=== PATIENT | male | born 1935 | race Caucasian/White ===

== ENCOUNTER → 2016-03-10 | Outpatient (CLI) | payer MEDICARE, OTHER ==
[2016-03-10 07:37] LABS: CH 30.3; CHCM 32.9; HCT 45.4 % (39.0-53.0); HDW 2.42; HGB 14.7 gm/dL (13.0-17.5); MCHC 32.4 g/dL (31.0-37.0); MCV 92.5 fL (80.0-100.0); Mean Platelet Volume 7.6; RBC 4.91 m/uL (4.30-5.90); RDW 13.4 % (11.5-15.5); WBC 7.2 k/uL (3.8-10.6)
[2016-03-10 07:51] LABS: Calcium 9.3 mg/dL (8.4-10.2); Potassium 4.4 mmol/L (3.5-5.1); Total Bilirubin 1.3 mg/dL (0.2-1.3); Total Protein 6.9 g/dL (6.3-8.2)
== END | disposition home or self-care (01) ==
LOC: LABWHC1 07:18
PROVIDERS: ATTEND Internal Medicine
DX: E87.8 Other disorders of electrolyte and fluid balance, not elsewhere classified (principal); R53.83 Other fatigue; E78.9 Disorder of lipoprotein metabolism, unspecified
CPT/HCPCS: 36415; 80053; 80061; 85027

== ENCOUNTER 2016-08-19 18:34 | Emergency (ER) | payer MEDICARE, OTHER ==
[2016-08-19 18:38] VITALS: PULSE 74; RESP 20; TEMP 98.1
[2016-08-19] MEDS ORDERED: diphenhydrAMINE 25 MG CAP PO STA (18:45)
[2016-08-19] MEDS ORDERED: predniSONE 50 MG TAB PO STA (18:45)
--- NOTE | 2016-08-19 18:58 | ED ---
Skin/Abscess/FB HPI - General Chief complaint: Skin/Abscess/Foreign Body Stated complaint: bug bite Time Seen by Provider: 08/19/16 18:40 Source: patient, RN notes reviewed, old records reviewed Mode of arrival: ambulatory Limitations: no limitations - History of Present Illness Initial comments: 81-year-old male presents emergency Department chief complaint of left elbow irritation. Patient reports that he was cutting his grass and thinks that he either got stung by a bee or is having a reaction to another type of insect. Patient reports there is been swelling and pain over them medial aspect of the left elbow and the redness is starting to spread. Patient reports that these have symptoms all 30 this afternoon. Patient reports he is currently on Coumadin for multiple cardiac medications. Patient states that he has been taking any Benadryl or applying anything over the area. Patient denies any fever or chills. Denies any numbness tingling on the hand. Patient reports that he has normal range of motion of the elbow. Denies any falls. Patient reports that he is relatively activ, denies falling on the hand or elbow. - Related Data Home Medications Medication Instructions Recorded Confirmed Atenolol [Tenormin] 25 mg PO BID 09/08/14 05/30/15 Enalapril [Vasotec] 20 mg PO DAILY 09/08/14 05/30/15 Hydrochlorothiazide [Hydrodiuril] 25 mg PO DAILY 09/08/14 05/30/15 Isosorbide Mononitrate ER [Imdur] 30 mg PO DAILY 09/08/14 05/30/15 Potassium Chloride [K-Tab ER] 10 meq PO DAILY 09/08/14 05/30/15 Simvastatin [Zocor] 20 mg PO HS 09/08/14 05/30/15 Cyclobenzaprine [Flexeril] 5 mg PO TID PRN 05/30/15 05/30/15 Enalapril [Vasotec] 10 mg PO HS 05/30/15 05/30/15 Multivitamin [Men's Multi-Vitamin] 1 each PO DAILY 05/30/15 05/30/15 Omeprazole 40 mg PO AC-BRKFST 05/30/15 05/30/15 Warfarin Sodium [Warfarin Sodium] 2.5 mg PO SUMOWETHFRSA 05/30/15 05/30/15 Warfarin Sodium [Warfarin Sodium] 5 mg PO TU 05/30/15 05/30/15 predniSONE See Taper PO DAILY 05/30/15 05/30/15 traMADol HCl [Ultram] 50 - 100 mg PO Q6H PRN 05/30/15 05/30/15 Previous Rx's Medication Instructions Recorded Cephalexin [Keflex] 500 mg PO Q8HR #21 cap 08/19/16 Hydrocortisone Cream 1 applic TOPICAL QID #1 tube 08/19/16 [Hydrocortisone 1% Cream] methylPREDNISolone Dose Pack 4 mg PO DIRECTED #21 package 08/19/16 [Medrol Dose Pack] Allergies Allergy/AdvReac Type Severity Reaction Status Date / Time codeine Allergy Unknown Verified 08/19/16 18:39 morphine Allergy Unknown Verified 08/19/16 18:39 Penicillins Allergy Unknown Verified 08/19/16 18:39 Sulfa (Sulfonamide Allergy Unknown Verified 08/19/16 18:39 Antibiotics) Review of Systems ROS Statement: Those systems with pertinent positive or pertinent negative responses have been documented in the HPI. ROS Other: All systems not noted in ROS Statement are negative. Past Medical History Past Medical History: Atrial Fibrillation, Coronary Artery Disease (CAD), Cancer , Hypertension, Myocardial Infarction ([place]) Additional Past Medical History / Comment(s): Bladder Cancer History of Any Multi-Drug Resistant Organisms: None Reported Past Surgical History: AICD, Bladder Surgery, Coronary Bypass/CABG, Joint Replacement, Pacemaker Past Psychological History: No Psychological Hx Reported Smoking Status: Former smoker Past Alcohol Use History: None Reported Past Drug Use History: None Reported General Exam - General Exam Comments Initial Comments: Pleasant 81-year-old male. No acute distress. Limitations: no limitations General appearance: alert, in no apparent distress Head exam: Present: atraumatic, normocephalic, normal inspection Eye exam: Present: normal appearance, PERRL, EOMI. Absent: scleral icterus, conjunctival injection, periorbital swelling ENT exam: Present: normal exam, mucous membranes moist Neck exam: Present: normal inspection. Absent: tenderness, meningismus, lymphadenopathy Respiratory exam: Present: normal lung sounds bilaterally. Absent: respiratory distress, wheezes, rales, rhonchi, stridor Cardiovascular Exam: Present: regular rate, normal rhythm, normal heart sounds. Absent: systolic murmur, diastolic murmur, rubs, gallop, clicks GI/Abdominal exam: Present: soft, normal bowel sounds. Absent: distended, tenderness, guarding, rebound, rigid Extremities exam: Present: normal inspection, full ROM, normal capillary refill , other (Patient has some swelling and erythema and warmth over the medial aspect of the elbow. The area was drawn with a skin marker. ). Absent: tenderness, pedal edema, joint swelling, calf tenderness Back exam: Present: normal inspection Neurological exam: Present: alert, oriented X3, CN II-XII intact Psychiatric exam: Present: normal affect, normal mood Skin exam: Present: warm, dry, intact, normal color. Absent: rash Course Vital Signs 08/19/16 18:37 Temperature 98.1 F Pulse Rate 74 Respiratory 20 Rate Blood Pressure 198/84 O2 Sat by Pulse 99 Oximetry Medical Decision Making - Medical Decision Making 81-year-old male presents emergency Department chief complaint of left elbow irritation. Patient reports that he was cutting his grass and thinks that he either got stung by a bee or is having a reaction to another type of insect. Patient reports there is been swelling and pain over them medial aspect of the left elbow and the redness is starting to spread. Patient reports that these have symptoms all 30 this afternoon. Patient reports he is currently on Coumadin for multiple cardiac medications. Patient states that he has been taking any Benadryl or applying anything over the area. Patient will be started on steroid pack, Benadryl, hydrocortisone cream as well as Keflex. Discussed that he needs to monitor his Coumadin levels and go to see his primary next week. A line was was drawn around the area of erythema. Patient agrees to treatment plan will comply. Return parameters were discussed. Disposition Clinical Impression: Local reaction to insect sting Disposition: HOME SELF-CARE Condition: Good Instructions: Abscess Incision and Drainage (ED) Additional Instructions: Patient advised to take Benadryl every 4-6 hours. Apply cold compresses over the area. Take antibiotics and prescriptions as directed. Return to the emergency department if any alarming signs or symptoms occur. Patient is to follow-up with primary care provider regards to the Coumadin levels. Prescriptions: Cephalexin [Keflex] 500 mg PO Q8HR #21 cap Hydrocortisone Cream [Hydrocortisone 1% Cream] 1 applic TOPICAL QID #1 tube methylPREDNISolone Dose Pack [Medrol Dose Pack] 4 mg PO DIRECTED #21 package Referrals: Warren Bah MD [Primary Care Provider] - 1-2 days Time of Disposition: 18:56
[2016-08-19 19:31] VITALS: BP 163/99
== END 2016-08-19 19:20 | disposition home or self-care (01) ==
LOC: EC 18:34
DX: T63.481A Toxic effect of venom of other arthropod, accidental (unintentional), initial encounter (principal); W57.XXXA Bitten or stung by nonvenomous insect and other nonvenomous arthropods, initial encounter; M79.89 Other specified soft tissue disorders; Y92.096 Garden or yard of other non-institutional residence as the place of occurrence of the external cause; I48.91 Unspecified atrial fibrillation; I25.10 Atherosclerotic heart disease of native coronary artery without angina pectoris; I25.2 Old myocardial infarction; I10 Essential (primary) hypertension; Z95.1 Presence of aortocoronary bypass graft; Z95.810 Presence of automatic (implantable) cardiac defibrillator; Z85.51 Personal history of malignant neoplasm of bladder; Z79.01 Long term (current) use of anticoagulants; Z79.899 Other long term (current) drug therapy; Z87.891 Personal history of nicotine dependence
CPT/HCPCS: 99282; J7512

== ENCOUNTER → 2016-10-21 | Outpatient (CLI) | payer MEDICARE, OTHER ==
[2016-10-21 10:39] LABS: CH 30.3; CHCM 32.8; HCT 44.7 % (39.0-53.0); MCH 31.2 pg (25.0-35.0); MCHC 33.6 g/dL (31.0-37.0); MCV 92.7 fL (80.0-100.0); Mean Platelet Volume 7.4; RBC 4.83 m/uL (4.30-5.90); WBC 8.8 k/uL (3.8-10.6)
[2016-10-21 11:56] LABS: Potassium 4.4 mmol/L (3.5-5.1); Total Bilirubin 1.6 mg/dL (0.2-1.3); Total Protein 6.2 g/dL (6.3-8.2)
== END | disposition home or self-care (01) ==
LOC: LABWHC1 09:41
PROVIDERS: ATTEND Internal Medicine Cardiovascular Disease
DX: E78.4 Other hyperlipidemia (principal); E87.0 Hyperosmolality and hypernatremia; R53.83 Other fatigue; M12.9 Arthropathy, unspecified
CPT/HCPCS: 36415; 80053; 80061; 82550; 85027; 86140

== ENCOUNTER → 2017-03-02 | Outpatient (CLI) | payer MEDICARE, OTHER ==
[2017-03-02 10:10] LABS: HGB 14.5 gm/dL (13.0-17.5); MCH 29.4 pg (25.0-35.0); MCHC 31.5 g/dL (31.0-37.0); MCV 93.3 fL (80.0-100.0); Mean Platelet Volume 7.8; Platelet Count 184 k/uL (150-450); RBC 4.94 m/uL (4.30-5.90)
[2017-03-02 10:24] LABS: Albumin 3.7 g/dL (3.5-5.0); Calcium 9.4 mg/dL (8.4-10.2); Potassium 4.3 mmol/L (3.5-5.1); Total Bilirubin 0.7 mg/dL (0.2-1.3); Total Protein 6.4 g/dL (6.3-8.2)
== END | disposition home or self-care (01) ==
LOC: LABWHC1 09:28
PROVIDERS: ATTEND Internal Medicine
DX: E78.4 Other hyperlipidemia (principal); E87.8 Other disorders of electrolyte and fluid balance, not elsewhere classified; R53.83 Other fatigue
CPT/HCPCS: 36415; 80053; 80061; 85027

== ENCOUNTER → 2017-06-01 | Outpatient (CLI) | payer MEDICARE, OTHER ==
[2017-06-01 08:03] LABS: Albumin 3.6 g/dL (3.5-5.0); Calcium 9.2 mg/dL (8.4-10.2); Potassium 4.3 mmol/L (3.5-5.1); Total Bilirubin 0.9 mg/dL (0.2-1.3); Total Protein 6.5 g/dL (6.3-8.2)
== END | disposition home or self-care (01) ==
LOC: LABWHC1 07:07
PROVIDERS: ATTEND Internal Medicine Cardiovascular Disease
DX: I25.10 Atherosclerotic heart disease of native coronary artery without angina pectoris (principal); E78.5 Hyperlipidemia, unspecified
CPT/HCPCS: 36415; 80053; 80061

== ENCOUNTER 2017-12-25 14:54 | Observation (INO) | payer MEDICARE ==
--- NOTE | 2017-12-25 15:45 | ED ---
General Adult HPI - General Source: patient, RN notes reviewed Mode of arrival: ambulatory Limitations: no limitations <Samuel Valverde - Last Filed: 12/25/17 18:15> <Maicol Easton - Last Filed: 12/25/17 19:27> - General Chief complaint: Shortness of Breath Stated complaint: Cough Time Seen by Provider: 12/25/17 15:04 - History of Present Illness Initial comments: Patient's an 82-year-old male presented to the emergency room today with chief complaint of cough congestion over the past week. It isn't dyspneic production as been yellow at times. Patient states that he has had tightness that is felt chest. Does not that he feels congested. Patient states his symptoms started 2 weeks ago with nausea vomiting diarrhea symptoms that have improved and left with cough congestion at this time. Patient denies any recent fever, chills, shortness of breath, back pain, abdominal pain, nausea or vomiting, numbness or tingling, headaches or visual changes, or any other complaints. (Samuel Valverde) - Related Data Home Medications Medication Instructions Recorded Confirmed Atenolol [Tenormin] 75 mg PO DAILY 09/08/14 12/25/17 Enalapril [Vasotec] 20 mg PO DAILY 09/08/14 12/25/17 Isosorbide Mononitrate ER [Imdur] 30 mg PO DAILY 09/08/14 12/25/17 Potassium Chloride [K-Tab ER] 10 meq PO DAILY 09/08/14 12/25/17 Simvastatin [Zocor] 20 mg PO HS 09/08/14 12/25/17 Multivitamin [Men's Multi-Vitamin] 1 tab PO DAILY 05/30/15 12/25/17 Atenolol [Tenormin] 50 mg PO HS 12/25/17 12/25/17 Lansoprazole [Prevacid] 15 mg PO DAILY 12/25/17 12/25/17 Tamsulosin [Flomax] 0.4 mg PO DAILY 12/25/17 12/25/17 Warfarin [Coumadin] 2 mg PO HS 12/25/17 12/25/17 Allergies Allergy/AdvReac Type Severity Reaction Status Date / Time codeine Allergy Unknown Verified 12/25/17 18:00 morphine Allergy Unknown Verified 12/25/17 18:00 Penicillins Allergy Unknown Verified 12/25/17 18:00 Sulfa (Sulfonamide Allergy Unknown Verified 12/25/17 18:00 Antibiotics) Review of Systems ROS Other: All systems not noted in ROS Statement are negative. <Samuel Valverde - Last Filed: 12/25/17 18:15> ROS Other: All systems not noted in ROS Statement are negative. <Maicol Easton - Last Filed: 12/25/17 19:27> ROS Statement: Those systems with pertinent positive or pertinent negative responses have been documented in the HPI. Past Medical History Past Medical History: Atrial Fibrillation, Coronary Artery Disease (CAD), Cancer , Hypertension, Myocardial Infarction ([place]) Additional Past Medical History / Comment(s): Bladder Cancer History of Any Multi-Drug Resistant Organisms: None Reported Past Surgical History: AICD, Bladder Surgery, Coronary Bypass/CABG, Joint Replacement, Pacemaker Past Psychological History: No Psychological Hx Reported Smoking Status: Former smoker Past Alcohol Use History: None Reported Past Drug Use History: None Reported <Samuel Valverde - Last Filed: 12/25/17 18:15> General Exam Limitations: no limitations <Samuel Valverde - Last Filed: 12/25/17 18:15> <Maicol Easton Leonardo - Last Filed: 12/25/17 19:27> - General Exam Comments Initial Comments: General: The patient is awake and alert, in no distress, and does not appear acutely ill. Eye: Pupils are equal, round and reactive to light. Extra-ocular movements are intact. No nystagmus. There is normal conjunctiva bilaterally. No signs of icterus. Ears, nose, mouth and throat: There are moist mucous membranes and no oral lesions. Neck: The neck is supple, there is no tenderness or JVD. Cardiovascular: There is a regular rate and rhythm. No murmur, rub or gallop is appreciated. Respiratory: Lungs are clear to auscultation, respirations are non-labored, breath sounds are equal. No wheezes, stridor, rales, or rhonchi. Musculoskeletal: Normal ROM, no tenderness. Sensation intact. Strength 5/5. Pulses equal bilaterally 2+. Neurological: A&O x 3. CN II-XII intact, There are no obvious motor or sensory deficits. Coordination appears grossly intact. Speech is normal. Skin: Skin is warm and dry and no rashes or lesions are noted. Psychiatric: Cooperative, appropriate mood & affect, normal judgment. (Samuel Valverde) Vital Signs 12/25/17 12/25/17 12/25/17 15:00 15:30 15:40 Temperature 98.1 F Pulse Rate 61 64 Respiratory 22 18 20 Rate Blood Pressure 133/57 123/70 O2 Sat by Pulse 94 L 95 Oximetry 12/25/17 12/25/17 12/25/17 16:00 16:10 16:20 Temperature Pulse Rate 64 60 59 L Respiratory 18 18 20 Rate Blood Pressure 126/70 O2 Sat by Pulse 96 96 96 Oximetry 12/25/17 12/25/17 12/25/17 16:30 16:40 16:50 Temperature Pulse Rate 59 L 60 59 L Respiratory 19 16 12 Rate Blood Pressure O2 Sat by Pulse 95 95 95 Oximetry 12/25/17 12/25/17 12/25/17 16:59 17:00 17:05 Temperature Pulse Rate 61 60 67 Respiratory 19 Rate Blood Pressure O2 Sat by Pulse 98 Oximetry 12/25/17 12/25/17 12/25/17 17:10 17:20 17:30 Temperature Pulse Rate 60 59 L 60 Respiratory 19 20 16 Rate Blood Pressure 128/78 127/76 O2 Sat by Pulse 94 L 96 95 Oximetry 12/25/17 12/25/17 12/25/17 17:40 17:50 18:00 Temperature 98.1 F Pulse Rate 63 62 61 Respiratory 18 16 19 Rate Blood Pressure 126/86 130/86 O2 Sat by Pulse 96 96 96 Oximetry 12/25/17 12/25/17 12/25/17 18:10 18:20 18:30 Temperature Pulse Rate 59 L 61 60 Respiratory 16 17 18 Rate Blood Pressure O2 Sat by Pulse 962 H 95 97 Oximetry 12/25/17 12/25/17 12/25/17 18:40 18:50 19:00 Temperature 98.2 F Pulse Rate 60 67 70 Respiratory 14 38 H 17 Rate Blood Pressure 127/84 O2 Sat by Pulse 96 98 Oximetry 12/25/17 12/25/17 12/25/17 19:09 19:10 19:22 Temperature Pulse Rate 59 L 64 Respiratory Rate Blood Pressure O2 Sat by Pulse 99 Oximetry Medical Decision Making - Lab Data Result diagrams: 12/25/17 15:55 12/25/17 15:55 <Samuel Valverde - Last Filed: 12/25/17 18:15> - Lab Data Result diagrams: 12/25/17 15:55 12/25/17 15:55 <Maicol Easton - Last Filed: 12/25/17 19:27> - Medical Decision Making Patient's x-ray reviewed shows no evidence of pneumonia. Patient labs been reviewed. EKG shows ventricular paced rhythm. Patient's lung sounds improved after breathing treatment. Does admit to feeling cough congestion over the last week with sputum production. Patient will be admitted to the hospital continued on breathing treatments, steroids started on antibiotics. (Samuel Valverde) 82-year-old male with 1 week of cough and congestion. Patient has diffuse wheezing, rhonchi, poor air entry. After steroids, and albuterol he is reevaluated, persistent wheezing and mild dyspnea. Patient does not have a diagnosis COPD but he does have remote history of tobacco use. This is likely reactive airway disease with concern for developing pneumonia. He is given albuterol, steroids, and started on antibiotics. (Maicol Easton) - Lab Data Lab Results 12/25/17 12/25/17 12/25/17 Range/Units 15:55 15:55 15:55 WBC 8.3 (3.8-10.6) k/uL RBC 4.77 (4.30-5.90) m/uL Hgb 14.5 (13.0-17.5) gm/dL Hct 43.0 (39.0-53.0) % MCV 90.2 (80.0-100.0) fL MCH 30.5 (25.0-35.0) pg MCHC 33.8 (31.0-37.0) g/dL RDW 13.1 (11.5-15.5) % Plt Count 164 (150-450) k/uL Neutrophils % 74 % Lymphocytes % 12 % Monocytes % 9 % Eosinophils % 3 % Basophils % 0 % Neutrophils # 6.1 (1.3-7.7) k/uL Lymphocytes # 1.0 (1.0-4.8) k/uL Monocytes # 0.7 (0-1.0) k/uL Eosinophils # 0.3 (0-0.7) k/uL Basophils # 0.0 (0-0.2) k/uL PT (9.0-12.0) sec INR (<1.2) APTT (22.0-30.0) sec Sodium 139 (137-145) mmol/L Potassium 4.1 (3.5-5.1) mmol/L Chloride 105 (98-107) mmol/L Carbon Dioxide 26 (22-30) mmol/L Anion Gap 8 mmol/L BUN 23 H (9-20) mg/dL Creatinine 1.52 H (0.66-1.25) mg/dL Est GFR (CKD-EPI)AfAm 50 (>60 ml/min/1.73 sqM) Est GFR (CKD-EPI)NonAf 43 (>60 ml/min/1.73 sqM) Glucose 121 H (74-99) mg/dL Calcium 9.1 (8.4-10.2) mg/dL Total Bilirubin 1.2 (0.2-1.3) mg/dL AST 33 (17-59) U/L ALT 23 (21-72) U/L Alkaline Phosphatase 70 (38-126) U/L Total Creatine Kinase 167 (55-170) U/L CK-MB (CK-2) 0.5 (0.0-2.4) ng/mL CK-MB (CK-2) Rel Index 0.3 Troponin I 0.015 (0.000-0.034) ng/mL Total Protein 6.4 (6.3-8.2) g/dL Albumin 3.4 L (3.5-5.0) g/dL 12/25/17 Range/Units 15:55 WBC (3.8-10.6) k/uL RBC (4.30-5.90) m/uL Hgb (13.0-17.5) gm/dL Hct (39.0-53.0) % MCV (80.0-100.0) fL MCH (25.0-35.0) pg MCHC (31.0-37.0) g/dL RDW (11.5-15.5) % Plt Count (150-450) k/uL Neutrophils % % Lymphocytes % % Monocytes % % Eosinophils % % Basophils % % Neutrophils # (1.3-7.7) k/uL Lymphocytes # (1.0-4.8) k/uL Monocytes # (0-1.0) k/uL Eosinophils # (0-0.7) k/uL Basophils # (0-0.2) k/uL PT 22.7 H (9.0-12.0) sec INR 2.5 H (<1.2) APTT 31.2 H (22.0-30.0) sec Sodium (137-145) mmol/L Potassium (3.5-5.1) mmol/L Chloride (98-107) mmol/L Carbon Dioxide (22-30) mmol/L Anion Gap mmol/L BUN (9-20) mg/dL Creatinine (0.66-1.25) mg/dL Est GFR (CKD-EPI)AfAm (>60 ml/min/1.73 sqM) Est GFR (CKD-EPI)NonAf (>60 ml/min/1.73 sqM) Glucose (74-99) mg/dL Calcium (8.4-10.2) mg/dL Total Bilirubin (0.2-1.3) mg/dL AST (17-59) U/L ALT (21-72) U/L Alkaline Phosphatase (38-126) U/L Total Creatine Kinase (55-170) U/L CK-MB (CK-2) (0.0-2.4) ng/mL CK-MB (CK-2) Rel Index Troponin I (0.000-0.034) ng/mL Total Protein (6.3-8.2) g/dL Albumin (3.5-5.0) g/dL Disposition Is patient prescribed a controlled substance at d/c from ED?: No Time of Disposition: 18:02 <Samuel Valverde - Last Filed: 12/25/17 18:15> <Maicol Easton - Last Filed: 12/25/17 19:27> Clinical Impression: Reactive airway disease Disposition: ADMITTED IP TO THIS HOSP Condition: Stable Addendum entered and electronically signed by Samuel Valverde PA-C 12/25/17 18: 25: EKG performed at 1522: Shows no electronically paced rhythm at 60 bpm. QRS 178. QT/QTc 498/498.
--- NOTE | 2017-12-25 16:15 | XR ---
EXAMINATION TYPE: XR chest 2V DATE OF EXAM: 12/25/2017 COMPARISON: NONE HISTORY: 82-year-old male with chest pain TECHNIQUE: Frontal and lateral views of the chest are obtained. FINDINGS: There is no focal air space opacity, pleural effusion, or pneumothorax seen. The cardiac silhouette size is within normal limits. Dual-lead AICD is present. The osseous structures are intac t. IMPRESSION: No acute cardiopulmonary process.
[2017-12-25 16:18] LABS: Basophils % (A) 0 %; Eosinophils # (A) 0.3 k/uL (0-0.7); Eosinophils % (A) 3 %; HGB 14.5 gm/dL (13.0-17.5); Lymphocytes % (A) 12 %; MCH 30.5 pg (25.0-35.0); MCHC 33.8 g/dL (31.0-37.0); MCV 90.2 fL (80.0-100.0); Mean Platelet Volume 7.3; Monocytes # (A) 0.7 k/uL (0-1.0); Monocytes % (A) 9 %; Neutrophils # (A) 6.1 k/uL (1.3-7.7); Neutrophils % (A) 74 %; Platelet Count 164 k/uL (150-450); RBC 4.77 m/uL (4.30-5.90); RDW 13.1 % (11.5-15.5); WBC 8.3 k/uL (3.8-10.6)
[2017-12-25 16:20] LABS: INR 2.5 (<1.2); Partial Thromboplastin Time 31.2 sec (22.0-30.0); Prothrombin Time 22.7 sec (9.0-12.0)
[2017-12-25 16:26] LABS: Albumin 3.4 g/dL (3.5-5.0); Calcium 9.1 mg/dL (8.4-10.2); Potassium 4.1 mmol/L (3.5-5.1); Total Bilirubin 1.2 mg/dL (0.2-1.3); Total Protein 6.4 g/dL (6.3-8.2)
[2017-12-25 16:41] LABS: Creatine Kinase MB 0.5 ng/mL (0.0-2.4); Troponin I 0.015 ng/mL (0.000-0.034)
[2017-12-25] MEDS ORDERED: IPRATROPIUM-ALBUTEROL 3 ML NEB INHALATION STA ×2 (16:44→17:40)
[2017-12-25] MEDS ORDERED: methylPREDNISolone SOD SUCCI 125 MG/2 ML VIAL IV STA (17:40)
[2017-12-25] MEDS ORDERED: AZITHROMYCIN 500 MG in SODIUM CHLORIDE 0.9% 250 ML IVPB STA (17:41)
[2017-12-25] MEDS ORDERED: ACETAMINOPHEN TAB 500 MG TAB PO STA (17:44)
[2017-12-25] MEDS ORDERED: SODIUM CHLORIDE 0.9% 1,000 ML IV ONE (18:18)
[2017-12-25] MEDS ORDERED: NALOXONE 0.4 MG/ML 1 ML VIAL IV PRN (18:18)
[2017-12-25] MEDS ORDERED: ACETAMINOPHEN TAB 325 MG TAB PO PRN (18:18)
[2017-12-25] MEDS ORDERED: ONDANSETRON 4 MG/2 ML VIAL IVP PRN (18:18)
[2017-12-25] MEDS: IPRATROPIUM-ALBUTEROL 3 ML NEB INHALATION SCH ×2 (19:49→23:37)
[2017-12-25] MEDS: ATORVASTATIN 10 MG TAB PO SCH (21:15)
[2017-12-25] MEDS: WARFARIN 2 MG TAB PO SCH (21:15)
[2017-12-25] MEDS: ATENOLOL 50 MG TAB PO SCH (21:15)
[2017-12-26] MEDS: methylPREDNISolone SOD SUCCI 125 MG/2 ML VIAL IV SCH ×2 (00:01→04:51)
[2017-12-26] MEDS: IPRATROPIUM-ALBUTEROL 3 ML NEB INHALATION SCH ×6 (03:09→23:41)
[2017-12-26 07:29] LABS: Basophils % (A) 0 %; Eosinophils % (A) 0 %; HCT 44.6 % (39.0-53.0); HGB 14.6 gm/dL (13.0-17.5); Lymphocytes # (A) 0.4 k/uL (1.0-4.8); Lymphocytes % (A) 8 %; MCHC 32.8 g/dL (31.0-37.0); MCV 91.5 fL (80.0-100.0); Mean Platelet Volume 7.1; Monocytes # (A) 0.1 k/uL (0-1.0); Monocytes % (A) 2 %; Neutrophils % (A) 90 %; Platelet Count 163 k/uL (150-450); RBC 4.88 m/uL (4.30-5.90); WBC 4.4 k/uL (3.8-10.6)
[2017-12-26 07:31] LABS: INR 2.3 (<1.2); Prothrombin Time 21.2 sec (9.0-12.0)
[2017-12-26 07:55] LABS: Calcium 9.2 mg/dL (8.4-10.2); Potassium 4.1 mmol/L (3.5-5.1)
[2017-12-26] MEDS: LISINOPRIL 20 MG TAB PO SCH (08:57)
[2017-12-26] MEDS: ISOSORBIDE MONONITRATE ER 30 MG TAB.ER.24H PO SCH (08:57)
[2017-12-26] MEDS: POTASSIUM CHLORIDE ER 10 MEQ TAB.ER.PRT PO SCH (08:57)
[2017-12-26] MEDS: ATENOLOL 25 MG TAB PO SCH (08:57)
[2017-12-26] MEDS: PANTOPRAZOLE 40 MG TABLET PO SCH (08:57)
[2017-12-26] MEDS: TAMSULOSIN 0.4 MG CAP.ER.24H PO SCH (08:57)
--- NOTE | 2017-12-26 10:02 | HP ---
HISTORY AND PHYSICAL ATTENDING PHYSICIAN: Dr. Bah. ADMITTING PHYSICIAN: Dr. Mac Greenberg. CHIEF COMPLAINT: Shortness of breath. HISTORY OF PRESENT ILLNESS: This is an 82-year-old gentleman who presents to the emergency room because of cough, congestion, and shortness of breath. The patient says he started having some symptoms about 5 days ago. He initially had flu-like symptoms associated some diarrhea. No blood in the stools. The diarrhea lasted about a day. Next day started having some chest congestion. Denies any sore throat. Denies any fever. Had some chills. The patient presents to the hospital today because of some increasing cough, congestion, and shortness of breath. The patient has a temperature in the ER was 98.1, respirations 22. Pulse ox of 94% on room air. I was informed by the ER physician that the patient's chest sounded very congested and he was quite sick and short of breath. The patient is admitted to the hospital in view of this. At the time of my evaluation a few over hours later, the patient is alert, wearing oxygen with pulse ox 96 percent and feeling better since he has received some respiratory treatments. The patient has no other symptoms of chest pain. His white count was normal. PAST MEDICAL HISTORY: Significant for coronary artery disease with previous CABG, history of hypertension. No history of any diabetes mellitus, lung disease, liver disease, kidney disease, however, patient's creatinine is 1.52 with a GFR of 43. The patient does have a history of carcinoma of the bladder for which he has been treated for the past 5 years with no suggestion of recurrence. He has an evaluation scheduled again next month for a followup. He has abdominal aortic aneurysm at 4.8 cm. The patient has no history of any ulcers, TB, hepatitis, rheumatic fever, myocardial infarction or CVA. PAST SURGICAL HISTORY: Significant for CABG x3 back in 2002. He has also has had a pacemaker and AICD. Suspect he has probably got cardiomyopathy. Patient's past surgical history significant for CABG, left hip arthroplasty, and cataract surgery. He has had a bladder cystoscopies. PERSONAL HISTORY: Ex-smoker, quit smoking more than 30 years ago. Smoked for about 15 years, pack per day. Alcohol none. ALLERGIES: PENICILLIN AND SULFA, which both cause a rash. MORPHINE AND CODEINE SENSITIVE. MEDICATIONS: Include: Atenolol 75 mg in the morning, 50 mg at bedtime, Vasotec 20 mg daily, Imdur 30 mg daily. Prevacid 15 mg daily, multivitamin daily, potassium chloride 10 mEq daily, simvastatin 20 mg daily, Flomax 0.4 mg daily. Coumadin 2 mg daily. SOCIAL HISTORY: Patient is , lives alone. FAMILY MEDICAL HISTORY: Father at the age of 74, chronic kidney disease. Mother age of 84 with history of diabetes with complications. Patient had brother who at 50 years of age of a malignancy, type unknown. A brother at the age of 84 of ruptured abdominal aortic aneurysm. The brother 90 years of age with coronary artery disease and blindness. The patient has 2 sisters, one 78 and one 82 and both in relative good health. REVIEW OF SYSTEMS: NEURO: Denies any headaches, dizziness. No double vision or blurred vision. PSYCH: No anxiety or depression. CARDIAC: No chest pain, angina, palpitations. RESPIRATORY: Present complaint of shortness of breath, cough, congestion. GI: No nausea, vomiting, abdominal pain, diarrhea, constipation, hematochezia, melena. : No symptoms of dysuria, hematuria, urgency, frequency. EXTREMITIES: Denies pain, edema. CONSTITUTIONAL: No fever or chills. HEMATOLOGICAL: No anemia or bleeding disorder. ENDOCRINE: No history of diabetes mellitus. PHYSICAL EXAMINATION: Pleasant gentleman at present in no distress. Vital signs reveals temperature 98.1, pulse 67, respirations 20, blood pressure 144/61, pulse ox 92% on 2 L. HEENT: Normocephalic. Neck supple. No JVD. Pharynx is clear. Dentition upper dentures, lower only partial dentition intact. Neck reveals no JVD. No carotid bruits or thyromegaly. Chest examination is clear to percussion. The patient does have some scattered rhonchi which do clear with cough. The patient's cardiac examination reveals normal S1, S2 with no gallops. Systolic murmur 2/6 at apex. Abdomen is soft. Bowel sounds are normal. No organomegaly. No abdominal bruits. Extremities reveal no edema. Left foot adequate pulse. Right foot decreased pulses. Neurologically awake, alert, oriented x3 with well-coordinated movements. LABORATORY ASSESSMENT: Chest x-ray which shows no acute pulmonary changes. EKG is pacemaker rhythm with 100% capture. CBC was normal. Electrolytes normal. BUN and creatinine elevated 23, 1.52. Glucose 121 random. Troponin is negative. Albumin 3.4. Normal hepatic function. ASSESSMENT: 1. Tracheobronchitis. 2. History of coronary artery disease. 3. Chronic kidney disease stage III. 4. History of abdominal aortic aneurysm. PLAN: The patient at present is stable, continue present medical regimen. Patient's condition discussed with the patient. Prognosis is guarded. The patient will be given some antibiotic with Zithromax and Rocephin, a steroid probably for 24 hours IV and subsequently oral. The patient's condition is stable at present. Condition discussed with the patient's family. MMODL / IJN: [id number] /
[2017-12-26] MEDS ORDERED: BENZONATATE 100 MG CAP PO PRN ×2 (10:10→11:03)
[2017-12-26] MEDS ORDERED: BENZONATATE 100 MG CAP PO SCH (10:15)
[2017-12-26] MEDS: MULTIVITAMINS, THERA 1 EACH TAB PO SCH (11:03)
--- NOTE | 2017-12-26 12:13 | P.PN ---
Subjective Progress Note Date: 12/26/17 This 82-year-old gentleman was admitted to the hospital for shortness of breath cough congestion. Patient has a history of atherosclerotic heart disease. Denies any other associated symptoms of angina palpitations. He has some shortness of breath. He feels better today. His been getting and IV steroids. The patient feels jittery with the steroids and is flushed face. We will discontinue steroids as there is no wheezing he does have a cough with mild congestion. REVIEW OF SYSTEMS: Neuro: Denies any headaches dizziness. Psych: Denies anxiety depression feels oriented. Cardiac: Denies chest pain and angina palpitations. Respiratory: Denies shortness of breath with oxygen on. Does have cough with no sputum production. GI: Denies nausea vomiting or abdominal pain. No diarrhea or constipation, no bowel movement yet. : Denies dysuria hematuria. Extremities: Denies pain. No edema. Skin: Intact. Constitutional: No fever, chills. Objective - Vital Signs Vital signs: Vital Signs Temp 98.0 F 12/26/17 06:05 Pulse 72 12/26/17 10:48 Resp 20 12/26/17 06:05 BP 152/79 12/26/17 06:05 Pulse Ox 92 L 12/26/17 06:05 Intake & Output 12/25/17 12/26/17 12/26/17 18:59 06:59 18:59 Weight 83.915 kg 83.915 kg Other: # Voids 2 PHYSICAL EXAMINATION: Cooperative, at present in no acute distress. HEENT: Neck supple. No JVD. Chest: Occasional scattered rhonchi no wheezing Cardiac: Normal S1-S2 with occasional extrasystole no gallops systolic murmur 2/ 6 apex. Abdomen: Soft bowel sounds present. Extremities: No edema no tenderness Neurologically: Awake, alert, oriented with well-coordinated movements. - Labs CBC & Chem 7: 12/26/17 07:01 12/26/17 07:01 Labs: Abnormal Lab Results - Last 24 Hours (Table) 12/25/17 12/25/17 12/26/17 Range/Units 15:55 15:55 07:01 Lymphocytes # 0.4 L (1.0-4.8) k/uL PT 22.7 H (9.0-12.0) sec INR 2.5 H (<1.2) APTT 31.2 H (22.0-30.0) sec BUN 23 H (9-20) mg/dL Creatinine 1.52 H (0.66-1.25) mg/dL Glucose 121 H (74-99) mg/dL Albumin 3.4 L (3.5-5.0) g/dL 12/26/17 12/26/17 Range/Units 07:01 07:01 Lymphocytes # (1.0-4.8) k/uL PT 21.2 H (9.0-12.0) sec INR 2.3 H (<1.2) APTT (22.0-30.0) sec BUN 26 H (9-20) mg/dL Creatinine 1.42 H (0.66-1.25) mg/dL Glucose 182 H (74-99) mg/dL Albumin (3.5-5.0) g/dL Assessment and Plan Assessment: ASSESSMENT: 1. Tracheobronchitis. 2. ASHD. 3. Pacemaker status. 4. Chronic kidney disease stage III. PLAN: Plan continue present medical regimen. Discontinue steroids. Start patient on Tessalon for cough. Anticipate discharge within next 2448 hrs. Patient's prognosis remains guarded condition discussed with patient. Patient wants no CPR.
[2017-12-26] MEDS: WARFARIN 2 MG TAB PO SCH (17:06)
[2017-12-26] MEDS ORDERED: AZITHROMYCIN 500 MG in SODIUM CHLORIDE 0.9% 250 ML IVPB SCH (18:00)
[2017-12-26] MEDS: ATORVASTATIN 10 MG TAB PO SCH (21:57)
[2017-12-26] MEDS: ATENOLOL 50 MG TAB PO SCH (21:57)
[2017-12-27] MEDS: LORazepam 1 MG TAB PO PRN ×2 (00:11→21:32)
[2017-12-27] MEDS: IPRATROPIUM-ALBUTEROL 3 ML NEB INHALATION SCH ×6 (03:45→23:03)
[2017-12-27] MEDS ORDERED: BISACODYL 5 MG TABLET.DR PO PRN (08:07)
--- NOTE | 2017-12-27 08:14 | P.PN ---
Progress Note - Text The patient is a 82-year-old gentleman who was admitted by Dr. Dionicio pappas for me. Patient was admitted with exacerbation of underlying COPD and tracheobronchitis. He has been coughing and short of breath. He does have underlying history of hypertension, has chronic heart disease with previous pacemaker placement and chronic kidney disease. Generally he states he has been feeling better but with minimal exertion he does drop his O2 saturation down into the 80s. No complaints of chest pain. No nausea or vomiting. He has had some constipation. Vital signs this morning reveal temperature of 98.5 with a pulse of 69 and respirations 16. Blood pressure 119/62 and he is 96% saturated on 2 L. At rest. Lungs do reveal some harsh expiratory rhonchi bilaterally. Heart tones reveal a soft systolic murmur. Abdomen nontender. No unusual edema. He is alert and oriented without focal neurological deficits. Labs No new labs this morning. Lasix BUN and creatinine was 26 and 1.42 given him a GFR of 47. Random blood sugar was 182. Impressions and plans COPD with tracheobronchitis. With exacerbation. Acute on chronic respiratory failure with hypoxia with minimal exertion. The patient was on IV corticosteroids. We will resume lower dose of oral corticosteroids along with his antibiotics. Discussed with nursing staff. We'll continue treatment over the next 24 hours. Possible discharge if clinically improves. We'll also need to consider possibility of home O2 if he does not improve his oxygenation with exertion.
[2017-12-27 09:39] LABS: INR 2.8 (<1.2); Prothrombin Time 24.9 sec (9.0-12.0)
[2017-12-27] MEDS: POTASSIUM CHLORIDE ER 10 MEQ TAB.ER.PRT PO SCH (09:50)
[2017-12-27] MEDS: TAMSULOSIN 0.4 MG CAP.ER.24H PO SCH (09:51)
[2017-12-27] MEDS: PANTOPRAZOLE 40 MG TABLET PO SCH (09:51)
[2017-12-27] MEDS: predniSONE 10 MG TAB PO SCH (09:51)
[2017-12-27] MEDS: ATENOLOL 25 MG TAB PO SCH (09:51)
[2017-12-27] MEDS: ISOSORBIDE MONONITRATE ER 30 MG TAB.ER.24H PO SCH (09:51)
[2017-12-27] MEDS: LISINOPRIL 20 MG TAB PO SCH (09:51)
[2017-12-27] MEDS: MULTIVITAMINS, THERA 1 EACH TAB PO SCH (09:51)
[2017-12-27] MEDS: WARFARIN 2 MG TAB PO SCH (17:07)
[2017-12-27] MEDS ORDERED: AZITHROMYCIN 500 MG TAB PO SCH (18:00)
[2017-12-27] MEDS: ATORVASTATIN 10 MG TAB PO SCH (21:32)
[2017-12-27] MEDS: ATENOLOL 50 MG TAB PO SCH (21:32)
[2017-12-27 23:19] VITALS: RESP 16
[2017-12-28] MEDS: IPRATROPIUM-ALBUTEROL 3 ML NEB INHALATION SCH ×2 (03:12→07:45)
[2017-12-28 06:20] VITALS: BP 134/79; TEMP 97
[2017-12-28] MEDS: ATENOLOL 25 MG TAB PO SCH (07:49)
[2017-12-28] MEDS: TAMSULOSIN 0.4 MG CAP.ER.24H PO SCH (07:49)
[2017-12-28] MEDS: ISOSORBIDE MONONITRATE ER 30 MG TAB.ER.24H PO SCH (07:50)
[2017-12-28] MEDS: LISINOPRIL 20 MG TAB PO SCH (07:50)
[2017-12-28] MEDS: PANTOPRAZOLE 40 MG TABLET PO SCH (07:50)
[2017-12-28] MEDS: predniSONE 10 MG TAB PO SCH (07:50)
[2017-12-28] MEDS: POTASSIUM CHLORIDE ER 10 MEQ TAB.ER.PRT PO SCH (07:50)
[2017-12-28 07:57] VITALS: PULSE 88
--- NOTE | 2017-12-28 08:04 | P.DS ---
Providers Date of admission: 12/25/17 18:33 Mr. Waslh is a 82-year-old gentleman who has underlying COPD and presented with increasing cough congestion and shortness of breath. The patient was admitted by Dr. Greenberg to my service in my absence. Comorbidities include history of coronary artery disease with previous bypass. Hypertension. Chronic kidney disease. Previous history of bladder carcinoma treated 5 years ago with no recurrence. History of aortic aneurysm at 4.8 cm. History of placed maker placement and AICD placement Initial workup in the emergency room did not show any acute changes on his chest x-ray and EKG showed pacemaker rhythm with normal capturing. CBC was unremarkable along with normal electrolytes. BUN was 23 with a creatinine of 1.52 given him a GFR of 43. Random blood sugar was 121. Troponins remain negative. Normal liver function and albumin was 3.4. The patient was admitted and treated with IV antibiotics along with respiratory treatments and corticosteroids were added. Initially had some increase tremors with the IV prednisone and this was stopped and later changed to oral as he did have some persistent wheeze. Overall though clinically he improved. Less shortness of breath. The need for possible home O2 will be clinically followed up in the office as he recovers from this bronchitis. This morning his temperature is 90.7 with a pulse of 85 and respirations 16. Blood pressure is 134/79 and he is 96% saturated. Lungs do reveal some scattered expiratory wheeze but much improved from yesterday. Heart tones were regular. Abdomen nontender. No edema. Tremor of the right upper extremity. No focal neurological weakness or cranial nerve deficits. He is alert and oriented. Home medications Levaquin 500 mg daily for 7 more days. Prednisone 20 mg daily for 7 more days. Patient is instructed to decrease his Coumadin down to 1 mg a day while he is on antibiotics. He will resume his home medications with his tamsulosin 0.4 mg daily Simvastatin 20 mg at at bedtime for cholesterol Potassium chloride 10 mEq daily Multiple vitamin 1 daily For facet 15 mg daily Isorbid mononitrate 30 mg daily Enalapril 20 mg daily Metformin 50 mg at at bedtime and 75 mg daily. Diet and activities as tolerated. No marked exertional activities until follow- up in the office. Recommended follow-up in the office in 3-5 days. Call if any concerns or problems. Discharge diagnoses Exacerbation of COPD with tracheobronchitis and acute on chronic respiratory failure with pO2 Strop at into the 80s with exertion. Underlying history of moderate COPD. Acute on chronic renal failure stage III with a GFR 43. History of coronary artery disease with previous bypass surgery. Previous history of pacemaker placement and AICD placement. Followed by cardiology. History of aortic aneurysm last measured at 4.8 cm History of bladder CA treated 5 years ago without recurrence. Hypertension and hypertensive heart disease. Essential tremor right arm. Hypercholesterolemia Attending physician: Warren Bah Primary care physician: Warren Bah Patient Condition at Discharge: Stable Plan - Discharge Summary New Discharge Prescriptions: No Action Isosorbide Mononitrate ER [Imdur] 30 mg PO DAILY Enalapril [Vasotec] 20 mg PO DAILY Atenolol [Tenormin] 75 mg PO DAILY Simvastatin [Zocor] 20 mg PO HS Potassium Chloride [K-Tab ER] 10 meq PO DAILY Multivitamin [Men's Multi-Vitamin] 1 tab PO DAILY Atenolol [Tenormin] 50 mg PO HS Lansoprazole [Prevacid] 15 mg PO DAILY Tamsulosin [Flomax] 0.4 mg PO DAILY Warfarin [Coumadin] 2 mg PO HS Discharge Medication List Atenolol [Tenormin] 75 mg PO DAILY 09/08/14 [History] Enalapril [Vasotec] 20 mg PO DAILY 09/08/14 [History] Isosorbide Mononitrate ER [Imdur] 30 mg PO DAILY 09/08/14 [History] Potassium Chloride [K-Tab ER] 10 meq PO DAILY 09/08/14 [History] Simvastatin [Zocor] 20 mg PO HS 09/08/14 [History] Multivitamin [Men's Multi-Vitamin] 1 tab PO DAILY 05/30/15 [History] Atenolol [Tenormin] 50 mg PO HS 12/25/17 [History] Lansoprazole [Prevacid] 15 mg PO DAILY 12/25/17 [History] Tamsulosin [Flomax] 0.4 mg PO DAILY 12/25/17 [History] Warfarin [Coumadin] 2 mg PO HS 12/25/17 [History] Follow up Appointment(s)/Referral(s): Warren Bah MD [Primary Care Provider] - 1-2 days
[2017-12-28 09:12] LABS: INR 3.1 (<1.2); Prothrombin Time 27.7 sec (9.0-12.0)
== END 2017-12-28 09:22 | disposition home or self-care (01) ==
LOC: EC 14:54 → 4MS4W 18:33
PROVIDERS: ADMIT Internal Medicine; ATTEND Internal Medicine
DX: J44.1 Chronic obstructive pulmonary disease with (acute) exacerbation (principal); J45.909 Unspecified asthma, uncomplicated; E78.00 Pure hypercholesterolemia, unspecified; G25.0 Essential tremor; I13.10 Hypertensive heart and chronic kidney disease without heart failure, with stage 1 through stage 4 chronic kidney disease, or unspecified chronic kidney disease; I25.10 Atherosclerotic heart disease of native coronary artery without angina pectoris; I48.91 Unspecified atrial fibrillation; J96.20 Acute and chronic respiratory failure, unspecified whether with hypoxia or hypercapnia; N17.9 Acute kidney failure, unspecified; N18.3 Chronic kidney disease, stage 3 (moderate); Z79.01 Long term (current) use of anticoagulants; I25.2 Old myocardial infarction; Z85.51 Personal history of malignant neoplasm of bladder; Z86.79 Personal history of other diseases of the circulatory system; Z87.891 Personal history of nicotine dependence; Z95.810 Presence of automatic (implantable) cardiac defibrillator; Z95.1 Presence of aortocoronary bypass graft; Z96.642 Presence of left artificial hip joint; Z98.49 Cataract extraction status, unspecified eye; Z82.49 Family history of ischemic heart disease and other diseases of the circulatory system; Z82.1 Family history of blindness and visual loss; Z83.3 Family history of diabetes mellitus
CPT/HCPCS: 96376; 96361 ×2; 96366 ×3; 96367; 96365; 96375; 99285; 36415; 94640 ×7; 94760; 93005; 80053; 80048; 82550; 82553; 84484; 85025 ×2; 85610 ×4; 85730; 71046; G0378 ×4; J2930 ×2; J0456 ×2; J0696 ×3; J7512 ×2

== ENCOUNTER → 2018-01-21 | Outpatient (CLI) | payer MEDICARE ==
--- NOTE | 2018-01-21 16:32 | CT ---
EXAMINATION TYPE: CT abdomen pelvis wo con DATE OF EXAM: 01/21/2018 COMPARISON: 05/30/2015 INDICATION: hematuria for 1 week DLP: 792.5 mGycm, Automated exposure control for dose reduction was used. CONTRAST: 0 mL of Isovue 300. Study performed with Oral Contrast TECHNIQUE: Axial images were obtained from above the diaphragm to the pubic rami in the axial plane a t 5 mm thick sections. Reconstructed images are reviewed on the computer in the coronal plane. FINDINGS: Limited CT sections are obtained the lung bases. There is a 0.3 cm calcification within the left niyah g base. Some tenting of the pleural margin is evident. Findings are stable from comparison compatible with scarring.. CT ABDOMEN: Vascular calcification is within the descending thoracic aorta. Liver: Normal Spleen: Normal Pancreas: Normal Adrenal glands: The adrenal glands are normal. Gallbladder: Surgically absent Kidneys: No masses are evident. No hydronephrosis is present. There is a 7.6 cm hypodensity measuri ng 10 Hounsfield units extending from the posterior mid left kidney likely is a cyst. A peripelvic cy st may be present. Prominence of the renal pelvis is also present on the left. No obstructing etiolog y is evident. There is a 5.3 cm cyst extending from the inferior pole right kidney measuring 9 Hounsf ield units. Additional right renal cysts are present. There is a 2.2 cm hypodensity measuring 17 Houn sfield units extending from the posterior lateral left kidney. Complex cyst may be present. This was present previously but likely slightly larger. Additional evaluation with ultrasound is recommended. Right renal cyst appears similar to comparison. Delayed images were obtained through the kidneys, whi ch remain unremarkable. Aorta: Vascular calcification is within the aorta. There is a 4.4 cm mid abdominal aorta aneurysm in frarenal region which terminates above the bifurcation. Inferior vena cava: Normal. CT PELVIS: Lower pelvis is limited due to beam hardening artifact from left hip prosthesis. Loops of bowel within the abdomen and pelvis are normal. There are loops of bowel which are incom pletely distended or lack oral contrast limiting their evaluation. Multiple diverticuli without acute diverticulitis within the sigmoid colon. Appendix: Not well visualized. No suspicious inflammatory changes evident. Urinary bladder: Some subtle thickening measuring 1.0 cm along the anterior right margin of the urina ry bladder may be present. Additional workup of this area is recommended. Series 6 image 71. Genitourinary structures: Prostate is prominent. Osseous structures: No suspicious lytic or sclerotic lesions. Left hip prosthesis is present. IMPRESSIONS: 1. Increasing size of abdominal aortic aneurysm with AP dimension measuring 4.4 cm currently. This p reviously measured 3.8 cm. 2. Some subtle thickening may be along the anterior urinary bladder wall. Underlying neoplasm is not excluded. Follow-up is recommended. 3. Multiple bilateral renal cysts. There may be a somewhat intermediate in signal hypodensity on the left kidney and ultrasound evaluation is recommended the left kidney.
== END | disposition home or self-care (01) ==
LOC: RADCTMAIN 12:41
PROVIDERS: ATTEND Urology
DX: N28.1 Cyst of kidney, acquired (principal); Z88.0 Allergy status to penicillin; Z88.2 Allergy status to sulfonamides; Z88.5 Allergy status to narcotic agent
CPT/HCPCS: 74176

== ENCOUNTER → 2018-03-07 | Outpatient (CLI) | payer MEDICARE ==
[2018-03-07 07:41] LABS: HCT 46.4 % (39.0-53.0); HGB 14.9 gm/dL (13.0-17.5); MCHC 32.2 g/dL (31.0-37.0); MCV 93.2 fL (80.0-100.0); Mean Platelet Volume 6.5; Platelet Count 205 k/uL (150-450); RBC 4.98 m/uL (4.30-5.90); RDW 14.1 % (11.5-15.5); WBC 7.8 k/uL (3.8-10.6)
[2018-03-07 12:00] LABS: Albumin 4.2 g/dL (3.80-4.90); Albumin/Globulin Ratio 2.1 (1.20-2.10); Anion Gap 7.1 mmol/L (4.00-12.00); Calcium 9.1 mg/dL (8.7-10.3); Carbon Dioxide 29.9 mmol/L (21.6-31.8); LDL Cholesterol,Calculated 70.2 mg/dL (0.0-131.0); Potassium 4.4 mmol/L (3.5-5.5); Total Bilirubin 1.2 mg/dL (0.3-1.2); Total Protein 6.2 g/dL (6.2-8.2); VLDL Calculation 23.8 mg/dL (5.00-40.00)
== END | disposition home or self-care (01) ==
LOC: LABWHC1 07:13
PROVIDERS: ATTEND Internal Medicine
DX: E87.8 Other disorders of electrolyte and fluid balance, not elsewhere classified (principal); E78.41 Elevated Lipoprotein(a); R53.83 Other fatigue
CPT/HCPCS: 36415; 80053; 80061; 85027

== ENCOUNTER → 2018-04-05 | Outpatient (CLI) | payer MEDICARE ==
[2018-04-05 17:51] LABS: HCT 44.4 % (39.0-53.0); MCH 29.9 pg (25.0-35.0); MCHC 31.5 g/dL (31.0-37.0); MCV 95.2 fL (80.0-100.0); Mean Platelet Volume 7.3; Platelet Count 265 k/uL (150-450); RBC 4.66 m/uL (4.30-5.90); RDW 13.5 % (11.5-15.5); WBC 7.9 k/uL (3.8-10.6)
--- NOTE | 2018-04-05 22:22 | XR ---
EXAMINATION: XR chest 2V DATE AND TIME: 04/05/2018 6:16 PM CLINICAL INDICATION: PHH; SOB R06.02 TECHNIQUE: Departmental protocol COMPARISON: 12/25/2017 FINDINGS: Cardiac pacemaker, sternal sutures, mediastinal clips. The lungs are clear. The pleural spaces are negative. The cardiac silhouette is not enlarged. The remainder of the mediastinal silhouette is unremarkable. The skeletal structures and soft tissues are negative for acute findings. IMPRESSION: NO ACUTE PROCESS.
[2018-04-06 02:44] LABS: Albumin 3.7 g/dL (3.80-4.90); Albumin/Globulin Ratio 1.85 (1.60-3.17); Anion Gap 12.9 mmol/L (4.00-12.00); Calcium 9.1 mg/dL (8.7-10.3); Carbon Dioxide 23.1 mmol/L (21.6-31.8); Potassium 4.1 mmol/L (3.5-5.5); Total Bilirubin 0.5 mg/dL (0.2-1.2); Total Protein 5.7 g/dL (6.2-8.2)
== END | disposition home or self-care (01) ==
LOC: LABWHC1 17:10
PROVIDERS: ATTEND Internal Medicine Cardiovascular Disease
DX: R06.02 Shortness of breath (principal)
CPT/HCPCS: 36415; 71046; 80053; 83880; 85027

== ENCOUNTER → 2018-09-08 | Outpatient (CLI) | payer MEDICARE ==
[2018-09-08 08:39] LABS: HCT 41.6 % (39.0-53.0); HGB 13.5 gm/dL (13.0-17.5); MCH 30.3 pg (25.0-35.0); MCHC 32.5 g/dL (31.0-37.0); MCV 93.2 fL (80.0-100.0); Mean Platelet Volume 7.4; Platelet Count 184 k/uL (150-450); RBC 4.46 m/uL (4.30-5.90); RDW 15.5 % (11.5-15.5); WBC 7.6 k/uL (3.8-10.6)
[2018-09-08 16:03] LABS: African American GFR (CKD) 46.1 (60.0-200.0); BUN/Creat Ratio 12.5 Ratio (12.00-20.00); Calcium 9.3 mg/dL (8.7-10.3); LDL Cholesterol,Calculated 55.2 mg/dL (0.0-131.0); Potassium 4.8 mmol/L (3.5-5.5); VLDL Calculation 20.8 mg/dL (5.00-40.00)
== END | disposition home or self-care (01) ==
LOC: LABWHC1 07:17
PROVIDERS: ATTEND Internal Medicine
DX: E87.8 Other disorders of electrolyte and fluid balance, not elsewhere classified (principal); E78.5 Hyperlipidemia, unspecified; D64.9 Anemia, unspecified
CPT/HCPCS: 36415; 80048; 80061; 85027

== ENCOUNTER → 2018-10-05 | Outpatient (CLI) | payer MEDICARE ==
[2018-10-05 09:38] LABS: Basophils % (A) 1 %; Eosinophils # (A) 0.3 k/uL (0-0.7); Eosinophils % (A) 4 %; HCT 44.9 % (39.0-53.0); HGB 14.4 gm/dL (13.0-17.5); Lymphocytes # (A) 1.2 k/uL (1.0-4.8); Lymphocytes % (A) 15 %; MCH 29.1 pg (25.0-35.0); MCV 91.2 fL (80.0-100.0); Monocytes # (A) 0.7 k/uL (0-1.0); Monocytes % (A) 8 %; Neutrophils # (A) 5.5 k/uL (1.3-7.7); Neutrophils % (A) 70 %; Platelet Count 211 k/uL (150-450); RBC 4.93 m/uL (4.30-5.90); RDW 13.9 % (11.5-15.5); WBC 7.9 k/uL (3.8-10.6)
[2018-10-05 11:49] LABS: Erythrocyte Sedimentation Rate 5 mm/hr (0-15)
[2018-10-05 18:56] LABS: Anti-DNA, DS unit <1.0 IU/mL; Anti-Smith Ab Interp NEGATIVE (NEGATIVE); DNA Double-Stranded NEGATIVE (NEGATIVE)
[2018-10-05 18:59] LABS: HIV 1 AB Non-Reactive (Non-Reactive); HIV 2 AB Non-Reactive (Non-Reactive); HIV AB P24 Non-Reactive (Non-Reactive); HIV P24 AG Non-Reactive (Non-Reactive)
[2018-10-07 12:00] LABS: Lyme IgG/IgM 0.06 Index; Lyme IgG/IgM Interp NEGATIVE (NEGATIVE)
[2018-10-11 14:02] LABS: Lysozyme, Serum or Body Fluid 9.3 mcg/mL (5.0-11.0)
== END | disposition home or self-care (01) ==
LOC: LABWHC1 09:07
PROVIDERS: ATTEND Ophthalmology
DX: H20.019 Primary iridocyclitis, unspecified eye (principal)
CPT/HCPCS: 36415; 82164; 83516; 85025; 85549; 85652; 86038; 86140; 86225; 86235; 86480; 86618; 86780; 87390

== ENCOUNTER → 2018-10-26 | Outpatient (CLI) | payer MEDICARE ==
--- NOTE | 2018-10-26 10:16 | CT ---
EXAMINATION TYPE: CT brain wo con DATE OF EXAM: 10/26/2018 COMPARISON: CT brain dated 03/12/2013 HISTORY: Visual changes in right eye, s/p skin graft on right forehead CT DLP: 955.30 mGycm Automated exposure control for dose reduction was used. FINDINGS: Symmetric peripheral sulcal and ventricular system and prominence is most compatible with age-related atrophy. Old lacunar infarcts are seen of the left caudate nucleus head and lentiform nucleus on lizeth ge 22. Prominent sulcus in the right occipital lobe on image 23 is unchanged from 03/12/2013 and does not appear as a prior lacunar infarct on the coronal images demonstrates patient's visual loss. Old l acunar injury is seen of the genu of the anterior capsule on the left on image 20. Left-sided lacunar injuries are unchanged from the prior of 2013. Few additional scattered areas of hypoattenuation are seen within the periventricular and subcortical white matter, most commonly in the basis of chronic microangiopathy. No suspicious extra-axial fluid collection. No acute intracranial hemorrhage, midlin e shift or mass effect. Extensive atherosclerosis of the intracranial vasculature is seen. Subcutaneous tissues are grossly u nremarkable. The orbits are symmetric and lenses appear atrophic but in place within the anterior terrence mbers. Extraocular muscles are also symmetric. No subcutaneous fluid collection in the right frontal region. There is posterior nasal septum leftward deviation with undulation towards the right in its midportio n. A 4 mm leftward nasal septal spur is present. Scant mucosal thickening of the ethmoid sinuses are seen. Remaining paranasal sinuses and mastoid air cells are well aerated. Calvarium appears intact. P ituitary gland appears unremarkable. IMPRESSION: 1. NO ACUTE INTRACRANIAL PROCESS. 2. 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 3. AGE-RELATED CEREBRAL VOLUME LOSS AND MILD BURDEN NONSPECIFIC WHITE MATTER CHANGE.
--- NOTE | 2018-10-26 10:32 | CT ---
EXAMINATION TYPE: CT orbits wo con DATE OF EXAM: 10/26/2018 COMPARISON: None HISTORY: 83-year-old male Visual changes in right eye, s/p skin graft on right forehead TECHNIQUE: Contiguous axial scanning of the orbits without IV contrast. Coronal reconstructions perfo rmed. CT DLP: 281.70 mGycm Automated exposure control for dose reduction was used. FINDINGS: There is no obvious abnormality of the visualized intracranial structures an ingested above the level of the orbits. There is no evidence of fractures. Evidence of bilateral cataract surgery. Globes appear symmetrical. Optic canals appear normal. Optic nerves are symmetrical bilaterally. There is no intraocular abnorm ality identified by noncontrast CT. Extraocular muscles are symmetrical bilaterally. There is no retrobulbar, intraorbital mass. Mild atherosclerotic calcifications in the carotid siphons. The sella and cavernous sinuses show no gross abnormality by noncontrast CT. Rightward nasal septal deviation. Trace mucosal thickening anterior left maxillary sinus and anterior ethmoid air cells on both sides. Remaining visualized portions of the paranasal sinuses are well pne umatized. Visualized mastoid air cells and middle ear cavities are well pneumatized. IMPRESSION: PRIOR BILATERAL CATARACT SURGERY. RIGHTWARD NASAL SEPTAL DEVIATION. SCATTERED TRACE MUCOSAL THICKENIN G IN THE PARANASAL SINUSES. OTHERWISE, NO SPECIFIC ABNORMALITY ON NONCONTRAST CT OF THE ORBITS.
== END | disposition home or self-care (01) ==
LOC: RADCTMAIN 08:13
PROVIDERS: ATTEND Ophthalmology
DX: G31.9 Degenerative disease of nervous system, unspecified (principal); R90.82 White matter disease, unspecified; J34.2 Deviated nasal septum; H47.011 Ischemic optic neuropathy, right eye; Z98.890 Other specified postprocedural states
CPT/HCPCS: 36415; 70450; 70480; 82565; 84520

== ENCOUNTER → 2018-11-29 | Outpatient (CLI) | payer MEDICARE ==
--- NOTE | 2018-11-29 13:14 | FL ---
EXAMINATION TYPE: FL barium swallow w video DATE OF EXAM: 11/29/2018 COMPARISON: NONE HISTORY: Dysphagia, cerebral infarction 41 seconds fluoroscopy time, no intraoperative images.. The patient was evaluated in the lateral projection during real-time fluoroscopy, during ingestion of barium mixed with solids and liquids. No aspiration or laryngeal penetration. See report from [facility].
== END ==
LOC: RADFLMAIN 10:36
PROVIDERS: ATTEND Family Medicine
DX: R13.10 Dysphagia, unspecified (principal); I63.9 Cerebral infarction, unspecified
CPT/HCPCS: 74230

== ENCOUNTER → 2019-04-20 | Outpatient (CLI) | payer MEDICARE ==
[2019-04-20 16:10] LABS: HCT 47.1 % (39.0-53.0); HGB 15.4 gm/dL (13.0-17.5); MCH 30.4 pg (25.0-35.0); MCHC 32.7 g/dL (31.0-37.0); MCV 92.8 fL (80.0-100.0); Mean Platelet Volume 7.8; Platelet Count 190 k/uL (150-450); RBC 5.07 m/uL (4.30-5.90); RDW 12.8 % (11.5-15.5)
== END | disposition home or self-care (01) ==
LOC: LABPAT 15:07
PROVIDERS: ATTEND Internal Medicine Cardiovascular Disease
DX: Z01.812 Encounter for preprocedural laboratory examination (principal); I48.21 Permanent atrial fibrillation
CPT/HCPCS: 36415; 80051; 82565; 84520; 85027

== ENCOUNTER 2019-04-28 | Day surgery (SDC) | payer MEDICARE | END 2019-04-28 12:30 | disposition home or self-care (01) | CPT/HCPCS: 33263; 85610; C1721; J3010; J2001 ==

== ENCOUNTER 2019-04-30 09:51 | Emergency (ER) | payer MEDICARE ==
[2019-04-30 09:57] VITALS: TEMP 97.4
--- NOTE | 2019-04-30 10:31 | ED ---
General Adult HPI - General Chief complaint: Recheck/Abnormal Lab/Rx Stated complaint: swelling/bleeding from surgical site Source: patient, RN notes reviewed Mode of arrival: ambulatory Limitations: no limitations - History of Present Illness Initial comments: 84-year-old male with a past medical history of atrial fibrillation, CAD, hypertension presents to the emergency department for bleeding from surgical site. Patient states that 2 days ago he had his pacemaker and defibrillator replaced. States that this morning he noticed there is some swelling to it in the area started to bleed. Patient bandage this himself. States that he was on heparin prior to surgery and is now back on his Coumadin. This was just started again Wednesday. States that he is currently taking antibiotics to prevent infection. Denies fever or chills. Patient has no other complaints at this time including shortness of breath, chest pain, abdominal pain, nausea or vomiting, headache, or visual changes. - Related Data Home Medications Medication Instructions Recorded Confirmed Atenolol [Tenormin] 75 mg PO DAILY 09/08/14 04/28/19 Enalapril [Vasotec] 20 mg PO BID 09/08/14 04/28/19 Isosorbide Mononitrate ER [Imdur] 30 mg PO DAILY 09/08/14 04/28/19 Potassium Chloride [K-Tab ER] 8 meq PO DAILY 09/08/14 04/28/19 Simvastatin [Zocor] 20 mg PO HS 09/08/14 04/28/19 Multivitamin [Men's Multi-Vitamin] 1 tab PO HS 05/30/15 04/28/19 Atenolol [Tenormin] 50 mg PO HS 12/25/17 04/28/19 Tamsulosin [Flomax] 0.4 mg PO DAILY 12/25/17 04/28/19 Warfarin [Coumadin] 2 mg PO HS 12/25/17 04/26/19 Hydrochlorothiazide [Hydrodiuril] 25 mg PO DAILY 04/26/19 04/28/19 Omeprazole Magnesium [PriLOSEC OTC] 20 mg PO Q48H 04/26/19 04/28/19 Warfarin [Coumadin] 3 mg PO MOWEFR 04/26/19 04/26/19 Previous Rx's Medication Instructions Recorded Clindamycin HCl [Cleocin] 300 mg PO Q8H #10 cap 04/28/19 Allergies Allergy/AdvReac Type Severity Reaction Status Date / Time codeine Allergy Unknown Verified 04/30/19 09:57 morphine Allergy Unknown Verified 04/30/19 09:57 Penicillins Allergy Unknown Verified 04/30/19 09:57 Sulfa (Sulfonamide Allergy Unknown Verified 04/30/19 09:57 Antibiotics) Review of Systems ROS Statement: Those systems with pertinent positive or pertinent negative responses have been documented in the HPI. ROS Other: All systems not noted in ROS Statement are negative. Past Medical History Past Medical History: Atrial Fibrillation, Coronary Artery Disease (CAD), Cancer, Hypertension, Myocardial Infarction (NM) Additional Past Medical History / Comment(s): Bladder Cancer Last Myocardial Infarction Date:: 2000 History of Any Multi-Drug Resistant Organisms: None Reported Past Surgical History: AICD, Bladder Surgery, Coronary Bypass/CABG, Joint Replacement, Pacemaker Type of Cardiac Device: Permanent Pacemaker, AICD Device Placement Date:: 2014 Past Psychological History: No Psychological Hx Reported Smoking Status: Never smoker Past Alcohol Use History: None Reported Past Drug Use History: None Reported General Exam Limitations: no limitations General appearance: alert, in no apparent distress Head exam: Present: atraumatic, normocephalic, normal inspection Eye exam: Present: normal appearance, PERRL, EOMI. Absent: scleral icterus, conjunctival injection, periorbital swelling ENT exam: Present: normal exam, mucous membranes moist Neck exam: Present: normal inspection, full ROM. Absent: tenderness, meningismus, lymphadenopathy Respiratory exam: Present: normal lung sounds bilaterally, other (Bandages were removed. Steri-Strips applied to the surgical incision over the left anterior chest. These were not removed. Hemostasis achieved prior to examination.). Absent: respiratory distress, wheezes, rales, rhonchi, stridor Cardiovascular Exam: Present: regular rate, normal rhythm, normal heart sounds. Absent: systolic murmur, diastolic murmur, rubs, gallop, clicks Course Vital Signs 04/30/19 09:54 Temperature 97.4 F L Pulse Rate 58 L Respiratory 16 Rate Blood Pressure 113/63 O2 Sat by Pulse 96 Oximetry Medical Decision Making - Medical Decision Making There is mild edema over the surgical site however this is likely normal given recent surgery. There is no erythema or increased warmth. No evidence for purulent drainage. Hemostasis is achieved prior to examination. Area was re- bandaged. Patient is seeing cardiology tomorrow and will follow-up. I did discuss signs of infection and to return if these occur. Discussed applying direct pressure if patient has bleeding and to return if he cannot get this to stop.I discussed this case with attending Dr. Hull who agrees with this assessment and treatment plan. Disposition Clinical Impression: Encounter for wound re-check Disposition: HOME SELF-CARE Condition: Good Instructions (If sedation given, give patient instructions): Wound Dehiscence (ED) Additional Instructions: Please monitor the area for any redness, drainage, or signs of infection. Follow-up with your sharepoint net developer tomorrow for a recheck. If you have any additional bleeding from the site apply direct pressure for 20 minutes. If you cannot get bleeding to stop at home return to the emergency department. HAPPY BIRTHDAY! Enjoy your celebration this afternoon! Is patient prescribed a controlled substance at d/c from ED?: No Referrals: Carri Fontenot MD [Primary Care Provider] - 1-2 days Time of Disposition: 10:30
[2019-04-30 10:48] VITALS: BP 110/68; PULSE 60; RESP 18
== END 2019-04-30 10:34 | disposition home or self-care (01) ==
LOC: EC 09:51
DX: Z48.89 Encounter for other specified surgical aftercare (principal); I48.91 Unspecified atrial fibrillation; I25.10 Atherosclerotic heart disease of native coronary artery without angina pectoris; I10 Essential (primary) hypertension; I25.2 Old myocardial infarction; Z88.0 Allergy status to penicillin; Z88.2 Allergy status to sulfonamides; Z88.5 Allergy status to narcotic agent; Z79.01 Long term (current) use of anticoagulants; Z79.899 Other long term (current) drug therapy; Z85.51 Personal history of malignant neoplasm of bladder; Z95.0 Presence of cardiac pacemaker; Z95.1 Presence of aortocoronary bypass graft; Z98.890 Other specified postprocedural states
CPT/HCPCS: 99283

== ENCOUNTER 2019-05-08 14:30 | Day surgery (SDC) | payer MEDICARE ==
[2019-05-08] MEDS ORDERED: SODIUM CHLORIDE 0.9% 500 ML 500 ML IV ONE (14:40)
[2019-05-08] MEDS ORDERED: CLINDAMYCIN 900 MG in DEXTROSE 5% IN WATER 50 ML IVPB STA ×2 (14:42)
[2019-05-08] MEDS ORDERED: CLINDAMYCIN 600 MG in SODIUM CHLORIDE 0.9% IRRIGATIO 250 ML IRRIGATION ONE (14:43)
[2019-05-08] MEDS ORDERED: LIDOCAINE 1% INJ 10MG/ML (20 ML MDV) ONE (15:09)
[2019-05-08] MEDS ORDERED: LIDOCAINE 1% INJ 10MG/ML (20 ML MDV) SQ ONE (15:29)
[2019-05-08] MEDS ORDERED: MIDAZOLAM 2 MG/2 ML VIAL IV ONE (15:29)
--- NOTE | 2019-05-08 16:07 | P.PCN ---
Preoperative Diagnosis: Diagnosis ICD surgical wound dehiscence lateral margin, lateral half Recurrent oozing and bleeding of dark blood Permanent atrial fibrillation on anticoagulation history of CVA Small hematoma, status post ICD generator change Procedure IV antibiotics administered, IV clindamycin In the EP lab wound prepped and draped per protocol The incision palpated and Noted in the lateral half of the incision with wound day since of the lateral edge but no evidence of cell lightest infection Tension relieving sutures used to close the lateral half of the ICD incision Patient underwent EP procedure under conscious sedation/moderate sedation, monitoring of the level of consciousness and physiologic parameters including but not limited to vital signs and oxygenation. Patient tolerated the procedure well without any acute complications. Start time: 1527 Stop time: 1546
[2019-05-08 16:09] VITALS: RESP 16
[2019-05-08 16:30] VITALS: TEMP 98.6
[2019-05-08 16:47] VITALS: BP 136/72; PULSE 60
== END 2019-05-08 17:04 | disposition home or self-care (01) ==
LOC: CATHEP 14:30
PROVIDERS: ATTEND Internal Medicine Clinical Cardiac Electrophysiology
DX: T81.31XA Disruption of external operation (surgical) wound, not elsewhere classified, initial encounter (principal); I48.21 Permanent atrial fibrillation; I25.10 Atherosclerotic heart disease of native coronary artery without angina pectoris; I11.0 Hypertensive heart disease with heart failure; I50.42 Chronic combined systolic (congestive) and diastolic (congestive) heart failure; I49.3 Ventricular premature depolarization; I25.9 Chronic ischemic heart disease, unspecified; I42.8 Other cardiomyopathies; I47.2 Ventricular tachycardia; E78.00 Pure hypercholesterolemia, unspecified; E78.5 Hyperlipidemia, unspecified; F17.210 Nicotine dependence, cigarettes, uncomplicated; Z79.899 Other long term (current) drug therapy; Z79.01 Long term (current) use of anticoagulants; Z88.5 Allergy status to narcotic agent; Z88.0 Allergy status to penicillin; Z88.2 Allergy status to sulfonamides; Z95.1 Presence of aortocoronary bypass graft; Z95.810 Presence of automatic (implantable) cardiac defibrillator
CPT/HCPCS: 12020; J2250; J2001

== ENCOUNTER 2019-09-10 10:50 | Emergency (ER) | payer MEDICARE ==
--- NOTE | 2019-09-10 12:36 | ED ---
ENT HPI - General Chief complaint: ENT Stated complaint: epistaxis Time Seen by Provider: 09/10/19 11:20 Source: patient Mode of arrival: ambulatory Limitations: no limitations - History of Present Illness Initial comments: Patient 84-year-old male past medical history of A. fib on Coumadin who presents to the emergency department with reported epistaxis. He states that approximately one month ago he fell and hit the left side of his face. Ever since then he's had occasional nosebleeds. Patient began having a bloody nose at or around 7 AM this morning. States that the bleeding did stop shortly afterwards however he ended up sneezing hours later it or to bleeding again. Patient takes Coumadin. He has been taking as directed. No new recent medications. INR last checked last week and it was 2.4. Patient denies any additional bleeding. No fevers or chills. No nasal discharge. No other alleviating, precipitating or modifying factors - Related Data Home Medications Medication Instructions Recorded Confirmed Enalapril [Vasotec] 20 mg PO BID 09/08/14 04/28/19 Isosorbide Mononitrate ER [Imdur] 30 mg PO DAILY 09/08/14 04/28/19 Potassium Chloride [K-Tab ER] 8 meq PO DAILY 09/08/14 04/28/19 Simvastatin [Zocor] 20 mg PO HS 09/08/14 04/28/19 atenoloL [Tenormin] 75 mg PO DAILY 09/08/14 04/28/19 Multivitamin [Men's Multi-Vitamin] 1 tab PO HS 05/30/15 04/28/19 Tamsulosin [Flomax] 0.4 mg PO DAILY 12/25/17 04/28/19 Warfarin [Coumadin] 2 mg PO HS 12/25/17 04/26/19 atenoloL [Tenormin] 50 mg PO HS 12/25/17 04/28/19 Omeprazole Magnesium [PriLOSEC OTC] 20 mg PO Q48H 04/26/19 04/28/19 Warfarin [Coumadin] 3 mg PO MOWEFR 04/26/19 04/26/19 hydroCHLOROthiazide [Hydrodiuril] 25 mg PO DAILY 04/26/19 04/28/19 Previous Rx's Medication Instructions Recorded clindamycin HCL [Cleocin] 300 mg PO Q8H #10 cap 04/28/19 Cephalexin [Keflex] 500 mg PO Q6HR 3 Days #12 cap 09/10/19 Allergies Allergy/AdvReac Type Severity Reaction Status Date / Time codeine Allergy Unknown Verified 09/10/19 11:19 morphine Allergy Unknown Verified 09/10/19 11:19 Penicillins Allergy Unknown Verified 09/10/19 11:19 Sulfa (Sulfonamide Allergy Unknown Verified 09/10/19 11:19 Antibiotics) Review of Systems ROS Statement: Those systems with pertinent positive or pertinent negative responses have been documented in the HPI. ROS Other: All systems not noted in ROS Statement are negative. Past Medical History Past Medical History: Atrial Fibrillation, Coronary Artery Disease (CAD), Cancer, Hypertension, Myocardial Infarction ([place]) Additional Past Medical History / Comment(s): Bladder Cancer Last Myocardial Infarction Date:: 2000 History of Any Multi-Drug Resistant Organisms: None Reported Past Surgical History: AICD, Bladder Surgery, Coronary Bypass/CABG, Joint Replacement, Pacemaker Type of Cardiac Device: Permanent Pacemaker, AICD Device Placement Date:: 2014 Past Psychological History: No Psychological Hx Reported Past Alcohol Use History: None Reported Past Drug Use History: None Reported General Exam Limitations: no limitations General appearance: alert, in no apparent distress Eye exam: Present: normal appearance, PERRL, EOMI. Absent: scleral icterus, conjunctival injection, periorbital swelling ENT exam: Present: other (active bleeding left nare with a large visualized clot posteriorly - suspected posterior bleed. No anterior bleeding visulized. No na dilia hematoma. Bright red blood down the patients posterior pharynx. ) Neck exam: Present: normal inspection. Absent: tenderness, meningismus, lymphadenopathy Course Vital Signs 09/10/19 09/10/19 09/10/19 11:17 14:03 15:33 Temperature 97.8 F 98.1 F Pulse Rate 81 62 62 Respiratory 16 18 18 Rate Blood Pressure 114/74 170/87 160/83 O2 Sat by Pulse 97 97 95 Oximetry Medical Decision Making - Medical Decision Making Upon arrival the patient placed into room 24. A thorough history and physical exam was performed. Patient has a nasal clamp in place. This is removed and the nares evaluated. There is a large clot in the posterior nare. No anterior epistaxis appreciated. The patient does have some bloody drainage running down the posterior pharynx. Laboratory studies were obtained. I did use a 10 cm Merocel and packed the patient's left nare. Laboratory studies were reviewed patient has an INR of 3.4. Patient is reevaluated and continues to have some bright, thick bloody drainage. Because of this I did order TXA in the patient was administered 500 mg, saturated in the Merocel. The patient is then observed for an hour and a half is a patient is very apprehensive to go home. The patient's does have some serosanguineous drainage from the saturated blood and TXA however there is no active bleeding. The patient's posterior pharynx is visualized and there is no blood visualized on multiple occasions. The patient is placed in a mustache dressing. She'll be discharged home at this time. He is to hold his Coumadin tonight and tomorrow. He needs to follow-up with his security public safety officer to have his INR redrawn by Wednesday. He is also to call Dr. Tarango's office in the morning to schedule an appointment. His packing must be removed in 48 hours. He'll be placed on Keflex. The patient understood this. If she has any new or worsening symptoms or the nose does start to bleed again he should return to the emergency room. I did initially recommend FFP however the patient reports to an ischemic stroke 3 weeks ago. She agreed to this treatment plan and is discharged home in stable condition - Lab Data Result diagrams: 09/10/19 12:31 09/10/19 12:31 Lab Results 09/10/19 09/10/19 09/10/19 Range/Units 12:25 12:31 12:31 WBC 6.8 (3.8-10.6) k/uL RBC 4.38 (4.30-5.90) m/uL Hgb 13.5 (13.0-17.5) gm/dL Hct 40.3 (39.0-53.0) % MCV 92.0 (80.0-100.0) fL MCH 30.7 (25.0-35.0) pg MCHC 33.4 (31.0-37.0) g/dL RDW 13.1 (11.5-15.5) % Plt Count 156 (150-450) k/uL Neutrophils % 65 % Lymphocytes % 19 % Monocytes % 7 % Eosinophils % 7 % Basophils % 0 % Neutrophils # 4.4 (1.3-7.7) k/uL Lymphocytes # 1.3 (1.0-4.8) k/uL Monocytes # 0.5 (0-1.0) k/uL Eosinophils # 0.4 (0-0.7) k/uL Basophils # 0.0 (0-0.2) k/uL PT 33.6 H (9.0-12.0) sec INR 3.4 H (<1.2) APTT 33.8 H (22.0-30.0) sec Sodium (137-145) mmol/L Potassium (3.5-5.1) mmol/L Chloride (98-107) mmol/L Carbon Dioxide (22-30) mmol/L Anion Gap mmol/L BUN (9-20) mg/dL Creatinine (0.66-1.25) mg/dL Est GFR (CKD-EPI)AfAm (>60 ml/min/1.73 sqM) Est GFR (CKD-EPI)NonAf (>60 ml/min/1.73 sqM) Glucose (74-99) mg/dL Calcium (8.4-10.2) mg/dL Total Bilirubin (0.2-1.3) mg/dL AST (17-59) U/L ALT (4-49) U/L Alkaline Phosphatase (38-126) U/L Total Protein (6.3-8.2) g/dL Albumin (3.5-5.0) g/dL Blood Type A Positive Blood Type Recheck A Pos Bld Type Recheck Status No Antibody Screen NEGATIVE Transfuse Plasma Cancelled Spec Expiration Date 09/13/2019232409/10/19 Range/Units 12:31 WBC (3.8-10.6) k/uL RBC (4.30-5.90) m/uL Hgb (13.0-17.5) gm/dL Hct (39.0-53.0) % MCV (80.0-100.0) fL MCH (25.0-35.0) pg MCHC (31.0-37.0) g/dL RDW (11.5-15.5) % Plt Count (150-450) k/uL Neutrophils % % Lymphocytes % % Monocytes % % Eosinophils % % Basophils % % Neutrophils # (1.3-7.7) k/uL Lymphocytes # (1.0-4.8) k/uL Monocytes # (0-1.0) k/uL Eosinophils # (0-0.7) k/uL Basophils # (0-0.2) k/uL PT (9.0-12.0) sec INR (<1.2) APTT (22.0-30.0) sec Sodium 141 (137-145) mmol/L Potassium 3.9 (3.5-5.1) mmol/L Chloride 105 (98-107) mmol/L Carbon Dioxide 27 (22-30) mmol/L Anion Gap 9 mmol/L BUN 27 H (9-20) mg/dL Creatinine 1.57 H (0.66-1.25) mg/dL Est GFR (CKD-EPI)AfAm 47 (>60 ml/min/1.73 sqM) Est GFR (CKD-EPI)NonAf 41 (>60 ml/min/1.73 sqM) Glucose 94 (74-99) mg/dL Calcium 8.7 (8.4-10.2) mg/dL Total Bilirubin 1.0 (0.2-1.3) mg/dL AST 38 (17-59) U/L ALT 21 (4-49) U/L Alkaline Phosphatase 69 (38-126) U/L Total Protein 6.3 (6.3-8.2) g/dL Albumin 3.6 (3.5-5.0) g/dL Blood Type Blood Type Recheck Bld Type Recheck Status Antibody Screen Transfuse Plasma Spec Expiration Date Disposition Clinical Impression: Posterior epistaxis Disposition: HOME SELF-CARE Condition: Stable Instructions (If sedation given, give patient instructions): Nosebleed (ED) Additional Instructions: Do not take your Coumadin tonight or tomorrow. Call your doctor in the morning for repeat INR check. Also call Dr. Mckeon's office to make an appointment for tomorrow. Return to the emergency room for any new or worsening symptoms Prescriptions: Cephalexin [Keflex] 500 mg PO Q6HR 3 Days #12 cap Is patient prescribed a controlled substance at d/c from ED?: No Referrals: Carri Fontenot MD [Primary Care Provider] - 1-2 days Armani Cuadra MD [STAFF PHYSICIAN] - 1-2 days Time of Disposition: 15:51
[2019-09-10 12:43] LABS: Basophils % (A) 0 %; Eosinophils # (A) 0.4 k/uL (0-0.7); Eosinophils % (A) 7 %; HCT 40.3 % (39.0-53.0); HGB 13.5 gm/dL (13.0-17.5); Lymphocytes # (A) 1.3 k/uL (1.0-4.8); Lymphocytes % (A) 19 %; MCH 30.7 pg (25.0-35.0); MCHC 33.4 g/dL (31.0-37.0); Mean Platelet Volume 7.6; Monocytes # (A) 0.5 k/uL (0-1.0); Monocytes % (A) 7 %; Neutrophils # (A) 4.4 k/uL (1.3-7.7); Neutrophils % (A) 65 %; Platelet Count 156 k/uL (150-450); RBC 4.38 m/uL (4.30-5.90); RDW 13.1 % (11.5-15.5); WBC 6.8 k/uL (3.8-10.6)
[2019-09-10 12:52] LABS: INR 3.4 (<1.2); Partial Thromboplastin Time 33.8 sec (22.0-30.0); Prothrombin Time 33.6 sec (9.0-12.0)
[2019-09-10 13:06] LABS: Albumin 3.6 g/dL (3.5-5.0); Calcium 8.7 mg/dL (8.4-10.2); Potassium 3.9 mmol/L (3.5-5.1); Total Protein 6.3 g/dL (6.3-8.2)
[2019-09-10] MEDS ORDERED: TRANEXAMIC ACID 1,000 MG/10 ML VIAL IRRIGATION ONE (13:41)
[2019-09-10 14:06] VITALS: PULSE 62; RESP 18
[2019-09-10 15:36] VITALS: BP 160/83; TEMP 98.1
== END 2019-09-10 16:12 | disposition home or self-care (01) ==
LOC: EC 10:50
DX: R04.0 Epistaxis (principal); I48.91 Unspecified atrial fibrillation; I25.10 Atherosclerotic heart disease of native coronary artery without angina pectoris; I10 Essential (primary) hypertension; I25.2 Old myocardial infarction; Z79.01 Long term (current) use of anticoagulants; Z95.1 Presence of aortocoronary bypass graft; Z95.810 Presence of automatic (implantable) cardiac defibrillator; Z79.899 Other long term (current) drug therapy; Z85.51 Personal history of malignant neoplasm of bladder; Z88.0 Allergy status to penicillin; Z88.2 Allergy status to sulfonamides; Z88.5 Allergy status to narcotic agent
CPT/HCPCS: 30905; 36415; 80053; 85025; 85610; 85730; 86850; 86900; 86901; 99283

== ENCOUNTER 2019-09-18 11:19 | Day surgery (SDC) | payer MEDICARE ==
[2019-09-15 15:12] VITALS: BMI 43.3
[~2019-09-18 11:19] MED LIST: CLINDAMYCIN 600 MG in SODIUM CHLORIDE 0.9% IRRIGATIO 250 ML IRRIGATION ONE; CLINDAMYCIN 900 MG in DEXTROSE 5% IN WATER 50 ML IVPB ONE; SODIUM CHLORIDE 0.9% 1,000 ML IV SCH; VANCOMYCIN 2,000 MG in SODIUM CHLORIDE 0.9% 500 ML 500 ML IVPB ONE; VANCOMYCIN IV PER PHARMACY 1 EACH MISC MISCELLANE PRN
[2019-09-18 11:58] LABS: Basophils % (A) 0 %; Eosinophils # (A) 0.5 k/uL (0-0.7); Eosinophils % (A) 7 %; HCT 41.6 % (39.0-53.0); HGB 13.4 gm/dL (13.0-17.5); Lymphocytes # (A) 1.3 k/uL (1.0-4.8); Lymphocytes % (A) 18 %; MCH 29.7 pg (25.0-35.0); MCHC 32.3 g/dL (31.0-37.0); Mean Platelet Volume 7.9; Monocytes # (A) 0.5 k/uL (0-1.0); Monocytes % (A) 7 %; Neutrophils # (A) 4.8 k/uL (1.3-7.7); Neutrophils % (A) 66 %; Platelet Count 182 k/uL (150-450); RBC 4.52 m/uL (4.30-5.90); WBC 7.2 k/uL (3.8-10.6)
[2019-09-18 12:11] LABS: Calcium 8.6 mg/dL (8.4-10.2)
[2019-09-18 12:14] LABS: INR 1.5 (<1.2); Prothrombin Time 14.7 sec (9.0-12.0)
[2019-09-18] MEDS ORDERED: fentaNYL (PF) 50 MCG/ML 2 ML AMP ONE (17:14)
[2019-09-18] MEDS ORDERED: PROPOFOL 10 MG/ML 20 ML VIAL IV ONE (17:14)
[2019-09-18] MEDS ORDERED: MIDAZOLAM 2 MG/2 ML VIAL ONE (17:14)
[2019-09-18] MEDS ORDERED: GENTAMICIN 40 MG/ML 2 ML VIAL ONE (17:14)
[2019-09-18] MEDS ORDERED: IV FLUID CONTINUATION 900 ML IV ONE (17:17)
[2019-09-18] MEDS ORDERED: LIDOCAINE 1% INJ 10MG/ML (20 ML MDV) ONE (17:40)
[2019-09-18] MEDS ORDERED: LIDOCAINE 1% INJ 10MG/ML (20 ML MDV) SQ ONE (17:58)
[2019-09-18] MEDS ORDERED: ACETAMINOPHEN TAB 325 MG TAB PO PRN (18:46)
--- NOTE | 2019-09-18 19:10 | P.PCN ---
Preoperative Diagnosis: Diagnosis Opening in the ICD incision/ wound No obvious signs of infection Device can be seen through this opening Patient was brought to the EP lab in a fasting state. I treated him with IV vancomycin 2 g prior to entering the EP lab. Subsequently in the EP lab clindamycin and gentamicin were administered The pectoral area was prepped and draped as a protocol. Lidocaine was used. Anesthesia was in attendance The device was interrogated and turned off. VT and VF therapies were turned off. Rate-responsive this is turned off An incision was made over the previous incision and the edges of the wound was excised The device was delivered out the leads were partially freed from the capsule Near-total capsulectomy was performed A new subfascial pocket was made Flat to the current pocket to accommodate this large device and to prevent it from stretching the incision Hemostasis was assured The pocket was irrigated with antibiotics solution The device was washed and placed in the antibiotic N. This was secured over the device was sutures The device was secured to the underlying muscle to prevent migration The wound was then closed in 3 layers and dressed per protocol A compression bandage was added ALLERGY detailed discussion with his sons Clearly this pocket should be considered infected even though there was no o bvious sign of infection The capsule was dusky in color there was no evidence for any pus The capsule was virtually completely excised and removed He will receive IV gentamicin and IV vancomycin for 24 hours Thereafter he'll be discharged home I will hold Coumadin for one day Patient tolerated the procedure well without any acute complications
[2019-09-18] MEDS ORDERED: PANTOPRAZOLE 40 MG TABLET PO SCH (19:30)
[2019-09-18] MEDS ORDERED: MULTIVITAMINS, THERA 1 EACH TAB PO SCH (21:00)
[2019-09-18] MEDS ORDERED: atenoloL 50 MG TAB PO SCH (21:00)
[2019-09-18] MEDS ORDERED: ATORVASTATIN 10 MG TAB PO SCH (21:00)
[2019-09-18] MEDS: lisinopriL 20 MG TAB PO SCH (21:04)
[2019-09-18] MEDS: GENTAMICIN 140 MG in SODIUM CHLORIDE 0.9% 100 ML IVPB SCH (23:51)
[2019-09-19 03:32] VITALS: RESP 16
[2019-09-19] MEDS ORDERED: PANTOPRAZOLE 40 MG TABLET PO SCH (07:30)
[2019-09-19 08:45] VITALS: BP 142/65; PULSE 58; TEMP 97.8
[2019-09-19] MEDS ORDERED: POTASSIUM CHLORIDE ER 10 MEQ TAB.ER.PRT PO SCH (09:00)
[2019-09-19] MEDS ORDERED: TAMSULOSIN 0.4 MG CAP.ER.24H PO SCH (09:00)
[2019-09-19] MEDS ORDERED: ISOSORBIDE MONONITRATE ER 30 MG TAB.ER.24H PO SCH (09:00)
[2019-09-19] MEDS ORDERED: hydroCHLOROthiazide 25 MG TAB PO SCH (09:00)
[2019-09-19] MEDS ORDERED: atenoloL 25 MG TAB PO SCH (09:00)
[2019-09-19] MEDS: lisinopriL 20 MG TAB PO SCH (09:15)
[2019-09-19] MEDS: GENTAMICIN 140 MG in SODIUM CHLORIDE 0.9% 100 ML IVPB SCH (09:16)
[2019-09-19] MEDS ORDERED: VANCOMYCIN 1,500 MG in SODIUM CHLORIDE 0.9% 250 ML IVPB SCH (11:00)
--- NOTE | 2019-09-19 13:17 | P.DS ---
Providers Attending physician: Bryce Carrizales [facility] Course: Roshan is doing well. Yesterday he underwent wound debridement scar excision, near-total capsulectomy, new subfascial pocket more careful to accommodate this large device and placement of an antibiotic envelope around the ICD His site looks well healed Vitals are stable he has no symptoms Denies any fever chills cough expectoration chest discomfort Site is tender Blood pressure 123/66 pulse rate in the 60s afebrile 97.5F Breath sounds are clear no rhonchi no crackles Heart sounds S1 and S2 are normal irregular Impression Open wound in relation to the ICD pocket ICD could be seen through this wound No obvious signs of infection no pus at all He underwent excision of the scar, near-total capsulectomy placement with ICD generator within an antibiotic envelope He received IV vancomycin and IV gentamicin and Intra-Op clindamycin Plan Watch for infection in the future. This was an open pocket and must be considered potentially infected. This was discussed with the patient's family members, 3 sons There was no evidence for gross or obvious infection within the pocket at all Plan - Discharge Summary Discharge Rx Participant: No New Discharge Prescriptions: Continue Isosorbide Mononitrate ER [Imdur] 30 mg PO DAILY Enalapril [Vasotec] 20 mg PO BID atenoloL [Tenormin] 75 mg PO DAILY Simvastatin [Zocor] 20 mg PO HS Potassium Chloride [K-Tab ER] 8 meq PO DAILY Multivitamin [Men's Multi-Vitamin] 1 tab PO HS atenoloL [Tenormin] 50 mg PO HS Tamsulosin [Flomax] 0.4 mg PO DAILY Warfarin [Coumadin] 2 mg PO SUTUTHSA hydroCHLOROthiazide [Hydrodiuril] 25 mg PO DAILY Omeprazole Magnesium [PriLOSEC OTC] 20 mg PO Q48H Warfarin [Coumadin] 3 mg PO MOWEFR Discharge Medication List Enalapril [Vasotec] 20 mg PO BID 09/08/14 [History] Isosorbide Mononitrate ER [Imdur] 30 mg PO DAILY 09/08/14 [History] Potassium Chloride [K-Tab ER] 8 meq PO DAILY 09/08/14 [History] Simvastatin [Zocor] 20 mg PO HS 09/08/14 [History] atenoloL [Tenormin] 75 mg PO DAILY 09/08/14 [History] Multivitamin [Men's Multi-Vitamin] 1 tab PO HS 05/30/15 [History] Tamsulosin [Flomax] 0.4 mg PO DAILY 12/25/17 [History] Warfarin [Coumadin] 2 mg PO SUTUTHSA 12/25/17 [History] atenoloL [Tenormin] 50 mg PO HS 12/25/17 [History] Omeprazole Magnesium [PriLOSEC OTC] 20 mg PO Q48H 04/26/19 [History] Warfarin [Coumadin] 3 mg PO MOWEFR 04/26/19 [History] hydroCHLOROthiazide [Hydrodiuril] 25 mg PO DAILY 04/26/19 [History] Follow up Appointment(s)/Referral(s): Bryce Carrizales MD [STAFF PHYSICIAN] - 1 Week (for device check, the office will call you with an appointment.) Patient Instructions/Handouts: Pacemaker Generator Change (GEN), Pacemaker (GEN)
== END 2019-09-19 15:45 ==
LOC: CATHEP 11:19 → 3NCARDOBS 18:58 → CATHEP 09-19 15:45
PROVIDERS: ATTEND Internal Medicine Clinical Cardiac Electrophysiology
DX: Z45.010 Encounter for checking and testing of cardiac pacemaker pulse generator [battery] (principal); T81.89XA Other complications of procedures, not elsewhere classified, initial encounter; L90.5 Scar conditions and fibrosis of skin; I49.5 Sick sinus syndrome; I25.10 Atherosclerotic heart disease of native coronary artery without angina pectoris; I25.2 Old myocardial infarction; I11.0 Hypertensive heart disease with heart failure; I50.42 Chronic combined systolic (congestive) and diastolic (congestive) heart failure; I49.3 Ventricular premature depolarization; I25.5 Ischemic cardiomyopathy; I48.21 Permanent atrial fibrillation; E78.5 Hyperlipidemia, unspecified; E78.00 Pure hypercholesterolemia, unspecified; Z79.01 Long term (current) use of anticoagulants; Z79.899 Other long term (current) drug therapy; Z72.0 Tobacco use; Z88.5 Allergy status to narcotic agent; Z88.0 Allergy status to penicillin; Z88.2 Allergy status to sulfonamides; Z95.1 Presence of aortocoronary bypass graft
CPT/HCPCS: 33222; 80048; 85025; 85610; J3370 ×2; J1580 ×2; J2001

== ENCOUNTER 2020-04-17 06:33 | Inpatient (IN) | payer MEDICARE ==
[2020-04-17] MEDS ORDERED: SODIUM CHLORIDE 0.9% 500 ML 500 ML IV STA (06:52)
--- NOTE | 2020-04-17 07:03 | ED ---
General Adult HPI <Maicol Goldman - Last Filed: 04/17/20 08:10> - General Source: patient, family, RN notes reviewed Mode of arrival: ambulatory Limitations: no limitations <LuisdeyviPaco - Last Filed: 04/17/20 08:15> - General Chief complaint: Neuro Symptoms/Deficit Stated complaint: Arm and Leg numbness Time Seen by Provider: 04/17/20 06:42 - History of Present Illness Initial comments: This an 84-year-old male presents emergency Department chief complaint of right arm numbness. Patient states that he woke up this morning he states it felt like it woke him up present sure states that he went to grab his phone in his right arm felt tingly he also does have some symptoms in the left which resolved immediately. Patient states that he went to grab his phone which felt difficult. Patient states that he then called his family member who came over. Patient states his symptoms resolved prior to him arriving. Family states that he had no symptoms including arm, leg weakness no facial asymmetry no difficulty ambulating. Patient does admit that he had a stroke 1 year ago but this was felt to be related to him coming off his Coumadin. Patient states that he had no significant residual symptoms other than slight vision changes in the right eye. Patient does complain of mild diffuse headache states it just feels achy in nature no chest pain or shortness of breath. Patient denies any current weakness of his lower extremities, upper extremities no paresthesias. (Susan Posey) - Related Data Home Medications Medication Instructions Recorded Confirmed Enalapril [Vasotec] 20 mg PO BID 09/08/14 09/18/19 Isosorbide Mononitrate ER [Imdur] 30 mg PO DAILY 09/08/14 09/18/19 Potassium Chloride [K-Tab ER] 8 meq PO DAILY 09/08/14 09/18/19 Simvastatin [Zocor] 20 mg PO HS 09/08/14 09/18/19 atenoloL [Tenormin] 75 mg PO DAILY 09/08/14 09/18/19 Multivitamin [Men's Multi-Vitamin] 1 tab PO HS 05/30/15 09/18/19 Tamsulosin [Flomax] 0.4 mg PO DAILY 12/25/17 09/18/19 Warfarin [Coumadin] 2 mg PO SUTUTHSA 12/25/17 09/18/19 atenoloL [Tenormin] 50 mg PO HS 12/25/17 09/18/19 Omeprazole Magnesium [PriLOSEC OTC] 20 mg PO Q48H 04/26/19 09/18/19 Warfarin [Coumadin] 3 mg PO MOWEFR 04/26/19 09/18/19 hydroCHLOROthiazide [Hydrodiuril] 25 mg PO DAILY 04/26/19 09/18/19 Allergies Allergy/AdvReac Type Severity Reaction Status Date / Time codeine Allergy Unknown Verified 04/17/20 06:39 morphine Allergy Unknown Verified 04/17/20 06:39 Penicillins Allergy Unknown Verified 04/17/20 06:39 Sulfa (Sulfonamide Allergy Unknown Verified 04/17/20 06:39 Antibiotics) Review of Systems ROS Other: All systems not noted in ROS Statement are negative. <Maicol Goldman - Last Filed: 04/17/20 08:10> ROS Other: All systems not noted in ROS Statement are negative. <Paco Posey - Last Filed: 04/17/20 08:15> ROS Statement: Those systems with pertinent positive or pertinent negative responses have been documented in the HPI. Past Medical History Past Medical History: Atrial Fibrillation, Coronary Artery Disease (CAD), Can cer, CVA/TIA, GERD/Reflux, Hyperlipidemia, Hypertension, Myocardial Infarction ([place]) Additional Past Medical History / Comment(s): Bladder Cancer, skin cancer, wound upper left chest. lt leg swelling. see dr astudillo's H&P. stroke behind rt eye, balance issues. hx bleeding ulcer. recent epistaxis Last Myocardial Infarction Date:: 2000 History of Any Multi-Drug Resistant Organisms: None Reported Past Surgical History: AICD, Bladder Surgery, Coronary Bypass/CABG, Heart Catheterization With Stent, Joint Replacement, Pacemaker Additional Past Surgical History / Comment(s): triple bypass. lt total hip replacement. removal skin cancer with skin graft Past Anesthesia/Blood Transfusion Reactions: No Reported Reaction Date of Last Stent Placement:: 2001 Type of Cardiac Device: Permanent Pacemaker, AICD Device Placement Date:: april 2019 Past Psychological History: No Psychological Hx Reported Smoking Status: Former smoker Past Alcohol Use History: None Reported Past Drug Use History: None Reported - Past Family History Mother Family Medical History: No Reported History <Dedoe,Paco M - Last Filed: 04/17/20 08:15> General Exam Limitations: no limitations General appearance: alert, in no apparent distress Head exam: Present: atraumatic, normocephalic, normal inspection Eye exam: Present: normal appearance, PERRL, EOMI. Absent: scleral icterus, conjunctival injection, periorbital swelling ENT exam: Present: normal exam, normal oropharynx, mucous membranes moist Neck exam: Present: normal inspection, full ROM. Absent: tenderness, meningismus, lymphadenopathy Respiratory exam: Present: normal lung sounds bilaterally. Absent: respiratory distress, wheezes, rales, rhonchi, stridor Cardiovascular Exam: Present: regular rate, normal rhythm, normal heart sounds. Absent: systolic murmur, diastolic murmur, rubs, gallop, clicks GI/Abdominal exam: Present: soft, normal bowel sounds. Absent: distended, tenderness, guarding, rebound, rigid Extremities exam: Present: other (Upper extremity strength equal bilaterally, neurovascular intact, lower extremity strength equal patient does have some difficulty in emotional left hip this is chronic from prior hip replacement) Neurological exam: Present: alert, oriented X3, CN II-XII intact, normal gait, reflexes normal. Absent: motor sensory deficit Expanded Patient oriented to: Present: person, place, time Speech: Present: fluid speech Cranial nerves: EOM's Intact: Normal, Tongue Deviation: Normal, Nystagmus: Normal, Facial Sensation: Normal, Facial Palsy with Forehead Movement: Normal, Facial Palsy without Forehead Movement: Normal Cerebellar function: Finger to Nose: Normal Upper motor neuron: Patrick Neglect: Normal, Sensory Extinction: Normal Sensory exam: Upper Extremity Light Touch: Normal, UE 2 Point Discrimination: Normal, Lower Extremity Light Touch: Normal, LE 2 Point Discrimination: Normal Motor strength exam: RUE: 5, LUE: 5, RLE: 5, LLE: 5 Eye Response: (4) open spontaneously Motor Response: (6) obeys commands Verbal Response: (5) oriented [place] Total: 15 Skin exam: Present: warm, dry, intact, normal color. Absent: rash <Paco Posey - Last Filed: 04/17/20 08:15> Course <Maicol Goldman - Last Filed: 04/17/20 08:10> Vital Signs 04/17/20 06:36 Temperature 98.2 F Pulse Rate 72 Respiratory 18 Rate Blood Pressure 131/75 O2 Sat by Pulse 95 Oximetry - Reevaluation(s) Reevaluation #1: 04/17/20 08:10 PA supervision: I did proceed a [id number] evaluation the patient. Does have a history of prior CVA. He currently is on Coumadin. He woke up this point wi th numbness and perhaps tingling to the right upper extremity he was unable to grasp his phone the symptoms lasted perhaps less than a hour. Is brought in by his son who is a activities volunteer. He is told resolve back normal at this time. 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 He does have some chronic right eye diminished vision. (Maicol Goldman) EKG Findings - EKG Comments: EKG Findings:: EKG performed at 17:03 ventricular paced rhythm with a rate of 60 QRS 180 QT /QTC 508/508 - EKG Results: EKG: interpreted by ERMD <Paco Posey - Last Filed: 04/17/20 08:15> Medical Decision Making - Lab Data Result diagrams: 04/17/20 06:55 04/17/20 06:55 <Maicol Goldman - Last Filed: 04/17/20 08:10> - Lab Data Result diagrams: 04/17/20 06:55 04/17/20 06:55 <Paco Posey - Last Filed: 04/17/20 08:15> - Medical Decision Making 84-year-old male presented for right arm numbness tingling, muscle weakness. Symptoms resolved prior arrival. Patient does have a history of CVA last year. Patient is asymptomatic currently though concerning for TIA. Patient is anticoagulated currently. Patient will be admitted for neurology evaluation. Case discussed with Dr. Mercedes (Paco Posey) - Lab Data Lab Results 04/17/20 04/17/20 04/17/20 Range/Units 06:55 06:55 06:55 WBC 7.5 (3.8-10.6) k/uL RBC 4.50 (4.30-5.90) m/uL Hgb 14.0 (13.0-17.5) gm/dL Hct 41.1 (39.0-53.0) % MCV 91.4 (80.0-100.0) fL MCH 31.1 (25.0-35.0) pg MCHC 34.0 (31.0-37.0) g/dL RDW 13.3 (11.5-15.5) % Plt Count 179 (150-450) k/uL MPV 7.4 Neutrophils % 64 % Lymphocytes % 21 % Monocytes % 7 % Eosinophils % 6 % Basophils % 0 % Neutrophils # 4.8 (1.3-7.7) k/uL Lymphocytes # 1.6 (1.0-4.8) k/uL Monocytes # 0.5 (0-1.0) k/uL Eosinophils # 0.4 (0-0.7) k/uL Basophils # 0.0 (0-0.2) k/uL PT 26.9 H (9.0-12.0) sec INR 2.8 H (<1.2) APTT 31.3 H (22.0-30.0) sec Sodium 140 (137-145) mmol/L Potassium 3.8 (3.5-5.1) mmol/L Chloride 103 (98-107) mmol/L Carbon Dioxide 29 (22-30) mmol/L Anion Gap 8 mmol/L BUN 28 H (9-20) mg/dL Creatinine 1.67 H (0.66-1.25) mg/dL Est GFR (CKD-EPI)AfAm 44 (>60 ml/min/1.73 sqM) Est GFR (CKD-EPI)NonAf 38 (>60 ml/min/1.73 sqM) Glucose 102 H (74-99) mg/dL Calcium 8.9 (8.4-10.2) mg/dL Total Bilirubin 0.7 (0.2-1.3) mg/dL AST 37 (17-59) U/L ALT 25 (4-49) U/L Alkaline Phosphatase 73 (38-126) U/L Troponin I (0.000-0.034) ng/mL Total Protein 6.3 (6.3-8.2) g/dL Albumin 3.5 (3.5-5.0) g/dL 04/17/20 Range/Units 06:55 WBC (3.8-10.6) k/uL RBC (4.30-5.90) m/uL Hgb (13.0-17.5) gm/dL Hct (39.0-53.0) % MCV (80.0-100.0) fL MCH (25.0-35.0) pg MCHC (31.0-37.0) g/dL RDW (11.5-15.5) % Plt Count (150-450) k/uL MPV Neutrophils % % Lymphocytes % % Monocytes % % Eosinophils % % Basophils % % Neutrophils # (1.3-7.7) k/uL Lymphocytes # (1.0-4.8) k/uL Monocytes # (0-1.0) k/uL Eosinophils # (0-0.7) k/uL Basophils # (0-0.2) k/uL PT (9.0-12.0) sec INR (<1.2) APTT (22.0-30.0) sec Sodium (137-145) mmol/L Potassium (3.5-5.1) mmol/L Chloride (98-107) mmol/L Carbon Dioxide (22-30) mmol/L Anion Gap mmol/L BUN (9-20) mg/dL Creatinine (0.66-1.25) mg/dL Est GFR (CKD-EPI)AfAm (>60 ml/min/1.73 sqM) Est GFR (CKD-EPI)NonAf (>60 ml/min/1.73 sqM) Glucose (74-99) mg/dL Calcium (8.4-10.2) mg/dL Total Bilirubin (0.2-1.3) mg/dL AST (17-59) U/L ALT (4-49) U/L Alkaline Phosphatase (38-126) U/L Troponin I <0.012 (0.000-0.034) ng/mL Total Protein (6.3-8.2) g/dL Albumin (3.5-5.0) g/dL Disposition <Maicol Goldman - Last Filed: 04/17/20 08:10> <Paco Posey - Last Filed: 04/17/20 08:15> Clinical Impression: TIA (transient ischemic attack) Disposition: ADMITTED IP TO THIS HOSP Condition: Fair Referrals: Carri Fontenot MD [Primary Care Provider] - 1-2 days
[2020-04-17 07:11] LABS: Basophils % (A) 0 %; Eosinophils # (A) 0.4 k/uL (0-0.7); Eosinophils % (A) 6 %; HCT 41.1 % (39.0-53.0); Lymphocytes # (A) 1.6 k/uL (1.0-4.8); Lymphocytes % (A) 21 %; MCH 31.1 pg (25.0-35.0); MCV 91.4 fL (80.0-100.0); Mean Platelet Volume 7.4; Monocytes # (A) 0.5 k/uL (0-1.0); Monocytes % (A) 7 %; Neutrophils # (A) 4.8 k/uL (1.3-7.7); Neutrophils % (A) 64 %; Platelet Count 179 k/uL (150-450); RDW 13.3 % (11.5-15.5); WBC 7.5 k/uL (3.8-10.6)
[2020-04-17 07:19] LABS: INR 2.8 (<1.2); Partial Thromboplastin Time 31.3 sec (22.0-30.0); Prothrombin Time 26.9 sec (9.0-12.0)
[2020-04-17 07:20] LABS: Albumin 3.5 g/dL (3.5-5.0); Calcium 8.9 mg/dL (8.4-10.2); Potassium 3.8 mmol/L (3.5-5.1); Total Bilirubin 0.7 mg/dL (0.2-1.3); Total Protein 6.3 g/dL (6.3-8.2)
--- NOTE | 2020-04-17 07:29 | CT ---
EXAMINATION TYPE: CT brain wo con DATE OF EXAM: 04/17/2020 COMPARISON: 10/26/2018 HISTORY: 84-year-old male Neuro deficit, acute, stroke suspected. TECHNIQUE: Examination was done in axial plane without intravenous contrast. Coronal and sagittal r econstructions performed. CT DLP: 1102.4 mGycm Automated exposure control for dose reduction was used. FINDINGS: There is no evidence of acute intracranial hemorrhage, acute ischemic changes, mass, mass-effect, or extra-axial fluid collection. There is no effacement of cerebral sulci or basal subarachnoid cister ns. There is no hydrocephalus. There is no midline shift. Borges-white matter distinction is preserv ed. Mild to moderate generalized supratentorial volume loss. 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 Mild patchy periventricular white matter hypodensities compatible chronic small vessel ischemic disease. Trace mucosal thickening ethmoid air cells. Rightward nasal septal deviation. Mastoid air cells well pneumatized. IMPRESSION: [id number] generalized atrophy. Mild patchy changes of chronic small vessel ischemic disease. O ld lacunar infarct left caudate head was present back in 2019 as well. No acute intracranial abnormal ity seen.
--- NOTE | 2020-04-17 07:34 | XR ---
EXAMINATION TYPE: XR chest 2V DATE OF EXAM: 04/17/2020 COMPARISON: 04/05/2018 HISTORY: 84-year-old male confusion, altered mental status, left arm tingling and numbness. TECHNIQUE: AP and lateral views FINDINGS: Median sternotomy wires. Postoperative clips in the mediastinum. Left anterior chest wall AICD genera tor with right ventricular lead. Heart borderline in size. There is some patchy left midlung opacity. Right suprahilar opacity is increased but may be projectional. No pleural effusion. IMPRESSION: 1. Patchy left midlung atelectasis or developing pneumonia. Correlate with patient's symptoms. 2. Right suprahilar soft tissue prominence may be projectional. It is increased from prior exam. Foll ow-up after treatment to reassess. If the finding persists, contrast-enhanced CT can further evaluate .
[2020-04-17] MEDS ORDERED: atenoloL 25 MG TAB PO SCH (09:00)
[2020-04-17] MEDS: ISOSORBIDE MONONITRATE ER 30 MG TAB.ER.24H PO SCH (09:31)
[2020-04-17] MEDS: TAMSULOSIN 0.4 MG CAP.ER.24H PO SCH (09:32)
[2020-04-17] MEDS: hydroCHLOROthiazide 25 MG TAB PO SCH (09:32)
[2020-04-17] MEDS: POTASSIUM CHLORIDE ER 10 MEQ TAB.ER.PRT PO SCH (09:32)
[2020-04-17] MEDS: lisinopriL 20 MG TAB PO SCH ×2 (09:32→20:02)
--- NOTE | 2020-04-17 14:06 | P.CNNES ---
History of Present Illness Consult date: 04/17/20 Requesting physician: Paco Posey Reason for Consult: right arm numbness concern for TIA History of Present Illness: This is an 84-year-old the gentleman with medical history of atrial fibrillation on coumadin, coronary artery disease status post CABG and stent and has a pacemaker, hyperlipidemia, hypertension, stroke (1 year ago with right visual disturbance while off coumadin), skin cancer who presented emergency department on 04/17/2020 for right arm numbness and weakness. The patient is accompanied with his son. Per the patient he woke up today around 5:30 -5:45am and noticed that his right arm and hand was numb and weak. He said when he was trying to hold his phone the he felt his hand and arm was weak. He also felt his a right lower extremity was numb. The episode lasted for 50 minutes and resolved. He felt the left arm was numb but he said that was questionable blood pressure was a right arm and hand was numb and weak and the somewhat the right leg. Last normal he said was he slept at 10:30 PM last night he woke up in the middle the night but not sure time and he was feeling fine. He said that he is compliant taking his Coumadin. He denies being on any antiplatelets. he is on simvast atin 20 mg he is on different blood pressure medication. Currently he is back to baseline. Also prior to arriving to the ED he was back to his baseline. He said that about a year ago he was diagnosed with skin cancer over the forehead of scalp and was told the to stop Coumadin which he did said he suffered a right visual disturbance and that his vision was affected and the not back to baseline and that required that glasses as a result. He said during the episode the he also felt that he was having unsteady gait. He said that he follows up with cardiology and he was told that he has carotid stenosis he thinks about 80% on the bilateral carotid and was told that he didn't need any intervention. He said his last ultrasound was more than a year ago given intake. Currently the patient walks with a limp which is old because of left hip the replacement. Workup in the hospital consisted of: CT of the head is reported as mild to moderate generalized atrophy. Mild patchy changes of chronic small vessel ischemic disease. Old lacunar infarct in the left caudate head was present back in 2019 as well. No acute intracranial abnormality seen. Initial vital signs was blood pressure of 131/75, heart rate of 72, respiratory of 18, temperature of 98.2 Fahrenheit oral and pulse ox of 95% room air. EKG is reported as ventricular paced rhythm. Abnormal EKG. BUN is 28 and creatinine is 1.67. The serum glucose is 102. Coagulation study as PT of 26.9, INR 2.8 and the PTT is 31.3. The patient was continued on Coumadin and that started the Lipitor 10 mg daily by the ED team. Review of Systems Review of system: The 12 point system was reviewed and apparent positive and negative per HPI. Past Medical History Past Medical History: Atrial Fibrillation, Coronary Artery Disease (CAD), Cancer, Chest Pain / Angina, Heart Failure, CVA/TIA, GERD/Reflux, GI Bleed, Hearing Disorder / Deafness, Hyperlipidemia, Hypertension, Myocardial Infarction ([place]), Osteoarthritis (OA), Prostate Disorder Additional Past Medical History / Comment(s): AFib, SSS, MIs x3, ischemic cardiomyopathy/vtach/AICD/pacer, CVA about 1 year ago with R eye vision change/[place] R ear and balance issues, bladder cancer with surgery/chemo, skin cancer with removals, epistaxis, bleeding gastric ulcer, lower GI bleed, colon polyps, L lower leg edema, chronic low back pain, bilateral arm/hand tremors with R arm worse Last Myocardial Infarction Date:: 1998 History of Any Multi-Drug Resistant Organisms: None Reported Past Surgical History: AICD, Bladder Surgery, Cholecystectomy, Coronary Bypass/CABG, Heart Catheterization, Heart Catheterization With Stent, Hernia Repair, Joint Replacement, Pacemaker, Prostate Surgery Additional Past Surgical History / Comment(s): PCI with stents, 1999 CABG 3 vessel, AICD/pacer last one placed 04/2019 with wound debridement, total L hip arthroplasty, skin cancer removal with graft, TURBT with fulguration, TURP, colectomy d/t polyps, inguinal hernia-pt cannot recall laterallity. Past Anesthesia/Blood Transfusion Reactions: No Reported Reaction Date of Last Stent Placement:: 1998 Type of Cardiac Device: Permanent Pacemaker, AICD Device Placement Date:: april 2019 Smoking Status: Former smoker - Past Family History Mother Family Medical History: No Reported History Additional Family Medical History / Comment(s): tremors Father Family Medical History: Osteoarthritis (OA) Medications and Allergies Home Medications Medication Instructions Recorded Confirmed Type Enalapril [Vasotec] 20 mg PO BID 09/08/14 04/17/20 History Isosorbide Mononitrate ER [Imdur] 30 mg PO DAILY 09/08/14 04/17/20 History Potassium Chloride [K-Tab ER] 8 meq PO DAILY 09/08/14 04/17/20 History Simvastatin [Zocor] 20 mg PO HS 09/08/14 04/17/20 History atenoloL [Tenormin] 75 mg PO DAILY 09/08/14 04/17/20 History Tamsulosin [Flomax] 0.4 mg PO DAILY 12/25/17 04/17/20 History Warfarin [Coumadin] 2 mg PO MOWEFR 12/25/17 04/17/20 History atenoloL [Tenormin] 50 mg PO 12/25/17 04/17/20 History Omeprazole Magnesium [PriLOSEC OTC] 20 mg PO MOWEFR 04/26/19 04/17/20 History hydroCHLOROthiazide [Hydrodiuril] 25 mg PO DAILY 04/26/19 04/17/20 History Cholecalciferol [Vitamin D3 (25 25 mcg PO DAILY 04/17/20 04/17/20 History Mcg = 1000 Iu)] Metoprolol Succinate (ER) [Toprol 100 mg PO DAILY 04/17/20 04/17/20 History Xl] Multivit-Min/FA/Lycopen/Lutein 1 tab PO HS 04/17/20 04/17/20 History [Centrum Silver Men Tablet] Warfarin [Coumadin] 3 mg PO SUTUTHSA 04/17/20 04/17/20 History allopurinoL [Zyloprim] 100 mg PO DAILY 04/17/20 04/17/20 History Allergies Allergy/AdvReac Type Severity Reaction Status Date / Time codeine Allergy Unknown Verified 04/17/20 08:35 morphine Allergy Unknown Verified 04/17/20 08:35 Penicillins Allergy Unknown Verified 04/17/20 08:35 Sulfa (Sulfonamide Allergy Unknown Verified 04/17/20 08:35 Antibiotics) Physical Examination - Vital Signs Vital Signs: Vital Signs Temp Pulse Resp BP Pulse Ox 04/17/20 06:36 98.2 F 72 18 131/75 95 Intake and Output 04/16/20 04/17/20 04/17/20 22:59 06:59 14:59 Other: Weight 81.647 kg 81.647 kg GENERAL: The patient is lying in bed and is not in acute distress. CHEST: The heart rate is regular rate rhythm. No murmurs to auscultation. No carotid bruit bilaterally. LUNG: Clear to auscultation bilaterally no wheezing noted throughout. Not labored breathing. ABDOMEN/GI: Bowel sounds present in all 4 quadrants. No tenderness to palpation throughout. NEUROLOGICAL: Higher mental function: The patient is awake, alert, oriented to self, place and time. Patient is following commands. No aphasia and no neglect. Cranial nerves: The pupils are round, equal and reactive to light and accommodation. Visual vinson are full to confrontation throughout. Extraocular movement is intact no nystagmus is noted. Facial sensation is normal to touch throughout. The facial strength is normal throughout. Hearing is mildly to moderately decreased to hand rubs. Tongue is midline and moved [id number] without any difficulty. No dysarthria is noted. Shoulder shrug is normal bilaterally. Motor: Gait: walks with limp (old since left hip replacement). The strength is 5 over 5 throughout. Normal tone and bulk. Cerebellum: Normal finger to nose heel to christensen bilaterally. Sensation: Sensation is normal to touch throughout. Reflexes (right/left): 2+ in bilateral upper, 1+ left patellar and ankles while 2+ over right patellar. Plantars are downgoing bilaterally. Results - Laboratory Findings CBC and BMP: 04/17/20 06:55 04/17/20 06:55 Abnormal Lab Findings: Abnormal Labs 04/17/20 04/17/20 06:55 06:55 PT 26.9 H INR 2.8 H APTT 31.3 H BUN 28 H Creatinine 1.67 H Glucose 102 H Assessment and Plan Assessment: This is an 84-year-old the gentleman with multiple medical problem that presented to the emergency department for transient right arm numbness and weakness Patient the episode of transient right upper extremity numbness and weakness predominately (also has numbness of the right leg) is likely due to a transient ischemic attack. History of stroke (old lacunar in left caudate) Acute kidney insufficiency History of carotid stenosis bilaterally (according to patient was told 80% stenosis) History of atrial fibrillation on Coumadin History of coronary artery disease status post stenting as well as CABG as well as the patient has a pacemaker History of hypertension next on history of the hyperlipidemia Plan: CT of the head is reported as mild to moderate generalized atrophy. Mild patchy changes of chronic small vessel ischemic disease. Old lacunar infarct in the left caudate head was present back in 2019 as well. No acute intracranial abnormality seen. I'll get a repeat CT of the head for tomorrow since unable to get MRI of the brain because of the pacemaker. Patient was restarted on Coumadin by the ED team. I'll start the patient on aspirin 81 mg since INR therapeutic and likely had an episode of TIA. Patient is currently on the Lipitor 10 mg and I'll increase it to 80 mg for now for secondary stroke prophyalxis and can help with carotid stenosis. Patient stated that she would like to remain on coumadin and not other anticoagulation. Lipid panel is ordered by the ED team is pending I ordered carotid duplex and 2-D echo as well as TSH level PT OT and P[employer] HATCH[employer] SUPERVISOR are consulted I consulted vascular surgical team for history of carotid stenosis. Please avoid aggressive blood pressure management. Recommend permissive hypertension and treated blood pressure of it's more than 180/100 in the first 24-48 hours. The plan is discussed with patient and his son. We'll defer the rest of the medical management to the primary team. Thank you for the consultation. Joel Davis M.D. Neuro-hospitalist Time with Patient: Greater than 30
[2020-04-17] MEDS: ASPIRIN 81 MG PO SCH (15:16)
--- NOTE | 2020-04-17 16:08 | US ---
EXAMINATION TYPE: US carotid duplex BILAT DATE OF EXAM: 04/17/2020 COMPARISON: NONE CLINICAL HISTORY: 84-year-old male stroke. Right arm weakness. Headache. TECHNIQUE: Carotid duplex ultrasound examination. Indirect Doppler criteria was utilized. FINDINGS: EXAM MEASUREMENTS: RIGHT: Peak Systolic Velocity (PSV) cm/sec ----- Right CCA: 98.1 ----- Right ICA: 130.0 ----- Right ECA: 111.0 ICA/CCA ratio: 1.3 RIGHT: End Diastole cm/sec ----- Right CCA: 12.3 ----- Right ICA: 14.5 ----- Right ECA: 0.0 LEFT: Peak Systolic Velocity (PSV) cm/sec ----- Left CCA: 75.5 ----- Left ICA: 193.0 ----- Left ECA: 113.0 ICA/CCA ratio: 2.6 LEFT: End Diastole cm/sec ----- Left CCA: 11.7 ----- Left ICA: 25.5 ----- Left ECA: 0.0 VERTEBRALS (direction of flow): Right Vertebral: Antegrade Left Vertebral: Antegrade Rhythm: Normal Line Inspector notes: Plaque visualized in bilateral bulbs. Elevated Left ICA and right distal ICA velo cities. Left significant stenosis. Bilateral wall thickening. IMPRESSION: Elevated velocities in the left greater than right ICAs. Possible moderate, 50-69% proximal left ICA stenosis. Velocity elevation on the right may in part be due to turbulent flow. Further evaluation as clinically indicated. Criteria for Assigning % of Stenosis / Diameter reduction (Estimation based on the indirect measurements of the internal carotid artery velocities (ICA PSV). 1. Normal (no stenosis)=ICA PSV < 125 cm/s: ratio < 2.0: ICA EDV<40 cm/s. 2. Less than 50% stenosis=ICA PSV < 125 cm/s: ratio < 2.0: ICA EDV<40 cm/s. 3. 50 to 69% stenosis=ICA PSV of 125 to 230 cm/s: ration 2.0 ? 4.0: ICA EDV 40-100 cm/s. 4. Greater than 70% stenosis to near occlusion= ICA PSV > 230 cm/s: ratio > 4.0: ICA EDV > 100 cm/s. 5. Near occlusion= ICA PSV velocities may be low or undetectable: variable ratio and ICA EDV. 6. Total occlusion=unable to detect flow.
--- NOTE | 2020-04-17 16:30 | P.HPIM ---
<Oli Hudson - Last Filed: 04/17/20 15:48> History of Present Illness H&P Date: 04/17/20 Chief Complaint: right arm numbness and weakness History of presenting illness: Patient is a very pleasant 84-year-old male with a past medical history including coronary artery disease with 3 previous MIs resulting in stent placement followed by cardiac double bypass in 1998, atrial fibrillation on Coumadin, pacemaker/defibrillator placement, hypertension, hyperlipidemia, thrombotic CVA in 2019 with deficits including visual deficits in right eye as well as issues with balance/coordination/and proprioception, CKD stage III, skin cancer with removal, and bladder cancer in which patient is in remission status post treatment with chemotherapy and radiation therapy. Patient presented to the emergency department this morning for reports of right arm numbness and weakness. Patient states that he woke up this morning and noticed that his right arm and hand felt a little tingly and numb and reports this seemed to worsen taking over his entire right arm and when he went to grab his phone to call his son he realized he was not able to move his right arm and also noticed at this time having some weakness and tingling in his right leg as well. Patient states this lasted just under one hour and completely resolved allowing him to call his son and he was then brought to the hospital for further evaluation. Patient was seen and fully evaluated in the emergency department where he underwent a CT scan of his brain showed no acute intercranial process revealing mild to moderate generalized atrophy with mild patchy changes of chronic small vessel ischemic disease accompanied by an old Lacunar infarct to his left caudate head which was reported as a similar presentation when compared to CT from 2019. EKG completed revealing a ventricular paced rhythm at 60 bpm. Chest x-ray revealing patchy left mid lung atelectasis and right suprahilar soft tissue prominence increased from previous exam. Labs were drawn revealing a therapeutic INR at 2.8, and negative troponin, an unremarkable CBC and CMP with the exception of findings consistent with patient's stage III CKD with a BUN of 28, creatinine of 1.67, and GFR of 38 (which is at patient's baseline levels with a creatinine of 1.6). Patient admitted to our services with diagnosis of TIA. Patient was seen and fully evaluated at the bedside. He reports feeling great, stating previous numbness and weakness completely resolved and has not been present since arrival to hospital. He is sitting upright in chair at bedside eating some lunch. He denied having any headache, lightheadedness, dizz iness, new changes in his vision or hearing, tinnitus, difficulties with her changes in his speech, numbness of face, tongue, or dysphasia, chest pain or palpitations, breath, or currently experiencing any numbness/tingling/weakness in extremities. Review of systems: Pertinent positives and negatives as discussed in HPI, a complete review of systems was performed and all other systems are negative. Physical exam: General: non toxic, no distress, appears at stated age Derm: warm, dry Head: atraumatic, normocephalic, symmetric, scar with mild indentation to right frontal/occipital region of head from previous skin cancer removal surgery. Eyes: Pupils equal, round, and reactive 3 mm to 2 mm. EOMI, no lid lag, anicteric sclera Mouth: no lip lesion, mucus membranes moist. Cardiovascular: S1S2 reg, no murmur, positive posterior tibial pulses bilaterally, cap refill less than 2 seconds, no lower extremity edema, pacemaker/defibrillator left anterior chest. Lungs: Respirations even, regular, and unlabored on room air, lungs CTA bilaterally, no rhonchi, rales, wheezes, or accessory muscle use. Abdominal: soft, nontender to palpation, no guarding, no appreciable org anomegaly Ext: no gross muscle atrophy, no edema, no contractures Neuro: GCS 15. Speech clear. CN II-XII grossly intact, no focal neuro deficits noted at this time. Psych: Alert, oriented, appropriate affect Plan of care: TIA with history of thrombotic CVA -CT head negative for acute process. -Neurology consulted, appreciate recommendations. -Carotid Dopplers -Echocardiogram -Daily aspirin and atorvastatin. -Lipid profile, hemoglobin A1c, B12, folate, and TSH with a.m. labs. -Continue anticoagulation with Coumadin, pharmacy to dose. INR therapeutic at 2.8. -Consult occupational and physical therapy. -Neuro checks every 4 hours. -Repeat CT head tomorrow a.m. Coronary artery disease status post stenting and double bypass -Troponin negative. -EKG revealing ventricular paced rhythm. -Echocardiogram and carotid Dopplers to be obtained. -Telemetry monitoring. -Continue daily medication management with aspirin, atorvastatin, hydrochlorothiazide, Imdur, metoprolol succinate, and Coumadin. Atrial fibrillation on anticoagulation with warfarin -INR therapeutic 2.8. -Continue anticoagulation with Coumadin, pharmacy to dose. Hypertension -Called [facility] pharmacy to confirm appropriate medications, pt is not taking atenolol and is taking metoprolol. -Monitor vital signs and Continue daily medication management including hydrochlorothiazide, Imdur, and metoprolol succinate. Hyperlipidemia -Continue daily medication management with atorvastatin. -Heart healthy diet. -Lipid profile with a.m. labs. CTD stage III, stable with baseline creatinine 1.6 -BMP revealed findings consistent with patient's stage III CKD with a BUN of 28, creatinine of 1.67, and GFR of 38. BPH -Continue Flomax. The patient is admitted with an anticipated less than 2 night stay to observation unit for TIA CODE STATUS: Full code DVT prophylaxis: Coumadin Discussed with: Patient and his son Anticipated discharge date: 1-[address]: Home A total of 55 minutes was spent on the care of this complex patient more than 50% of the time was spent in counseling and care coordination. Past Medical History Past Medical History: Atrial Fibrillation, Coronary Artery Disease (CAD), Cancer, Chest Pain / Angina, Heart Failure, CVA/TIA, GERD/Reflux, GI Bleed, Hearing Disorder / Deafness, Hyperlipidemia, Hypertension, Myocardial Infarction (OR), Osteoarthritis (OA), Prostate Disorder Additional Past Medical History / Comment(s): AFib, SSS, MIs x3, ischemic cardiomyopathy/vtach/AICD/pacer, CVA about 1 year ago with R eye vision change/[employer] [employer] [employer] [place] R ear and balance issues, bladder cancer with surgery/chemo, skin cancer with removals, epistaxis, bleeding gastric ulcer, lower GI bleed, colon polyps, L lower leg edema, chronic low back pain, bilateral arm/hand tremors with R arm worse Last Myocardial Infarction Date:: 1998 History of Any Multi-Drug Resistant Organisms: None Reported Past Surgical History: AICD, Bladder Surgery, Cholecystectomy, Coronary Bypass/CABG, Heart Catheterization, Heart Catheterization With Stent, Hernia Repair, Joint Replacement, Pacemaker, Prostate Surgery Additional Past Surgical History / Comment(s): PCI with stents, 1999 CABG 3 vessel, AICD/pacer last one placed 04/2019 with wound debridement, total L hip arthroplasty, skin cancer removal with graft, TURBT with fulguration, TURP, colectomy d/t polyps, inguinal hernia-pt cannot recall laterallity. Past Anesthesia/Blood Transfusion Reactions: No Reported Reaction Date of Last Stent Placement:: 1998 Type of Cardiac Device: Permanent Pacemaker, AICD Device Placement Date:: april 2019 Smoking Status: Former smoker - Past Family History Mother Family Medical History: No Reported History Additional Family Medical History / Comment(s): tremors Father Family Medical History: Osteoarthritis (OA) Medications and Allergies Home Medications Medication Instructions Recorded Confirmed Type Enalapril [Vasotec] 20 mg PO BID 09/08/14 04/17/20 History Isosorbide Mononitrate ER [Imdur] 30 mg PO DAILY 09/08/14 04/17/20 History Potassium Chloride [K-Tab ER] 8 meq PO DAILY 09/08/14 04/17/20 History Simvastatin [Zocor] 20 mg PO HS 09/08/14 04/17/20 History atenoloL [Tenormin] 75 mg PO DAILY 09/08/14 04/17/20 History Tamsulosin [Flomax] 0.4 mg PO DAILY 12/25/17 04/17/20 History Warfarin [Coumadin] 2 mg PO MOWEFR 12/25/17 04/17/20 History atenoloL [Tenormin] 50 mg PO HS 12/25/17 04/17/20 History Omeprazole Magnesium [PriLOSEC OTC] 20 mg PO MOWEFR 04/26/19 04/17/20 History hydroCHLOROthiazide [Hydrodiuril] 25 mg PO DAILY 04/26/19 04/17/20 History Cholecalciferol [Vitamin D3 (25 25 mcg PO DAILY 04/17/20 04/17/20 History Mcg = 1000 Iu)] Metoprolol Succinate (ER) [Toprol 100 mg PO DAILY 04/17/20 04/17/20 History Xl] Multivit-Min/FA/Lycopen/Lutein 1 tab PO HS 04/17/20 04/17/20 History [Centrum Silver Men Tablet] Warfarin [Coumadin] 3 mg PO SUTUTHSA 04/17/20 04/17/20 History allopurinoL [Zyloprim] 100 mg PO DAILY 04/17/20 04/17/20 History Allergies Allergy/AdvReac Type Severity Reaction Status Date / Time codeine Allergy Unknown Verified 04/17/20 08:35 morphine Allergy Unknown Verified 04/17/20 08:35 Penicillins Allergy Unknown Verified 04/17/20 08:35 Sulfa (Sulfonamide Allergy Unknown Verified 04/17/20 08:35 Antibiotics) Physical Exam Vitals: Vital Signs Temp Pulse Resp BP Pulse Ox 04/17/20 06:36 98.2 F 72 18 131/75 95 Intake and Output 04/16/20 04/17/20 04/17/20 22:59 06:59 14:59 Other: Weight 81.647 kg 81.647 kg Results CBC & Chem 7: 04/17/20 06:55 04/17/20 06:55 Labs: Abnormal Lab Results - Last 24 Hours (Table) 04/17/20 04/17/20 Range/Units 06:55 06:55 PT 26.9 H (9.0-12.0) sec INR 2.8 H (<1.2) APTT 31.3 H (22.0-30.0) sec BUN 28 H (9-20) mg/dL Creatinine 1.67 H (0.66-1.25) mg/dL Glucose 102 H (74-99) mg/dL Thrombosis Risk Factor Assmnt - Choose All That Apply Any of the Below Risk Factors Present?: Yes Each Factor Represents 1 point: Obesity (BMI >25) Other Risk Factors: Yes Each Risk Factor Represents 2 Points: Malignancy Each Risk Factor Represents 3 Points: Age 75 years or older Other congenital or acquired thrombophilia - If yes, enter type in comment: No Thrombosis Risk Factor Assessment Total Risk Factor Score: 6 Thrombosis Risk Factor Assessment Level: High Risk <Inocencia Hernandez - Last Filed: 04/18/20 06:24> Physical Exam Osteopathic Statement: *. No significant issues noted on an osteopathic structural exam other than those noted in the History and Physical/Consult. Vitals: Vital Signs Temp Pulse Pulse Resp BP BP Pulse Ox 04/18/20 04:00 66 16 128/58 95 04/18/20 00:00 64 18 127/60 96 04/17/20 20:00 97.8 F 62 16 121/60 95 04/17/20 16:00 97.9 F 64 18 127/62 98 04/17/20 15:21 86 16 136/86 99 04/17/20 06:36 98.2 F 72 18 131/75 95 Intake and Output 04/17/20 04/17/20 04/18/20 14:59 22:59 06:59 Intake Total 240 310 Balance 240 310 Intake: Oral 240 310 Other: Weight 81.647 kg 84.8 kg Results CBC & Chem 7: 04/17/20 06:55 04/17/20 06:55 Labs: Abnormal Lab Results - Last 24 Hours (Table) 04/17/20 04/17/20 Range/Units 06:55 06:55 PT 26.9 H (9.0-12.0) sec INR 2.8 H (<1.2) APTT 31.3 H (22.0-30.0) sec BUN 28 H (9-20) mg/dL Creatinine 1.67 H (0.66-1.25) mg/dL Glucose 102 H (74-99) mg/dL Assessment and Plan Assessment: Patient seen and examined independently. Patient was also seen by Oli Hudson NP and case was discussed. I am in agreement with subjective, physical exam, assessment and plan as written above and amended below. Patient seen and examined in the emergency department on 04/17. He reports that he has a known history of carotid stenosis. He last had a carotid Doppler done at cardiology [facility]. He states they have been following his carotid stenosis for quite some time, he has never been referred to Dr. Reveles or vascular surgery. He reports that his symptoms are completely resolved. General: non toxic, no distress, appears at stated age Derm: warm, dry Head: atraumatic, normocephalic, symmetric Eyes: EOMI, no lid lag, anicteric sclera Mouth: no lip lesion, mucus membranes moist Cardiovascular: S1S2 reg, no murmur, positive posterior tibial pulse bilateral, Lungs: CTA bilateral, no rhonchi, no rales , no accessory muscle use Abdominal: soft, nontender to palpation, no guarding, no appreciable organomega ly Ext: no gross muscle atrophy, no edema, no contractures Neuro: CN II-XI grossly intact, muscle strength testing 5 out of 5 in bilateral upper extremities, light touch intact in bilateral upper extremities. Psych: Alert, oriented, appropriate affect TIA -[facility] -Check echo -Recheck carotid Dopplers -Patient unable to obtain an MRI. With resolution of symptoms would defer to neurology if re-imaging is warranted.
[2020-04-17] MEDS ORDERED: WARFARIN 3 MG TAB PO SCH (18:00)
[2020-04-17] MEDS ORDERED: ATORVASTATIN 80 MG TAB PO SCH (21:00)
[2020-04-17] MEDS ORDERED: ATORVASTATIN 10 MG TAB PO SCH (21:00)
[2020-04-17] MEDS ORDERED: atenoloL 50 MG TAB PO SCH (21:00)
[2020-04-18 04:29] VITALS: RESP 16
[2020-04-18] MEDS ORDERED: PANTOPRAZOLE 40 MG TABLET PO SCH (07:30)
[2020-04-18] MEDS ORDERED: METOPROLOL SUCCINATE (ER) 100 MG TAB.ER.24H PO SCH (09:00)
[2020-04-18 09:21] LABS: HCT 41.3 % (39.0-53.0); HGB 13.5 gm/dL (13.0-17.5); MCH 30.7 pg (25.0-35.0); MCHC 32.7 g/dL (31.0-37.0); MCV 93.8 fL (80.0-100.0); Mean Platelet Volume 7.6; Platelet Count 182 k/uL (150-450); RDW 13.7 % (11.5-15.5); WBC 7.6 k/uL (3.8-10.6)
[2020-04-18 09:27] LABS: INR 2.6 (<1.2); Prothrombin Time 25.2 sec (9.0-12.0)
[2020-04-18 09:28] LABS: Potassium 4.2 mmol/L (3.5-5.1)
[2020-04-18] MEDS: ASPIRIN 81 MG PO SCH (09:35)
[2020-04-18] MEDS: lisinopriL 20 MG TAB PO SCH (09:35)
[2020-04-18] MEDS: hydroCHLOROthiazide 25 MG TAB PO SCH (09:36)
[2020-04-18] MEDS: ISOSORBIDE MONONITRATE ER 30 MG TAB.ER.24H PO SCH (09:36)
[2020-04-18] MEDS: POTASSIUM CHLORIDE ER 10 MEQ TAB.ER.PRT PO SCH (09:36)
[2020-04-18] MEDS: TAMSULOSIN 0.4 MG CAP.ER.24H PO SCH (09:36)
--- NOTE | 2020-04-18 09:55 | CT ---
EXAMINATION TYPE: CT brain wo con DATE OF EXAM: 04/18/2020 COMPARISON: 04/17/2020 HISTORY: 84-year-old male Stroke, episode right hand weakness/numbness TECHNIQUE: Examination was done in axial plane without intravenous contrast. Coronal and sagittal r econstructions performed. CT DLP: 1084.4 mGycm Automated exposure control for dose reduction was used. FINDINGS: There is no evidence of acute intracranial hemorrhage, acute ischemic changes, mass, mass-effect, or extra-axial fluid collection. There is no effacement of cerebral sulci or basal subarachnoid cister ns. There is no hydrocephalus. There is no midline shift. Borges-white matter distinction is preserv ed. Mild to moderate generalized supratentorial volume loss redemonstrated. Old lacunar infarct left basa l ganglia and left caudate head. Patchy periventricular white matter hypodensities especially on the left. Findings remain unchanged. Rightward nasal septal deviation. Paranasal sinuses and mastoid air cells well pneumatized. Orbits an d globes are intact. IMPRESSION: Similar mild to moderate atrophy, old left basal ganglionic lacunar infarcts, and mild patchy burden of chronic small vessel ischemic disease. No acute intracranial abnormality seen.
[2020-04-18 10:39] VITALS: BP 135/80; TEMP 97.5
--- NOTE | 2020-04-18 11:00 | ECHOF ---
Referral Reason:stroke MEASUREMENTS -------- HEIGHT: 172.7 cm WEIGHT: 84.4 kg BP: 128/58 IVSd: 1.4 cm (0.6 - 1.1) LVIDd: 4.1 cm (3.9 - 5.3) LVPWd: 1.8 cm (0.6 - 1.1) IVSs: 1.6 cm LVIDs: 2.9 cm LVPWs: 1.5 cm LA Diam: 4.9 cm (2.7 - 3.8) LAESV Index (A-L): 45.03 ml/m Ao Diam: 3.0 cm (2.0 - 3.7) AV Cusp: 1.2 cm (1.5 - 2.6) LA Diam: 5.2 cm (2.7 - 3.8) MV EXCURSION: 22.213 mm (> 18.000) MV EF SLOPE: 67 mm/s (70 - 150) EPSS: 0.3 cm MV E Sarkis: 1.08 m/s MV DecT: 198 ms MV A Sarkis: 0.32 m/s MV E/A Ratio: 3.36 AV maxP.13 mmHg AV meanP.08 mmHg RAP: 10.00 mmHg RVSP: 52.27 mmHg FINDINGS -------- Pacerwire seen in RV and RA. This was a technically good study. The left ventricular size is normal. There is mild concentric left ventricular hypertrophy. Overa ll left ventricular systolic function is mildly impaired with, an EF between 45 - 50 %. Inferior Hy pokinesis The right ventricle is normal in size. LA is severely dilated >40 ml/m2 The right atrial size is normal. There is mild aortic stenosis present. Peak/mean gradient across the Aortic Valve is 18.13mmHg / 10 .08mmHg. Mild mitral regurgitation is present. Mild tricuspid regurgitation present. There is moderate pulmonary hypertension. The right ventric ular systolic pressure, as measured by Doppler, is 52.27mmHg. Trace/mild (physiologic) pulmonic regurgitation. The aortic root size is normal. There is no pericardial effusion. CONCLUSIONS -------- 1. The left ventricular size is normal. 2. There is mild concentric left ventricular hypertrophy. 3. Overall left ventricular systolic function is mildly impaired with, an EF between 45 - 50 %. 4. Inferior Hypokinesis 5. The right ventricle is normal in size. 6. LA is severely dilated >40 ml/m2 7. The right atrial size is normal. 8. There is mild aortic stenosis present. 9. Peak/mean gradient across the Aortic Valve is 18.13mmHg / 10.08mmHg. 10. Mild mitral regurgitation is present. 11. Mild tricuspid regurgitation present. 12. There is moderate pulmonary hypertension. 13. The right ventricular systolic pressure, as measured by Doppler, is 52.27mmHg. 14. Trace/mild (physiologic) pulmonic regurgitation. 15. The aortic root size is normal. 16. There is no pericardial effusion. RESEARCH DIETITIAN: Zulma Acevedo RDCS
[2020-04-18 12:30] VITALS: PULSE 76
--- NOTE | 2020-04-18 13:05 | P.DS ---
<Oli Hudson - Last Filed: 04/18/20 12:43> Providers Expected date of discharge: 04/18/20 Hospital Course: Discharge Diagnosis: TIA with history of thrombotic CVA Carotid atherosclerosis Coronary artery disease status post stenting and double bypass Atrial fibrillation on anticoagulation with warfarin with therapeutic INR Hypertension Hyperlipidemia CTD stage III, stable with baseline creatinine 1.6 BPH Hospital Course: Patient is a very pleasant 84-year-old male with a past medical history including coronary artery disease with 3 previous MIs resulting in stent placement followed by cardiac double bypass in 1998, atrial fibrillation on Coumadin, pacemaker/defibrillator placement, hypertension, hyperlipidemia, thrombotic CVA in 2019 with deficits including visual deficits in right eye as well as issues with balance/coordination/and proprioception, CKD stage III, skin cancer with removal, and bladder cancer in which patient is in remission status post treatment with chemotherapy and radiation therapy. Patient presented to the emergency department for reports of right arm numbness and weakness lasting approximately 50-60 minutes and spontaneously resolving on its own. Patient underwent a CT scan of his brain showing no acute intercranial process revealing mild to moderate generalized atrophy with mild patchy changes of chronic small vessel ischemic disease accompanied by an old Lacunar infarct to his left caudate head which was reported as a similar presentation when compared to CT from 2019. EKG completed revealing a ventricular paced rhythm at 60 bpm. Chest x-ray revealing patchy left mid lung atelectasis and right suprahilar soft tissue prominence increased from previous exam. Labs were drawn revealing a therapeutic INR at 2.8, and negative troponin, an unremarkable CBC and CMP with the exception of findings consistent with patient's stage III CKD with a BUN of 28, creatinine of 1.67, and GFR of 38 (which is at patient's baseline levels with a creatinine of 1.6). Patient was admitted to our services with diagnosis of TIA along with consultation to neurology . He was closely monitored and evaluated overnight. His neuro examinations remained unremarkable with no deficits noted throughout hospitalization. He underwent bilateral carotid Dopplers revealing significant stenosis of left internal carotid artery at 50- 69%. Echocardiogram revealed a preserved ejection fraction of 45-50% with inferior hypokinesis, mild LDH, severely dilated left atrium, mild aortic stenosis, and moderate pulmonary hypertension. He underwent a repeat CT of his brain which was unchanged from initial CT obtained on arrival. Lipid profile did reveal a slightly elevated triglyceride level of 159 and low HDL of 36 otherwise normal findings. Patient cleared by neurology and is stable for discharge home at this time. His Simvastatin is being increased to 40 mg nig htly and patient was educated on a heart healthy diet. INR remained therapeutic and was 2.6 upon discharge. Physical exam: Patient was seen and fully evaluated at the bedside. He reports feeling great, stating previous numbness and weakness completely resolved yesterday and has not been present since arrival to hospital. He was sitting at the edge of the bed just finished breakfast. Patient reports he feels great and is ready to go home. He denied having any headache, lightheadedness, dizziness, new changes in his vision or hearing, tinnitus, difficulties in or changes in his speech, numbness of face, tongue, or dysphasia, chest pain or palpitations, shortness of breath, or experiencing any numbness/tingling/weakness in extremities. Patient is ambulatory with a steady gait unassisted and room without any noted difficulties. General: non toxic, no distress, appears at stated age Derm: warm, dry Head: atraumatic, normocephalic, symmetric, scar with mild indentation to right frontal/occipital region of head from previous skin cancer removal surgery. Eyes: Pupils equal, round, and reactive 3 mm to 2 mm. EOMI, no lid lag, anicteric sclera Mouth: no lip lesion, mucus membranes moist. Cardiovascular: S1S2 reg, no murmur, positive posterior tibial pulses bilaterally, cap refill less than 2 seconds, no lower extremity edema, pacemaker/defibrillator left anterior chest. Lungs: Respirations even, regular, and unlabored on room air, lungs CTA bilaterally, no rhonchi, rales, wheezes, or accessory muscle use. Abdominal: soft, nontender to palpation, no guarding, no appreciable organomegaly Ext: no gross muscle atrophy, no edema, no contractures, upper and lower extremity strength strong and equal. Neuro: GCS 15. Speech clear. CN II-XII grossly intact, no focal neuro deficits noted at this time. Psych: Alert, oriented, appropriate affect A total of 45 minutes of time were spent preparing this complex discharge summary. Patient Condition at Discharge: Fair Plan - Discharge Summary Discharge Rx Participant: No New Discharge Prescriptions: New Aspirin 81 mg PO DAILY chew Simvastatin [Zocor] 40 mg PO HS 30 Days #30 tab Continue Isosorbide Mononitrate ER [Imdur] 30 mg PO DAILY Enalapril [Vasotec] 20 mg PO BID Potassium Chloride [K-Tab ER] 8 meq PO DAILY Tamsulosin [Flomax] 0.4 mg PO DAILY Warfarin [Coumadin] 2 mg PO MOWE hydroCHLOROthiazide [Hydrodiuril] 25 mg PO DAILY Omeprazole Magnesium [PriLOSEC OTC] 20 mg PO MOWE allopurinoL [Zyloprim] 100 mg PO DAILY Warfarin [Coumadin] 3 mg PO SUTUTH Metoprolol Succinate (ER) [Toprol XL] 100 mg PO DAILY Cholecalciferol [Vitamin D3 (25 Mcg = 1000 Iu)] 25 mcg PO DAILY Multivit-Min/FA/Lycopen/Lutein [Centrum Silver Men Tablet] 1 tab PO HS Discontinued atenoloL [Tenormin] 75 mg PO DAILY Simvastatin [Zocor] 20 mg PO HS atenoloL [Tenormin] 50 mg PO HS Discharge Medication List Enalapril [Vasotec] 20 mg PO BID 09/08/14 [History] Isosorbide Mononitrate ER [Imdur] 30 mg PO DAILY 09/08/14 [History] Potassium Chloride [K-Tab ER] 8 meq PO DAILY 09/08/14 [History] Tamsulosin [Flomax] 0.4 mg PO DAILY 12/25/17 [History] Warfarin [Coumadin] 2 mg PO MOWEFR 12/25/17 [History] Omeprazole Magnesium [PriLOSEC OTC] 20 mg PO MOWEFR 04/26/19 [History] hydroCHLOROthiazide [Hydrodiuril] 25 mg PO DAILY 04/26/19 [History] Cholecalciferol [Vitamin D3 (25 Mcg = 1000 Iu)] 25 mcg PO DAILY 04/17/20 [History] Metoprolol Succinate (ER) [Toprol XL] 100 mg PO DAILY 04/17/20 [History] Multivit-Min/FA/Lycopen/Lutein [Centrum Silver Men Tablet] 1 tab PO HS 04/17/20 [History] Warfarin [Coumadin] 3 mg PO SUTUTHSA 04/17/20 [History] allopurinoL [Zyloprim] 100 mg PO DAILY 04/17/20 [History] Aspirin 81 mg PO DAILY chew 04/18/20 [Rx] Simvastatin [Zocor] 40 mg PO HS 30 Days #30 tab 04/18/20 [Rx] Follow up Appointment(s)/Referral(s): Ronaldo Parikh DO [Doctor of Osteopathic Medicine] - 05/23/20 1:00 pm Clau Yin MD [REFERRING] - 1 Week (The office will call with appointment date and time.) Carri Fontenot MD [Primary Care Provider] - 04/25/20 1:20 pm Patient Instructions/Handouts: Transient Ischemic Attack (DC) Activity/Diet/Wound Care/Special Instructions: Activity: As tolerated Diet: Heart healthy diet Special Instructions: As we discussed, if you are going to continue to live on your own, it is important for you to get a Life Alert so you have a way to get assistance in the case of an emergency. [facility] - [phone] Ext [phone] code [id number] It was truly a pleasure having the opportunity to be a part of your care team!! Discharge Disposition: HOME SELF-CARE <Inocencia Hernandez - Last Filed: 04/18/20 17:41> Providers Date of admission: 04/17/20 08:10 Attending physician: Inocencia Hernandez DO Consults: 04/17/20 08:15 Consult Physician Urgent Consulting Provider: Joel Davis Consult Reason/Comments: TIA Do you want consulting provider notified?: Yes 04/17/20 13:54 Consult Physician Routine Consulting Provider: Adolph Enciso Consult Reason/Comments: history of carotid stenosis with presentation of TIA Do you want consulting provider notified?: Yes Primary care physician: Carri Fontenot Hospital Course: Patient seen and examined independently. Patient was also seen by Oli Hudson NP and case was discussed. I am in agreement with discharge diagnosis, hospital course, and physical exam as written above and amended below. Patient seen and examined at bedside. He is feeling back to baseline. He is aware of follow-up required and that his neurologic workup for stroke was negative but that we do recommend increasing his statin secondary to suboptimal lipid profile. General: non toxic, no distress, appears at stated age Derm: warm, dry Head: atraumatic, normocephalic, symmetric Eyes: EOMI, no lid lag, anicteric sclera Mouth: no lip lesion, mucus membranes moist Cardiovascular: S1S2 reg, no murmur, positive posterior tibial pulse bilateral, Lungs: CTA bilateral, no rhonchi, no rales , no accessory muscle use Abdominal: soft, nontender to palpation, no guarding, no appreciable organomegaly Ext: no gross muscle atrophy, no edema, no contractures Neuro: CN II-XI grossly intact, no focal neuro deficits Psych: Alert, oriented, appropriate affect Diagnosis correction: CKD stage III
--- NOTE | 2020-04-18 13:29 | P.PN ---
Subjective Progress Note Date: 04/18/20 The patient was seen at bedside and he stated that he has not had any further episodes of weakness or numbness over the right side that. He feels back to baseline. Denies of any further neurological deficits. CT of the head repeat today was done to make sure there is a no changes radiographically compared to yesterday or there is no any evolution of new strokes. It is reported as similar mild to moderate atrophy, old left basal ganglia lacunar infarct and mild patchy burden of chronic small vessel ischemic disease. No acute intracranial abnormality seen. 2-D echo was reported as mild concentric left ventricle hypertrophy. Overall left ventricle systolic function is mildly impaired with ejection fraction of 45-50%. Inferior hypokinesis. Left atrium is severely dilated. Objective - Vital Signs Vital signs: Vital Signs Temp 97.5 F L 04/18/20 08:00 Pulse 76 04/18/20 12:00 Resp 16 04/18/20 04:00 BP 135/80 04/18/20 08:00 Pulse Ox 97 04/18/20 08:00 Intake & Output 04/17/20 04/18/20 04/18/20 18:59 06:59 18:59 Intake Total 240 310 576 Balance 240 310 576 Weight 81.647 kg 84.8 kg Intake: Oral 240 310 576 - Exam GENERAL: The patient is lying in bed and is not in acute distress. NEUROLOGICAL: Higher mental function: The patient is awake, alert, oriented to self, place and time. Patient is following commands. No aphasia and no neglect. Cranial nerves: The pupils are round, equal and reactive to light and accommodation. Visual vinson are full to confrontation throughout. Extraocular movement is intact no nystagmus is noted. Facial sensation is normal to touch throughout. The facial strength is normal throughout. Hearing is mildly to moderately decreased to hand rubs. Tongue is midline and moved [id number] without any difficulty. No dysarthria is noted. Shoulder shrug is normal bilaterally. Motor: Gait: is deferred. The strength is 5 over 5 throughout. Normal tone and bulk. Cerebellum: Normal finger to nose heel to christensen bilaterally. Sensation: Sensation is normal to touch throughout. Reflexes (right/left): 2+ in bilateral upper, 1+ left patellar and ankles while 2+ over right patellar. Plantars are downgoing bilaterally. - Labs CBC & Chem 7: 04/18/20 07:13 04/18/20 07:13 Labs: Abnormal Lab Results - Last 24 Hours (Table) 04/17/20 04/18/20 04/18/20 Range/Units 06:55 07:13 07:13 PT 25.2 H (9.0-12.0) sec INR 2.6 H (<1.2) BUN 28 H (9-20) mg/dL Creatinine 1.67 H (0.66-1.25) mg/dL Triglycerides 159 H (<150) mg/dL HDL Cholesterol 36 L (40-60) mg/dL RBC Folate 867 H (280 - 791) ng/mL Assessment and Plan Assessment: This is an 84-year-old the gentleman with multiple medical problem that presente d to the emergency department for transient right arm numbness and weakness Patient the episode of transient right upper extremity numbness and weakness predominately (also has numbness of the right leg) is likely due to a transient ischemic attack. Possibly due to small vessel disease (multiple risk factors) vs emboli from left carotid stenosis History of stroke (old lacunar in left caudate) Acute kidney insufficiency Moderate left internal carotid stenosis (50-69% per carotid duplex) History of atrial fibrillation on Coumadin History of coronary artery disease status post stenting as well as CABG as well as the patient has a pacemaker History of hypertension next on history of the hyperlipidemia Plan: CT of the head is reported as mild to moderate generalized atrophy. Mild patchy changes of chronic small vessel ischemic disease. Old lacunar infarct in the left caudate head was present back in 2019 as well. No acute intracranial abnormality seen. MRI Brain cannot be obtained because of pacemaker. CT of the head repeat today wIt is reported as similar mild to moderate atrophy, old left basal ganglia lacunar infarct and mild patchy burden of chronic small vessel ischemic disease. No acute intracranial abnormality seen. 2-D echo was reported as mild concentric left ventricle hypertrophy. Overall left ventricle systolic function is mildly impaired with ejection fraction of 45-50%. Inferior hypokinesis. Left atrium is severely dilated. Carotid duplex is reported as elevated velocities in the left greater than the right internal carotid arteries. Possible moderate, 50-69% proximal left internal carotid artery stenosis. Velocity elevation of the right may be in part due to turbulent flow. Further interventions correctly indicated. Continue Coumadin and ASA 81mg daily for stroke prophylaxis. Currently the patient is on Lipitor 80 mg daily which can be decreased to 40 mg daily at bedtime. Regarding the carotid stenosis the patient doesn't want any intervention on the carotids at this time. Vascular team is consulted. Lipid panel: Triglyceride 159, cholesterol 128, LDL 60 and HDL is 36. PT OT and DIRECTOR OF HEALTH CARE MARKETING are consulted Patient vitamin B12 is 497 which is normal and the red blood cell folate is 867 and is normal From a neurology perspective the patient needs to follow-up with a neurologist within 1-2 weeks as an outpatient. I also recommend the patient to follow-up with a vascular surgical team as an outpatient upon discharge. There is no further neurological workup needed at this time. He is clear from a neurological stand point. The plan is discussed with patient. Joel Davis M.D. Neuro-hospitalist Time with Patient: Less than 30
--- NOTE | 2020-04-18 15:40 | P.GSCN ---
History of Present Illness Consult date: 04/18/20 Reason for Consult: TIA, carotid stenosis History of present illness: This is an 84-year-old the gentleman with medical history of atrial fibrillation on coumadin, coronary artery disease status post CABG and stent and has a pacemaker, hyperlipidemia, hypertension, stroke (1 year ago with right visual disturbance while off coumadin), skin cancer who presented emergency department on 04/17/2020 for right arm numbness and weakness. Per the patient he woke up today around 5:30 -5:45am and noticed that his right arm and hand was numb and weak. That he was in his lift chair and woke up feeling somewhat disoriented, states he was trying to reach for his phone but was unable to use his right upper extremity. Also states his right lower extremity felt "prickly". He said when he was trying to hold his phone the he felt his hand and arm was weak. The episode lasted for be up to an hour and resolved by the time he was in the emergency department. On arriving to the ED he was back to his baseline. He said that about a year ago he was diagnosed with skin cancer over the forehead of scalp and was told the to stop Coumadin which he did said he suffered a right visual disturbance and that his vision was affected and the not back to baseline and that required that glasses as a result. He said during the episode the he also felt that he was having unsteady gait. He said that he follows up with cardiology and he was told that he has carotid stenosis he thinks about 80% on the bilateral carotid and was told that he didn't need any intervention. He said his last ultrasound was more than a year ago. He currently denies any upper or lower extremity weakness, any visual disturbances, any speech difficulty, and is alert and oriented 3. CT of the head is reported as mild to moderate generalized atrophy. Mild patchy changes of chronic small vessel ischemic disease. Old lacunar infarct in the left caudate head was present back in 2019 as well. No acute intracranial abnormality seen. Carotid ultrasound right ICA 1:30, ICA/CCA ratio 1.3. Left ICA 193, ICA/CCA ratio 2.6. Impression states elevated velocities in the left greater than right ICAs. Possible moderate, 50-69% proximal left ICA stenosis. Velocity elevation on the right may in part be due to turbulent flow. CT of the head on 04/18/2020 shows similar mild to moderate atrophy, old left basal ganglionic lacunar infarcts, and mild patchy burden of chronic small vessel ischemic disease. No acute intracranial abnormality seen. Review of Systems A 14 point review of systems was completed all pertinent positives and negatives as stated in the HPI Past Medical History Past Medical History: Atrial Fibrillation, Coronary Artery Disease (CAD), Cancer, Chest Pain / Angina, Heart Failure, CVA/TIA, GERD/Reflux, GI Bleed, Hearing Disorder / Deafness, Hyperlipidemia, Hypertension, Myocardial Infarction (AR), Osteoarthritis (OA), Prostate Disorder Additional Past Medical History / Comment(s): AFib, SSS, MIs x3, ischemic cardiomyopathy/vtach/AICD/pacer, CVA about 1 year ago with R eye vision change/[place] R ear and balance issues, bladder cancer with surgery/chemo, skin cancer with removals, epistaxis, bleeding gastric ulcer, lower GI bleed, colon polyps, L lower leg edema, chronic low back pain, bilateral arm/hand tremors with R arm worse Last Myocardial Infarction Date:: 1998 History of Any Multi-Drug Resistant Organisms: None Reported Past Surgical History: AICD, Bladder Surgery, Cholecystectomy, Coronary Bypass/CABG, Heart Catheterization, Heart Catheterization With Stent, Hernia Repair, Joint Replacement, Pacemaker, Prostate Surgery Additional Past Surgical History / Comment(s): PCI with stents, 1999 CABG 3 vessel, AICD/pacer last one placed 04/2019 with wound debridement, total L hip arthroplasty, skin cancer removal with graft, TURBT with fulguration, TURP, colectomy d/t polyps, inguinal hernia-pt cannot recall laterallity. Past Anesthesia/Blood Transfusion Reactions: No Reported Reaction Date of Last Stent Placement:: 1998 Type of Cardiac Device: Permanent Pacemaker, AICD Device Placement Date:: april 2019 Smoking Status: Former smoker - Past Family History Mother Family Medical History: No Reported History Additional Family Medical History / Comment(s): tremors Father Family Medical History: Osteoarthritis (OA) Medications and Allergies Home Medications Medication Instructions Recorded Confirmed Type Enalapril [Vasotec] 20 mg PO BID 09/08/14 04/17/20 History Isosorbide Mononitrate ER [Imdur] 30 mg PO DAILY 09/08/14 04/17/20 History Potassium Chloride [K-Tab ER] 8 meq PO DAILY 09/08/14 04/17/20 History Tamsulosin [Flomax] 0.4 mg PO DAILY 12/25/17 04/17/20 History Warfarin [Coumadin] 2 mg PO MOWEFR 12/25/17 04/17/20 History Omeprazole Magnesium [PriLOSEC OTC] 20 mg PO MOWEFR 04/26/19 04/17/20 History hydroCHLOROthiazide [Hydrodiuril] 25 mg PO DAILY 04/26/19 04/17/20 History Cholecalciferol [Vitamin D3 (25 25 mcg PO DAILY 04/17/20 04/17/20 History Mcg = 1000 Iu)] Metoprolol Succinate (ER) [Toprol 100 mg PO DAILY 04/17/20 04/17/20 History XL] Multivit-Min/FA/Lycopen/Lutein 1 tab PO HS 04/17/20 04/17/20 History [Centrum Silver Men Tablet] Warfarin [Coumadin] 3 mg PO SUTUTHSA 04/17/20 04/17/20 History allopurinoL [Zyloprim] 100 mg PO DAILY 04/17/20 04/17/20 History Aspirin 81 mg PO DAILY chew 04/18/20 Rx Simvastatin [Zocor] 40 mg PO HS 30 Days #30 tab 04/18/20 Rx Allergies Allergy/AdvReac Type Severity Reaction Status Date / Time codeine Allergy Unknown Verified 04/17/20 08:35 morphine Allergy Unknown Verified 04/17/20 08:35 Penicillins Allergy Unknown Verified 04/17/20 08:35 Sulfa (Sulfonamide Allergy Unknown Verified 04/17/20 08:35 Antibiotics) Surgical - Exam Vital Signs Temp Pulse Resp BP Pulse Ox 98.2 F 72 18 131/75 95 04/17/20 06:36 04/17/20 06:36 04/17/20 06:36 04/17/20 06:36 04/17/20 06:36 General appearance: The patient is alert, oriented, in no acute distress. HET: Head is normocephalic and atraumatic. Pupils are equal and reactive. Facial symmetry. Neck: Supple without lymphadenopathy. Trachea midline. Heart: S1 S2. Regular rate and rhythm. Lungs: Clear to auscultation Abdomen: Soft, nontender, nondistended. Extremities: Normal skin color and turgor. No cyanosis, rash, ulceration, clubbing, or edema. Radial and pedal pulses are 2/4 bilaterally. Neurological: No focal deficits. Strength and sensation are grossly intact. Results - Labs 04/18/20 07:13 04/18/20 07:13 Abnormal Lab Results - Last 24 Hours (Table) 04/18/20 04/18/20 Range/Units 07:13 07:13 PT 25.2 H (9.0-12.0) sec INR 2.6 H (<1.2) BUN 28 H (9-20) mg/dL Creatinine 1.67 H (0.66-1.25) mg/dL Triglycerides 159 H (<150) mg/dL HDL Cholesterol 36 L (40-60) mg/dL Diabetes panel 04/18/20 Range/Units 07:13 Sodium 138 (137-145) mmol/L Potassium 4.2 (3.5-5.1) mmol/L Chloride 101 (98-107) mmol/L Carbon Dioxide 30 (22-30) mmol/L BUN 28 H (9-20) mg/dL Creatinine 1.67 H (0.66-1.25) mg/dL Glucose 90 (74-99) mg/dL Calcium 9.0 (8.4-10.2) mg/dL Triglycerides 159 H (<150) mg/dL HDL Cholesterol 36 L (40-60) mg/dL Calcium panel 04/18/20 Range/Units 07:13 Calcium 9.0 (8.4-10.2) mg/dL Pituitary panel 04/18/20 Range/Units 07:13 Sodium 138 (137-145) mmol/L Potassium 4.2 (3.5-5.1) mmol/L Chloride 101 (98-107) mmol/L Carbon Dioxide 30 (22-30) mmol/L BUN 28 H (9-20) mg/dL Creatinine 1.67 H (0.66-1.25) mg/dL Glucose 90 (74-99) mg/dL Calcium 9.0 (8.4-10.2) mg/dL Adrenal panel 04/18/20 Range/Units 07:13 Sodium 138 (137-145) mmol/L Potassium 4.2 (3.5-5.1) mmol/L Chloride 101 (98-107) mmol/L Carbon Dioxide 30 (22-30) mmol/L BUN 28 H (9-20) mg/dL Creatinine 1.67 H (0.66-1.25) mg/dL Glucose 90 (74-99) mg/dL Calcium 9.0 (8.4-10.2) mg/dL - Imaging Comments: CT of the head is reported as mild to moderate generalized atrophy. Mild patchy changes of chronic small vessel ischemic disease. Old lacunar infarct in the left caudate head was present back in 2019 as well. No acute intracranial abnormality seen. Carotid ultrasound right ICA 1:30, ICA/CCA ratio 1.3. Left ICA 193, ICA/CCA ratio 2.6. Impression states elevated velocities in the left greater than right ICAs. Possible moderate, 50-69% proximal left ICA stenosis. Velocity elevation on the right may in part be due to turbulent flow. CT of the head on 04/18/2020 shows similar mild to moderate atrophy, old left basal ganglionic lacunar infarcts, and mild patchy burden of chronic small vessel ischemic disease. No acute intracranial abnormality seen. Assessment and Plan Assessment: 1. Carotid stenosis, left ICA stenosis 50-69% per carotid Doppler 2. Right upper and lower extremity weakness 3. History of CVA 4. History of atrial fibrillation on Coumadin, has pacemaker 5. History of coronary artery disease status post stenting and CABG Plan: 1. Supportive care 2. Continue Coumadin per cardiology 3. Continue statin 4. Appreciate recommendations per neurology 5. There is no acute indication for any vascular surgical intervention, discussed with patient importance for outpatient follow-up and repeat carotid imaging Thank you for this consultation, patient may be discharged home from a vascular surgical standpoint with outpatient follow-up. The impression and plan of care has been dictated as directed. Dr. Angeles I performed a history and examination of this patient, discussed the same with the dictator. I agree with the dictator's note ,documented as a scribe. Any additional findings or plans will be noted.
[2020-04-18] MEDS ORDERED: WARFARIN 2 MG TAB PO SCH (18:00)
== END 2020-04-18 13:23 | disposition home or self-care (01) | DRG 69 ==
LOC: EC 06:33 → 3SCARD 08:10
PROVIDERS: ADMIT Internal Medicine; ATTEND Internal Medicine
DX: G45.9 Transient cerebral ischemic attack, unspecified (principal); I25.10 Atherosclerotic heart disease of native coronary artery without angina pectoris; I12.9 Hypertensive chronic kidney disease with stage 1 through stage 4 chronic kidney disease, or unspecified chronic kidney disease; N18.30 Chronic kidney disease, stage 3 unspecified; Z95.5 Presence of coronary angioplasty implant and graft; Z95.1 Presence of aortocoronary bypass graft; I25.2 Old myocardial infarction; I48.91 Unspecified atrial fibrillation; Z79.01 Long term (current) use of anticoagulants; Z95.0 Presence of cardiac pacemaker; E78.5 Hyperlipidemia, unspecified; I69.312 Visuospatial deficit and spatial neglect following cerebral infarction; Z85.828 Personal history of other malignant neoplasm of skin; Z85.51 Personal history of malignant neoplasm of bladder; N40.0 Benign prostatic hyperplasia without lower urinary tract symptoms; N28.9 Disorder of kidney and ureter, unspecified; R79.1 Abnormal coagulation profile; R26.9 Unspecified abnormalities of gait and mobility; I65.23 Occlusion and stenosis of bilateral carotid arteries
CPT/HCPCS: 36415; 70450; 71046; 80048; 80053; 80061; 82607; 82747; 83036; 84443; 84484; 85025; 85027; 85610; 85730; 87635; 93005; 93306; 93880

== ENCOUNTER 2020-05-02 16:00 | Emergency (ER) | payer MEDICARE ==
[2020-05-02 16:39] VITALS: BP 141/70; PULSE 66; RESP 18; TEMP 97.8
[2020-05-02 19:07] LABS: INR 2.1 (<1.2); Partial Thromboplastin Time 29.1 sec (22.0-30.0); Prothrombin Time 20.8 sec (9.0-12.0)
--- NOTE | 2020-05-02 21:04 | US ---
EXAMINATION TYPE: US venous doppler duplex LE RT DATE OF EXAM: 05/02/2020 8:43 PM COMPARISON: [facility] CLINICAL HISTORY: right leg pain. Right leg pain x 3 days. Patient on coumadin. SIDE PERFORMED: Right TECHNIQUE: The lower extremity deep venous system is examined utilizing real time linear array sonog elidia with graded compression, doppler sonography and color-flow sonography. VESSELS IMAGED: Common Femoral Vein Deep Femoral Vein Greater Saphenous Vein * Femoral Vein Popliteal Vein Small Saphenous Vein * Proximal Calf Veins (* superficial vessels) Right Leg: No evidence of DVT in veins imaged at this time from prox calf veins to CFV/GSV. Heterog eneous, hypoechoic area seen anterior to the popliteal vessels within popliteal fossa measurin.5 x 2.2 x 1.9 cm. *At the patient's area of concern/pain right lateral lower leg, there appears to be a hypoechoic, sup erficial area that does not compress measurin.9 x 0.9 x 0.4 cm. IMPRESSION: No evidence of deep vein thrombosis. There is hypoechoic mass in the popliteal fossa olive t could be an enlarged lymph node. There is a elongated hypoechoic area in the perfusion calf that could be intramuscular hematoma.
--- NOTE | 2020-05-02 21:09 | ED ---
Lower Extremity Injury HPI - General Chief Complaint: Extremity Injury, Lower Stated Complaint: Poss blood clot in leg, sent by PCP Time Seen by Provider: 05/02/20 17:46 Source: patient Mode of arrival: wheelchair Limitations: no limitations - History of Present Illness Initial Comments: Very pleasant 85yo male presenting today for chief complaint of right calf pain. Patient states he bumped his lateral calf a few days ago, had a small bruise but states it hurt. Patient is on Coumadin he states his level was 3.1 at last INR testing. Patient denies any chest pain shortness of breath he denies any expanding swelling or bruising. Patient states he feels a hard bump in the lateral aspect of the right calf patient was told by his primary care to come to the ER for evaluation of possible blood clot. She has no additional complaints he denies history of deep venous ecchymosis or pulmonary embolism he appears well nontoxic in no acute distress - Related Data Home Medications Medication Instructions Recorded Confirmed Enalapril [Vasotec] 20 mg PO BID 09/08/14 05/02/20 Isosorbide Mononitrate ER [Imdur] 30 mg PO DAILY 09/08/14 05/02/20 Potassium Chloride [K-Tab ER] 8 meq PO DAILY 09/08/14 05/02/20 Tamsulosin [Flomax] 0.4 mg PO DAILY 12/25/17 05/02/20 Warfarin [Coumadin] 2 mg PO MOWEFR 12/25/17 05/02/20 Omeprazole Magnesium [PriLOSEC OTC] 20 mg PO MOWEFR 04/26/19 05/02/20 hydroCHLOROthiazide [Hydrodiuril] 25 mg PO DAILY 04/26/19 05/02/20 Cholecalciferol [Vitamin D3 (25 25 mcg PO DAILY 04/17/20 05/02/20 Mcg = 1000 Iu)] Metoprolol Succinate (ER) [Toprol 100 mg PO DAILY 04/17/20 05/02/20 XL] Multivit-Min/FA/Lycopen/Lutein 1 tab PO HS 04/17/20 05/02/20 [Centrum Silver Men Tablet] Warfarin [Coumadin] 3 mg PO SUTUTHSA 04/17/20 05/02/20 allopurinoL [Zyloprim] 100 mg PO DAILY 04/17/20 05/02/20 Previous Rx's Medication Instructions Recorded Aspirin 81 mg PO DAILY chew 04/18/20 Simvastatin [Zocor] 40 mg PO HS 30 Days #30 tab 04/18/20 Allergies Allergy/AdvReac Type Severity Reaction Status Date / Time codeine Allergy Unknown Verified 05/02/20 18:08 morphine Allergy Unknown Verified 05/02/20 18:08 Penicillins Allergy Unknown Verified 05/02/20 18:08 Sulfa (Sulfonamide Allergy Unknown Verified 05/02/20 18:08 Antibiotics) Review of Systems ROS Statement: Those systems with pertinent positive or pertinent negative responses have been documented in the HPI. ROS Other: All systems not noted in ROS Statement are negative. 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/[place] R ear and balance issues, bladder cancer with surgery/chemo, skin cancer with removals, epistaxis, bleeding gastric ulcer, lower GI bleed, colon polyps, L lower leg edema, chronic low back pain, bilateral arm/hand tremors with R arm worse Last Myocardial Infarction Date:: 1998 History of Any Multi-Drug Resistant Organisms: None Reported Past Surgical History: AICD, Bladder Surgery, Cholecystectomy, Coronary Bypass/CABG, Heart Catheterization, Heart Catheterization With Stent, Hernia Repair, Joint Replacement, Pacemaker, Prostate Surgery Additional Past Surgical History / Comment(s): PCI with stents, 1999 CABG 3 vessel, AICD/pacer last one placed 04/2019 with wound debridement, total L hip arthroplasty, skin cancer removal with graft, TURBT with fulguration, TURP, colectomy d/t polyps, inguinal hernia-pt cannot recall laterallity. Past Anesthesia/Blood Transfusion Reactions: No Reported Reaction Date of Last Stent Placement:: 1998 Type of Cardiac Device: Permanent Pacemaker, AICD Device Placement Date:: april 2019 Past Psychological History: No Psychological Hx Reported Smoking Status: Former smoker Past Alcohol Use History: None Reported Past Drug Use History: None Reported - Past Family History Mother Family Medical History: No Reported History Additional Family Medical History / Comment(s): tremors Father Family Medical History: Osteoarthritis ([place]) General Exam - General Exam Comments Initial Comments: General: The patient is awake and alert, in no distress Eye: +3 mm pupils are equal, round and reactive to light, extra-ocular movements are intact. No nystagmus. There is normal conjunctiva bilaterally. No signs of icterus. Cardiovascular: There is a regular rate and rhythm. No murmur, rub or gallop is appreciated. Respiratory: Lungs are clear to auscultation, respirations are non-labored, breath sounds are equal. No wheezes, stridor, rales, or rhonchi. Musculoskeletal: Small area of ecchymosis lateral mid right calf, no large hematoma palpable, compartments compressible. small knot like lesion palpable, pea size. Normal ROM, no tenderness. Strength 5/5. Sensation intact. Radial and DP pulses equal bilaterally 2+. Neurological: A&O x 3. CN II-XII intact grossly, There are no obvious motor or sensory deficits. Coordination appears grossly intact. Speech is normal. Skin: Skin is warm and dry and no rashes or lesions are noted. Psychiatric: Cooperative, appropriate mood & affect, normal judgment. Limitations: no limitations Course Vital Signs 05/02/20 16:36 Temperature 97.8 F Pulse Rate 66 Respiratory 18 Rate Blood Pressure 141/70 O2 Sat by Pulse 96 Oximetry Medical Decision Making - Medical Decision Making US no DVT. Hematoma noted. Does not appear to have clinical findings suggestive of expanding hematoma. recommend compression/warm compresses and pcp f/u. pt agreeable discharged appearing well after discussed the case with attending provider Dr. Aguilar who did evaluate patient's leg - Lab Data Lab Results 05/02/20 Range/Units 18:44 PT 20.8 H (9.0-12.0) sec INR 2.1 H (<1.2) APTT 29.1 (22.0-30.0) sec Disposition Clinical Impression: Hematoma Disposition: HOME SELF-CARE Condition: Good Instructions (If sedation given, give patient instructions): Hematoma (ED) Additional Instructions: Please use medication as discussed. Please follow-up with family doctor in the next 2 days. IF expanding rapidly, skin is very tight and pain severe return to ER. Apply warm compresses as discussed. Please return to emergency room if the symptoms increase or worsen or for any other concerns. Is patient prescribed a controlled substance at d/c from ED?: No Referrals: Carri Fontenot MD [Primary Care Provider] - 1-2 days Time of Disposition: 21:09
== END 2020-05-02 21:21 | disposition home or self-care (01) ==
LOC: EC 16:00
DX: S80.11XA Contusion of right lower leg, initial encounter (principal); I25.10 Atherosclerotic heart disease of native coronary artery without angina pectoris; I48.91 Unspecified atrial fibrillation; I11.0 Hypertensive heart disease with heart failure; I50.9 Heart failure, unspecified; K21.9 Gastro-esophageal reflux disease without esophagitis; E78.5 Hyperlipidemia, unspecified; I25.2 Old myocardial infarction; M19.90 Unspecified osteoarthritis, unspecified site; Z86.73 Personal history of transient ischemic attack (TIA), and cerebral infarction without residual deficits; Z95.1 Presence of aortocoronary bypass graft; Z95.5 Presence of coronary angioplasty implant and graft; Z87.891 Personal history of nicotine dependence; W51.XXXA Accidental striking against or bumped into by another person, initial encounter
CPT/HCPCS: 36415; 85610; 85730; 99284

== ENCOUNTER → 2020-05-29 | Outpatient (CLI) | payer MEDICARE ==
--- NOTE | 2020-05-29 14:30 | US ---
EXAMINATION TYPE: US extremity nonvasc mass RT DATE OF EXAM: 05/29/2020 COMPARISON: NONE CLINICAL HISTORY: R22.41 LUMP IN RT LEG. lump behind right knee and lump right lower leg near ankle Heterogeneous hypoechoic area right popliteal fossa = 3.6 x 2.0 x 2.0cm anterior to vessels. Within p atient's area of concern, right lower leg, superficial hypoechoic area = 1.0 x 0.3 x 1.0cm IMPRESSION: 1. [place] cyst. 2. Nonspecific hypoechoic subcutaneous collection within the area of the lump in the right lower extr emity.
== END | disposition home or self-care (01) ==
LOC: RADUSWWP 07:05
PROVIDERS: ATTEND Family Medicine
DX: R22.41 Localized swelling, mass and lump, right lower limb (principal); M71.21 Synovial cyst of popliteal space [Baker], right knee

== ENCOUNTER 2020-05-30 10:45 | Inpatient (IN) | payer MEDICARE ==
[2020-05-30] MEDS ORDERED: PANTOPRAZOLE 40 MG/10 ML VIAL IVP STA (11:11)
[2020-05-30] MEDS ORDERED: SODIUM CHLORIDE 0.9% 1,000 ML IV STA (11:11)
--- NOTE | 2020-05-30 11:14 | ED ---
General Adult HPI - General Chief complaint: GI Bleed Stated complaint: Rectal Bleeding Time Seen by Provider: 05/30/20 11:03 Source: patient, family, RN notes reviewed Mode of arrival: ambulatory Limitations: no limitations - History of Present Illness Initial comments: Patient is a pleasant 85-year-old male presenting to the emergency Department with complaints of rectal bleeding. Onset of symptoms was just an hour ago. Patient was in the shower. Patient states blood was just coming out. Patient does have a history of similar symptoms years ago associated with polyps. Patient is on Coumadin with history of heart problems. INR was 2.7 just 1 week ago. Patient does feel a little bit fatigued. No dyspnea. No other areas of bleeding or concern. - Related Data Home Medications Medication Instructions Recorded Confirmed Enalapril [Vasotec] 20 mg PO BID 09/08/14 05/30/20 Isosorbide Mononitrate ER [Imdur] 30 mg PO DAILY 09/08/14 05/30/20 Potassium Chloride [K-Tab ER] 8 meq PO DAILY 09/08/14 05/30/20 Tamsulosin [Flomax] 0.4 mg PO DAILY 12/25/17 05/30/20 Warfarin [Coumadin] 2 mg PO MOWEFR@1800 12/25/17 05/30/20 hydroCHLOROthiazide [Hydrodiuril] 25 mg PO DAILY 04/26/19 05/30/20 Cholecalciferol [Vitamin D3 (25 25 mcg PO DAILY 04/17/20 05/30/20 Mcg = 1000 Iu)] Metoprolol Succinate (ER) [Toprol 100 mg PO DAILY 04/17/20 05/30/20 XL] Multivit-Min/FA/Lycopen/Lutein 1 tab PO HS 04/17/20 05/30/20 [Centrum Silver Men Tablet] Warfarin [Coumadin] 3 mg PO SUTUTHSA@1800 04/17/20 05/30/20 allopurinoL [Zyloprim] 100 mg PO DAILY 04/17/20 05/30/20 Omeprazole 20 mg PO MOWEFR 05/30/20 05/30/20 Previous Rx's Medication Instructions Recorded Aspirin 81 mg PO DAILY chew 04/18/20 Simvastatin [Zocor] 40 mg PO HS 30 Days #30 tab 04/18/20 Allergies Allergy/AdvReac Type Severity Reaction Status Date / Time codeine Allergy Unknown Verified 05/30/20 12:14 morphine Allergy Unknown Verified 05/30/20 12:14 Penicillins Allergy Unknown Verified 05/30/20 12:14 Sulfa (Sulfonamide Allergy Unknown Verified 05/30/20 12:14 Antibiotics) Review of Systems ROS Statement: Those systems with pertinent positive or pertinent negative responses have been documented in the HPI. ROS Other: All systems not noted in ROS Statement are negative. Constitutional: Denies: fever Eyes: Denies: eye pain ENT: Denies: ear pain Respiratory: Denies: cough Cardiovascular: Denies: chest pain Endocrine: Reports: fatigue Gastrointestinal: Reports: hematochezia. 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/[place] R ear and balance issues, bladder cancer with surgery/chemo, skin cancer with removals, epistaxis, bleeding gastric ulcer, lower GI bleed, colon polyps, L lower leg edema, chronic low back pain, bilateral arm/hand tremors with R arm worse Last Myocardial Infarction Date:: 1998 History of Any Multi-Drug Resistant Organisms: None Reported Past Surgical History: AICD, Bladder Surgery, Cholecystectomy, Coronary Bypass/CABG, Heart Catheterization, Heart Catheterization With Stent, Hernia Repair, Joint Replacement, Pacemaker, Prostate Surgery Additional Past Surgical History / Comment(s): PCI with stents, 1999 CABG 3 vessel, AICD/pacer last one placed 04/2019 with wound debridement, total L hip arthroplasty, skin cancer removal with graft, TURBT with fulguration, TURP, colectomy d/t polyps, inguinal hernia-pt cannot recall laterallity. Past Anesthesia/Blood Transfusion Reactions: No Reported Reaction Date of Last Stent Placement:: 1998 Type of Cardiac Device: Permanent Pacemaker, AICD Device Placement Date:: april 2019 Past Psychological History: No Psychological Hx Reported Smoking Status: Former smoker Past Alcohol Use History: None Reported Past Drug Use History: None Reported - Past Family History Mother Family Medical History: No Reported History Additional Family Medical History / Comment(s): tremors Father Family Medical History: Osteoarthritis (OA) General Exam Limitations: no limitations General appearance: alert, in no apparent distress Head exam: Present: normocephalic Eye exam: Present: normal appearance Neck exam: Present: normal inspection Respiratory exam: Present: normal lung sounds bilaterally Cardiovascular Exam: Present: regular rate, normal rhythm, systolic murmur GI/Abdominal exam: Present: soft. Absent: distended, tenderness Rectal exam: Present: normal inspection. Absent: bloody stool Extremities exam: Present: normal inspection Neurological exam: Present: alert Psychiatric exam: Present: normal affect, normal mood Skin exam: Present: normal color Course Vital Signs 05/30/20 05/30/20 10:58 12:41 Temperature 97.5 F L Pulse Rate 71 62 Respiratory 18 18 Rate Blood Pressure 136/77 152/73 O2 Sat by Pulse 95 96 Oximetry EKG Findings - EKG Comments: EKG Findings:: Paced rhythm with a rate of 1:15. QRS 94. QT 224. QTC 309. Right axis. Wide-complex QRS. Nonspecific ST-T. Medical Decision Making - Medical Decision Making Patient reevaluated and updated. Family is present. Case was discussed with Dr. Javier, who will admit covered for Dr. Lopez. - Lab Data Result diagrams: 05/30/20 11:15 05/30/20 11:15 Lab Results 05/30/20 05/30/20 05/30/20 Range/Units 11:09 11:15 11:15 WBC 8.0 (3.8-10.6) k/uL RBC 4.32 (4.30-5.90) m/uL Hgb 13.6 (13.0-17.5) gm/dL Hct 39.2 (39.0-53.0) % MCV 90.8 (80.0-100.0) fL MCH 31.5 (25.0-35.0) pg MCHC 34.7 (31.0-37.0) g/dL RDW 13.1 (11.5-15.5) % Plt Count 178 (150-450) k/uL MPV 7.5 Neutrophils % 70 % Lymphocytes % 17 % Monocytes % 7 % Eosinophils % 5 % Basophils % 0 % Neutrophils # 5.6 (1.3-7.7) k/uL Lymphocytes # 1.3 (1.0-4.8) k/uL Monocytes # 0.5 (0-1.0) k/uL Eosinophils # 0.4 (0-0.7) k/uL Basophils # 0.0 (0-0.2) k/uL PT 30.7 H (9.0-12.0) sec INR 3.2 H (<1.2) APTT 32.9 H (22.0-30.0) sec Sodium (137-145) mmol/L Potassium (3.5-5.1) mmol/L Chloride (98-107) mmol/L Carbon Dioxide (22-30) mmol/L Anion Gap mmol/L BUN (9-20) mg/dL Creatinine (0.66-1.25) mg/dL Est GFR (CKD-EPI)AfAm (>60 ml/min/1.73 sqM) Est GFR (CKD-EPI)NonAf (>60 ml/min/1.73 sqM) Glucose (74-99) mg/dL Calcium (8.4-10.2) mg/dL Total Bilirubin (0.2-1.3) mg/dL AST (17-59) U/L ALT (4-49) U/L Alkaline Phosphatase (38-126) U/L Total Protein (6.3-8.2) g/dL Albumin (3.5-5.0) g/dL Stool Occult Blood Negative (Negative) 05/30/20 Range/Units 11:15 WBC (3.8-10.6) k/uL RBC (4.30-5.90) m/uL Hgb (13.0-17.5) gm/dL Hct (39.0-53.0) % MCV (80.0-100.0) fL MCH (25.0-35.0) pg MCHC (31.0-37.0) g/dL RDW (11.5-15.5) % Plt Count (150-450) k/uL MPV Neutrophils % % Lymphocytes % % Monocytes % % Eosinophils % % Basophils % % Neutrophils # (1.3-7.7) k/uL Lymphocytes # (1.0-4.8) k/uL Monocytes # (0-1.0) k/uL Eosinophils # (0-0.7) k/uL Basophils # (0-0.2) k/uL PT (9.0-12.0) sec INR (<1.2) APTT (22.0-30.0) sec Sodium 141 (137-145) mmol/L Potassium 4.0 (3.5-5.1) mmol/L Chloride 107 (98-107) mmol/L Carbon Dioxide 27 (22-30) mmol/L Anion Gap 7 mmol/L BUN 34 H (9-20) mg/dL Creatinine 1.74 H (0.66-1.25) mg/dL Est GFR (CKD-EPI)AfAm 41 (>60 ml/min/1.73 sqM) Est GFR (CKD-EPI)NonAf 36 (>60 ml/min/1.73 sqM) Glucose 91 (74-99) mg/dL Calcium 9.1 (8.4-10.2) mg/dL Total Bilirubin 0.6 (0.2-1.3) mg/dL AST 38 (17-59) U/L ALT 19 (4-49) U/L Alkaline Phosphatase 75 (38-126) U/L Total Protein 6.3 (6.3-8.2) g/dL Albumin 3.5 (3.5-5.0) g/dL Stool Occult Blood (Negative) - Radiology Data Radiology results: image reviewed (Abdominal x-ray reveals no acute process) Disposition Clinical Impression: Rectal bleeding Disposition: ADMITTED IP TO THIS [facility] Condition: Stable Instructions (If sedation given, give patient instructions): Gastrointestinal Bleeding (ED) Is patient prescribed a controlled substance at d/c from ED?: No Referrals: Carri Fontenot MD [Primary Care Provider] - 1-2 days Decision Time: 13:18
[2020-05-30 12:00] LABS: Basophils % (A) 0 %; Eosinophils # (A) 0.4 k/uL (0-0.7); Eosinophils % (A) 5 %; HCT 39.2 % (39.0-53.0); HGB 13.6 gm/dL (13.0-17.5); INR 3.2 (<1.2); Lymphocytes # (A) 1.3 k/uL (1.0-4.8); Lymphocytes % (A) 17 %; MCH 31.5 pg (25.0-35.0); MCHC 34.7 g/dL (31.0-37.0); MCV 90.8 fL (80.0-100.0); Mean Platelet Volume 7.5; Monocytes # (A) 0.5 k/uL (0-1.0); Monocytes % (A) 7 %; Neutrophils # (A) 5.6 k/uL (1.3-7.7); Neutrophils % (A) 70 %; Partial Thromboplastin Time 32.9 sec (22.0-30.0); Platelet Count 178 k/uL (150-450); Prothrombin Time 30.7 sec (9.0-12.0); RBC 4.32 m/uL (4.30-5.90); RDW 13.1 % (11.5-15.5)
[2020-05-30 12:02] LABS: Albumin 3.5 g/dL (3.5-5.0); Calcium 9.1 mg/dL (8.4-10.2); Total Bilirubin 0.6 mg/dL (0.2-1.3); Total Protein 6.3 g/dL (6.3-8.2)
--- NOTE | 2020-05-30 12:21 | XR ---
Abdomen HISTORY: Gastrointestinal bleed Frontal KUB submitted on 2 images Correlated to prior exam 05/30/2015 Surgical clips are present right upper quadrant, patient is post left hip arthroplasty. There are pro bable vascular calcifications within the pelvis. Heterotopic new bone present about the left hip pros thesis. Intracardiac defibrillator lead is present, patient is post median sternotomy. There is no pn eumoperitoneum or bowel obstruction evident. No other pathologic calcification is seen. IMPRESSION: Nonobstructive bowel gas pattern. Postop changes.
[2020-05-30] MEDS ORDERED: NALOXONE 0.4 MG/ML 1 ML VIAL IV PRN ×2 (13:09→13:19)
[2020-05-30] MEDS: SODIUM CHLORIDE 0.9% 1,000 ML IV SCH (14:17)
--- NOTE | 2020-05-30 14:40 | P.HPIM ---
History of Present Illness H&P Date: 05/30/20 Chief Complaint: Rectal bleeding History of presenting illness: Patient is an 85-year-old male with past medical history of CAD with previous TN and CABG, pacemaker/defibrillator, chronic systolic heart failure with an EF 45- 50%, atrial fibrillation on Coumadin, hypertension, hyperlipidemia, CVA with equilibrium deficits, CKD stage III, and BPH. He presented to the emergency department with a chief complaint of rectal bleeding. Pt states that he was getting out of the shower drying himself off with a towel and suddenly had a large amount of bright red blood was just flowing out. Pt reports history of previous lower GI bleeds secondary to polyps and diverticulosis, but states never had this significant amount of blood flow out and has never had gushing blood without even knowing it was coming out until he visually saw the blood while drying himself off. Laboratory findings indicate a supratherapeutic INR of 3.2, hemoglobin 13.6, and creatinine 1.74. Abdominal x-ray negative for acute process showing nonobstructive bowel gas pattern. EKG completed revealing a ventricular paced rhythm. Pt given a one time dose of protonix and admitted under our services for further evaluation. Upon bedside evaluation, patient a ppeared to be resting comfortably. His vital signs are stable. He denied having any headache, lightheadedness, dizziness, chest pain or palpitations, shortness of breath, dyspnea with exertion, abdominal pain, nausea, vomiting, or experiencing any numbness/tingling/weakness in his extremities. Review of systems: Pertinent positives and negatives as discussed in HPI, a complete review of systems was performed and all other systems are negative. Physical exam: General: non toxic, no distress, appears at stated age Derm: warm, dry Head: atraumatic, normocephalic, symmetric Eyes: EOMI, no lid lag, anicteric sclera Mouth: no lip lesion, mucus membranes moist Cardiovascular: S1S2 reg, no murmur, positive posterior tibial pulses bilaterally. Pacemaker left anterior chest. Lungs: CTA bilateral, no rhonchi, no rales , no accessory muscle use Abdominal: soft, tenderness was reported to palpation of LLQ, no guarding, no appreciable organomegaly Ext: no gross muscle atrophy, 2+ pitting BLE edema, no contractures Neuro: CN II-XI grossly intact, no focal neuro deficits Psych: Alert, oriented, appropriate affect Assessment and Plan of Care: Lower GI bleed -Hemoglobin 13.6, albumin 3.5 -Supratherapeutic INR 3.2, hold Coumadin until cleared by GI. -Creatinine 1.74 (baseline creatinine 1.6 secondary to CPD stage III) -GI consulted, appreciate further recommendations -Computed tomography scan abdomen and pelvis without contrast -Nothing by mouth until cleared by gastroenterology -Serial CBCs with H&H every 6 hours. Transfuse as needed for hemoglobin less than 7 or less than 8 with active bleeding. -Protonix 40 mg twice a day -Gentle IV hydration Atrial fibrillation on anticoagulation with Coumadin -Hold Coumadin until cleared by GI -SCDs for DVT prophylaxis at this time Hypertension -Monitor vital signs and Continue daily medication management with enalapril, metoprolol, hydrochlorothiazide, and Imdur. Hyperlipidemia -Continue daily medication regimen with simvastatin 40 mg nightly. CKD stage III -Patient with a history of CKD III. Currently BUN 34, creatinine 1.74, and GFR 36. -Creatinine slightly increased from baseline levels of 1.6. -We will provide patient with gentle hydration and continue to monitor closely with repeat a.m. labs. CAD with previous CABG and stent placement and Chronic systolic heart failure -Echocardiogram completed 04/18/20: Mildly impaired ejection fraction of 45-50% with inferior hypokinesis, a severely dilated left atrium, mild aortic stenosis, and moderate pulmonary hypertension. BPH -Continue Flomax. Patient being admitted for an anticipated greater than 2 night stay for evaluation of lower GI bleed. CODE STATUS: Full code DVT prophylaxis: SCDs Discussed with: Patient Anticipated discharge date: Clinical course to determine Anticipated discharge place: Home A total of 45 minutes was spent on the care of this complex patient more than 50% of the time was spent in counseling and care coordination. Past Medical History Past Medical History: Atrial Fibrillation, Coronary Artery Disease (CAD), Cancer, Chest Pain / Angina, Heart Failure, CVA/TIA, GERD/Reflux, GI Bleed, Hearing Disorder / Deafness, Hyperlipidemia, Hypertension, Myocardial Infarction (TN), Osteoarthritis (OA), Prostate Disorder Additional Past Medical History / Comment(s): AFib, SSS, MIs x3, ischemic cardiomyopathy/vtach/AICD/pacer, CVA about 1 year ago with R eye vision change/[place] R ear and balance issues, bladder cancer with surgery/chemo, skin cancer with removals, epistaxis, bleeding gastric ulcer, lower GI bleed, colon polyps, L lower leg edema, chronic low back pain, bilateral arm/hand tremors with R arm worse Last Myocardial Infarction Date:: 1998 History of Any Multi-Drug Resistant Organisms: None Reported Past Surgical History: AICD, Bladder Surgery, Cholecystectomy, Coronary Bypass/CABG, Heart Catheterization, Heart Catheterization With Stent, Hernia Repair, Joint Replacement, Pacemaker, Prostate Surgery Additional Past Surgical History / Comment(s): PCI with stents, 1999 CABG 3 vessel, AICD/pacer last one placed 04/2019 with wound debridement, total L hip arthroplasty, skin cancer removal with graft, TURBT with fulguration, TURP, colectomy d/t polyps, inguinal hernia-pt cannot recall laterallity. Past Anesthesia/Blood Transfusion Reactions: No Reported Reaction Date of Last Stent Placement:: 1998 Type of Cardiac Device: Permanent Pacemaker, AICD Device Placement Date:: april 2019 Past Psychological History: No Psychological Hx Reported Smoking Status: Former smoker Past Alcohol Use History: None Reported Past Drug Use History: None Reported - Past Family History Mother Family Medical History: No Reported History Additional Family Medical History / Comment(s): tremors Father Family Medical History: Osteoarthritis (OA) Medications and Allergies Home Medications Medication Instructions Recorded Confirmed Type Enalapril [Vasotec] 20 mg PO BID 09/08/14 05/30/20 History Isosorbide Mononitrate ER [Imdur] 30 mg PO DAILY 09/08/14 05/30/20 History Potassium Chloride [K-Tab ER] 8 meq PO DAILY 09/08/14 05/30/20 History Tamsulosin [Flomax] 0.4 mg PO DAILY 12/25/17 05/30/20 History Warfarin [Coumadin] 2 mg PO MOWEFR@1800 12/25/17 05/30/20 History hydroCHLOROthiazide [Hydrodiuril] 25 mg PO DAILY 04/26/19 05/30/20 History Cholecalciferol [Vitamin D3 (25 25 mcg PO DAILY 04/17/20 05/30/20 History Mcg = 1000 Iu)] Metoprolol Succinate (ER) [Toprol 100 mg PO DAILY 04/17/20 05/30/20 History XL] Multivit-Min/FA/Lycopen/Lutein 1 tab PO HS 04/17/20 05/30/20 History [Centrum Silver Men Tablet] Warfarin [Coumadin] 3 mg PO SUTUTHSA@1800 04/17/20 05/30/20 History allopurinoL [Zyloprim] 100 mg PO DAILY 04/17/20 05/30/20 History Aspirin 81 mg PO DAILY chew 04/18/20 05/30/20 Rx Simvastatin [Zocor] 40 mg PO HS 30 Days #30 tab 04/18/20 05/30/20 Rx Omeprazole 20 mg PO MOWEFR 05/30/20 05/30/20 History Allergies Allergy/AdvReac Type Severity Reaction Status Date / Time codeine Allergy Unknown Verified 05/30/20 12:14 morphine Allergy Unknown Verified 05/30/20 12:14 Penicillins Allergy Unknown Verified 05/30/20 12:14 Sulfa (Sulfonamide Allergy Unknown Verified 05/30/20 12:14 Antibiotics) Physical Exam Vitals: Vital Signs Temp Pulse Resp BP Pulse Ox 05/30/20 12:41 62 18 152/73 96 05/30/20 10:58 97.5 F L 71 18 136/77 95 Intake and Output 05/29/20 05/30/20 05/30/20 22:59 06:59 14:59 Other: Weight 83.915 kg Results CBC & Chem 7: 05/30/20 11:15 05/30/20 11:15 Labs: Abnormal Lab Results - Last 24 Hours (Table) 05/30/20 05/30/20 Range/Units 11:15 11:15 PT 30.7 H (9.0-12.0) sec INR 3.2 H (<1.2) APTT 32.9 H (22.0-30.0) sec BUN 34 H (9-20) mg/dL Creatinine 1.74 H (0.66-1.25) mg/dL
--- NOTE | 2020-05-30 15:38 | CT ---
EXAMINATION TYPE: CT abdomen pelvis wo con DATE OF EXAM: 05/30/2020 HISTORY: Rectal bleeding CT DLP: 730.7 mGycm. Automated Exposure Control for Dose Reduction was Utilized. TECHNIQUE: CT scan of the abdomen and pelvis is performed without oral or IV contrast. COMPARISON: CT abdomen and pelvis January 21, 2018 FINDINGS: Within the limitations of a non-contrast study, the following observations are made. LUNG BASES: Posterior left-sided pleural thickening and calcification redemonstrated. Adjacent mild t o moderate left basilar linear parenchymal scarring. Overlying sternal wires and mediastinal clips along with partial visualization of right ventricular p acemaker lead. LIVER/GB: Cholecystectomy clips. Subcentimeter lesion right hepatic dome axial image 19 too small to characterize presumed benign. PANCREAS: No significant abnormality is seen. SPLEEN: Occasional punctate calcifications throughout the spleen redemonstrated consistent with produ ct of old granulomatous disease. ADRENALS: No significant abnormality is seen. KIDNEYS:. There is 2.3 cm partially exophytic thin-walled cyst posteriorly mid to lower pole level le ft kidney coronal image 76 redemonstrated. Larger thin-walled cysts or cystic lesions in the right ki dney centrally and posteriorly along with lower pole level are all redemonstrated. Cortical thinning bilaterally. No hydronephrosis seen bilaterally. Moderately distended bladder redemonstrated. BOWEL: Stomach poorly distended and thus suboptimally evaluated. No suspicious small or large bowel d ilatation. Scattered colonic diverticula. More prominent diverticula in the distal left colon and sig moid colon. No convincing CT evidence for acute diverticulitis. GENITAL ORGANS: Enlarged prostate consistent with BPH. LYMPH NODES: No greater than 1cm abdominal or pelvic lymph nodes are appreciated. OSSEOUS STRUCTURES: Metallic artifact from left hip arthroplasty causes streak artifact limiting eval uation of pelvic structures. Persistent moderate generalized fat replaced atrophy of left iliopsoas m uscle distally. Spine is straightened with multilevel disc calcification. Bilateral pars defect L5 le jay without spondylolisthesis. OTHER: Moderate to severe calcified change of aorta with areas of ectasia and aneurysm redemonstrated . Aneurysm measures up to 4.6 cm axial image 74 slightly more prominent from 4.4 cm prior study. IMPRESSION: Colonic diverticulosis redemonstrated greatest sigmoid colon. No convincing evidence for acute diverticulitis. No acute findings are evident.
[2020-05-30 21:26] LABS: HCT 34.7 % (39.0-53.0); HGB 12.3 gm/dL (13.0-17.5); MCH 32.3 pg (25.0-35.0); MCHC 35.3 g/dL (31.0-37.0); MCV 91.5 fL (80.0-100.0); Mean Platelet Volume 7.6; Platelet Count 143 k/uL (150-450); WBC 7.6 k/uL (3.8-10.6)
[2020-05-30] MEDS: ATORVASTATIN 20 MG TAB PO SCH (21:34)
[2020-05-30] MEDS: lisinopriL 20 MG TAB PO SCH (21:34)
[2020-05-30] MEDS: PANTOPRAZOLE 40 MG/10 ML VIAL IVP SCH (21:35)
[2020-05-31] MEDS: SODIUM CHLORIDE 0.9% 1,000 ML IV SCH ×2 (02:29→15:03)
[2020-05-31] MEDS ORDERED: hydroCHLOROthiazide 25 MG TAB PO SCH (09:00)
[2020-05-31] MEDS: lisinopriL 20 MG TAB PO SCH ×2 (09:01→19:50)
[2020-05-31] MEDS: METOPROLOL SUCCINATE (ER) 100 MG TAB.ER.24H PO SCH (09:01)
[2020-05-31] MEDS: TAMSULOSIN 0.4 MG CAP.ER.24H PO SCH (09:01)
[2020-05-31] MEDS: ISOSORBIDE MONONITRATE ER 30 MG TAB.ER.24H PO SCH (09:01)
[2020-05-31] MEDS: PANTOPRAZOLE 40 MG/10 ML VIAL IVP SCH ×2 (09:01→19:50)
[2020-05-31 11:20] LABS: Basophils % (A) 0 %; Eosinophils # (A) 0.3 k/uL (0-0.7); Eosinophils % (A) 4 %; HCT 36.8 % (39.0-53.0); HGB 12.7 gm/dL (13.0-17.5); Lymphocytes # (A) 1.1 k/uL (1.0-4.8); Lymphocytes % (A) 15 %; MCH 31.8 pg (25.0-35.0); MCHC 34.4 g/dL (31.0-37.0); MCV 92.4 fL (80.0-100.0); Mean Platelet Volume 7.8; Monocytes # (A) 0.4 k/uL (0-1.0); Monocytes % (A) 6 %; Neutrophils # (A) 5.3 k/uL (1.3-7.7); Neutrophils % (A) 73 %; Platelet Count 130 k/uL (150-450); RBC 3.98 m/uL (4.30-5.90); RDW 13.1 % (11.5-15.5); WBC 7.2 k/uL (3.8-10.6)
[2020-05-31 11:37] LABS: INR 3.1 (<1.2); Prothrombin Time 29.4 sec (9.0-12.0)
[2020-05-31 11:49] LABS: Albumin 2.8 g/dL (3.5-5.0); Calcium 8.2 mg/dL (8.4-10.2); Potassium 3.8 mmol/L (3.5-5.1); Total Bilirubin 1.2 mg/dL (0.2-1.3); Total Protein 5.4 g/dL (6.3-8.2)
[2020-05-31] MEDS: amLODIPine 10 MG TAB PO SCH (12:36)
--- NOTE | 2020-05-31 13:04 | CONS ---
CONSULTATION CHIEF COMPLAINT: Preop cardiac evaluation. HISTORY OF PRESENT ILLNESS: Germán Walsh is an 85-year-old gentleman with history of coronary artery disease status post CABG, ischemic cardiomyopathy, chronic systolic heart failure, permanent atrial fibrillation, CVA, chronic renal insufficiency that presented to hospital complaining of rectal bleeding. The patient was getting out of the shower and then suddenly had bright red blood per rectum. Patient is to undergo a colonoscopy tomorrow and we have been consulted for preop cardiac evaluation. The patient is currently not in overt heart failure and does not have any chest pain. The patient had to stop Coumadin for an outpatient surgery on his skin when he had a TIA. The patient understands that if he goes off Coumadin for the procedure he is at risk for having another stroke, but we really do not have any options at this time. His Coumadin is on hold because of the bleeding. PAST MEDICAL HISTORY: Significant for coronary artery disease status post CABG, status post prior angioplasty, chronic systolic heart failure, defibrillator, chronic renal insufficiency. MEDICATIONS: Medications at home include: HydroDIURIL, Coumadin, Flomax, Zocor, K-Dur, Toprol, Imdur, Vasotec, aspirin and vitamin D. ALLERGIES: TO CODEINE, MORPHINE, PENICILLIN, SULFA. FAMILY HISTORY: Negative for premature coronary artery disease. SOCIAL HISTORY: Negative for current smoking, EtOH abuse, or drug abuse. REVIEW OF SYSTEMS: HEENT is unremarkable. CARDIAC as described above. RESPIRATORY as described above. negative. ALLERGY/IMMUNOLOGY: Negative. SKIN: Negative. MUSCULOSKELETAL: Significant for arthritis. PSYCHOSOCIAL: Negative. DERM negative. CONSTITUTIONAL negative. ONCOLOGICAL negative. 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 GI significant for GI bleed. Rest of the system review is not relevant. EXAM: Comfortable at rest. Heart rate is 64 beats per minute. Blood pressure is 164/74. Respirations 18. CHEST exam reveals good air entry bilaterally. HEART exam reveals first and second heart sounds and a systolic murmur at the left lower sternal border. ABDOMEN: Soft. Exam of EXTREMITIES reveals trace edema. Peripheral pulses are palpable. ASSESSMENT: 1. Preop cardiac evaluation. 2. Rectal bleeding. 3. Cerebrovascular accident. 4. Permanent atrial fibrillation. 5. Coronary artery disease status post coronary artery bypass grafting. PLAN: EKG shows paced rhythm. Labs show a hemoglobin of 12.7. INR is 3.1, creatinine is 1.5. Potassium is 3.8. The patient is an acceptable risk candidate for colonoscopy. He is at increased risk for CVA as he goes off his anticoagulant and he understands the risks and is willing to accept it. The patient had a recent echocardiogram that showed an ejection fraction of 40-45 percent. His blood pressure is elevated. I am going to add amlodipine 10 mg daily for more optimal blood pressure control. MMODL / IJN: [id number] /
--- NOTE | 2020-05-31 13:24 | P.PN ---
Subjective Progress Note Date: 05/31/20 Hospital course: Patient is an 85-year-old male with past medical history of CAD with previous [place] and CABG, pacemaker/defibrillator, chronic systolic heart failure with an EF 45- 50%, atrial fibrillation on Coumadin, hypertension, hyperlipidemia, CVA with equilibrium deficits, CKD stage III, and BPH. He presented to the emergency department with a chief complaint of rectal bleeding. Pt states that he was getting out of the shower drying himself off with a towel and suddenly had a large amount of bright red blood was just flowing out. Pt reports history of p revious lower GI bleeds secondary to polyps and diverticulitis, but states never had this significant amount of blood flow out and has never had gushing blood without even knowing it was coming out until he visually saw the blood while drying himself off. Laboratory findings indicated a supratherapeutic INR of 3.2, hemoglobin 13.6, and creatinine 1.74. Abdominal x-ray negative for acute process showing nonobstructive bowel gas pattern. EKG completed revealing a ventricular paced rhythm. Pt given a one time dose of protonix and admitted under our services for further evaluation. CT abdomen and pelvis without contrast positive for colonic diverticulosis but negative for diverticulitis or other acute intra-abdominal process. GI following. Physical exam: Patient seen and fully evaluated at the bedside this morning. He reports mild abdominal discomfort stating "its uncomfortable but not painful", however he denies having any further episodes of rectal bleeding. Patient denies any episodes of nausea or vomiting, chest pain or palpitation, shortness of breath, or experiencing any lightheadedness or dizziness. His vital signs were reviewed and stable. Labs reveal hemoglobin initial drop from 13.6 down to 12.3 and is now stable at 12.7. INR initially supratherapeutic at 3.2 with repeat of 3.1. Renal function at baseline levels. Albumin did decrease from 3.5-2.8. GI abdomen bedside and state plan for likely colonoscopy tomorrow. General: non toxic, no distress, appears at stated age Derm: warm, dry Head: atraumatic, normocephalic, symmetric Eyes: EOMI, no lid lag, anicteric sclera Mouth: no lip lesion, mucus membranes moist Cardiovascular: S1S2 reg, murmur present, positive posterior tibial pulses bilaterally. Pacemaker left anterior chest. Lungs: CTA bilateral, no rhonchi, no rales , no accessory muscle use Abdominal: soft, tenderness was reported to palpation of LLQ but reported to have improved from yesterday stating "its uncomfortable, but not painful" no guarding, no appreciable organomegaly Ext: no gross muscle atrophy, 2+ pitting BLE edema, no contractures Neuro: CN II-XI grossly intact, no focal neuro deficits Psych: Alert, oriented, appropriate affect Assessment and Plan of Care: Lower GI bleed -Hemoglobin 13.6 decreasing to 12.3, albumin 3.5 decreasing to 2.8 -Supratherapeutic INR 3.2, Coumadin was held with repeat INR of 3.1. -Creatinine 1.56 (baseline creatinine 1.6 secondary to CKD stage III) -GI consulted, recommending likely plan for colonoscopy tomorrow a.m. -Computed tomography scan abdomen and pelvis without contrast revealing colonic diverticulosis but negative for diverticulitis or any other reported acute intra-abdominal process. -Patient to remain clear liquids until further cleared by GI. -Serial CBCs. Transfuse as needed for hemoglobin less than 7 or less than 8 with active bleeding. -Protonix 40 mg twice a day -Continue Gentle IV hydration Atrial fibrillation on anticoagulation with Coumadin -Continue to Hold Coumadin until cleared by GI -SCDs for DVT prophylaxis at this time Hypertension -Monitor vital signs and Continue daily medication management with enalapril, metoprolol, hydrochlorothiazide, and Imdur. Hyperlipidemia -Continue daily medication regimen with simvastatin 40 mg nightly. CKD stage III -Patient with a history of CKD III. Currently BUN 26, creatinine 1.56, and GFR 41. At baseline levels with baseline creatinine of 1.6. CAD with previous CABG and stent placement and Chronic systolic heart failure -Echocardiogram completed 04/18/20: Mildly impaired ejection fraction of 45-50% with inferior hypokinesis, a severely dilated left atrium, mild aortic stenosis, and moderate pulmonary hypertension. -Continue home medication regimen. BPH -Continue Flomax. CODE STATUS: Full code DVT prophylaxis: SCDs Discussed with: Patient and RN Anticipated discharge date: Clinical course to determine Anticipated discharge place: Home A total of 45 minutes was spent on the care of this complex patient more than 50% of the time was spent in counseling and care coordination. Objective - Vital Signs Vital signs: Vital Signs Temp 97.9 F 05/31/20 08:40 Pulse 64 05/31/20 08:40 Resp 16 05/31/20 08:40 BP 166/74 05/31/20 08:40 Pulse Ox 91 L 05/31/20 08:40 Intake & Output 05/30/20 05/31/20 05/31/20 18:59 06:59 18:59 Intake Total 75 1275 Balance 75 1275 Weight 83.915 kg Intake: IV 75 1275 Sodium Chloride 0.9% 1, 75 1275 000 ml @ 75 mls/hr IV . [id number] [facility] Rx#:[id number] - Labs CBC & Chem 7: 05/31/20 10:12 05/31/20 10:12 Labs: Abnormal Lab Results - Last 24 Hours (Table) 05/30/20 05/30/20 05/30/20 Range/Units 11:15 11:15 20:49 RBC 3.80 L (4.30-5.90) m/uL Hgb 12.3 L (13.0-17.5) gm/dL Hct 34.7 L (39.0-53.0) % Plt Count 143 L (150-450) k/uL PT 30.7 H (9.0-12.0) sec INR 3.2 H (<1.2) APTT 32.9 H (22.0-30.0) sec BUN 34 H (9-20) mg/dL Creatinine 1.74 H (0.66-1.25) mg/dL
[2020-05-31] MEDS ORDERED: PHYTONADIONE 10 MG in SODIUM CHLORIDE 0.9% 50 ML IVPB STA (14:32)
[2020-05-31] MEDS ORDERED: PHYTONADIONE 5 MG in SODIUM CHLORIDE 0.9% 50 ML IVPB STA (14:34)
--- NOTE | 2020-05-31 15:44 | CONS ---
CONSULTATION DATE OF DICTATION: 05/31/2020 REASON FOR CONSULTATION: Acute lower GI bleed. HISTORY OF PRESENT ILLNESS: The patient is an 85-year-old pleasant white male admitted to the hospital yesterday when he presented to the emergency room with an episode of rectal bleeding. The patient stated that he took a shower and after that he started having significant amount of bright red blood that was dripping and flowing down his leg. He has history of atrial fibrillation and is currently on Coumadin. The last dose he received was yesterday. He went to the emergency room and subsequently was admitted to the hospital for further evaluation. His initial hemoglobin was 13.6 and INR was 3.2. He never had these symptoms in the past. His last colonoscopy according to his recollection was about 5 to 10 years ago, and he was noted to have diverticulosis and polyps. He denies any abdominal pain, reports no nausea, vomiting. No fever, chills or night sweats. PAST MEDICAL HISTORY: Significant for coronary artery disease, status post SD in the past, history of congestive heart failure, atrial fibrillation, on Coumadin, hypertension, hyperlipidemia, history of CVA in the past, chronic kidney disease, stage 3, and BPH. PAST SURGICAL HISTORY: History of AICD/defibrillator placement many years ago, cholecystectomy, CABG, bladder surgery, cardiac catheterization with stent placement, hernia repair and prostate surgery. MEDICATIONS: Medications at home include Vasotec, Imdur, K-Dur, Flomax, Coumadin, HydroDIURIL, vitamin D3, multivitamin, Zyloprim and omeprazole. ALLERGIES: CODEINE, MORPHINE, PENICILLIN, SULFA. SOCIAL HISTORY: No smoking. No alcohol use. FAMILY HISTORY: Unremarkable. Mother had tremors. Father had degenerative joint disease. REVIEW OF SYSTEMS: CARDIOPULMONARY: No chest pain or shortness of breath. GENITOURINARY: No dysuria or hematuria. MUSCULOSKELETAL: Unremarkable. SKIN: Unremarkable. ENDOCRINE: Unremarkable. PSYCHIATRIC: Unremarkable. NEUROLOGY: Unremarkable. ENT/VISION: Unremarkable. CONSTITUTIONAL: No recent weight loss. No fever, chills, night sweats. PHYSICAL EXAMINATION: He appears comfortable. No apparent distress. Vital signs are stable. Blood pressure 166/82, pulse rate 64, temperature 97.9. HEENT examination unremarkable. Conjunctivae pink. Sclerae anicteric. Oral cavity no lesions. NECK: No JVD or lymph node enlargement. CHEST: Clear to auscultation. HEART: Regular rate and rhythm. ABDOMEN: Soft. Bowel sounds are positive. No organomegaly. EXTREMITIES: No pedal edema. SKIN: No rashes. NEUROLOGIC: Alert and oriented x3. No focal deficits. LABS: WBC 8, hemoglobin 13.6, platelets 178. INR 3.2. Today hemoglobin is 12.7. INR is 3.1. BUN and creatinine are 26 and 1.56, respectively. IMPRESSION: 1. Acute lower gastrointestinal bleed, possibly diverticular in etiology, but cannot rule out other colonic source of bleeding. The patient had one episode of large amount of bright red blood per rectum yesterday while at home, and none since then. He has history of atrial fibrillation, currently on Coumadin. INR is 3.2 and Coumadin is on hold since yesterday. CT of the abdomen and pelvis did show evidence of colonic diverticulosis. 2. Coagulopathy secondary to Coumadin. INR is 3.2. 3. History of atrial fibrillation. 4. History of coronary artery disease, status post coronary artery bypass grafting. 5. History of AICD/pacemaker implantation. RECOMMENDATIONS: I had a lengthy discussion with the patient regarding further workup of acute lower GI bleed. At this time we will continue to hold Coumadin, give him some vitamin K 5 mg today and reverse the coagulopathy. Once the INR is less than 1.5, we will plan on a colonoscopy, possibly on Wednesday. In the meantime, we will monitor CBC on a daily basis and follow with you closely. Thank you for this consultation. MMODL / IJN: [id number] /
[2020-05-31] MEDS: ATORVASTATIN 20 MG TAB PO SCH (19:50)
[2020-06-01] MEDS: ACETAMINOPHEN TAB 325 MG TAB PO PRN ×2 (02:38→10:30)
[2020-06-01] MEDS: SODIUM CHLORIDE 0.9% 1,000 ML IV SCH (05:54)
[2020-06-01] MEDS: amLODIPine 10 MG TAB PO SCH ×2 (08:24→08:25)
[2020-06-01] MEDS: lisinopriL 20 MG TAB PO SCH ×2 (08:24→20:22)
[2020-06-01] MEDS: PANTOPRAZOLE 40 MG/10 ML VIAL IVP SCH (08:24)
[2020-06-01] MEDS: METOPROLOL SUCCINATE (ER) 100 MG TAB.ER.24H PO SCH (08:25)
[2020-06-01] MEDS: TAMSULOSIN 0.4 MG CAP.ER.24H PO SCH (08:25)
[2020-06-01] MEDS: ISOSORBIDE MONONITRATE ER 30 MG TAB.ER.24H PO SCH (08:25)
--- NOTE | 2020-06-01 10:11 | PN ---
PROGRESS NOTE DATE OF SERVICE: 06/01/2020 INTERVAL HISTORY: Patient is an 85-year-old pleasant white male admitted to the hospital with rectal bleeding. He had a large episode of bright red blood per rectum 2 days ago. He is on Coumadin for atrial fibrillation, which is currently on hold and coagulopathy is being reversed with vitamin K. Repeat LFTs are pending at the time of this dictation. He denies any further episodes of bleeding. He reports no abdominal pain. No nausea, no vomiting. PHYSICAL EXAMINATION: GENERAL: He appears comfortable. No apparent distress. VITAL SIGNS: Stable. Blood pressure 133/52, pulse rate 82, temperature 97. HEENT: Examination unremarkable. Conjunctivae are pink. Sclerae anicteric. Oral cavity no lesions. NECK: No JVD or lymph node enlargement. CHEST: Clear to auscultation. HEART: Regular rate and rhythm. ABDOMEN: Soft. Bowel sounds are positive. No organomegaly. EXTREMITIES: No pedal edema. NEURO: Alert and oriented x3. No focal deficits. LABS: WBC 7.2, hemoglobin 12.7, platelets 130. INR from this morning is still pending. IMPRESSION: 1. Acute lower GI bleed/rectal bleeding. Last hemoglobin yesterday was 12.7. Repeat labs from today are pending. 2. History of atrial fibrillation on Coumadin. Currently on hold. 3. History of hypertension and hyperlipidemia. RECOMMENDATIONS: Continue with a clear liquid diet. Await PT/INR from this morning, and if it is less than 1.5, we will proceed with a colonoscopy tomorrow. The plan was discussed with the patient. He is agreeable to it. Thank you for this consultation. MMODL / IJN: [id number] /
[2020-06-01 10:12] LABS: Basophils % (A) 0 %; Eosinophils # (A) 0.3 k/uL (0-0.7); Eosinophils % (A) 3 %; HCT 37.9 % (39.0-53.0); HGB 12.5 gm/dL (13.0-17.5); Lymphocytes # (A) 1.1 k/uL (1.0-4.8); Lymphocytes % (A) 12 %; MCH 30.6 pg (25.0-35.0); MCHC 32.9 g/dL (31.0-37.0); MCV 93.1 fL (80.0-100.0); Mean Platelet Volume 7.8; Monocytes # (A) 0.7 k/uL (0-1.0); Monocytes % (A) 8 %; Neutrophils # (A) 6.5 k/uL (1.3-7.7); Neutrophils % (A) 76 %; Platelet Count 139 k/uL (150-450); RBC 4.07 m/uL (4.30-5.90); RDW 13.6 % (11.5-15.5); WBC 8.6 k/uL (3.8-10.6)
[2020-06-01 10:20] LABS: INR 1.7 (<1.2); Prothrombin Time 17.2 sec (9.0-12.0)
[2020-06-01 10:24] LABS: Calcium 8.5 mg/dL (8.4-10.2); Potassium 3.7 mmol/L (3.5-5.1)
[2020-06-01] MEDS ORDERED: PHYTONADIONE 2 MG in SODIUM CHLORIDE 0.9% 50 ML IVPB STA (11:02)
--- NOTE | 2020-06-01 11:04 | P.PN ---
Subjective Progress Note Date: 06/01/20 Principal diagnosis: rectal bleeding Patient is an 85-year-old male with coronary artery disease, A. fib anticoagulated with Coumadin, chronic systolic congestive heart failure with EF 45-50%, hypertension, dyslipidemia, and multiple other comorbid conditions who presented to the hospital with complaints of rectal bleeding. On arrival to the ER his vital signs were stable, hemoglobin was 13.9, INR 3.2, creatinine 1.74 with a baseline of 1.7. Fecal occult blood was negative. He underwent a CT abdomen and pelvis which showed colonic diverticulosis rate is at the sigmoid colon. Repeat hemoglobin demonstrated a drop to 12.3. Cardiology was consulted for preoperative evaluation and he was consulted that he is at increased risk for cerebrovascular accident off his anticoagulation. He was seen by GI who plans on colonoscopy once his INR is less than 1.5. Patient seen and examined at bedside. He complains that he did no get a full meal yesterday, and he is feeling weak and hungry today. Still with diarrhea but no blood, no nausea, no vomiting, no chest pain. General: non toxic, no distress, appears at stated age Derm: warm, dry Head: atraumatic, normocephalic, symmetric Eyes: EOMI, no lid lag, anicteric sclera Mouth: no lip lesion, mucus membranes moist Cardiovascular: S1S2 irreg with grade 3 systolic ejection murmur, positive posterior tibial pulse bilateral, Lungs: course bs bilateral, no rhonchi, no rales , no accessory muscle use Abdominal: soft, nontender to palpation, no guarding, no appreciable organomegaly Ext: no gross muscle atrophy, no edema, no contractures Neuro: CN II-XI grossly intact, no focal neuro deficits Psych: Alert, oriented, appropriate affect Bright red blood per rectum, acute blood loss anemia -GI recommendations: Plan is for scope once INR less than 1.5 -Follow CBC -No indications for transfusion -Continue with Protonix twice daily Thrombocytopenia - suspect reactive - follow CBC Chronic systolic congestive heart failure with ejection fraction 45-50% -Beta guanako, CLAUDIA inhibitor -Hold hydrochlorothiazide will patient will be nothing by mouth -Strict I's and O's -Daily weights Hypertension -Mildly elevated on admission and added Norvasc -Continue with lisinopril, metoprolol, Imdur -Follow blood pressures Paroxysmal atrial fibrillation anticoagulated completed with Coumadin -Status post vitamin K 5 mg IV 05/31, repeat 2 mg today -Follow INR -Will need to be reinitiated on Coumadin therapy -Continue with metoprolol -Follow heart rate CKD stage III -Creatinine at baseline -Avoid nephrotoxic agents -Follow creatinine Chronic: Coronary artery disease with previous coronary artery bypass grafting GERD History of CVA Dyslipidemia Myocardial infarction BPH Osteoarthritis History of bladder cancer DVT prophylaxis: SCDs Discussed with: Patient, nursing Anticipated discharge: 1-[address]: home A total of 35 minutes was spent on the care of this complex patient more than 50% of the time was spent in counseling and care coordination. Objective - Vital Signs Vital signs: Vital Signs Temp 98.2 F 06/01/20 01:41 Pulse 60 06/01/20 01:41 Resp 18 06/01/20 01:41 BP 125/60 06/01/20 01:41 Pulse Ox 95 06/01/20 01:41 Intake & Output 05/31/20 06/01/20 06/01/20 18:59 06:59 18:59 Intake Total 1140 900 Balance 1140 900 Intake: IV 900 900 Sodium Chloride 0.9% 1, 900 900 000 ml @ 75 mls/hr IV . [id number] [facility] Rx#:[id number] Oral 240 - Labs CBC & Chem 7: 06/01/20 09:54 06/01/20 09:54 Labs: Abnormal Lab Results - Last 24 Hours (Table) 05/31/20 05/31/20 05/31/20 Range/Units 10:12 10:12 10:12 RBC 3.98 L (4.30-5.90) m/uL Hgb 12.7 L (13.0-17.5) gm/dL Hct 36.8 L (39.0-53.0) % Plt Count 130 L (150-450) k/uL PT 29.4 H (9.0-12.0) sec INR 3.1 H (<1.2) BUN 26 H (9-20) mg/dL Creatinine 1.56 H (0.66-1.25) mg/dL Calcium 8.2 L (8.4-10.2) mg/dL Total Protein 5.4 L (6.3-8.2) g/dL Albumin 2.8 L (3.5-5.0) g/dL
[2020-06-01] MEDS ORDERED: PEG 3350-NA SULF,BICARB,CL/KCL 4,000 ML BOTTLE PO ONE (16:00)
[2020-06-01] MEDS: ATORVASTATIN 20 MG TAB PO SCH (20:22)
[2020-06-01] MEDS ORDERED: PANTOPRAZOLE 40 MG/10 ML VIAL IVP ONE (20:25)
[2020-06-02 05:55] VITALS: TEMP 97.6
[2020-06-02] MEDS: TAMSULOSIN 0.4 MG CAP.ER.24H PO SCH (07:29)
[2020-06-02] MEDS: lisinopriL 20 MG TAB PO SCH (07:29)
[2020-06-02] MEDS: ISOSORBIDE MONONITRATE ER 30 MG TAB.ER.24H PO SCH (07:29)
[2020-06-02] MEDS: METOPROLOL SUCCINATE (ER) 100 MG TAB.ER.24H PO SCH (07:29)
[2020-06-02] MEDS: PANTOPRAZOLE 40 MG/10 ML VIAL IVP SCH (07:42)
[2020-06-02] MEDS ORDERED: IV FLUID CONTINUATION 1,000 ML IV ONE (07:53)
[2020-06-02] MEDS ORDERED: PROPOFOL 10 MG/ML 20 ML VIAL IV ONE (07:58)
[2020-06-02] MEDS ORDERED: LIDOCAINE 1% INJ 10MG/ML (20 ML MDV) ONE (07:58)
--- NOTE | 2020-06-02 08:10 | P.PCN ---
Date of Procedure: 06/02/20 Procedure(s) Performed: BRIEF HISTORY: Patient is a 85-year-old pleasant white male admitted hospital with acute lower GI bleed. He had an episode of large amount of brighter blood per rectum. Hemoglobin was 12 g/dL. He was on Coumadin with an INR of 3.1. 5 limited was reversed. He scheduled for colonoscopy to evaluate further PROCEDURE PERFORMED: Colonoscopy with biopsy . PREOPERATIVE DIAGNOSIS: acute lower GI bleed IV sedation per Anesthesia. PROCEDURE: After informed consent was obtained, the patient, was brought into the endoscopy unit. IV sedation was administered by Anesthesia under continuous monitoring. Digital rectal examination was normal. Initially the Olympus CF-160 flexible video colonoscope was then inserted in the rectum, gradually advanced into the cecum without any difficulty. Careful examination was performed as the scope was gradually being withdrawn. Ileocecal valve and the appendiceal orifice were visualized and appeared normal. Prep was excellent. Mucosa of the cecum appeared normal. Ascending colon there was a 3 mm polyp removed by cold biopsy. Rest of the , ascending colon, transverse colon, descending colon, sigmoid colon, and rectum appeared normal. scattered left sided diverticulosis Retroflexion was performed in the rectum an8 to internal hemorrhoidsere seen. The patient tolerated the procedure well. IMPRESSION: 3 mm ascending colon polyp status post removal by cold biopsy Scattered left sided diverticulosis Grade 2 internal hemorrhoids RECOMMENDATIONS: Findings of this examination were discussed with the patient . Recent episode of acute lower GI bleed possibly related to internal hemorrhoids versus diverticulosis. Diet will be advanced as tolerated. Resume Coumadin today. He can be discharged home today.
[2020-06-02] MEDS: ACETAMINOPHEN TAB 325 MG TAB PO PRN (08:57)
[2020-06-02 09:01] VITALS: BP 146/70; PULSE 63; RESP 18
[2020-06-02 09:15] LABS: Basophils % (A) 0 %; Eosinophils # (A) 0.1 k/uL (0-0.7); Eosinophils % (A) 1 %; HCT 36.4 % (39.0-53.0); HGB 12.1 gm/dL (13.0-17.5); Lymphocytes # (A) 0.8 k/uL (1.0-4.8); Lymphocytes % (A) 9 %; MCH 30.6 pg (25.0-35.0); MCHC 33.2 g/dL (31.0-37.0); MCV 92.3 fL (80.0-100.0); Mean Platelet Volume 7.8; Monocytes # (A) 0.7 k/uL (0-1.0); Monocytes % (A) 8 %; Neutrophils # (A) 7.1 k/uL (1.3-7.7); Neutrophils % (A) 81 %; Platelet Count 131 k/uL (150-450); RBC 3.94 m/uL (4.30-5.90); RDW 13.6 % (11.5-15.5); WBC 8.7 k/uL (3.8-10.6)
[2020-06-02 09:29] LABS: Calcium 8.3 mg/dL (8.4-10.2); Potassium 3.4 mmol/L (3.5-5.1)
--- NOTE | 2020-06-02 12:08 | P.DS ---
Providers Date of admission: 05/31/20 13:50 Expected date of discharge: 06/02/20 Attending physician: Annamaria Villagomez Consults: 05/30/20 13:51 Consult Physician Routine Consulting Provider: Margoth Patel Consult Reason/Comments: Lower GI bleeding hx of large polyps & diverticulitis resulting in GI bleed Do you want consulting provider notified?: Yes 05/31/20 10:14 Consult Physician Urgent Consulting Provider: Bryce Carrizales Consult Reason/Comments: CAD, known to him, need cardiac clearance for colooscopy Do you want consulting provider notified?: Yes Primary care physician: Carri Fontenot Hospital Course: Discharge Diagnosis: Lower GI bleed Acute blood loss anemia Colon Polyp Diverticulosis Grade 2 internal hemorrhoids Chronic systolic CHD with EF 45-50% HTN P. A fib anticoagulated with coumadin CKD 3 Coronary artery disease with previous coronary artery bypass grafting GERD History of CVA Dyslipidemia Myocardial infarction BPH Osteoarthritis History of bladder cancer Hospital Course: Patient is an 85-year-old male with coronary artery disease, A. fib anticoagulated with Coumadin, chronic systolic congestive heart failure with EF 45-50%, hypertension, dyslipidemia, and multiple other comorbid conditions who presented to the hospital with complaints of rectal bleeding. On arrival to the ER his vital signs were stable, hemoglobin was 13.9, INR 3.2, creatinine 1.74 with a baseline of 1.7. Fecal occult blood was negative. He underwent a CT abdomen and pelvis which showed colonic diverticulosis rate is at the sigmoid colon. Repeat hemoglobin demonstrated a drop to 12.3. Cardiology was consulted for preoperative evaluation and he was consulted that he is at increased risk for cerebrovascular accident off his anticoagulation. He was seen by GI and after reversal of his coumadin had a colonoscopy on 06/02 which showed diverticulosis, internal hemorrhoids, and a small polyp. He tolerated a diet and was determined stable for discharge home. Follow-up:Coumadin 3 mg today 06/02 and tomorrow 06/03. Recommend coumadin level on 06/04. Then resume normal Coumadin dosing schedule . Dr Fontenot in 3 days, Dr. Patel in 2 weeks. Started on norvasc by cardio for elevated BP. Patient seen and examined at bedside. Tired after colonoscopy, no abdominal pain, no nausea, no chest pain, no shortness of breath. Vital signs reviewed and stable. General: non toxic, no distress, appears at stated age Derm: warm, dry Head: atraumatic, normocephalic, symmetric Eyes: EOMI, no lid lag, anicteric sclera Mouth: no lip lesion, mucus membranes moist Cardiovascular: S1S2 reg, no murmur, positive posterior tibial pulse bilateral, Lungs: CTA bilateral, no rhonchi, no rales , no accessory muscle use Abdominal: soft, nontender to palpation, no guarding, no appreciable organomegaly Ext: no gross muscle atrophy, no edema, no contractures Neuro: CN II-XI grossly intact, no focal neuro deficits Psych: Alert, oriented, appropriate affect A total of 35 minutes of time were spent preparing this complex discharge summary . Patient Condition at Discharge: Stable Plan - Discharge Summary Discharge Rx Participant: No New Discharge Prescriptions: New amLODIPine [Norvasc] 10 mg PO DAILY #30 tab Continue Isosorbide Mononitrate ER [Imdur] 30 mg PO DAILY Enalapril [Vasotec] 20 mg PO BID Potassium Chloride [K-Tab ER] 8 meq PO DAILY Tamsulosin [Flomax] 0.4 mg PO DAILY Warfarin [Coumadin] 2 mg PO MOWEFR@1800 hydroCHLOROthiazide [Hydrodiuril] 25 mg PO DAILY allopurinoL [Zyloprim] 100 mg PO DAILY Warfarin [Coumadin] 3 mg PO SUTUTHSA@1800 Metoprolol Succinate (ER) [Toprol XL] 100 mg PO DAILY Cholecalciferol [Vitamin D3 (25 Mcg = 1000 Iu)] 25 mcg PO DAILY Multivit-Min/FA/Lycopen/Lutein [Centrum Silver Men Tablet] 1 tab PO HS Aspirin 81 mg PO DAILY chew Simvastatin [Zocor] 40 mg PO HS 30 Days #30 tab Omeprazole 20 mg PO MOWEFR Discharge Medication List Enalapril [Vasotec] 20 mg PO BID 09/08/14 [History] Isosorbide Mononitrate ER [Imdur] 30 mg PO DAILY 09/08/14 [History] Potassium Chloride [K-Tab ER] 8 meq PO DAILY 09/08/14 [History] Tamsulosin [Flomax] 0.4 mg PO DAILY 12/25/17 [History] Warfarin [Coumadin] 2 mg PO MOWEFR@1800 12/25/17 [History] hydroCHLOROthiazide [Hydrodiuril] 25 mg PO DAILY 03/11/20 [History] Cholecalciferol [Vitamin D3 (25 Mcg = 1000 Iu)] 25 mcg PO DAILY 04/17/20 [History] Metoprolol Succinate (ER) [Toprol XL] 100 mg PO DAILY 04/17/20 [History] Multivit-Min/FA/Lycopen/Lutein [Centrum Silver Men Tablet] 1 tab PO HS 04/17/20 [History] Warfarin [Coumadin] 3 mg PO SUTUTHSA@1800 04/17/20 [History] allopurinoL [Zyloprim] 100 mg PO DAILY 04/17/20 [History] Aspirin 81 mg PO DAILY chew 04/18/20 [Rx] Simvastatin [Zocor] 40 mg PO HS 30 Days #30 tab 04/18/20 [Rx] Omeprazole 20 mg PO MOWEFR 05/30/20 [History] amLODIPine [Norvasc] 10 mg PO DAILY #30 tab 06/02/20 [Rx] Follow up Appointment(s)/Referral(s): Margoth Patel MD [STAFF PHYSICIAN] - 1 Week Carri Fontenot MD [Primary Care Provider] - 1-2 days (Call for appointment on Wednesday, office is currently closed ) Ambulatory/Diagnostic Orders: Prothrombin Time INR [LAB.AMB] Time Frame: 3 Days, Location: None Selected Patient Instructions/Handouts: Gastrointestinal Bleeding (ED), Colonoscopy (DC) Activity/Diet/Wound Care/Special Instructions: Activity: as tolerated Diet: Heart Healthy Special Instructions: Coumadin 3 mg today 06/02 and tomorrow 06/03. Recommend coumadin level on 06/04. Then resume normal Coumadin dosing schedule Follow up with Dr. Patel Discharge Disposition: HOME SELF-CARE
== END 2020-06-02 13:09 | disposition home or self-care (01) | DRG 378 ==
LOC: EC 10:45 → 1SOBS 13:28 → OBSVTOIN 05-31 13:50
PROVIDERS: ADMIT Internal Medicine; ATTEND Internal Medicine
PROC: 0DBK8ZX Excision of Ascending Colon, Via Natural or Artificial Opening Endoscopic, Diagnostic (ICD-10-PCS; principal; 2020-06-02 08:00)
DX: K57.31 Diverticulosis of large intestine without perforation or abscess with bleeding (principal); D62 Acute posthemorrhagic anemia; I50.22 Chronic systolic (congestive) heart failure; I13.0 Hypertensive heart and chronic kidney disease with heart failure and stage 1 through stage 4 chronic kidney disease, or unspecified chronic kidney disease; I48.21 Permanent atrial fibrillation; I69.398 Other sequelae of cerebral infarction; H53.9 Unspecified visual disturbance; D69.6 Thrombocytopenia, unspecified; E78.5 Hyperlipidemia, unspecified; H91.91 Unspecified hearing loss, right ear; I25.2 Old myocardial infarction; I25.10 Atherosclerotic heart disease of native coronary artery without angina pectoris; I25.5 Ischemic cardiomyopathy; K63.5 Polyp of colon; K64.1 Second degree hemorrhoids; M19.90 Unspecified osteoarthritis, unspecified site; N18.30 Chronic kidney disease, stage 3 unspecified; N40.0 Benign prostatic hyperplasia without lower urinary tract symptoms; R79.1 Abnormal coagulation profile; T45.515A Adverse effect of anticoagulants, initial encounter; K21.9 Gastro-esophageal reflux disease without esophagitis; Z79.01 Long term (current) use of anticoagulants; Z79.82 Long term (current) use of aspirin; Z79.899 Other long term (current) drug therapy; Z85.51 Personal history of malignant neoplasm of bladder; Z85.828 Personal history of other malignant neoplasm of skin; Z86.010 Personal history of colon polyps; Z87.891 Personal history of nicotine dependence; Z95.1 Presence of aortocoronary bypass graft; Z95.5 Presence of coronary angioplasty implant and graft; Z95.810 Presence of automatic (implantable) cardiac defibrillator; Z96.642 Presence of left artificial hip joint; R25.1 Tremor, unspecified; Z98.890 Other specified postprocedural states; Z88.5 Allergy status to narcotic agent; Z88.0 Allergy status to penicillin; Z88.2 Allergy status to sulfonamides; Z90.79 Acquired absence of other genital organ(s)
CPT/HCPCS: 36415; 45380; 74018; 74176; 80048; 80053; 82272; 85025; 85027; 85610; 85730; 88305; 93005; 96374; 99284

== ENCOUNTER → 2020-08-21 | Outpatient (CLI) | payer MEDICARE ==
[2020-08-21 22:09] LABS: African American GFR (CKD) 34.7 (60.0-200.0); Anion Gap 5.6 mmol/L (4.00-12.00); BUN/Creat Ratio 17.5 Ratio (12.00-20.00); Calcium 8.8 mg/dL (8.7-10.3); Carbon Dioxide 27.4 mmol/L (21.6-31.8); Potassium 4.3 mmol/L (3.5-5.5)
== END | disposition home or self-care (01) ==
LOC: LABWHC1 10:49
PROVIDERS: ATTEND Internal Medicine Clinical Cardiac Electrophysiology
DX: I10 Essential (primary) hypertension (principal); I48.19 Other persistent atrial fibrillation
CPT/HCPCS: 36415; 80048; 84443

== ENCOUNTER → 2020-09-20 | Outpatient (CLI) | payer MEDICARE ==
[2020-09-20 19:20] LABS: Albumin 3.9 g/dL (3.80-4.90); Albumin/Globulin Ratio 1.63 (1.60-3.17); Anion Gap 8.2 mmol/L (4.00-12.00); BUN/Creat Ratio 14.21 Ratio (12.00-20.00); Calcium 8.7 mg/dL (8.7-10.3); Carbon Dioxide 26.8 mmol/L (21.6-31.8); Globulin 2.4 g/dL (1.6-3.3); Non-African American GFR(CKD) 31.9 (60.0-200.0); Potassium 4.2 mmol/L (3.5-5.5); Total Bilirubin 0.7 mg/dL (0.2-1.2); Total Protein 6.3 g/dL (6.2-8.2)
== END | disposition home or self-care (01) ==
LOC: LABWHC1 10:13
PROVIDERS: ATTEND Internal Medicine
DX: N18.32 Chronic kidney disease, stage 3b (principal)
CPT/HCPCS: 36415; 80053

== ENCOUNTER → 2020-10-04 | Outpatient (CLI) | payer MEDICARE ==
[2020-10-04 12:22] LABS: Appearance,Urine Clear (Clear); Bilirubin,Urine Negative (Negative); Blood,Urine Negative (Negative); Color,Urine Yellow; Glucose,Urine (UA) Negative (Negative); Ketones,Urine Negative (Negative); Leukocyte Esterase,Urine Negative (Negative); Nitrite,Urine Negative (Negative); PH, Urine 6.5 (5.0-8.0); Protein,Urine Negative (Negative); Urobilinogen,Urine <2.0 mg/dL (<2.0)
[2020-10-04 14:52] LABS: HCT 35.6 % (39.6-50.0); HGB 11.4 g/dL (13.0-17.0); MCH 30.7 pg (27.0-32.0); Mean Platelet Volume 10.3 fL (9.5-12.2); Platelet Count 200 X 10*3/uL (140-440); RBC 3.71 X 10*6/uL (4.40-5.60); RDW 14.4 % (11.5-14.5); WBC 7.05 X 10*3/uL (4.50-10.00)
[2020-10-04 15:53] LABS: % Iron Saturation 43.48 (15.00-50.00); Albumin 3.9 g/dL (3.80-4.90); Albumin/Globulin Ratio 1.63 (1.60-3.17); Anion Gap 6.3 mmol/L (4.00-12.00); BUN/Creat Ratio 13.16 Ratio (12.00-20.00); Calcium 8.8 mg/dL (8.7-10.3); Carbon Dioxide 29.7 mmol/L (21.6-31.8); Globulin 2.4 g/dL (1.6-3.3); Non-African American GFR(CKD) 31.9 (60.0-200.0); Phosphorus 3.4 mg/dL (2.4-5.1); Potassium 4.2 mmol/L (3.5-5.5); Total Protein 6.3 g/dL (6.2-8.2); Uric Acid 6.9 mg/dL (3.7-8.7)
[2020-10-04 16:01] LABS: Ferritin 185.3 ng/mL (22.0-322.0)
== END | disposition home or self-care (01) ==
LOC: LABWHC1 10:22
PROVIDERS: ATTEND Internal Medicine
DX: N18.32 Chronic kidney disease, stage 3b (principal); M10.9 Gout, unspecified; E55.9 Vitamin D deficiency, unspecified; N25.81 Secondary hyperparathyroidism of renal origin; N39.0 Urinary tract infection, site not specified; D64.9 Anemia, unspecified
CPT/HCPCS: 36415; 80053; 81003; 82306; 82728; 83540; 83550; 83735; 83970; 84100; 84550; 85027

== ENCOUNTER → 2020-10-24 | Outpatient (CLI) | payer MEDICARE ==
--- NOTE | 2020-10-24 18:44 | US ---
EXAMINATION TYPE: US kidneys/renal and bladder DATE OF EXAM: 10/24/2020 COMPARISON: Correlation CT 05/30/2020 CLINICAL HISTORY: 85-year-old male N18.32 stage 3 kidney disease. Chronic kidney disease, known cysts , no symptoms TECHNIQUE: Multiple sonographic images of the kidneys and bladder are obtained. FINDINGS: EXAM MEASUREMENTS: Right Kidney: 20.0 x 6.7 x 9.0 cm Left Kidney: 10.9 x 4.1 x 5.6 cm Right Kidney: The kidney enlarged with innumerable cysts measuring up to at least 7.8 cm. No alejandra hy dronephrosis seen. Left Kidney: 2.1 x 2.0 x 1.8cm, lateral cyst seen. No alejandra hydronephrosis. Bladder: wnl Bilateral Jets seen: yes IMPRESSION: 1. Right kidney enlarged secondary to innumerable cysts measuring up to at least 7.8 cm. 2. No alejandra hydronephrosis seen. Both ureteral jets are visualized.
== END | disposition home or self-care (01) ==
LOC: RADUSWWP 12:34
PROVIDERS: ATTEND Internal Medicine
DX: N18.32 Chronic kidney disease, stage 3b (principal); N28.1 Cyst of kidney, acquired
CPT/HCPCS: 76770

== ENCOUNTER → 2020-11-19 | Outpatient (CLI) | payer MEDICARE ==
--- NOTE | 2020-11-19 11:21 | US ---
EXAMINATION TYPE: US renal artery duplex complete DATE OF EXAM: 11/19/2020 COMPARISON: NONE CLINICAL HISTORY: N18.30 CKD. Patient has low blood pressure. TECHNIQUE: Doppler duplex renal artery ultrasound study. MEASUREMENTS: RENAL SIZE: Rt Kidney: difficult to assess size due to cysts measured today at 16.0 x 5.1 x 7.0cm Lt Kidney: 10.6 x 4.3 x 4.3cm RESISTANCE INDEX Right: 1.0 Left: 0.71 RA/AO RATIO (< 3.5 ) Right: 2.1 Left: 0.9 RA VELOCITY ( < 180 cm/s) Right: 141 Left: 60 Patient has an aortic aneurysm measuring 4.3 x 4.6 x 4.1cm Patient has extensive bowel gas, making exam technically difficult. Right kidney has innumerable cysts. Largest 2 believed to be 6.8 x 5.2 x 6.5cm and 4.7 x 4.1 x 4.2cm. There appears to be a possible cystic cluster at the renal pelvis. Very limited visualization of ri ght kidney vessels due to cysts. Unable to visualize mid or distal renal artery, and segmental vessel s. Only able to see mid arcuate vessel. Left kidney shows cortical thinning. Lateral cyst measuring 2.4 x 2.6 x 2.4cm. Unable to visualize pr oximal renal artery. Mid and distal segmental arteries do show a delayed upstroke. Suboptimal study as detailed above due to bowel gas and patient's body habitus. There is multifocal A AA up to 4.6 cm on current study which correlates with CT. Larger simple appearing thin-walled cyst i n the right kidney correlate with CT. Cortical thinning is present bilaterally. Findings are consiste nt with product of chronic medical renal disease. No significant stenosis at origin right renal arter y.Cannot exclude significant stenosis origin of the left renal artery which corresponds to site of mo re calcified plaque and CT comparison. IMPRESSION: Suboptimal study. Evidence of chronic medical renal disease bilaterally. Cannot exclude s ignificant stenosis origin of the left renal artery as detailed above.
== END | disposition home or self-care (01) ==
LOC: RADUSWWP 07:40
PROVIDERS: ATTEND Internal Medicine Clinical Cardiac Electrophysiology
DX: N18.30 Chronic kidney disease, stage 3 unspecified (principal)
CPT/HCPCS: 93975

== ENCOUNTER → 2021-04-28 | Outpatient (CLI) | payer MEDICARE ==
[2021-04-28 14:38] LABS: HCT 41.5 % (39.6-50.0); HGB 13.3 g/dL (13.0-17.0); MCH 29.8 pg (27.0-32.0); MCV 92.8 fL (80.0-97.0); Mean Platelet Volume 10.3 fL (9.5-12.2); NRBC Per 100 WBC 0 /100 WBCS (0.0-0.0); Platelet Count 166 X 10*3/uL (140-440); RBC 4.47 X 10*6/uL (4.40-5.60); RDW 13.9 % (11.5-14.5); WBC 6.68 X 10*3/uL (4.50-10.00)
[2021-04-28 14:44] LABS: African American GFR (CKD) 41.1 (60.0-200.0); Anion Gap 9.9 mmol/L (10.00-18.00); Blood Urea Nitrogen 28.4 mg/dL (9.0-27.0); Carbon Dioxide 26.6 mmol/L (20.0-27.5); Non-African American GFR(CKD) 35.5 (60.0-200.0); Potassium 4.1 mmol/L (3.5-5.5)
[2021-04-29 15:34] LABS: Coronavirus SARS CoV-2 Not Detected (Not Detected)
== END | disposition home or self-care (01) ==
LOC: LABPAT 10:01
PROVIDERS: ATTEND Internal Medicine Clinical Cardiac Electrophysiology
DX: Z01.812 Encounter for preprocedural laboratory examination (principal); I25.5 Ischemic cardiomyopathy
CPT/HCPCS: 80051; 82565; 84520; 85027; U0003; U0005

== ENCOUNTER 2021-05-01 07:55 | Inpatient (IN) | payer MEDICARE ==
[2021-04-29 09:21] VITALS: BMI 27.9
[~2021-05-01 07:55] MED LIST changes: +CLINDAMYCIN 600 MG in SODIUM CHLORIDE 0.9% 250 ML IRRIGATION PRN; -CLINDAMYCIN 600 MG in SODIUM CHLORIDE 0.9% IRRIGATIO 250 ML IRRIGATION ONE; -CLINDAMYCIN 900 MG in DEXTROSE 5% IN WATER 50 ML IVPB ONE; +CLINDAMYCIN 900 MG in DEXTROSE 5% IN WATER 50 ML IVPB PRN; +LIDOCAINE 1% INJ 10MG/ML (20 ML MDV) ONE; -VANCOMYCIN 2,000 MG in SODIUM CHLORIDE 0.9% 500 ML 500 ML IVPB ONE; -VANCOMYCIN IV PER PHARMACY 1 EACH MISC MISCELLANE PRN
[2021-05-01] MEDS ORDERED: SODIUM CHLORIDE 0.9% 500 ML 500 ML IV ONE ×2 (08:12→17:23)
[2021-05-01] MEDS ORDERED: KETAMINE 10 MG/ML 20 ML VIAL ONE (09:44)
[2021-05-01] MEDS ORDERED: MIDAZOLAM 2 MG/2 ML VIAL ONE (09:44)
[2021-05-01] MEDS ORDERED: PROPOFOL 10 MG/ML 20 ML VIAL IV ONE (09:44)
[2021-05-01] MEDS ORDERED: fentaNYL (PF) 50 MCG/ML 2 ML AMP ONE (09:44)
[2021-05-01 10:26] LABS: INR 1.7 (<1.2); Prothrombin Time 17.8 sec (9.0-12.0)
[2021-05-01] MEDS ORDERED: VANCOMYCIN 1,500 MG in SODIUM CHLORIDE 0.9% 250 ML IVPB STA (10:32)
[2021-05-01] MEDS ORDERED: LIDOCAINE 1% INJ 10MG/ML (20 ML MDV) SQ ONE ×2 (10:39→10:55)
[2021-05-01] MEDS ORDERED: IOPAMIDOL-250 50ML BTL IV ONE (11:46)
[2021-05-01] MEDS ORDERED: ACETAMINOPHEN IV (For NPO) 1,000 MG in EMPTY BAG 1 BAG IVPB ONE (13:16)
[2021-05-01] MEDS ORDERED: ACETAMINOPHEN TAB 325 MG TAB PO PRN (13:16)
--- NOTE | 2021-05-01 13:32 | P.EPPROC ---
- EP Procedure Note Electrophysiology Procedure Note: Extended procedure This is a long procedure since the patient had chronic atrial and ICD lead with a record release displaced ICD generator The incision made was in the deltopectoral groove in accordance with the new access for the RV and LV leads Developmental to this incision the old incision was quite caudal and an extensive amount of dissection had to be performed to remove the ICD generator and free of the leads In the process there was a considerable amount of oozing of muscular bleeding I anticipate that he will have a hematoma and therefore I will hold warfarin and aspirin for at least 5 days, maybe 7 days He does have atrial fibrillation and it was a risk for stroke but I anticipate that he will have a hematoma despite the compression dressing This took a long time to free up the leads, removed the chronic generator and perform the capsulectomy A completely new subfascial pocket was made D-Stat was used to control muscular oozing
--- NOTE | 2021-05-01 14:18 | P.EPPROC ---
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% Cardiorenal syndrome Congestive heart failure class 2-3 Persistent atrial fibrillation History of ventricular tachycardia with ischemic adenopathy was the original indication for ICD implantation many years back RV ICD lead shows height thresholds Patient has had multiple generator changes in the past Procedure LV/ biventricular implantation New ICD lead implant New Biventricular ICD generator implant Explantation of old dual-chamber ICD generator Chronic ICD lead cut and And secured to the pectoralis past Pocket revision Extended procedure, see separate dictation Details Patient was brought to the EP lab in a fasting state. Written informed consent was obtained prior to the procedure. Conscious sedation provided by anesthesia team IV antibiotics administered. Local anesthesia administered. A 4 cm incision made in the pectoral area. Subfascial pocket made. Venous access obtained Venous sheaths placed. Leads placed in the right heart Atrial lead the right atrial appendage. This was a chronic lead was connected to the final generator RV lead position in the RV apex. RV septal position, active fix Medtronic 62 lead pacing impedance 400 ohms, pacing threshold 0.5 V at 0.4 ms. High-voltage impedance 74 ohms cm LV lead positioned in the LV vein. Lateral vein subselected selected and sheath within the sheath technique, placed in the lateral vein Screw-in LV lead, Medtronic placed in this vein Excellent thresholds, impedances 780 ohms. No diaphragmatic stimulation Biventricular pacemaker device connected to the leads and placed in the subfascial pocket Oral generator, dual-chamber ICD explanted Leads and generator were adhered to the pocket, fairly caudal he New subfascial pocket was made Hold the leads were the head to the undersurface of the patient's skin and had to be manually dissected without damaging the atrial lead At the end of the procedure the patient did have a hematoma on account of oozing, despite D-Stat Compression bandage applied Coumadin and aspirin will be on hold for at least one week Compression bandage for one to 2 weeks Patient tolerance the procedure well without acute complications
[2021-05-01] MEDS: CLINDAMYCIN 900 MG in DEXTROSE 5% IN WATER 50 ML IVPB SCH ×4 (16:51→23:02)
[2021-05-01] MEDS: HYDROmorphone 0.5 MG/0.5 ML SYRINGE IVP PRN (19:48)
[2021-05-02] MEDS: CLINDAMYCIN 900 MG in DEXTROSE 5% IN WATER 50 ML IVPB SCH ×2 (04:53)
[2021-05-02 06:28] LABS: Basophils % (A) 0 %; Eosinophils # (A) 0.1 k/uL (0-0.7); Eosinophils % (A) 1 %; HCT 36.9 % (39.0-53.0); HGB 11.9 gm/dL (13.0-17.5); Lymphocytes # (A) 1.3 k/uL (1.0-4.8); Lymphocytes % (A) 13 %; MCH 30.7 pg (25.0-35.0); MCHC 32.3 g/dL (31.0-37.0); MCV 95.2 fL (80.0-100.0); Mean Platelet Volume 8.1; Monocytes # (A) 0.7 k/uL (0-1.0); Monocytes % (A) 7 %; Neutrophils % (A) 77 %; Platelet Count 165 k/uL (150-450); RBC 3.87 m/uL (4.30-5.90); RDW 13.4 % (11.5-15.5); WBC 10.3 k/uL (3.8-10.6)
[2021-05-02 06:39] LABS: African American GFR (CKD) 36 (>60 ml/min/1.73 sqM); Anion Gap 5 mmol/L; Blood Urea Nitrogen 32 mg/dL (9-20); Calcium 8.2 mg/dL (8.4-10.2); Carbon Dioxide 29 mmol/L (22-30); Chloride 105 mmol/L (98-107); Glucose 113 mg/dL (74-99); Non-African American GFR(CKD) 31 (>60 ml/min/1.73 sqM); Potassium 3.5 mmol/L (3.5-5.1); Sodium 139 mmol/L (137-145)
--- NOTE | 2021-05-02 06:58 | XR ---
EXAMINATION TYPE: XR chest 1V portable DATE OF EXAM: 05/02/2021 COMPARISON: Chest x-ray April 17, 2020 HISTORY: Lead placement check. TECHNIQUE: Single AP portable frontal upright view of the chest is obtained. FINDINGS: The osseous structures are demineralized. Persistent mild cardiomegaly. There is now multi lead pacemaker/defibrillator with one pacemaker/defibrillator lead projecting over the right ventric le redemonstrated, there is new pacemaker lead projecting over the coronary sinus. There is new pacem lamar/defibrillator lead of indeterminate location projecting superiorly towards the left shoulder. Chronic parenchymal changes bilaterally are identified without pneumothorax. IMPRESSION: As above.
[2021-05-02] MEDS: TAMSULOSIN 0.4 MG CAP.ER.24H PO SCH (09:21)
[2021-05-02] MEDS: FUROSEMIDE 20 MG TAB PO SCH (09:21)
[2021-05-02] MEDS: PANTOPRAZOLE 40 MG TABLET PO SCH (09:21)
[2021-05-02] MEDS: METOPROLOL SUCCINATE (ER) 100 MG TAB.ER.24H PO SCH (09:21)
--- NOTE | 2021-05-02 11:49 | P.PN ---
Subjective Patient is doing a lot better. He does complain of chest discomfort in the site of the biventricular ICD However his hematoma looks a lot better today Hemoglobin 11.9 He is resting comfortably in bed He does not appear short of breath Heart sounds S1 and S2 are soft Lungs are clear Mouth is a bit dry Impression Ischemic adenopathy 100% RV pacing Upgrade to a biventricular ICD implantation of an LV lead as well as a new IV ICD lead The chronic ICD lead had high thresholds. This was cut and He is a chronic atrial lead and in the process of preserving the atrial lead, which was severely adhered to the skin on the underside, with blunt dissection with the finger, the patient had considerable oozing He has a significant hematoma yesterday a successfully compressed His hemoglobin stable I spoke to pharmacy today and we will give another dose of IV antibiotics vancomycin at 9 PM today I will keep him in the hospital over the weekend and if his hematoma is well controlled then I will discharge him on Wednesday He will remain in the hospital as an inpatient until then for observation Objective - Vital Signs Vital signs: Vital Signs Temp 98.3 F 05/02/21 07:00 Pulse 75 05/02/21 07:00 Resp 16 05/02/21 07:00 BP 131/58 05/02/21 07:00 Pulse Ox 92 L 05/02/21 07:00 Intake & Output 05/01/21 05/02/21 05/02/21 18:59 06:59 18:59 Intake Total 606 118 Output Total 800 Balance -194 118 Weight 86 kg Intake: IV 506 Intake, IV Titration 100 Amount ACETAMINOPHEN IV (For NPO 100 ) 1,000 mg In Empty Bag 1 bag @ 400 mls/hr IVPB ONCE ONE Rx#:[id number] Oral 118 Output: Urine 800 Other: Voiding Method Toilet # Voids 2 - Labs CBC & Chem 7: 05/02/21 05:34 05/02/21 05:34 Labs: Abnormal Lab Results - Last 24 Hours (Table) 05/02/21 05/02/21 Range/Units 05:34 05:34 RBC 3.87 L (4.30-5.90) m/uL Hgb 11.9 L (13.0-17.5) gm/dL Hct 36.9 L (39.0-53.0) % Neutrophils # 8.0 H (1.3-7.7) k/uL BUN 32 H (9-20) mg/dL Creatinine 1.92 H (0.66-1.25) mg/dL Glucose 113 H (74-99) mg/dL Calcium 8.2 L (8.4-10.2) mg/dL
--- NOTE | 2021-05-02 12:40 | CDI ---
Documentation Clarification Form Date: 05/02/2021 12:17:03 PM From: Zahida Cano CCS, CCDS Admit Date: 05/02/2021 10:09:00 AM Patient Name: Germán Walsh Visit Number: [id number] Discharge Date: ATTENTION: The Clinical Documentation Specialists (CDI) and [facility] Coding Staff appreciate your assistance in clarifying documentation. Please respond to the clarification below the line at the bottom and electronically sign. The CDI & [facility] Coding staff will review the response and follow-up if needed. Please note: Queries are made part of the Legal Health Record. If you have any questions, please contact the author of this message via ITS. Dr. 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 Additional information regarding the Acuity & Type of CHF is requested. History/Risk Factors per the 04/11 Cardiology Office H/P: CAD, Ischemic cardiomyopathy with EF 45-50%, CHF, CKD & Persistent Atrial Fibrillation on Coumadin, status post Single chamber ICD, pacemaker dependent, CHF class II. Clinical Indicators: Presented on 05/01 for elective Removal of ICD generator & revision with Biventricular ICD. 05/01 VS: T 97.9, P 61, 59; R 16, BP 193/86 (sitting, 146/80 (BP mean); PO 94 RA 05/01 BNP: No BNP this admission. (BNP : 2780) Most recent ECHO (04/18/2020): Mild LVH, Left ventricular systolic function is mildly impaired w/EF 45-50%. Inferior Hypokinesis, Mild aortic stenosis present, Mild MR, Mild TR, Moderate pulmonary hypertension, Trace/mild pulmonic regurgitation. 05/02 CXR: Persistent cardiomegaly. Chronic parenchymal changes bilaterally identified without pneumothorax, Multi lead pacemaker/defibrillator. Treatment: 05/01 Procedure as described. Telemetry, IV Clindamycin, IV Vancomycin 125 mls/hr x1, IV Tylenol 400 mls/hr x1, IV Na Cl 999 mls/hr q31M, IV Dilaudid 0.5 mg q6H, po Lasix 20 mg Daily. Home meds: Vit D2 & D3, Lasix 20 mg Daily, Toprol, Vit K In your professional opinion, can you please clarify the Acuity & Type of CHF if known? [ ] Chronic Systolic Heart Failure [ ] Chronic Diastolic Heart Failure [ ] Chronic Systolic & Diastolic Heart Failure [ ] Other, please specify [ ] Unable to determine (Template Last Revised: March 2020) Chronic systolic heart failure MTDD
[2021-05-02] MEDS: SODIUM CHLORIDE 0.9% 1,000 ML IV SCH (16:44)
[2021-05-02] MEDS ORDERED: VANCOMYCIN 1,500 MG in SODIUM CHLORIDE 0.9% 250 ML IVPB ONE (21:00)
[2021-05-03] MEDS: SODIUM CHLORIDE 0.9% 1,000 ML IV SCH (05:27)
--- NOTE | 2021-05-03 08:45 | P.PN ---
Progress Note - Text Patient is doing well and he does have pain in the left pectoral area which is very tender to touch However hematoma size seems to have decreased with adequate compression There is no soakage over the device dressing He sitting up comfortably in a chair eating breakfast Denies any dizziness upon getting up and walking around in the room Blood pressure is normal Afebrile 97.8F Blood pressure 144/63 mmHg pulse rate in the 60s Breath sounds are equal bilaterally no rhonchi no crackles Heart sounds are soft and distant The area is bandaged No JVD no lower extremity edema Impression Known ischemic cardiac myopathy Past history of ventricular tachycardia which is the original indication for the ICD 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 Device was interrogated yesterday and is functioning normally A new LV lead was placed, a new ICD lead was placed The chronic ICD lead was cut and capped and secured Atrial lead was carefully dissected with blunt finger dissection since it was severely adhered to the undersurface of the skin and subcutaneous tissue This resulted in significant amount of oozing and bleeding despite instilling the hemostatic agent into the pocket Compression applied to the area Warfarin is on hold Aspirin is on hold ALLERGIES to morphine and codeine, currently on Dilaudid IV Plan Hold aspirin and warfarin on Wednesday and Wednesday Watch hemoglobin Pain management, patient has pain and severe tenderness at the site Continue metoprolol succinate 100 mg by mouth daily Continue low-dose Lasix He received 1 dose of IV vancomycin last night CBC, BMP and TSH/free T4 tomorrow Random vancomycin level tomorrow Will follow over the weekend Anticipated discharge on Wednesday
[2021-05-03] MEDS: HYDROmorphone 0.5 MG/0.5 ML SYRINGE IVP PRN ×3 (08:54→20:20)
[2021-05-03] MEDS: TAMSULOSIN 0.4 MG CAP.ER.24H PO SCH (08:55)
[2021-05-03] MEDS: FUROSEMIDE 20 MG TAB PO SCH (08:55)
[2021-05-03] MEDS: METOPROLOL SUCCINATE (ER) 100 MG TAB.ER.24H PO SCH (08:55)
[2021-05-04] MEDS: HYDROmorphone 0.5 MG/0.5 ML SYRINGE IVP PRN (02:08)
[2021-05-04] MEDS ORDERED: ZOLPIDEM 5 MG TAB PO PRN (07:47)
[2021-05-04] MEDS: METOPROLOL SUCCINATE (ER) 100 MG TAB.ER.24H PO SCH (07:51)
[2021-05-04] MEDS: FUROSEMIDE 20 MG TAB PO SCH (07:51)
[2021-05-04] MEDS: TAMSULOSIN 0.4 MG CAP.ER.24H PO SCH (07:51)
[2021-05-04 12:44] LABS: HCT 31.1 % (39.6-50.0); HGB 9.9 g/dL (13.0-17.0); MCH 30.3 pg (27.0-32.0); MCHC 31.8 g/dL (32.0-37.0); MCV 95.1 fL (80.0-97.0); Mean Platelet Volume 10.8 fL (9.5-12.2); NRBC Per 100 WBC 0 /100 WBCS (0.0-0.0); Platelet Count 145 X 10*3/uL (140-440); RBC 3.27 X 10*6/uL (4.40-5.60); RDW 14.2 % (11.5-14.5); WBC 11.49 X 10*3/uL (4.50-10.00)
[2021-05-04 12:57] LABS: African American GFR (CKD) 38.2 (60.0-200.0); Anion Gap 8.8 mmol/L (10.00-18.00); BUN/Creat Ratio 17.28 Ratio (12.00-20.00); Blood Urea Nitrogen 31.8 mg/dL (9.0-27.0); Calcium 8.4 mg/dL (8.7-10.3); Carbon Dioxide 26.4 mmol/L (20.0-27.5); Non-African American GFR(CKD) 32.9 (60.0-200.0)
[2021-05-05 07:43] LABS: INR 1.2 (<1.2); Prothrombin Time 12.4 sec (9.0-12.0)
--- NOTE | 2021-05-05 07:51 | CDI ---
Documentation Clarification Form Date: 05/05/2021 07:44:24 AM From: Zahida Cano CCS, CCDS Admit Date: 05/02/2021 10:09:00 AM Patient Name: Germán Walsh Visit Number: [id number] Discharge Date: ATTENTION: The Clinical Documentation Specialists (CDI) and [facility] Coding Staff appreciate your assistance in clarifying documentation. Please respond to the clarification below the line at the bottom and electronically sign. The CDI & [facility] Coding staff will review the response and follow-up if needed. Please note: Queries are made part of the Legal Health Record. If you have any questions, please contact the author of this message via ITS. Dr. Bryce Carrizales: Unspecified CKD is documented in the 04/11 Cardiology Office H/P without further specificity. Cardiorenal syndrome is documented in the 05/03 Progress Note without further specificity. Additional clarification regarding the stage of CKD is requested. History/Risk Factors per the 04/11 Cardiology Office H/P: CAD, Ischemic cardiomyopathy with EF 45-50%, CHF, CKD & Persistent Atrial Fibrillation on Coumadin, status post Single chamber ICD, pacemaker dependent, CHF class II. Clinical Indicators: Presented on 05/01 for elective Removal of ICD generator & revision with Biventricular ICD. 05/01 VS: T 97.9, P 61, 59; R 16, BP 193/86 (sitting, 146/80 (BP mean); PO 94 RA 05/01 BNP: No BNP this admission. (BNP : 2780) Most recent ECHO (04/18/2020): Mild LVH, Left ventricular systolic function is mildly impaired w/EF 45-50%. Inferior Hypokinesis, Mild aortic stenosis present, Mild MR, Mild TR, Moderate pulmonary hypertension, Trace/mild pulmonic regurgitation. 05/02 CXR: Persistent cardiomegaly. Chronic parenchymal changes bilaterally identified without pneumothorax, Multi lead pacemaker/defibrillator. GFR: 05/02: 31. 05/04: 32.9 Historical GFR: 01/25/2020: 39.6. 06/02/2020: 41. 09/03/2020: 21.8. 10/04/2020: 31.9. 05/02 BUN 32, Creatinine 1.92. 05/04 BUN 31.8. Creatinine 1.8 Treatment: 05/01 Procedure as described. Telemetry, IV Clindamycin, IV Vancomycin 125 mls/hr x1, IV Tylenol 400 mls/hr x1, IV Na Cl 999 mls/hr q31M, IV Dilaudid 0.5 mg q6H, po Lasix 20 mg Daily. Home meds: Vit D2 & D3, Lasix 20 mg Daily, Toprol, Vit K Please clarify the stage of the CKD, if known: [ ] CKD Stage 3 (GFR 30-59) [ ] CKD Stage 3a (GFR 45-59) [ ] CKD Stage 3b (GFR 30-44) [ ] CKD Stage 4 (GFR 15-29) [ ] Other, please specify [ ] Unable to determine (Template Last revised: March 2020) Stage III CKD MTDD
[2021-05-05] MEDS: FUROSEMIDE 20 MG TAB PO SCH (09:07)
[2021-05-05] MEDS: METOPROLOL SUCCINATE (ER) 100 MG TAB.ER.24H PO SCH (09:07)
[2021-05-05] MEDS: TAMSULOSIN 0.4 MG CAP.ER.24H PO SCH (09:07)
[2021-05-05] MEDS: PANTOPRAZOLE 40 MG TABLET PO SCH (09:10)
[2021-05-05] MEDS: CLINDAMYCIN 150 MG CAP PO SCH ×4 (09:40→21:15)
[2021-05-05] MEDS: BACITRACIN ZINC 500 UNIT/GM OINT 28.4 GM TUBE TOPICAL SCH ×2 (09:40→21:15)
[2021-05-05] MEDS: HYDROmorphone 0.5 MG/0.5 ML SYRINGE IVP PRN ×2 (09:41→21:23)
[2021-05-05] MEDS ORDERED: CLINDAMYCIN 300 MG in DEXTROSE 5% IN WATER 50 ML IVPB SCH ×2 (12:00)
[2021-05-06 06:25] LABS: Basophils % (A) 0 %; Eosinophils # (A) 0.6 k/uL (0-0.7); Eosinophils % (A) 8 %; HCT 32.5 % (39.0-53.0); HGB 10.7 gm/dL (13.0-17.5); Lymphocytes # (A) 1.2 k/uL (1.0-4.8); Lymphocytes % (A) 16 %; MCH 31.4 pg (25.0-35.0); MCHC 32.8 g/dL (31.0-37.0); MCV 95.7 fL (80.0-100.0); Mean Platelet Volume 7.7; Monocytes # (A) 0.5 k/uL (0-1.0); Monocytes % (A) 6 %; Neutrophils # (A) 5.1 k/uL (1.3-7.7); Neutrophils % (A) 68 %; Platelet Count 186 k/uL (150-450); RBC 3.39 m/uL (4.30-5.90); RDW 13.6 % (11.5-15.5); WBC 7.6 k/uL (3.8-10.6)
[2021-05-06 06:47] LABS: African American GFR (CKD) 38 (>60 ml/min/1.73 sqM); Anion Gap 4 mmol/L; Blood Urea Nitrogen 34 mg/dL (9-20); Calcium 8.5 mg/dL (8.4-10.2); Carbon Dioxide 30 mmol/L (22-30); Chloride 104 mmol/L (98-107); Glucose 98 mg/dL (74-99); Non-African American GFR(CKD) 33 (>60 ml/min/1.73 sqM); Potassium 3.8 mmol/L (3.5-5.1); Sodium 138 mmol/L (137-145)
[2021-05-06] MEDS: BACITRACIN ZINC 500 UNIT/GM OINT 28.4 GM TUBE TOPICAL SCH (09:00)
[2021-05-06] MEDS: CLINDAMYCIN 150 MG CAP PO SCH ×2 (09:01→13:41)
[2021-05-06] MEDS: METOPROLOL SUCCINATE (ER) 100 MG TAB.ER.24H PO SCH (09:01)
[2021-05-06] MEDS: TAMSULOSIN 0.4 MG CAP.ER.24H PO SCH (09:01)
[2021-05-06] MEDS: FUROSEMIDE 20 MG TAB PO SCH (09:01)
[2021-05-06 15:49] VITALS: BP 104/53; PULSE 66; RESP 16; TEMP 97.6
--- NOTE | 2021-05-06 15:58 | P.PN ---
Subjective Patient is doing well on Wednesday His dressing was removed Hematoma has settled down Vitals are stable Is ambulating around in the room His pain is a lot better On examination ejection systolic THE precordium Clear lungs Hematoma is improved Impression Postoperative hematoma New generator implant New LV lead implant Very old leads in situ with scarring and hair to the tissues Postprocedure bleeding on account of blunt dissection to avoid damage to the atrial lead Patient is improving However continue to hold ELIQUIS All other cardiac medications to continue unchanged Discharge planning for the next 24-48 hours Objective - Vital Signs Vital signs: Vital Signs Temp 97.6 F 05/06/21 15:00 Pulse 66 05/06/21 15:00 Resp 16 05/06/21 15:00 BP 104/53 05/06/21 15:00 Pulse Ox 91 L 05/06/21 15:00 Intake & Output 05/05/21 05/06/21 05/06/21 18:59 06:59 18:59 Intake Total 240 240 Output Total 283 300 Balance -43 -60 Intake: Oral 240 240 Output: Urine 282 300 Stool 1 Other: # Voids 2 - Labs CBC & Chem 7: 05/06/21 05:43 05/06/21 05:43 Labs: Abnormal Lab Results - Last 24 Hours (Table) 05/06/21 05/06/21 Range/Units 05:43 05:43 RBC 3.39 L (4.30-5.90) m/uL Hgb 10.7 L (13.0-17.5) gm/dL Hct 32.5 L (39.0-53.0) % BUN 34 H (9-20) mg/dL Creatinine 1.84 H (0.66-1.25) mg/dL
--- NOTE | 2021-05-06 16:26 | P.DS ---
Providers Date of admission: 05/02/21 10:09 Attending physician: Bryce Astudillo Primary care physician: Misha Sotomayor Assessment: Patient was doing well this morning No new symptoms Chest discomfort is a lot better Tenderness is improved significantly He has hematoma that this is soft There is no bruising On examination his ejection systolic murmur over the precordium Lungs are clear He is quite bruised on account of the hematoma I removed the compression dressing yesterday and kept him without 1 overnight Impression Upgrade to an LV lead As a result of blunt dissection of the chronic leads embedded in scar tissue, was stopped for 2 bleeding with hematoma but no oozing Patient received IV antibiotics including vancomycin Compression bandages applied We have held anticoagulation with warfarin Plan Application of compression dressing again I will start ELIQUIS 2.5 mg twice daily starting on Continue all other cardiac medications Follow-up in the device clinic in a week Plan - Discharge Summary Discharge Rx Participant: No New Discharge Prescriptions: Continue RX: Tamsulosin [Flomax] 0.4 mg PO DAILY RX: Metoprolol Succinate (ER) [Toprol XL] 100 mg PO DAILY RX: Cholecalciferol [Vitamin D3 (25 Mcg = 1000 Iu)] 25 mcg PO DAILY RX: Furosemide [Lasix] 20 mg PO DAILY RX: Multivit-Min/Folic/Vit K/Lycop [Men's Multivitamin Tablet] 1 each PO DAILY RX: Ergocalciferol [Vitamin D2 (1250 Mcg = 65767 Iu)] 50,000 unit PO REILLY RX: Polyethylene Glycol 3350 [Miralax] 1 dose PO DAILY RX: Omeprazole 20 mg PO MOWEFR Discontinued RX: Warfarin [Coumadin] 2.5 mg PO MOWEFRSA RX: Warfarin [Coumadin] 2 mg PO SUTUTH RX: Aspirin 81 mg PO DAILY chew Discharge Medication List RX: Tamsulosin [Flomax] 0.4 mg PO DAILY 12/25/17 [History] RX: Cholecalciferol [Vitamin D3 (25 Mcg = 1000 Iu)] 25 mcg PO DAILY 04/17/20 [History] RX: Metoprolol Succinate (ER) [Toprol XL] 100 mg PO DAILY 04/17/20 [History] RX: Omeprazole 20 mg PO MOWEFR 05/30/20 [History] RX: Ergocalciferol [Vitamin D2 (1250 Mcg = 91553 Iu)] 50,000 unit PO REILLY 03/27/21 [History] RX: Furosemide [Lasix] 20 mg PO DAILY 03/27/21 [History] RX: Multivit-Min/Folic/Vit K/Lycop [Men's Multivitamin Tablet] 1 each PO DAILY 03/27/21 [History] RX: Polyethylene Glycol 3350 [Miralax] 1 dose PO DAILY 03/27/21 [History] Follow up Appointment(s)/Referral(s): Bryce Astudillo MD [STAFF PHYSICIAN] - 05/21/21 3:15 pm (Device clinic follow-up in one week 05/09 @ 3:00pm Follow-up with Dr. astudillo in May) [facility], [NON-STAFF] - ([place] will call to schedule apt. time) Activity/Diet/Wound Care/Special Instructions: PATIENT EDUCATION MATERIAL Instructions following a heart rhythm device implant. 1. Keep dressing DRY for 5 DAYS. You may cover the area with Saran or Cling Wrap, prior to a shower. 2. The dressing will be removed in the Device Clinic at [facility]. Absorbable sutures were used to close the wound. 3. Avoid raising the left arm above the shoulder level. 4 week restriction 4. Avoid arm movements, like backscratching, rubbing the head, or pulling on a cord. 4 weeks restriction 5. Gentle range of motion movements of the shoulder, closest to the incision should be performed to avoid a frozen shoulder. (Pendulum exercises of the shoulder) 6. The opposite arm may be used freely. 7. Avoid driving for 7 days. 8. Avoid activities such as golfing, swimming, weed whacking, lifting more than 10 pounds weight, bowling, gymnastics and weight training/lifting. (6 weeks restriction) 9. Activities such as wood chopping with an axe, pull-ups in the gymnasium, power lifting, arc-welding, being close to home induction cooktops will always be a problem. 10. Arm sling is only a reminder not to raise the arm above the head. You do not need to keep the arm completely immobilized. Your free to move the arm and use it and for normal activities. In case of any problems, please call [facility], Bharat Garcia, @ [phone], Attention: Device Clinic Device clinic follow-up in 5 days Follow-up with primary benefits coordinator in 2-3 months Hold warfarin Hold aspirin for 5-7 days
== END 2021-05-06 17:38 | disposition home health service (06) | DRG 227 ==
LOC: CATHEP 07:55 → 6NMEDSUR 13:10 → CATHEP 05-02 10:09 → 6NMEDSUR 05-03 04:06
PROVIDERS: ADMIT Internal Medicine Clinical Cardiac Electrophysiology; ATTEND Internal Medicine Clinical Cardiac Electrophysiology
PROC: 02HK3KZ Insertion of Defibrillator Lead into Right Ventricle, Percutaneous Approach (ICD-10-PCS; principal; 2021-05-01 09:30)
PROC: 0JH609Z Insertion of Cardiac Resynchronization Defibrillator Pulse Generator into Chest Subcutaneous Tissue and Fascia, Open Approach (ICD-10-PCS; principal; 2021-05-01 09:30)
PROC: 0JPT0PZ Removal of Cardiac Rhythm Related Device from Trunk Subcutaneous Tissue and Fascia, Open Approach (ICD-10-PCS; principal; 2021-05-01 09:30)
DX: T82.897A Other specified complication of cardiac prosthetic devices, implants and grafts, initial encounter (principal); T82.121A Displacement of cardiac pulse generator (battery), initial encounter; I47.2 Ventricular tachycardia; I13.0 Hypertensive heart and chronic kidney disease with heart failure and stage 1 through stage 4 chronic kidney disease, or unspecified chronic kidney disease; I50.22 Chronic systolic (congestive) heart failure; I48.21 Permanent atrial fibrillation; I49.5 Sick sinus syndrome; N18.30 Chronic kidney disease, stage 3 unspecified; M79.81 Nontraumatic hematoma of soft tissue; I25.2 Old myocardial infarction; I25.10 Atherosclerotic heart disease of native coronary artery without angina pectoris; I25.5 Ischemic cardiomyopathy; I08.8 Other rheumatic multiple valve diseases; I67.9 Cerebrovascular disease, unspecified; E78.5 Hyperlipidemia, unspecified; K21.9 Gastro-esophageal reflux disease without esophagitis; Z79.01 Long term (current) use of anticoagulants; Z79.82 Long term (current) use of aspirin; Z79.899 Other long term (current) drug therapy; Z95.1 Presence of aortocoronary bypass graft; Z86.79 Personal history of other diseases of the circulatory system; Z87.891 Personal history of nicotine dependence; Y83.1 Surgical operation with implant of artificial internal device as the cause of abnormal reaction of the patient, or of later complication, without mention of misadventure at the time of the procedure; Y71.2 Prosthetic and other implants, materials and accessory cardiovascular devices associated with adverse incidents; Z88.5 Allergy status to narcotic agent; Z88.0 Allergy status to penicillin; Z88.2 Allergy status to sulfonamides
CPT/HCPCS: 33225; 33249; 71045; 80048; 80202; 84439; 84443; 85025; 85027; 85610

== ENCOUNTER 2022-05-13 11:03 | Inpatient (IN) | payer MEDICARE ==
--- NOTE | 2022-05-13 12:04 | ED ---
General Adult HPI - General Chief complaint: Shortness of Breath Stated complaint: CHRIS, leg swelling Time Seen by Provider: 05/13/22 11:14 Source: patient Mode of arrival: wheelchair Limitations: no limitations - History of Present Illness Initial comments: Dictation was produced using [employer] dictation software. please excuse any grammatical, word or spelling errors. Chief Complaint: 87-year-old male presents to the emergency department for shortness of breath History of Present Illness: Patient is an 87-year-old male presents emergency department for shortness of breath. Patient has been having ongoing symptoms of orthopnea and shortness of breath for the last week. He sleeps in a recliner. States that he is significantly short of breath when lying flat for several periods of time especially in the morning. Went to the regional rehabilitation director office for a saw mid-level provider. He is told to come to the ER. Patient has history of mild heart failure with an ejection fraction of approximately 50%. Patient has been complaining of pitting edema to the bilateral lower extremities. He also reports exertional dyspnea this been getting worse over the last several days. The ROS documented in this emergency department record has been reviewed and confirmed by me. Those systems with pertinent positive or negative responses have been documented in the HPI. All other systems are other negative and/or noncontributory. PHYSICAL EXAM: General Impression: Alert and oriented x3, not in acute distress HEENT: Normocephalic atraumatic, extra-ocular movements intact, pupils equal and reactive to light bilaterally, mucous membranes moist. Cardiovascular: Heart regular rate and rhythm Chest: Able to complete full sentences, no retractions, no tachypnea Abdomen: abdomen soft, non-tender, non-distended, no organomegaly Musculoskeletal: Pulses present and equal in all extremities, 2+ pitting edema to the bilateral lower extremities Motor: no focal deficits noted Neurological: CN II-XII grossly intact, no focal motor or sensory deficits noted Skin: Intact with no visualized rashes Psych: Normal affect and mood ED course: 87-year-old male presents emergency department for symptoms consistent with heart exacerbation. Patient has established history of heart failure however clinically concern that his symptoms may be getting worse. Vital signs upon arrival are within acceptable limits. Patient has an echocardiogram in our system from 04/18/2020. He did have paperwork from today's cardiology visit those reviewed by myself. Nursing notes and chart review was performed My EKG interpretation: Ventricular rate 61, ventricular paced rhythm, QRS 154, QTc 501. No ME prolongation, no QTC prolongation, no ST or T-wave changes noted. Overall, this EKG is unremarkable Was pt. sent in by a medical professional or institution (, SHEREEN, SALES OFFICE ASSISTANT, urgent care, hospital, or custodial...) When possible be specific @ -Sent in from cardiology office Did you speak to anyone other than the patient for history (EMS, parent, family, police, friend...)? What history was obtained from this source @ -No Did you review nursing and triage notes (agree or disagree)? Why? @ -I reviewed and agree with nursing and triage notes Were old charts reviewed (outside hosp., previous admission, EMS record, old EKG, old radiological studies, urgent care reports/EKG's, custodial records)? Report findings @ -Reviewed cardiology office notes from today's visit Differential Diagnosis (chest pain, altered mental status, abdominal pain women, abdominal pain men, vaginal bleeding, musculoskeletal, weakness, fever, dyspnea, syncope, headache, dizziness, GI bleed, back pain, seizure, CVA, palpatations, mental health)? @ -Differential Dyspnea: Coronary syndrome, arrhythmia, tamponade, asthma, COPD, pulmonary embolism, pneumonia, pneumothorax, pulmonary effusion, anaphylaxis, diabetic ketoacidosis, flailed chest, pulmonary contusion, diaphragmatic rupture, anemia, neuromuscular, this is not meant to be an all-inclusive list. EKG interpreted by me (3pts min.). @ -see above X-rays interpreted by me (1pt min.). @ -Nonacute CT interpreted by me (1pt min.). @ -None done U/S interpreted by me (1pt. min.). @ -None done What testing was considered but not performed or refused? (CT, X-rays, U/S, labs)? Why? @ -None What meds were considered but not given or refused? Why? @ -None Did you discuss the management of the patient with other professionals (professionals i.e. SHEREEN Mir, SALES OFFICE ASSISTANT, lab, RT, psych nurse, director of social media marketing, road packer operator, teacher, money position officer, geriatric case manager)? Give summary @ -Discussed with hospitalist, Dr. Ali Was smoking cessation discussed for >3mins.? @ -No Was critical care preformed (if so, how long)? @ -No Were there social determinants of health that impacted care today? How? (Homelessness, low income, unemployed, alcoholism, drug addiction, transpor tation, low edu. Level, literacy, decrease access to med. care, alf, rehab)? @ -No Was there de-escalation of care discussed even if they declined (Discuss DNR or withdrawal of care, Hospice)? DNR status @ -No What co-morbidities impacted this encounter? (DM, HTN, Smoking, COPD, CAD, Cancer, CVA, ARF, Chemo, Hep., AIDS, mental health diagnosis, sleep apnea, morbid obesity)? @ -CVA with hemiparesis Was patient admitted / discharged? Hospital course, mention meds given and route, prescriptions, significant lab abnormalities, going to OR and other pertinent info. @ -87-year-old male presents emergency department for symptoms consistent with heart failure. Seems like his symptoms are mild. He did have mild heart failure based on previous echocardiograms. At rest patient not showing any signs of distress. Patient given IV Lasix will be admitted for gentle diuresis and cardiology consultation. Undiagnosed new problem with uncertain prognosis? @ -No Drug Therapy requiring intensive monitoring for toxicity (Heparin, Nitro, Insulin, Cardizem)? @ -No Were any procedures done? @ -No Diagnosis/symptom? Acute, or Chronic, or Acute on Chronic? Uncomplicated (without systemic symptoms) or Complicated (systemic symptoms)? @ -1. Acute mild heart failure Side effects of treatment? @ -No Exacerbation, Progression, or Severe Exacerbation? @ -Yes, exacerbation Poses a threat to life or bodily function? How? (Chest pain, [place], SD, pneumonia, PE, COPD, DKA, ARF, appy, cholecystitis, CVA, Diverticulitis, Homicidal, Suicidal, threat to staff... and all critical care pts) @ -Yes - Related Data Home Medications Medication Instructions Recorded Confirmed Tamsulosin [Flomax] 0.4 mg PO DAILY 12/25/17 05/13/22 Cholecalciferol [Vitamin D3 (25 25 mcg PO DAILY 04/17/20 05/13/22 Mcg = 1000 Iu)] Metoprolol Succinate (ER) [Toprol 100 mg PO DAILY 04/17/20 05/13/22 XL] Omeprazole 20 mg PO MOWEFR 05/30/20 05/13/22 Multivit-Min/Folic/Vit K/Lycop 1 tab PO DAILY 03/27/21 05/13/22 [Men's Multivitamin Tablet] Aspirin 81 mg PO HS 05/13/22 05/13/22 Atorvastatin [Lipitor] 20 mg PO HS 05/13/22 05/13/22 Furosemide [Lasix] 40 mg PO DAILY 05/13/22 05/13/22 Warfarin [Coumadin] 2 mg PO MOWE@199905/13/22 05/13/22 Warfarin [Coumadin] 3 mg PO SUTUWETHSA@199905/13/22 05/13/22 amLODIPine [Norvasc] 5 mg PO DAILY 05/13/22 05/13/22 calcitrioL [Calcitriol] 0.25 mcg PO REILLY@199905/13/22 05/13/22 Allergies Allergy/AdvReac Type Severity Reaction Status Date / Time morphine Allergy Unknown Verified 05/13/22 12:18 Penicillins Allergy Unknown Verified 05/13/22 12:18 Sulfa (Sulfonamide Allergy Unknown Verified 05/13/22 12:18 Antibiotics) codeine AdvReac Nausea & Verified 05/13/22 12:18 Vomiting Review of Systems ROS Statement: Those systems with pertinent positive or pertinent negative responses have been documented in the HPI. ROS Other: All systems not noted in ROS Statement are negative. Past Medical History Past Medical History: Atrial Fibrillation, Coronary Artery Disease (CAD), Cancer, Chest Pain / Angina, Heart Failure, CVA/TIA, GERD/Reflux, GI Bleed, Hearing Disorder / Deafness, Hyperlipidemia, Hypertension, Myocardial Infarction (SD), Osteoarthritis (OA), Prostate Disorder Additional Past Medical History / Comment(s): AFib, SSS, MIs x3, ischemic cardiomyopathy/vtach/AICD/pacer, CVA with R eye vision change/[place] R ear and balance issues, bladder cancer with surgery/chemo, skin cancer with removals, epistaxis, bleeding gastric ulcer, lower GI bleed, colon polyps, chronic low back pain, bilateral arm/hand tremors ., States difficulty emptying bladder-sees Dr Douglas., See [facility] Last Myocardial Infarction Date:: 1998 History of Any Multi-Drug Resistant Organisms: None Reported Past Surgical History: AICD, Bladder Surgery, Bowel Resection, Cholecystectomy, Coronary Bypass/CABG, Heart Catheterization, Heart Catheterization With Stent, Hernia Repair, Joint Replacement, Pacemaker, Prostate Surgery Additional Past Surgical History / Comment(s): PCI with stents, 1999 CABG 3 vessel, AICD/pacer last one placed 04/2019 with wound debridement, total L hip arthroplasty, skin cancer removal with graft, TURBT with fulguration, TURP, colectomy d/t polyps, inguinal hernia Past Anesthesia/Blood Transfusion Reactions: No Reported Reaction Date of Last Stent Placement:: 1998 Type of Cardiac Device: Permanent Pacemaker, AICD Device Placement Date:: april 2019 Past Psychological History: No Psychological Hx Reported Smoking Status: Former smoker Past Alcohol Use History: None Reported Past Drug Use History: None Reported - Past Family History Mother Family Medical History: No Reported History Additional Family Medical History / Comment(s): Tremors. Father Family Medical History: Osteoarthritis (OA) General Exam Limitations: no limitations Course Vital Signs 05/13/22 11:05 Temperature 97.4 F L Pulse Rate 87 Respiratory 20 Rate Blood Pressure 124/69 O2 Sat by Pulse 97 Oximetry Medical Decision Making - Lab Data Result diagrams: 05/13/22 12:06 05/13/22 12:06 Lab Results 05/13/22 05/13/22 05/13/22 Range/Units 12:06 12:06 12:06 WBC 7.8 (3.8-10.6) k/uL RBC 4.08 L (4.30-5.90) m/uL Hgb 12.6 L (13.0-17.5) gm/dL Hct 37.7 L (39.0-53.0) % MCV 92.4 (80.0-100.0) fL MCH 31.0 (25.0-35.0) pg MCHC 33.5 (31.0-37.0) g/dL RDW 13.2 (11.5-15.5) % Plt Count 156 (150-450) k/uL MPV 8.0 Neutrophils % 71 % Lymphocytes % 14 % Monocytes % 7 % Eosinophils % 6 % Basophils % 0 % Neutrophils # 5.5 (1.3-7.7) k/uL Lymphocytes # 1.1 (1.0-4.8) k/uL Monocytes # 0.6 (0-1.0) k/uL Eosinophils # 0.4 (0-0.7) k/uL Basophils # 0.0 (0-0.2) k/uL PT 20.7 H (9.0-12.0) sec INR 2.1 H (<1.2) APTT 29.6 (22.0-30.0) sec Sodium 140 (137-145) mmol/L Potassium 4.2 (3.5-5.1) mmol/L Chloride 103 (98-107) mmol/L Carbon Dioxide 31 H (22-30) mmol/L Anion Gap 6 mmol/L BUN 22 H (9-20) mg/dL Creatinine 1.65 H (0.66-1.25) mg/dL Est GFR (CKD-EPI)AfAm 43 (>60 ml/min/1.73 sqM) Est GFR (CKD-EPI)NonAf 37 (>60 ml/min/1.73 sqM) Glucose 97 (74-99) mg/dL Calcium 8.8 (8.4-10.2) mg/dL Magnesium 2.2 (1.6-2.3) mg/dL Total Bilirubin 1.1 (0.2-1.3) mg/dL AST 38 (17-59) U/L ALT 24 (4-49) U/L Alkaline Phosphatase 85 (38-126) U/L Troponin I (0.000-0.034) ng/mL NT-Pro-B Natriuret Pep pg/mL Total Protein 6.4 (6.3-8.2) g/dL Albumin 3.7 (3.5-5.0) g/dL 05/13/22 05/13/22 Range/Units 12:06 12:06 WBC (3.8-10.6) k/uL RBC (4.30-5.90) m/uL Hgb (13.0-17.5) gm/dL Hct (39.0-53.0) % MCV (80.0-100.0) fL MCH (25.0-35.0) pg MCHC (31.0-37.0) g/dL RDW (11.5-15.5) % Plt Count (150-450) k/uL MPV Neutrophils % % Lymphocytes % % Monocytes % % Eosinophils % % Basophils % % Neutrophils # (1.3-7.7) k/uL Lymphocytes # (1.0-4.8) k/uL Monocytes # (0-1.0) k/uL Eosinophils # (0-0.7) k/uL Basophils # (0-0.2) k/uL PT (9.0-12.0) sec INR (<1.2) APTT (22.0-30.0) sec Sodium (137-145) mmol/L Potassium (3.5-5.1) mmol/L Chloride (98-107) mmol/L Carbon Dioxide (22-30) mmol/L Anion Gap mmol/L BUN (9-20) mg/dL Creatinine (0.66-1.25) mg/dL Est GFR (CKD-EPI)AfAm (>60 ml/min/1.73 sqM) Est GFR (CKD-EPI)NonAf (>60 ml/min/1.73 sqM) Glucose (74-99) mg/dL Calcium (8.4-10.2) mg/dL Magnesium (1.6-2.3) mg/dL Total Bilirubin (0.2-1.3) mg/dL AST (17-59) U/L ALT (4-49) U/L Alkaline Phosphatase (38-126) U/L Troponin I <0.012 (0.000-0.034) ng/mL NT-Pro-B Natriuret Pep 1190 pg/mL Total Protein (6.3-8.2) g/dL Albumin (3.5-5.0) g/dL Disposition Clinical Impression: Heart failure Disposition: ADMITTED IP TO THIS HOSP Condition: Fair Referrals: Misha Sotomayor MD [Primary Care Provider] - 1-2 days Decision Time: 13:30
[2022-05-13 12:22] LABS: Basophils % (A) 0 %; Eosinophils # (A) 0.4 k/uL (0-0.7); Eosinophils % (A) 6 %; HCT 37.7 % (39.0-53.0); HGB 12.6 gm/dL (13.0-17.5); Lymphocytes # (A) 1.1 k/uL (1.0-4.8); Lymphocytes % (A) 14 %; MCHC 33.5 g/dL (31.0-37.0); MCV 92.4 fL (80.0-100.0); Monocytes # (A) 0.6 k/uL (0-1.0); Monocytes % (A) 7 %; Neutrophils # (A) 5.5 k/uL (1.3-7.7); Neutrophils % (A) 71 %; Platelet Count 156 k/uL (150-450); RBC 4.08 m/uL (4.30-5.90); RDW 13.2 % (11.5-15.5); WBC 7.8 k/uL (3.8-10.6)
[2022-05-13 12:32] LABS: INR 2.1 (<1.2); Partial Thromboplastin Time 29.6 sec (22.0-30.0); Prothrombin Time 20.7 sec (9.0-12.0)
--- NOTE | 2022-05-13 12:35 | XR ---
EXAMINATION TYPE: XR chest 2V DATE OF EXAM: 05/13/2022 COMPARISON: 05/02/2021 INDICATION: Dyspnea orthopnea TECHNIQUE: Frontal and lateral views of the chest are obtained. FINDINGS: The heart size is normal. The pulmonary vasculature is normal. The lungs are clear. These make overlies left chest. Sternotomy wires are in the midline. IMPRESSION: 1. No acute pulmonary process.
[2022-05-13 12:41] LABS: Albumin 3.7 g/dL (3.5-5.0); Calcium 8.8 mg/dL (8.4-10.2); Magnesium 2.2 mg/dL (1.6-2.3); Potassium 4.2 mmol/L (3.5-5.1); Total Bilirubin 1.1 mg/dL (0.2-1.3); Total Protein 6.4 g/dL (6.3-8.2)
[2022-05-13] MEDS ORDERED: FUROSEMIDE 10 MG/ML 4 ML VIAL IV STA (13:41)
--- NOTE | 2022-05-13 14:42 | P.HPIM ---
History of Present Illness H&P Date: 05/13/22 History of present illness; patient is very pleasant 87-year-old male with a past medical history including coronary artery disease with 3 previous MIs resulting in stent placement followed by cardiac double bypass in 1998, atrial fibrillation on Coumadin, pacemaker/defibrillator placement, hypertension, hyperlipidemia, thrombotic CVA in 2019 who presented to the ER because of shortness of breath for the last couple of weeks. Patient states he gets short of breath on minimal exertion, also complaining of orthopnea, sleeping in a recliner and feels short of breath on laying flat. Patient was also complaining of swelling of lower extremities. Denies any chest pain. Denies any palpitations. Because of the shortness of breath, patient went to see his customer support assistant who suggested him to come to the ER. Initial lab work in the ER showed white count of 7.8, hemoglobin 12.6, INR 2.1, sodium 140, potassium 4.2, BUN 22, creatinine 1.65, initial troponin was negative, proBNP was 1190. Chest x-ray showed no acute cardiopulmonary process. Patient was admitted for further evaluation and treatment REVIEW OF SYSTEMS: CONSTITUTIONAL: No fever, no malaise, no fatigue. HEENT: No recent visual problems or hearing problems. Denied any sore throat. CARDIOVASCULAR: As mentioned in HPI PULMONARY: no cough, no hemoptysis. GASTROINTESTINAL: No diarrhea, no nausea, no vomiting, no abdominal pain. NEUROLOGICAL: No headaches, no weakness, no numbness. HEMATOLOGICAL: Denies any bleeding or petechiae. GENITOURINARY: Denies any burning micturition, frequency, or urgency. MUSCULOSKELETAL/RHEUMATOLOGICAL: Denies any joint pain, swelling, or any muscle pain. ENDOCRINE: Denies any polyuria or polydipsia. The rest of the 14-point review of systems is negative. PHYSICAL EXAMINATION: GENERAL: The patient is alert and oriented x3, not in any acute distress. Well developed, well nourished. HEENT: Pupils are round and equally reacting to light. EOMI. No scleral icterus. No conjunctival pallor. Normocephalic, atraumatic. No pharyngeal erythema. No thyromegaly. CARDIOVASCULAR: S1 and S2 present. No murmurs, rubs, or gallops. PULMONARY: Chest is clear to auscultation, no wheezing or crackles. ABDOMEN: Soft, nontender, nondistended, normoactive bowel sounds. No palpable organomegaly. MUSCULOSKELETAL: No joint swelling or deformity. EXTREMITIES: 2+ pitting edema of lower extremities bilaterally NEUROLOGICAL: Gross neurological examination did not reveal any focal deficits. SKIN: No rashes. Assessment and plan Acute CHF ischemic cardiomyopathy AICD placement History of coronary artery disease History of atrial fibrillation Plan; Monitor vital signs Monitor CBC next and monitor CMP Continue telemetry monitoring. Strict I's and O's, daily weights. Continue IV Lasix Resume home meds Consult cardiology Past Medical History Past Medical History: Atrial Fibrillation, Coronary Artery Disease (CAD), Cancer, Chest Pain / Angina, Heart Failure, CVA/TIA, GERD/Reflux, GI Bleed, Hearing Disorder / Deafness, Hyperlipidemia, Hypertension, Myocardial Infarction ([place]), Osteoarthritis (OA), Prostate Disorder Additional Past Medical History / Comment(s): AFib, SSS, MIs x3, ischemic cardiomyopathy/vtach/AICD/pacer, CVA with R eye vision change/[place] R ear and balance issues, bladder cancer with surgery/chemo, skin cancer with removals, epistaxis, bleeding gastric ulcer, lower GI bleed, colon polyps, chronic low back pain, bilateral arm/hand tremors ., States difficulty emptying bladder-sees Dr Douglas., See Cardiology [facility] Last Myocardial Infarction Date:: 1998 History of Any Multi-Drug Resistant Organisms: None Reported Past Surgical History: AICD, Bladder Surgery, Bowel Resection, Cholecystectomy, Coronary Bypass/CABG, Heart Catheterization, Heart Catheterization With Stent, Hernia Repair, Joint Replacement, Pacemaker, Prostate Surgery Additional Past Surgical History / Comment(s): PCI with stents, 1999 CABG 3 vessel, AICD/pacer last one placed 04/2019 with wound debridement, total L hip arthroplasty, skin cancer removal with graft, TURBT with fulguration, TURP, colectomy d/t polyps, inguinal hernia Past Anesthesia/Blood Transfusion Reactions: No Reported Reaction Date of Last Stent Placement:: 1998 Type of Cardiac Device: Permanent Pacemaker, AICD Device Placement Date:: april 2019 Past Psychological History: No Psychological Hx Reported Smoking Status: Former smoker Past Alcohol Use History: None Reported Past Drug Use History: None Reported - Past Family History Mother Family Medical History: No Reported History Additional Family Medical History / Comment(s): Tremors. Father Family Medical History: Osteoarthritis (OA) Medications and Allergies Home Medications Medication Instructions Recorded Confirmed Type Tamsulosin [Flomax] 0.4 mg PO DAILY 12/25/17 05/13/22 History Cholecalciferol [Vitamin D3 (25 25 mcg PO DAILY 04/17/20 05/13/22 History Mcg = 1000 Iu)] Metoprolol Succinate (ER) [Toprol 100 mg PO DAILY 04/17/20 05/13/22 History XL] Omeprazole 20 mg PO MOWEFR 05/30/20 05/13/22 History Multivit-Min/Folic/Vit K/Lycop 1 tab PO DAILY 03/27/21 05/13/22 History [Men's Multivitamin Tablet] Aspirin 81 mg PO HS 05/13/22 05/13/22 History Atorvastatin [Lipitor] 20 mg PO HS 05/13/22 05/13/22 History Furosemide [Lasix] 40 mg PO DAILY 05/13/22 05/13/22 History Warfarin [Coumadin] 2 mg PO MOWE@199905/13/22 05/13/22 History Warfarin [Coumadin] 3 mg PO SUTUWETHSA@199905/13/22 05/13/22 History amLODIPine [Norvasc] 5 mg PO DAILY 05/13/22 05/13/22 History calcitrioL [Calcitriol] 0.25 mcg PO REILLY@199905/13/22 05/13/22 History Allergies Allergy/AdvReac Type Severity Reaction Status Date / Time morphine Allergy Unknown Verified 05/13/22 12:18 Penicillins Allergy Unknown Verified 05/13/22 12:18 Sulfa (Sulfonamide Allergy Unknown Verified 05/13/22 12:18 Antibiotics) codeine AdvReac Nausea & Verified 05/13/22 12:18 Vomiting Physical Exam Vitals: Vital Signs Temp Pulse Resp BP Pulse Ox 05/13/22 11:05 97.4 F L 87 20 124/69 97 Intake and Output 05/12/22 05/13/22 05/13/22 22:59 06:59 14:59 Other: Weight 90.265 kg Results CBC & Chem 7: 05/13/22 12:06 05/13/22 12:06 Labs: Abnormal Lab Results - Last 24 Hours (Table) 05/13/22 05/13/22 05/13/22 Range/Units 12:06 12:06 12:06 RBC 4.08 L (4.30-5.90) m/uL Hgb 12.6 L (13.0-17.5) gm/dL Hct 37.7 L (39.0-53.0) % PT 20.7 H (9.0-12.0) sec INR 2.1 H (<1.2) Carbon Dioxide 31 H (22-30) mmol/L BUN 22 H (9-20) mg/dL Creatinine 1.65 H (0.66-1.25) mg/dL
[2022-05-13] MEDS: ATORVASTATIN 20 MG TAB PO SCH (20:29)
[2022-05-13] MEDS: ASPIRIN 81 MG PO SCH (20:29)
[2022-05-13] MEDS ORDERED: FUROSEMIDE 40 MG TAB PO SCH (21:00)
[2022-05-13] MEDS ORDERED: WARFARIN 3 MG TAB PO SCH (22:30)
[2022-05-13] MEDS ORDERED: WARFARIN 2 MG TAB PO SCH (23:00)
[2022-05-14 07:49] LABS: Prothrombin Time 19.5 sec (9.0-12.0)
--- NOTE | 2022-05-14 09:38 | P.CRDCN ---
History of Present Illness Consult date: 05/13/22 History of present illness: HISTORY OF PRESENT ILLNESS: This is a 87-year-old male with a past medical history significant for coronary artery disease, ischemic cardiomyopathy status post biventricular ICD, congestive heart failure, chronic kidney disease, and persistent atrial fibrillation. Patient follows in the office with Dr. Carrizales. We have been asked to see the patient in consultation for congestive heart failure. Patient examined at the bedside. Patient was sent to the ER from his cardiology office due to SOB and increased lower extremity edema. He was given one dose of IV lasix in the ER. He states his breathing has improved. He continues to have lower extremity edema. He denies any chest pain or pressure. Denies shortness of breath. * EKG reveals ventricular paced rhythm * Chest xray negative for acute process * Laboratory data: WBC 7.8. Hemoglobin 12.6. Platelet count 156. Sodium 140. Potassium 4.2. BUN 22. Creatinine 1.65. Troponin negative 1. ProBNP 1190. INR 2.1. * Current home cardiac medications include Lasix 40 mg daily, aspirin 81 mg at night, Lipitor 20mg at night, amlodipine 5 mg daily, and warfarin 2 mg Wednesday and Wednesday and 3 mg Wednesday * Most recent echocardiogram obtained in March 2022 revealed ejection fraction 40-45%, trace aortic regurgitation, [id number] aortic stenosis, mild mitral regurgitation, moderate tricuspid regurgitation * Patient underwent Lexiscan stress test in September 2020 revealing prior inferior wall myocardial infarction without any acute ischemia * Patient underwent 3 vessel CABG in 1999 with SERRANO to LAD, VGOM1, VGPDA * Cardiac catheterization history: February 2002 revealing 100% mid circumflex, 100% mid RCA, patent SERRANO to LAD, patent VGOM1, patent VGPDA REVIEW OF SYSTEMS: At the time of my exam: CONSTITUTIONAL: Denies fever or chills. HEENT: Denies blurred vision, vision changes, or eye pain. Denies hemoptysis CARDIOVASCULAR: Denies chest pain. Denies orthopnea. Denies PND. Denies palpitations RESPIRATORY: Denies shortness of breath. GASTROINTESTINAL: Denies abdominal pain. Denies nausea or vomiting. HEMATOLOGIC: Denies bleeding disorders. GENITOURINARY: Denies any blood in urine. SKIN: Denies pruitis. Denies rash. PHYSICAL EXAM: VITAL SIGNS: Reviewed. GENERAL: Well-developed in no acute distress. HEENT: Head is normocephalic. Pupils are equal, round. Sclerae anicteric. Mucous membranes of the mouth are moist. Neck supple. No JVD or thyromegaly LUNGS: Respirations even and unlabored. Lungs essentially clear to auscultation bilaterally. HEART: Regular rate and rhythm. S1 and S2 heard. Systolic murmur noted ABDOMEN: Soft. Nondistended. Nontender. EXTREMITIES: Normal range of motion. No clubbing or cyanosis. Peripheral pulses intact. 2+ lower extremity edema NEUROLOGIC: Awake and alert. Oriented x 3. ASSESSMENT: Shortness of breath with lower extremity edema Acute on chronic congestive heart failure with reduced ejection fraction Coronary artery disease with previous CABG Ischemic cardiomyopathy, ejection fraction 40-45% Persistent atrial fibrillation, on warfarin outpatient History of biventricular AICD implantation Chronic kidney disease Hypertension Hyperlipidemia PLAN: No need to repeat echo as this was performed in March 2022 Begin IV lasix 40mg Q 12 hours Accurate I&O, daily weights, and monitoring of kidney function. Discussed patients home dose of Coumadin with him. Patients list includes two different dosages listed for wednesday, and Wednesday is not even on his home medication list. Changed patients Coumadin regimen to 2mg on Wednesday and Wednesday. Patient to take 3mg Wednesday, Wednesday, Wednesday, , and Wednesday. Patient verbalized understanding. Repeat INR in the office in 1 week Anticipate discharge home tomorrow Nurse practitioner note has been reviewed by physician. Signing provider agrees with the documented findings, assessment, and plan of care. Past Medical History Past Medical History: Atrial Fibrillation, Coronary Artery Disease (CAD), Cancer, Chest Pain / Angina, Heart Failure, CVA/TIA, GERD/Reflux, GI Bleed, Hearing Disorder / Deafness, Hyperlipidemia, Hypertension, Myocardial Infarction ([place]), Osteoarthritis (OA), Prostate Disorder Additional Past Medical History / Comment(s): AFib, SSS, MIs x3, ischemic cardiomyopathy/vtach/AICD/pacer, CVA with R eye vision change/[place] R ear and balance issues, bladder cancer with surgery/chemo, skin cancer with removals, epistaxis, bleeding gastric ulcer, lower GI bleed, colon polyps, chronic low ba ck pain, bilateral arm/hand tremors ., States difficulty emptying bladder-sees Dr Douglas., See [facility] Last Myocardial Infarction Date:: 1998 History of Any Multi-Drug Resistant Organisms: None Reported Past Surgical History: AICD, Bladder Surgery, Bowel Resection, Cholecystectomy, Coronary Bypass/CABG, Heart Catheterization, Heart Catheterization With Stent, Hernia Repair, Joint Replacement, Pacemaker, Prostate Surgery Additional Past Surgical History / Comment(s): PCI with stents, 1999 CABG 3 vessel, AICD/pacer last one placed 04/2019 with wound debridement, total L hip arthroplasty, skin cancer removal with graft, TURBT with fulguration, TURP, colectomy d/t polyps, inguinal hernia Past Anesthesia/Blood Transfusion Reactions: No Reported Reaction Date of Last Stent Placement:: 1998 Type of Cardiac Device: Permanent Pacemaker, AICD Device Placement Date:: april 2019 Past Psychological History: No Psychological Hx Reported Smoking Status: Former smoker Past Alcohol Use History: None Reported Past Drug Use History: None Reported - Past Family History Mother Family Medical History: No Reported History Additional Family Medical History / Comment(s): Tremors. Father Family Medical History: Osteoarthritis (OA) Medications and Allergies Home Medications Medication Instructions Recorded Confirmed Type Tamsulosin [Flomax] 0.4 mg PO DAILY 12/25/17 05/13/22 History Cholecalciferol [Vitamin D3 (25 25 mcg PO DAILY 04/17/20 05/13/22 History Mcg = 1000 Iu)] Metoprolol Succinate (ER) [Toprol 100 mg PO DAILY 04/17/20 05/13/22 History XL] Omeprazole 20 mg PO MOWEFR 05/30/20 05/13/22 History Multivit-Min/Folic/Vit K/Lycop 1 tab PO DAILY 03/27/21 05/13/22 History [Men's Multivitamin Tablet] Aspirin 81 mg PO HS 05/13/22 05/13/22 History Atorvastatin [Lipitor] 20 mg PO HS 05/13/22 05/13/22 History Furosemide [Lasix] 40 mg PO DAILY 05/13/22 05/13/22 History amLODIPine [Norvasc] 5 mg PO DAILY 05/13/22 05/13/22 History calcitrioL [Calcitriol] 0.25 mcg PO REILLY@199905/13/22 05/13/22 History Warfarin [Coumadin] 2 mg PO MOFR@1999 tab 05/14/22 Rx Warfarin [Coumadin] 3 mg PO SUTUWETHSA@1999 tab 05/14/22 Rx Allergies Allergy/AdvReac Type Severity Reaction Status Date / Time morphine Allergy Unknown Verified 05/13/22 12:18 Penicillins Allergy Unknown Verified 05/13/22 12:18 Sulfa (Sulfonamide Allergy Unknown Verified 05/13/22 12:18 Antibiotics) codeine AdvReac Nausea & Verified 05/13/22 12:18 Vomiting Physical Exam Vitals: Vital Signs Temp Pulse Resp BP Pulse Ox 05/13/22 11:05 97.4 F L 87 20 124/69 97 Intake and Output 05/12/22 05/13/22 05/13/22 22:59 06:59 14:59 Other: Weight 90.265 kg Results 05/13/22 12:06 05/13/22 12:06 Cardiac Enzymes 05/13/22 05/13/22 Range/Units 12:06 12:06 AST 38 (17-59) U/L Troponin I <0.012 (0.000-0.034) ng/mL Coagulation 05/13/22 Range/Units 12:06 PT 20.7 H (9.0-12.0) sec APTT 29.6 (22.0-30.0) sec CBC 05/13/22 Range/Units 12:06 WBC 7.8 (3.8-10.6) k/uL RBC 4.08 L (4.30-5.90) m/uL Hgb 12.6 L (13.0-17.5) gm/dL Hct 37.7 L (39.0-53.0) % Plt Count 156 (150-450) k/uL Comprehensive Metabolic Panel 05/13/22 Range/Units 12:06 Sodium 140 (137-145) mmol/L Potassium 4.2 (3.5-5.1) mmol/L Chloride 103 (98-107) mmol/L Carbon Dioxide 31 H (22-30) mmol/L BUN 22 H (9-20) mg/dL Creatinine 1.65 H (0.66-1.25) mg/dL Glucose 97 (74-99) mg/dL Calcium 8.8 (8.4-10.2) mg/dL AST 38 (17-59) U/L ALT 24 (4-49) U/L Alkaline Phosphatase 85 (38-126) U/L Total Protein 6.4 (6.3-8.2) g/dL Albumin 3.7 (3.5-5.0) g/dL Current Medications Generic Name Dose Route Start Last Admin Trade Name Freq PRN Reason Stop Dose Admin Furosemide 40 mg 05/13/22 21:00 Furosemide 40 Mg Tab PO Q12HR TEAGAN Intake and Output 05/12/22 05/13/22 05/13/22 22:59 06:59 14:59 Other: Weight 90.265 kg Patient Weight 05/14/22 06:59 Weight 90.265 kg 05/13/22 12:06 05/13/22 12:06
[2022-05-14 09:55] LABS: African American GFR (CKD) 38.9 (60.0-200.0); Anion Gap 9.3 mmol/L (10.00-18.00); BUN/Creat Ratio 11.61 Ratio (12.00-20.00); Blood Urea Nitrogen 20.9 mg/dL (9.0-27.0); Carbon Dioxide 28.7 mmol/L (20.0-27.5); Non-African American GFR(CKD) 33.6 (60.0-200.0); Potassium 3.5 mmol/L (3.5-5.5)
[2022-05-14] MEDS: TAMSULOSIN 0.4 MG CAP.ER.24H PO SCH (09:58)
[2022-05-14] MEDS: METOPROLOL SUCCINATE (ER) 100 MG TAB.ER.24H PO SCH (09:58)
[2022-05-14] MEDS: amLODIPine 5 MG TAB PO SCH (09:58)
[2022-05-14] MEDS: CHOLECALCIFEROL 25 MCG (1000 IU) TABLET PO SCH (09:58)
[2022-05-14] MEDS: FUROSEMIDE 10 MG/ML 4 ML VIAL IV SCH ×2 (10:35→20:51)
--- NOTE | 2022-05-14 11:24 | P.PN ---
Subjective History of present illness; patient is very pleasant 87-year-old male with a past medical history including coronary artery disease with 3 previous MIs resulting in stent placement followed by cardiac double bypass in 1998, atrial fibrillation on Coumadin, pacemaker/defibrillator placement, hypertension, hyperlipidemia, thrombotic CVA in 2019 who presented to the ER because of shortness of breath for the last couple of weeks. Patient states he gets short of breath on minimal exertion, also complaining of orthopnea, sleeping in a recliner and feels short of breath on laying flat. Patient was also complaining of swelling of lower extremities. Denies any chest pain. Denies any palpitations. Because of the shortness of breath, patient went to see his dresser tender who suggested him to come to the ER. Initial lab work in the ER showed white count of 7.8, hemoglobin 12.6, INR 2.1, sodium 140, potassium 4.2, BUN 22, creatinine 1.65, initial troponin was negative, proBNP was 1190. Chest x-ray showed no acute cardiopulmonary process. Patient was admitted for further evaluation and treatment 05/14/2022 Patient fluid overload status with basal crepitation and leg swelling is improving, patient is not tachypneic while at rest. He has systolic murmur but he had a recent echo done, dresser tender on the case. His Lasix dose is currently 40 mg twice daily intravenously, Fluid restriction Continue with coumadine, INR is therapeutic today at 2.0. Patient will need more than 2 nights hospitalization. Possible discharge tomorrow once cleared by dresser tender. Plan of care discussed with the patient in details and he verbalized understanding and acceptance Objective - Vital Signs Vital signs: Vital Signs Temp 98.0 F 05/14/22 06:58 Pulse 94 05/14/22 06:58 Resp 16 05/14/22 06:58 BP 131/73 05/14/22 06:58 Pulse Ox 96 05/14/22 05:08 FiO2 Intake & Output 05/13/22 05/14/22 05/14/22 18:59 06:59 18:59 Output Total 1100 Balance -1100 Weight 90.265 kg 88 kg Output: Urine 1100 Other: # Voids 3 - Exam GENERAL: The patient is alert and oriented x3, not in any acute distress. Well developed, well nourished. HEENT: Pupils are round and equally reacting to light. EOMI. No scleral icterus. No conjunctival pallor. Normocephalic, atraumatic. No pharyngeal erythema. No thyromegaly. CARDIOVASCULAR: S1 and S2 present. No murmurs, rubs, or gallops. -PULMONARY: Chest is clear to auscultation, no wheezing bilateral mild basal crackles. ABDOMEN: Soft, nontender, nondistended, normoactive bowel sounds. No palpable organomegaly. MUSCULOSKELETAL: No joint swelling or deformity. -EXTREMITIES: No cyanosis, clubbing bilateral pitting leg edema NEUROLOGICAL: Gross neurological examination did not reveal any focal deficits. SKIN: No rashes. no petechiae. - Labs CBC & Chem 7: 05/13/22 12:06 05/14/22 07:12 Labs: Abnormal Lab Results - Last 24 Hours (Table) 05/13/22 05/13/22 05/13/22 Range/Units 12:06 12:06 12:06 RBC 4.08 L (4.30-5.90) m/uL Hgb 12.6 L (13.0-17.5) gm/dL Hct 37.7 L (39.0-53.0) % PT 20.7 H (9.0-12.0) sec INR 2.1 H (<1.2) Carbon Dioxide 31 H (22-30) mmol/L Anion Gap (10.00-18.00) mmol/L BUN 22 H (9-20) mg/dL Creatinine 1.65 H (0.66-1.25) mg/dL Est GFR (CKD-EPI)AfAm (60.0-200.0) Est GFR (CKD-EPI)NonAf (60.0-200.0) BUN/Creatinine Ratio (12.00-20.00) Ratio 05/14/22 05/14/22 Range/Units 07:12 07:12 RBC (4.30-5.90) m/uL Hgb (13.0-17.5) gm/dL Hct (39.0-53.0) % PT 19.5 H (9.0-12.0) sec INR 2.0 H (<1.2) Carbon Dioxide 28.7 H (22-30) mmol/L Anion Gap 9.30 L (10.00-18.00) mmol/L BUN (9-20) mg/dL Creatinine 1.8 H (0.66-1.25) mg/dL Est GFR (CKD-EPI)AfAm 38.9 L (60.0-200.0) Est GFR (CKD-EPI)NonAf 33.6 L (60.0-200.0) BUN/Creatinine Ratio 11.61 L (12.00-20.00) Ratio Assessment and Plan Assessment: -Acute on chronic systolic CHF , ejection fraction 40-45% per dresser tender - ischemic cardiomyopathy, status post AICD placement - History of coronary artery disease - History of atrial fibrillation Plan: Continue with IV Lasix Continue with Coumadin and monitor INR Strict I's and O's, daily weights. Continue IV Lasix Resume home meds Consult cardiology Labs and medication were reviewed.. Continue same treatment. Continue with symptomatic treatment. Resume home medication. Monitor labs and vitals. DVT and GI prophylaxis. Further recommendations as per clinical course of the patient DVT prophylaxis: On Coumadin GI Prophylaxis: Ppi Prognosis is guarded
[2022-05-14 12:21] VITALS: BMI 29.5
[2022-05-14] MEDS ORDERED: WARFARIN 3 MG TAB PO SCH ×2 (20:00)
[2022-05-14] MEDS: ATORVASTATIN 20 MG TAB PO SCH (20:50)
[2022-05-14] MEDS: ASPIRIN 81 MG PO SCH (20:50)
[2022-05-14 22:01] VITALS: RESP 16
[2022-05-15 04:06] VITALS: TEMP 98
[2022-05-15 06:48] VITALS: BP 133/73; PULSE 62
[2022-05-15] MEDS ORDERED: PANTOPRAZOLE 40 MG TABLET PO SCH (07:30)
[2022-05-15 08:02] LABS: INR 1.9 (<1.2); Prothrombin Time 18.9 sec (9.0-12.0)
[2022-05-15] MEDS: CHOLECALCIFEROL 25 MCG (1000 IU) TABLET PO SCH (08:54)
[2022-05-15] MEDS: TAMSULOSIN 0.4 MG CAP.ER.24H PO SCH (08:55)
[2022-05-15] MEDS: METOPROLOL SUCCINATE (ER) 100 MG TAB.ER.24H PO SCH (08:56)
[2022-05-15] MEDS: amLODIPine 5 MG TAB PO SCH (08:56)
[2022-05-15] MEDS: FUROSEMIDE 10 MG/ML 4 ML VIAL IV SCH (09:22)
--- NOTE | 2022-05-15 10:16 | P.PN ---
Subjective Progress Note Date: 05/15/22 HISTORY OF PRESENT ILLNESS: This is a 87-year-old male with a past medical history significant for coronary artery disease, ischemic cardiomyopathy status post biventricular ICD, con gestive heart failure, chronic kidney disease, and persistent atrial fibrillation. Patient follows in the office with Dr. Carrizales. We have been asked to see the patient in consultation for congestive heart failure. Patient examined at the bedside. Patient was sent to the ER from his cardiology office due to SOB and increased lower extremity edema. He was given one dose of IV lasix in the ER. He states his breathing has improved. He continues to have lower extremity edema. He denies any chest pain or pressure. Denies shortness of breath. * EKG reveals ventricular paced rhythm * Chest xray negative for acute process * Laboratory data: WBC 7.8. Hemoglobin 12.6. Platelet count 156. Sodium 140. Potassium 4.2. BUN 22. Creatinine 1.65. Troponin negative 1. ProBNP 1190. INR 2.1. * Current home cardiac medications include Lasix 40 mg daily, aspirin 81 mg at night, Lipitor 20mg at night, amlodipine 5 mg daily, and warfarin 2 mg Wednesday and Wednesday and 3 mg Wednesday * Most recent echocardiogram obtained in March 2022 revealed ejection fraction 40-45%, trace aortic regurgitation, [id number] aortic stenosis, mild mitral regurgitation, moderate tricuspid regurgitation * Patient underwent Lexiscan stress test in September 2020 revealing prior inferior wall myocardial infarction without any acute ischemia * Patient underwent 3 vessel CABG in 1999 with SERRANO to LAD, VGOM1, VGPDA * Cardiac catheterization history: February 2002 revealing 100% mid circumflex, 100% mid RCA, patent SERRANO to LAD, patent VGOM1, patent VGPDA 05/15/2022 patient examined this morning to bedside. Patient denies chest pain or pressure. He denies shortness of breath. He remains on IV Lasix. His lower extremity edema has improved. Vital signs are stable. PHYSICAL EXAM: VITAL SIGNS: Reviewed. GENERAL: Well-developed in no acute distress. HEENT: Head is normocephalic. Pupils are equal, round. Sclerae anicteric. Mucous membranes of the mouth are moist. Neck supple. No JVD or thyromegaly LUNGS: Respirations even and unlabored. Lungs essentially clear to auscultation bilaterally. HEART: Regular rate and rhythm. S1 and S2 heard. Systolic murmur noted ABDOMEN: Soft. Nondistended. Nontender. EXTREMITIES: Normal range of motion. No clubbing or cyanosis. Peripheral pulses intact. 1+ lower extremity edema NEUROLOGIC: Awake and alert. Oriented x 3. ASSESSMENT: Shortness of breath with lower extremity edema Acute on chronic congestive heart failure with reduced ejection fraction Coronary artery disease with previous CABG Ischemic cardiomyopathy, ejection fraction 40-45% Persistent atrial fibrillation, on warfarin outpatient History of biventricular AICD implantation Chronic kidney disease Hypertension Hyperlipidemia PLAN: Discontinue IV Lasix. Begin oral Lasix 80 mg daily Continue Coumadin Repeat INR in the office in 1 week patient may be discharged home today from a cardiac standpoint Patient requesting follow up appointment with Dr. Carrizales, rather than his CHAIR AND COUCH MAKER Yumi. Nursing notified to make follow up appointment with Dr. Carrizales Nurse practitioner note has been reviewed by physician. Signing provider agrees with the documented findings, assessment, and plan of care. Objective - Vital Signs Vital signs: Vital Signs Temp 98.0 F 05/15/22 06:46 Pulse 62 05/15/22 06:46 Resp 16 05/15/22 06:46 BP 133/73 05/15/22 06:46 Pulse Ox 94 L 05/15/22 01:16 FiO2 Intake & Output 05/14/22 05/15/22 05/15/22 18:59 06:59 18:59 Intake Total 118 Output Total 650 625 Balance -650 -625 118 Weight 84.5 kg Intake: Oral 118 Output: Urine 650 625 - Labs CBC & Chem 7: 05/13/22 12:06 05/14/22 07:12 Labs: Abnormal Lab Results - Last 24 Hours (Table) 05/15/22 Range/Units 07:24 PT 18.9 H (9.0-12.0) sec INR 1.9 H (<1.2)
[2022-05-15 11:27] LABS: African American GFR (CKD) 30.4 (60.0-200.0); Anion Gap 11.9 mmol/L (10.00-18.00); BUN/Creat Ratio 12.35 Ratio (12.00-20.00); Blood Urea Nitrogen 27.3 mg/dL (9.0-27.0); Non-African American GFR(CKD) 26.2 (60.0-200.0); Potassium 3.6 mmol/L (3.5-5.5)
[2022-05-15] MEDS ORDERED: WARFARIN 2 MG TAB PO SCH (20:00)
[2022-05-15] MEDS ORDERED: WARFARIN 1 MG TAB PO ONE (20:00)
--- NOTE | 2022-05-15 23:34 | P.DS ---
Providers Date of admission: 05/14/22 11:24 Attending physician: Nuno Salas Consults: 05/13/22 13:50 Consult Physician Routine Consulting Provider: Stanley Sherman Consult Reason/Comments: heart failure Do you want consulting provider notified?: Yes Primary care physician: Misha Sotomayor Hospital Course: Diagnoses: - Acute on chronic systolic CHF , ejection fraction 40-45% per filteration operator - Ischemic cardiomyopathy, status post AICD placement - History of coronary artery disease - History of atrial fibrillation Hospital course: History of present illness; patient is very pleasant 87-year-old male with a past medical history including coronary artery disease with 3 previous MIs resulting in stent placement followed by cardiac double bypass in 1998, atrial fibrillation on Coumadin, pacemaker/defibrillator placement, hypertension, hyperlipidemia, thrombotic CVA in 2019 who presented to the ER because of shortness of breath for the last couple of weeks. Patient states he gets short of breath on minimal exertion, also complaining of orthopnea, sleeping in a recliner and feels short of breath on laying flat. Patient found to have acute CHF and he was treated with diuretics with Lasix. Also he has history of A. fib and Coumadin and INR was 2.1-1.9. Patient showed interval improvement and today he states his back to normal self, he wants to be discharged. He denies chest pain. No change in urine or bowel habits. No fever. Prescribing of Lasix and warfarin upon discharge was managed by cardiology team which is deferred to the expertise. Patient was cleared for discharge by cardiology team today Problems and management plan were discussed with the patient and he verbalized understanding and acceptance Patient was found stable and can be discharged home in guarded prognosis however he needs follow-up as an outpatient. Patient was instructed to follow up with PCP Dr. Sotomayor within one week and patient agrees patient was instructed to follow up with his filteration operator Dr. Griffith in 1 week after discharge and he agrees Physical exam Gen: patient is a AAOx3, no distress CVS: S1-S2, RRR, no murmur Lungs: B/L CTA, no wheezing Abdomen: soft, no distention, no tenderness, positive bowel sounds Extremity: no leg edema or induration Time spent more than 35 minutes Patient Condition at Discharge: Fair Plan - Discharge Summary Discharge Rx Participant: No New Discharge Prescriptions: New Warfarin [Coumadin] 3 mg PO SUTUWETHSA@1999 tab Furosemide [Lasix] 80 mg PO DAILY #90 tablet Warfarin [Coumadin] 2 mg PO MOFR@1999 tab Continue Tamsulosin [Flomax] 0.4 mg PO DAILY Metoprolol Succinate (ER) [Toprol XL] 100 mg PO DAILY Cholecalciferol [Vitamin D3 (25 Mcg = 1000 Iu)] 25 mcg PO DAILY Multivit-Min/Folic/Vit K/Lycop [Men's Multivitamin Tablet] 1 tab PO DAILY Aspirin 81 mg PO HS calcitrioL [Calcitriol] 0.25 mcg PO REILLY@1999 amLODIPine [Norvasc] 5 mg PO DAILY Atorvastatin [Lipitor] 20 mg PO HS Omeprazole 20 mg PO MOWEFR Discontinued Furosemide [Lasix] 40 mg PO DAILY Warfarin [Coumadin] 2 mg PO MOWE@1999 Warfarin [Coumadin] 3 mg PO SUTUWETHSA@1999 Discharge Medication List Tamsulosin [Flomax] 0.4 mg PO DAILY 12/25/17 [History] Cholecalciferol [Vitamin D3 (25 Mcg = 1000 Iu)] 25 mcg PO DAILY 04/17/20 [History] Metoprolol Succinate (ER) [Toprol XL] 100 mg PO DAILY 04/17/20 [History] Omeprazole 20 mg PO MOWEFR 05/30/20 [History] Multivit-Min/Folic/Vit K/Lycop [Men's Multivitamin Tablet] 1 tab PO DAILY 03/27/21 [History] Aspirin 81 mg PO HS 05/13/22 [History] Atorvastatin [Lipitor] 20 mg PO HS 05/13/22 [History] amLODIPine [Norvasc] 5 mg PO DAILY 05/13/22 [History] calcitrioL [Calcitriol] 0.25 mcg PO REILLY@199905/13/22 [History] Warfarin [Coumadin] 2 mg PO MOFR@1999 tab 05/14/22 [Rx] Warfarin [Coumadin] 3 mg PO SUTUWETHSA@1999 tab 05/14/22 [Rx] Furosemide [Lasix] 80 mg PO DAILY #90 tablet 05/15/22 [Rx] Follow up Appointment(s)/Referral(s): Bryce Carrizales MD [STAFF PHYSICIAN] - 1 Week (PLease make appointment with Dr. Carrizales. PAtient does not want to see CHASITY Eason) Misha Sotomayor MD [Primary Care Provider] - 1-2 days Patient Instructions/Handouts: Furosemide (By mouth), Heart Failure (DC) Activity/Diet/Wound Care/Special Instructions: Heart healthy diet Activity is restricted till you see your doctor we recommend to check you INR with your doctor in 3-5 days, goal inr is 2.0-3.0 Discharge Disposition: HOME SELF-CARE
[2022-05-16] MEDS ORDERED: FUROSEMIDE 80 MG TAB PO SCH (09:00)
[2022-05-18] MEDS ORDERED: WARFARIN 2 MG TAB PO SCH (20:00)
== END 2022-05-15 13:42 | disposition home or self-care (01) | DRG 291 ==
LOC: EC 11:03 → 6NMEDSUR 13:51 → OBSVTOIN 05-14 11:24
PROVIDERS: ADMIT Hospitalist; ATTEND Hospitalist
DX: I13.0 Hypertensive heart and chronic kidney disease with heart failure and stage 1 through stage 4 chronic kidney disease, or unspecified chronic kidney disease (principal); I50.23 Acute on chronic systolic (congestive) heart failure; K25.4 Chronic or unspecified gastric ulcer with hemorrhage; I48.19 Other persistent atrial fibrillation; I25.5 Ischemic cardiomyopathy; Z95.810 Presence of automatic (implantable) cardiac defibrillator; I25.10 Atherosclerotic heart disease of native coronary artery without angina pectoris; Z95.1 Presence of aortocoronary bypass graft; Z79.01 Long term (current) use of anticoagulants; N18.9 Chronic kidney disease, unspecified; E11.22 Type 2 diabetes mellitus with diabetic chronic kidney disease; E78.5 Hyperlipidemia, unspecified; H91.90 Unspecified hearing loss, unspecified ear; I25.2 Old myocardial infarction; K21.9 Gastro-esophageal reflux disease without esophagitis; I08.3 Combined rheumatic disorders of mitral, aortic and tricuspid valves; M19.90 Unspecified osteoarthritis, unspecified site; I69.398 Other sequelae of cerebral infarction; H53.9 Unspecified visual disturbance; G89.29 Other chronic pain; M54.50 Low back pain, unspecified; N42.9 Disorder of prostate, unspecified; Z88.5 Allergy status to narcotic agent; Z88.0 Allergy status to penicillin; Z88.2 Allergy status to sulfonamides; Z87.19 Personal history of other diseases of the digestive system; Z92.21 Personal history of antineoplastic chemotherapy; Z87.11 Personal history of peptic ulcer disease
CPT/HCPCS: 36415; 71046; 80048; 80053; 83735; 83880; 84484; 85025; 85610; 85730; 93005; 96374; 99285

== ENCOUNTER → 2023-01-25 | Outpatient (CLI) | payer MEDICARE ==
--- NOTE | 2023-01-25 13:16 | CT ---
EXAMINATION TYPE: CT lumbar spine wo con DATE OF EXAM: 01/25/2023 COMPARISON: 04/22/2012, 05/30/2020 HISTORY: left sided back pain CT DLP: 765.4 mGycm CONTRAST: None TECHNIQUE: CT of the lumbar spine is performed on a spiral scan at 3 mm thick sections. Reconstructed images are performed in the coronal and sagittal planes. FINDINGS: Aneurysmal dilatation is evident through the abdominal aorta. This extends out of the field of view a nd maximum AP diameter cannot be assessed. Transverse diameter of 5.0 cm identified. T12-L1: No focal disc herniation or significant disc bulge is evident. No spinal canal stenosis or neural foraminal stenosis is present. L1-L2: No focal disc herniation or significant disc bulge is evident. No spinal canal stenosis or n eural foraminal stenosis is present L2-L3: Mild disc bulge is present with anterior thecal sac flattening. No AP spinal canal stenosis pr esent. Neural foramen are patent. L3-L4: Disc bulging with mild anterior thecal sac contact. Facet hypertrophy is present. Mild canal n arrowing is present to this level. Moderate left and mild right foraminal narrowing is present. L4-L5: Disc space narrowing is present. Residual disc facet hypertrophy and ligamentum flavum laxity are contributing to spinal canal narrowing greater in the lateral dimension. Lateral recess stenosis is present. Severe left and right foraminal stenosis is present. Has mild anterior thecal sac impress ion. L5-S1: Loss of disc height is present to this level. No spinal canal stenosis or neural foraminal tennille nosis present. Facet degenerative changes are present. Vertebral alignment appears normal. IMPRESSION: 1. Partially visualized abdominal aortic aneurysm. AP dimension cannot be estimated although a transv erse dimension of 5.0 cm is noted. This is larger than the aorta of 05/30/2020 CT abdomen and pelvis, additional workup of the abdominal aorta is recommended. 2. Mild spinal canal narrowing L3-4, L4-5. 3. Lateral recess stenosis L4-5 greater on the right. There is severe bilateral foraminal stenosis L4 -5 and more moderate foraminal narrowing L3-4 discussed above. A Yellow level critical message alert has been initiated for Rakesh Rea MD via the [employer] Critical Results System on 01/25/2023 1:13 PM. This message alert has been sent to Rakesh watson MD via the preferences provided by the clinician for the receipt of Radiology Critical Findings . Message ID [id number].
== END | disposition home or self-care (01) ==
LOC: RADCTMAIN 09:38
PROVIDERS: ATTEND Physical Medicine & Rehabilitation
DX: M48.062 Spinal stenosis, lumbar region with neurogenic claudication (principal); M43.16 Spondylolisthesis, lumbar region; M47.817 Spondylosis without myelopathy or radiculopathy, lumbosacral region; M51.37 Other intervertebral disc degeneration, lumbosacral region; M99.73 Connective tissue and disc stenosis of intervertebral foramina of lumbar region; I71.40 Abdominal aortic aneurysm, without rupture, unspecified
CPT/HCPCS: 72131

== ENCOUNTER 2023-03-05 19:34 | Emergency (ER) | payer MEDICARE ==
[2023-03-05 20:40] LABS: Basophils % (A) 0 %; Eosinophils # (A) 0.3 k/uL (0-0.7); Eosinophils % (A) 3 %; HGB 13.2 gm/dL (13.0-17.5); Lymphocytes # (A) 1.8 k/uL (1.0-4.8); Lymphocytes % (A) 20 %; MCH 30.5 pg (25.0-35.0); MCV 92.3 fL (80.0-100.0); Mean Platelet Volume 7.9; Monocytes # (A) 0.6 k/uL (0-1.0); Monocytes % (A) 7 %; Neutrophils % (A) 68 %; Platelet Count 186 k/uL (150-450); RBC 4.33 m/uL (4.30-5.90); RDW 13.6 % (11.5-15.5); WBC 8.9 k/uL (3.8-10.6)
--- NOTE | 2023-03-05 20:47 | XR ---
EXAMINATION TYPE: XR chest 2V DATE OF EXAM: 03/05/2023 COMPARISON: 05/13/2022 HISTORY: Shortness of breath TECHNIQUE: Frontal and lateral views of the chest are obtained. FINDINGS: Scattered senescent parenchymal changes noted. Hyperinflation compatible with COPD. No evidence for infiltrate. No evidence for atelectasis. Heart size is stable. Mediastinal structures are stable and grossly unremarkable. No evidence for hilar prominence. Degenerative changes dorsal spine. IMPRESSION: 1. No evidence for acute pulmonary disease.
--- NOTE | 2023-03-05 20:50 | CT ---
EXAMINATION TYPE: CT brain yane menendez DATE OF EXAM: 03/05/2023 COMPARISON: None HISTORY: Fall, ataxia, right side paresthesia CT DLP: 1321.[address] of the brain was performed. The ventricles, basal cisterns and sulci overlying the cerebral convexities demonstrate mild enlargem ent. There is no evidence for intracranial hemorrhage or sulcal effacement. There is decreased attenuatio n about the periventricular white matter and deep white matter of both cerebral hemispheres, compatib le with chronic small vessel ischemia. No mass effects are seen. If symptoms persist consider MRI. Osseous calvarium is intact. IMPRESSION: 1. Age related atrophic and chronic small vessel ischemic change without acute intracranial process seen at this time. CT Cervical Spine: Unenhanced CT of the cervical spine was performed with bone and soft tissue window settings submitted . Coronal and sagittal reconstruction is obtained. There is normal alignment and prevertebral soft tissues. No evidence for acute cervical fracture . Scattered degenerative disc disease and spondylosis. Biapical scarring. IMPRESSION: 1. No evidence for acute fracture or subluxation of the cervical spine.
[2023-03-05 20:57] LABS: ALT 30 U/L (4-49); AST 36 U/L (17-59); African American GFR (CKD) 44 (>60 ml/min/1.73 sqM); Albumin 3.5 g/dL (3.5-5.0); Alkaline Phosphatase 112 U/L (38-126); Anion Gap 6 mmol/L; Blood Urea Nitrogen 30 mg/dL (9-20); Calcium 8.7 mg/dL (8.4-10.2); Carbon Dioxide 26 mmol/L (22-30); Chloride 107 mmol/L (98-107); Creatine Kinase 61 U/L (55-170); Glucose 115 mg/dL (74-99); Non-African American GFR(CKD) 38 (>60 ml/min/1.73 sqM); Potassium 3.8 mmol/L (3.5-5.1); Sodium 139 mmol/L (137-145); Total Bilirubin 0.7 mg/dL (0.2-1.3); Total Protein 6.4 g/dL (6.3-8.2)
[2023-03-05 21:04] LABS: Partial Thromboplastin Time 28.4 sec (22.0-30.0); Prothrombin Time 19.7 sec (10.0-12.5)
--- NOTE | 2023-03-05 21:06 | CT ---
EXAMINATION TYPE: CT angio head neck DATE OF EXAM: 03/05/2023 COMPARISON: HISTORY: Fall, ataxia, right side paresthesia CT DLP: 1746.2 mGycm CONTRAST: Performed with IV Contrast, patient injected with 65ml mL of Isovue 370. Combination Contrast CTA cervical carotids and [place] CTA cervical carotids with 3-D recons truction Contrast CTA of the cervical carotids was performed 3-D reconstruction imaging obtained at a separate workstation. Right carotid system: Mild plaque is seen of the right common carotid artery. There is moderate calc ified plaque also noted at the carotid bulb and proximal ICA. Estimated diameter reduction of approx imately 70%. ECA is patent. Right vertebral artery appears unremarkable. Left carotid system: Mild plaque is seen of the left common carotid artery. There is moderate soft a nd calcified plaque also noted at the carotid bulb and proximal ICA. Estimated diameter reduction of 60%. ECA is patent. Left vertebral artery appears unremarkable. IMPRESSION: 1. Estimated diameter reduction proximal right ICA 70%. 2. Estimated diameter reduction proximal left ICA of approximately 60%. CTA [place] with 3-D reconstruction Contrast CTA of the [place] was performed 3-D reconstruction imaging obtained at a separate workstation. Vertebrobasilar system as well as intracranial portions of the internal carotid arteries and their ma braulio tributaries are patent. I do not see evidence for sizable aneurysm or vascular malformation. Pl ease note MRI provides greater sensitivity and specificity. Visualized brain appears grossly unremar kable. IMPRESSION: 1. No significant abnormality. NASCET criteria was used in interpretation of this exam?
--- NOTE | 2023-03-05 22:45 | ED ---
Neuro HPI - General Chief Complaint: Neuro Symptoms/Deficit Stated Complaint: Dizzy/Fall Time Seen by Provider: 03/05/23 19:56 Source: patient, family Mode of arrival: wheelchair Limitations: no limitations - History of Present Illness Is the patient presenting with stroke symptoms?: No Initial Comments: 87-year-old male with past medical history of A. fib, sick sinus syndrome, ischemic cardiomyopathy who presents to the emergency department reporting to head injury and dizziness. Patient states that he fell out of his chair on Wednesday and hit the right side of his head. He does take Coumadin. He thinks that he might have lost consciousness which led to his fall however he does remember hitting the ground and denies losing consciousness after his head injury. Over the course of the week the patient has been feeling fuzzy and off. He denies any lateralizing weakness. Does admit to some tenderness over his right sinus. Patient was recently on steroids for a sinus infection however he does not feel as if his course of antibiotics was long enough. Denies any sick contacts. No chest pain or shortness of breath. No recent medication changes. No other alleviating, precipitating or modifying factors - Related Data Home Medications: Home Medications Medication Instructions Recorded Confirmed Tamsulosin [Flomax] 0.4 mg PO DAILY 12/25/17 03/13/23 Cholecalciferol [Vitamin D3 (25 25 mcg PO DAILY 04/17/20 03/13/23 Mcg = 1000 Iu)] Metoprolol Succinate (ER) [Toprol 100 mg PO DAILY 04/17/20 03/13/23 XL] Omeprazole 20 mg PO MOWEFR 05/30/20 03/13/23 Multivit-Min/Folic/Vit K/Lycop 1 tab PO DAILY 03/27/21 03/13/23 [Men's Multivitamin Tablet] Aspirin 81 mg PO DAILY@169905/13/22 03/13/23 Atorvastatin [Lipitor] 20 mg PO DAILY@169905/13/22 03/13/23 calcitrioL 0.25 mcg PO REILLY@199905/13/22 03/13/23 Furosemide [Lasix] 40 mg PO DAILY 03/05/23 03/13/23 Warfarin [Coumadin] 2 mg PO FR@169903/05/23 03/13/23 Metoprolol Succinate (ER) [Toprol 50 mg PO HS@1700 03/13/23 03/13/23 XL] Warfarin [Coumadin] 3 mg PO VENECIA@1700 03/13/23 03/13/23 Previous Rx's Medication Instructions Recorded Doxycycline Hyclate 100 mg PO BID 1 Days #20 tab 03/05/23 Allergies/Adverse Reactions: Allergies Allergy/AdvReac Type Severity Reaction Status Date / Time morphine Allergy Unknown Verified 03/13/23 22:02 Penicillins Allergy Unknown Verified 03/13/23 22:02 Sulfa (Sulfonamide Allergy Unknown Verified 03/13/23 22:02 Antibiotics) codeine AdvReac Nausea & Verified 03/13/23 22:02 Vomiting Review of Systems ROS Statement: Those systems with pertinent positive or pertinent negative responses have been documented in the HPI. ROS Other: All systems not noted in ROS Statement are negative. General Exam Limitations: no limitations General appearance: alert, in no apparent distress Head exam: Present: atraumatic, normocephalic, normal inspection Eye exam: Present: normal appearance, PERRL, EOMI. Absent: scleral icterus, conjunctival injection, periorbital swelling ENT exam: Present: normal exam, mucous membranes moist Neck exam: Present: normal inspection. Absent: tenderness, meningismus, lymphadenopathy Respiratory exam: Present: normal lung sounds bilaterally. Absent: respiratory distress, wheezes, rales, rhonchi, stridor Cardiovascular Exam: Present: regular rate, normal rhythm, normal heart sounds. Absent: systolic murmur, diastolic murmur, rubs, gallop, clicks GI/Abdominal exam: Present: soft, normal bowel sounds. Absent: distended, tenderness, guarding, rebound, rigid Extremities exam: Present: normal inspection, full ROM, normal capillary refill. Absent: tenderness, pedal edema, joint swelling, calf tenderness Back exam: Present: normal inspection Neurological exam: Present: alert, oriented X3, CN II-XII intact Psychiatric exam: Present: normal affect, normal mood Skin exam: Present: warm, dry, intact, normal color. Absent: rash Stroke MDM - Lab Data Result diagrams: 03/05/23 20:17 03/05/23 20:17 Lab Results 03/05/23 03/05/23 03/05/23 Range/Units 20:17 20:17 20:17 WBC 8.9 (3.8-10.6) k/uL RBC 4.33 (4.30-5.90) m/uL Hgb 13.2 (13.0-17.5) gm/dL Hct 40.0 (39.0-53.0) % MCV 92.3 (80.0-100.0) fL MCH 30.5 (25.0-35.0) pg MCHC 33.0 (31.0-37.0) g/dL RDW 13.6 (11.5-15.5) % Plt Count 186 (150-450) k/uL MPV 7.9 Neutrophils % 68 % Lymphocytes % 20 % Monocytes % 7 % Eosinophils % 3 % Basophils % 0 % Neutrophils # 6.0 (1.3-7.7) k/uL Lymphocytes # 1.8 (1.0-4.8) k/uL Monocytes # 0.6 (0-1.0) k/uL Eosinophils # 0.3 (0-0.7) k/uL Basophils # 0.0 (0-0.2) k/uL PT 19.7 H (10.0-12.5) sec INR 2.0 H (<1.2) APTT 28.4 (22.0-30.0) sec Sodium 139 (137-145) mmol/L Potassium 3.8 (3.5-5.1) mmol/L Chloride 107 (98-107) mmol/L Carbon Dioxide 26 (22-30) mmol/L Anion Gap 6 mmol/L BUN 30 H (9-20) mg/dL Creatinine 1.62 H (0.66-1.25) mg/dL Est GFR (CKD-EPI)AfAm 44 (>60 ml/min/1.73 sqM) Est GFR (CKD-EPI)NonAf 38 (>60 ml/min/1.73 sqM) Glucose 115 H (74-99) mg/dL Calcium 8.7 (8.4-10.2) mg/dL Total Bilirubin 0.7 (0.2-1.3) mg/dL AST 36 (17-59) U/L ALT 30 (4-49) U/L Alkaline Phosphatase 112 (38-126) U/L Creatine Kinase 61 (55-170) U/L Troponin I (0.000-0.034) ng/mL Total Protein 6.4 (6.3-8.2) g/dL Albumin 3.5 (3.5-5.0) g/dL 03/05/23 Range/Units 20:17 WBC (3.8-10.6) k/uL RBC (4.30-5.90) m/uL Hgb (13.0-17.5) gm/dL Hct (39.0-53.0) % MCV (80.0-100.0) fL MCH (25.0-35.0) pg MCHC (31.0-37.0) g/dL RDW (11.5-15.5) % Plt Count (150-450) k/uL MPV Neutrophils % % Lymphocytes % % Monocytes % % Eosinophils % % Basophils % % Neutrophils # (1.3-7.7) k/uL Lymphocytes # (1.0-4.8) k/uL Monocytes # (0-1.0) k/uL Eosinophils # (0-0.7) k/uL Basophils # (0-0.2) k/uL PT (10.0-12.5) sec INR (<1.2) APTT (22.0-30.0) sec Sodium (137-145) mmol/L Potassium (3.5-5.1) mmol/L Chloride (98-107) mmol/L Carbon Dioxide (22-30) mmol/L Anion Gap mmol/L BUN (9-20) mg/dL Creatinine (0.66-1.25) mg/dL Est GFR (CKD-EPI)AfAm (>60 ml/min/1.73 sqM) Est GFR (CKD-EPI)NonAf (>60 ml/min/1.73 sqM) Glucose (74-99) mg/dL Calcium (8.4-10.2) mg/dL Total Bilirubin (0.2-1.3) mg/dL AST (17-59) U/L ALT (4-49) U/L Alkaline Phosphatase (38-126) U/L Creatine Kinase (55-170) U/L Troponin I <0.012 (0.000-0.034) ng/mL Total Protein (6.3-8.2) g/dL Albumin (3.5-5.0) g/dL - Medical Decision Making Was pt. sent in by a medical professional or institution (SHEREEN Mir, SQL APPLICATION DEVELOPER, urgent care, hospital, or snf...) When possible be specific @ -No Did you speak to anyone other than the patient for history (EMS, parent, family, police, friend...)? What history was obtained from this source @ -Son Did you review nursing and triage notes (agree or disagree)? Why? @ -I reviewed and agree with nursing and triage notes Were old charts reviewed (outside hosp., previous admission, EMS record, old EKG, old radiological studies, urgent care reports/EKG's, snf records)? Report findings @ -No old charts were reviewed Differential Diagnosis (chest pain, altered mental status, abdominal pain women, abdominal pain men, vaginal bleeding, weakness, fever, dyspnea, syncope, headache, dizziness, GI bleed, back pain, seizure, CVA, palpatations, mental health, musculoskeletal)? @ -Subarachnoid hemorrhage, subdural hemorrhage, skull fracture, CVA, concussion EKG interpreted by me (3pts min.). @ -Yes and demonstrates electronic ventricular pacemaker. Rate of 61. QRS 154. QTC of 486. Pacemaker captures appropriately. No acute ST segment elevation or depression X-rays interpreted by me (1pt min.). @ -Yes and demonstrates no acute process CT interpreted by me (1pt min.). @ -Yes and demonstrates no acute process U/S interpreted by me (1pt. min.). @ -None done What testing was considered but not performed or refused? (CT, X-rays, U/S, l abs)? Why? @ -MRI, neurology evaluationpatient refused What meds were considered but not given or refused? Why? @ -None Did you discuss the management of the patient with other professionals (professionals i.e. SHEREEN Mir, SQL APPLICATION DEVELOPER, lab, RT, psych nurse, 7th grade social studies teacher, fork operator, teacher, seismology technical officer, oil field caser)? Give summary @ -No Was smoking cessation discussed for >3mins.? @ -No Was critical care preformed (if so, how long)? @ -No Were there social determinants of health that impacted care today? How? (Home lessness, low income, unemployed, alcoholism, drug addiction, transportation, low edu. Level, literacy, decrease access to med. care, [facility], rehab)? @ -No Was there de-escalation of care discussed even if they declined (Discuss DNR or withdrawal of care, Hospice)? DNR status @ -No What co-morbidities impacted this encounter? (DM, HTN, Smoking, COPD, CAD, Cancer, CVA, ARF, Chemo, Hep., AIDS, mental health diagnosis, sleep apnea, morbid obesity)? @ -A-fib, heart failure Was patient admitted / discharged? Hospital course, mention meds given and route, prescriptions, significant lab abnormalities, going to OR and other pertinent info. @ -Upon arrival patient was placed into trauma 2. Thorough history and physical exam was performed. No lateralizing deficits are appreciated. IV is established. Laboratory studies were conducted. Patient was sent for a CT of his head. Does demonstrate some carotid disease for which the patient is aware of. Results are discussed with the patient. I did recommend admission patient wants to go home. He will follow up with primary care doctor in 2-4 days. Recommend echo and possible MRI of his brain. Return for any new or worsening symptoms. Patient agreeable plan is discharged in stable condition Undiagnosed new problem with uncertain prognosis? @ -Yes Drug Therapy requiring intensive monitoring for toxicity (Heparin, Nitro, Insulin, Cardizem)? @ -No Were any procedures done? @ -No Diagnosis/symptom? @ -Acute fall, blunt head injury Acute, or Chronic, or Acute on Chronic? @ -Acute Uncomplicated (without systemic symptoms) or Complicated (systemic symptoms)? @ -Complicated Side effects of treatment? @ -No Exacerbation, Progression, or Severe Exacerbation? @ -No Poses a threat to life or bodily function? How? (Chest pain, USA, IA, pneumonia, PE, COPD, DKA, ARF, appy, cholecystitis, CVA, Diverticulitis, Homicidal, Suicidal, threat to staff... 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 Last Myocardial Infarction Date:: 1998 History of Any Multi-Drug Resistant Organisms: None Reported Past Surgical History: AICD, Bladder Surgery, Bowel Resection, Cholecystectomy, Coronary Bypass/CABG, Heart Catheterization, Heart Catheterization With Stent, Hernia Repair, Joint Replacement, Pacemaker, Prostate Surgery Additional Past Surgical History / Comment(s): PCI with stents, 1999 CABG 3 vessel, AICD/pacer last one placed 04/2019 with wound debridement, total L hip arthroplasty, skin cancer removal with graft, TURBT with fulguration, TURP, colectomy d/t polyps, inguinal hernia Past Anesthesia/Blood Transfusion Reactions: No Reported Reaction Date of Last Stent Placement:: 1998 Type of Cardiac Device: Permanent Pacemaker, AICD Device Placement Date:: april 2019 Past Psychological History: No Psychological Hx Reported Smoking Status: Former smoker Past Alcohol Use History: None Reported Past Drug Use History: None Reported - Past Family History Mother Family Medical History: No Reported History Additional Family Medical History / Comment(s): Tremors. Father Family Medical History: Osteoarthritis (OA) Course Vital Signs 03/05/23 03/05/23 03/05/23 19:49 21:46 23:11 Temperature 98 F 97.5 F L Pulse Rate 60 60 63 Respiratory 20 19 17 Rate Blood Pressure 128/70 135/69 O2 Sat by Pulse 93 L 95 97 Oximetry Disposition Clinical Impression: Blunt head trauma, Fall, Abrasion of right elbow, Anticoagulant effect Disposition: HOME SELF-CARE Condition: Stable Instructions (If sedation given, give patient instructions): Dizziness (ED) Additional Instructions: Please take the antibiotic as directed. Follow up with your doctor and return for any new or worsening symptoms Prescriptions: Doxycycline Hyclate 100 mg PO BID 1 Days #20 tab Is patient prescribed a controlled substance at d/c from ED?: No Referrals: Misha Sotomayor MD [Primary Care Provider] - 1-2 days Time of Disposition: 22:45
[2023-03-05 23:13] VITALS: BP 135/69; PULSE 63; RESP 17; TEMP 97.5
== END 2023-03-05 23:12 | disposition home or self-care (01) ==
LOC: EC 19:34
DX: S09.90XA Unspecified injury of head, initial encounter (principal); S50.311A Abrasion of right elbow, initial encounter; T45.515A Adverse effect of anticoagulants, initial encounter; I11.0 Hypertensive heart disease with heart failure; I25.10 Atherosclerotic heart disease of native coronary artery without angina pectoris; I25.2 Old myocardial infarction; I48.91 Unspecified atrial fibrillation; E78.5 Hyperlipidemia, unspecified; I50.9 Heart failure, unspecified; K21.9 Gastro-esophageal reflux disease without esophagitis; M19.90 Unspecified osteoarthritis, unspecified site; Z79.899 Other long term (current) drug therapy; Z79.82 Long term (current) use of aspirin; Z79.01 Long term (current) use of anticoagulants; Z88.0 Allergy status to penicillin; Z88.2 Allergy status to sulfonamides; Z88.5 Allergy status to narcotic agent; Z88.8 Allergy status to other drugs, medicaments and biological substances; Z87.891 Personal history of nicotine dependence; Z90.49 Acquired absence of other specified parts of digestive tract; Z95.1 Presence of aortocoronary bypass graft; Z95.5 Presence of coronary angioplasty implant and graft; W07.XXXA Fall from chair, initial encounter
CPT/HCPCS: 36415; 93005; 80053; 82550; 84484; 85025; 85610; 85730; 71046; 72125; 70496; 70450; 70498; 99284; Q9967

== ENCOUNTER 2023-03-13 19:21 | Observation (INO) | payer MEDICARE ==
--- NOTE | 2023-03-13 19:43 | ED ---
General Adult HPI - General Chief complaint: Arrhythmia/Palpitations Stated complaint: Palpitations Time Seen by Provider: 03/13/23 19:39 Source: patient Mode of arrival: ambulatory Limitations: no limitations - History of Present Illness Initial comments: Patient presents to the ED with his son for evaluation. Patient states that he developed rapid heart palpitations about a couple of hours ago while at rest. Patient states that he also developed chest pressure, which he describes as "gas pressure", at that time. Patient states that his palpitations and chest pressure have currently resolved. Patient has an ICD/pacemaker in place. Patient denies receiving a shock. Patient also states that he has noticed increased lower extremity edema. Patient denies fever or chills, headache, focal neuro deficit, neck/arm/jaw/back pain, pleuritic pain, dyspnea, cough or cold symptoms, dizziness, syncope, abdominal pain, nausea/vomiting/diarrhea, bloody or melanotic stool, dysuria or urinary symptoms, leg or calf pain, or any other symptoms or complaints. - Related Data Home Medications Medication Instructions Recorded Confirmed Tamsulosin [Flomax] 0.4 mg PO DAILY 12/25/17 03/05/23 Cholecalciferol [Vitamin D3 (25 25 mcg PO DAILY 04/17/20 03/05/23 Mcg = 1000 Iu)] Metoprolol Succinate (ER) [Toprol 100 mg PO DAILY 04/17/20 03/05/23 XL] Omeprazole 20 mg PO MOWEFR 05/30/20 03/05/23 Multivit-Min/Folic/Vit K/Lycop 1 tab PO DAILY 03/27/21 03/05/23 [Men's Multivitamin Tablet] Aspirin 81 mg PO DAILY@169905/13/22 03/05/23 Atorvastatin [Lipitor] 20 mg PO DAILY@169905/13/22 03/05/23 amLODIPine [Norvasc] 5 mg PO DAILY 05/13/22 03/05/23 calcitrioL 0.25 mcg PO REILLY@199905/13/22 03/05/23 Furosemide [Lasix] 40 mg PO DAILY 03/05/23 03/05/23 Warfarin [Coumadin] 2 mg PO DIRECTED@169903/05/23 03/05/23 Previous Rx's Medication Instructions Recorded Doxycycline Hyclate 100 mg PO BID 1 Days #20 tab 03/05/23 Allergies Allergy/AdvReac Type Severity Reaction Status Date / Time morphine Allergy Unknown Verified 03/13/23 19:27 Penicillins Allergy Unknown Verified 03/13/23 19:27 Sulfa (Sulfonamide Allergy Unknown Verified 03/13/23 19:27 Antibiotics) codeine AdvReac Nausea & Verified 03/13/23 19:27 Vomiting Review of Systems ROS Statement: Those systems with pertinent positive or pertinent negative responses have been documented in the HPI. ROS Other: All systems not noted in ROS Statement are negative. 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 Last Myocardial Infarction Date:: 1998 History of Any Multi-Drug Resistant Organisms: None Reported Past Surgical History: AICD, Bladder Surgery, Bowel Resection, Cholecystectomy, Coronary Bypass/CABG, Heart Catheterization, Heart Catheterization With Stent, Hernia Repair, Joint Replacement, Pacemaker, Prostate Surgery Additional Past Surgical History / Comment(s): PCI with stents, 1999 CABG 3 vessel, AICD/pacer last one placed 04/2019 with wound debridement, total L hip arthroplasty, skin cancer removal with graft, TURBT with fulguration, TURP, colectomy d/t polyps, inguinal hernia Past Anesthesia/Blood Transfusion Reactions: No Reported Reaction Date of Last Stent Placement:: 1998 Type of Cardiac Device: Permanent Pacemaker, AICD Device Placement Date:: april 2019 Past Psychological History: No Psychological Hx Reported Smoking Status: Former smoker Past Alcohol Use History: None Reported Past Drug Use History: None Reported - Past Family History Mother Family Medical History: No Reported History Additional Family Medical History / Comment(s): Tremors. Father Family Medical History: Osteoarthritis ([place]) General Exam Limitations: no limitations General appearance: alert, in no apparent distress Head exam: Present: normocephalic Eye exam: Present: normal appearance ENT exam: Present: mucous membranes moist Neck exam: Present: other (Trachea is in midline) Respiratory exam: Present: normal lung sounds bilaterally. Absent: respiratory distress, wheezes, rales, rhonchi, stridor, chest wall tenderness Cardiovascular Exam: Present: regular rate, normal rhythm, normal heart sounds, other (Normal radial pulses bilaterally) GI/Abdominal exam: Present: soft. Absent: distended, tenderness, guarding Extremities exam: Present: other (2+ bilateral lower extremity pitting edema; negative Homans' sign bilaterally). Absent: tenderness, calf tenderness Neurological exam: Present: alert, oriented X3 Psychiatric exam: Present: normal affect Skin exam: Present: warm, dry, normal color Course Vital Signs 03/13/23 03/13/23 19:24 21:25 Temperature 98.1 F Pulse Rate 65 65 Respiratory 18 16 Rate Blood Pressure 157/77 154/77 O2 Sat by Pulse 95 95 Oximetry - Reevaluation(s) Reevaluation #1: 03/13/23 20:27 ICD/pacemaker was interrogated in the ED. Interrogation report shows no episodes of ventricular tachyarrhythmias and no shocks delivered. 03/13/23 21:41 Patient continues to deny having any palpitations or chest pain while in the ED. Patient denies development of any new symptoms while in the ED. Patient remains in a ventricular paced rhythm on the fire behavior analyst. Patient remains alert and breathing comfortably. Patient and son are aware the patient's test results, and they both agree with hospital admission at this time. 03/13/23 21:48 Case, H&P, test results and ED management thus far were discussed with Dr. Thompson. He accepts hospital admission. He agrees with cardiology consultation. He has no further recommendations at this time. EKG Findings - EKG Comments: EKG Findings:: ED physician interpretation (interpreted by me): Ventricular paced rhythm, ventricular rate of 63 bpm Medical Decision Making - Medical Decision Making Was pt. sent in by a medical professional or institution (, PA, [employer], urgent ca re, hospital, or [facility]...) When possible be specific @ -No Did you speak to anyone other than the patient for history (EMS, parent, family, police, friend...)? What history was obtained from this source @ -No Did you review nursing and triage notes (agree or disagree)? Why? @ -I reviewed and agree with nursing and triage notes Were old charts reviewed (outside hosp., previous admission, EMS record, old EKG, old radiological studies, urgent care reports/EKG's, [facility] records)? Report findings @ -No old charts were reviewed Differential Diagnosis (chest pain, altered mental status, abdominal pain women, abdominal pain men, vaginal bleeding, weakness, fever, dyspnea, syncope, headache, dizziness, GI bleed, back pain, seizure, CVA, palpatations, mental health, musculoskeletal)? @ -Differential Palpitations Ventricular arrhythmias, atrial arrhythmias, myocardial infarction, chest pain, GERD, angina, ACS, electrolyte imbalance, hypokalemia, anxiety, stress.... This is not meant to be an all-inclusive list. EKG interpreted by me (3pts min.). @ -As above X-rays interpreted by me (1pt min.). @ -Chest x-ray shows no acute cardiopulmonary process. I agree with the ra diologist's interpretation as above. CT interpreted by me (1pt min.). @ -None done U/S interpreted by me (1pt. min.). @ -None done What testing was considered but not performed or refused? (CT, X-rays, U/S, labs)? Why? @ -None What meds were considered but not given or refused? Why? @ -None Did you discuss the management of the patient with other professionals (professionals i.e. , PA, [employer], lab, RT, psych nurse, social contact worker, tetryl dissolver operator, teacher, security public safety officer, adult protective caseworker)? Give summary @ -As above.] Was smoking cessation discussed for >3mins.? @ -No Was critical care preformed (if so, how long)? @ -No Were there social determinants of health that impacted care today? How? (Homelessness, low income, unemployed, alcoholism, drug addiction, transportation, low edu. Level, literacy, decrease access to med. care, penitentiary, rehab)? @ -No Was there de-escalation of care discussed even if they declined (Discuss DNR or withdrawal of care, Hospice)? DNR status @ -No What co-morbidities impacted this encounter? (DM, HTN, Smoking, COPD, CAD, Cancer, CVA, ARF, Chemo, Hep., AIDS, mental health diagnosis, sleep apnea, morbid obesity)? @ -None Was patient admitted / discharged? Hospital course, mention meds given and route, prescriptions, significant lab abnormalities, going to OR and other pertinent info. @ -Patient's ICD/pacemaker was interrogated in the ED and there are no recorded episodes of ventricular tacky arrhythmias or shocks being delivered. Patient's chest x-ray is unremarkable. Patient's EKG shows a ventricular paced rhythm. Patient's initial troponin is negative. Patient has been treated with a dose of aspirin in the ED. Patient has been symptom-free while in the ED. Given the patient's reported chest pressure and palpitations, will admit the patient to [facility] for cardiac monitoring, serial troponins and cardiology consultation. Dr. Thompson has accepted hospital admission. Patient and son agree with this plan. Undiagnosed new problem with uncertain prognosis? @ -No Drug Therapy requiring intensive monitoring for toxicity (Heparin, Nitro, Insul in, Cardizem)? @ -No Were any procedures done? @ -No Diagnosis/symptom? @ -Chest pain and palpitations Acute, or Chronic, or Acute on Chronic? @ -Acute Uncomplicated (without systemic symptoms) or Complicated (systemic symptoms)? @ -Default Side effects of treatment? @ -No Exacerbation, Progression, or Severe Exacerbation? @ -No Poses a threat to life or bodily function? How? (Chest pain, [place], [place], pneumonia, PE, COPD, DKA, ARF, appy, cholecystitis, CVA, Diverticulitis, Homicidal, Suicidal, threat to staff... and all critical care pts) @ -No - Lab Data Result diagrams: 03/13/23 20:09 03/13/23 20:09 Lab Results 03/13/23 03/13/23 03/13/23 Range/Units 20:09 20:09 20:09 WBC 8.0 (3.8-10.6) k/uL RBC 4.09 L (4.30-5.90) m/uL Hgb 12.8 L (13.0-17.5) gm/dL Hct 37.4 L (39.0-53.0) % MCV 91.4 (80.0-100.0) fL MCH 31.3 (25.0-35.0) pg MCHC 34.2 (31.0-37.0) g/dL RDW 13.5 (11.5-15.5) % Plt Count 178 (150-450) k/uL MPV 7.8 Neutrophils % 70 % Lymphocytes % 20 % Monocytes % 7 % Eosinophils % 2 % Basophils % 0 % Neutrophils # 5.5 (1.3-7.7) k/uL Lymphocytes # 1.6 (1.0-4.8) k/uL Monocytes # 0.6 (0-1.0) k/uL Eosinophils # 0.2 (0-0.7) k/uL Basophils # 0.0 (0-0.2) k/uL PT 21.7 H (10.0-12.5) sec INR 2.2 H (<1.2) APTT 30.1 H (22.0-30.0) sec Sodium 137 (137-145) mmol/L Potassium 3.5 (3.5-5.1) mmol/L Chloride 107 (98-107) mmol/L Carbon Dioxide 28 (22-30) mmol/L Anion Gap 2 mmol/L BUN 27 H (9-20) mg/dL Creatinine 1.39 H (0.66-1.25) mg/dL Est GFR (CKD-EPI)AfAm 53 (>60 ml/min/1.73 sqM) Est GFR (CKD-EPI)NonAf 46 (>60 ml/min/1.73 sqM) Glucose 90 (74-99) mg/dL Calcium 8.6 (8.4-10.2) mg/dL Magnesium 1.8 (1.6-2.3) mg/dL Total Bilirubin 0.6 (0.2-1.3) mg/dL AST 35 (17-59) U/L ALT 26 (4-49) U/L Alkaline Phosphatase 98 (38-126) U/L Troponin I (0.000-0.034) ng/mL NT-Pro-B Natriuret Pep 2190 pg/mL Total Protein 5.9 L (6.3-8.2) g/dL Albumin 3.2 L (3.5-5.0) g/dL 03/13/23 Range/Units 20:09 WBC (3.8-10.6) k/uL RBC (4.30-5.90) m/uL Hgb (13.0-17.5) gm/dL Hct (39.0-53.0) % MCV (80.0-100.0) fL MCH (25.0-35.0) pg MCHC (31.0-37.0) g/dL RDW (11.5-15.5) % Plt Count (150-450) k/uL MPV Neutrophils % % Lymphocytes % % Monocytes % % Eosinophils % % Basophils % % Neutrophils # (1.3-7.7) k/uL Lymphocytes # (1.0-4.8) k/uL Monocytes # (0-1.0) k/uL Eosinophils # (0-0.7) k/uL Basophils # (0-0.2) k/uL PT (10.0-12.5) sec INR (<1.2) APTT (22.0-30.0) sec Sodium (137-145) mmol/L Potassium (3.5-5.1) mmol/L Chloride (98-107) mmol/L Carbon Dioxide (22-30) mmol/L Anion Gap mmol/L BUN (9-20) mg/dL Creatinine (0.66-1.25) mg/dL Est GFR (CKD-EPI)AfAm (>60 ml/min/1.73 sqM) Est GFR (CKD-EPI)NonAf (>60 ml/min/1.73 sqM) Glucose (74-99) mg/dL Calcium (8.4-10.2) mg/dL Magnesium (1.6-2.3) mg/dL Total Bilirubin (0.2-1.3) mg/dL AST (17-59) U/L ALT (4-49) U/L Alkaline Phosphatase (38-126) U/L Troponin I <0.012 (0.000-0.034) ng/mL NT-Pro-B Natriuret Pep pg/mL Total Protein (6.3-8.2) g/dL Albumin (3.5-5.0) g/dL - Radiology Data Chest x-ray: No acute pulmonary process. Disposition Clinical Impression: Chest pain, Palpitations Disposition: ADMITTED IP TO THIS HOSP Condition: Stable Is patient prescribed a controlled substance at d/c from ED?: No Referrals: Misha Sotomayor MD [Primary Care Provider] - 1-2 days Time of Disposition: 21:48
--- NOTE | 2023-03-13 20:30 | XR ---
EXAMINATION TYPE: XR chest 1V portable DATE OF EXAM: 03/13/2023 COMPARISON: 03/05/2023 INDICATION: Dysrhythmia TECHNIQUE: Single frontal view of the chest is obtained. FINDINGS: The heart size is upper limits of normal. Pacemaker overlies the left chest. Sternotomy wires are in the midline. The pulmonary vasculature is normal. The lungs are clear. IMPRESSION: 1. No acute pulmonary process.
[2023-03-13 20:36] LABS: Basophils % (A) 0 %; Eosinophils # (A) 0.2 k/uL (0-0.7); Eosinophils % (A) 2 %; HCT 37.4 % (39.0-53.0); HGB 12.8 gm/dL (13.0-17.5); Lymphocytes # (A) 1.6 k/uL (1.0-4.8); Lymphocytes % (A) 20 %; MCH 31.3 pg (25.0-35.0); MCHC 34.2 g/dL (31.0-37.0); MCV 91.4 fL (80.0-100.0); Mean Platelet Volume 7.8; Monocytes # (A) 0.6 k/uL (0-1.0); Monocytes % (A) 7 %; Neutrophils # (A) 5.5 k/uL (1.3-7.7); Neutrophils % (A) 70 %; Platelet Count 178 k/uL (150-450); RBC 4.09 m/uL (4.30-5.90); RDW 13.5 % (11.5-15.5)
[2023-03-13 20:44] LABS: ALT 26 U/L (4-49); AST 35 U/L (17-59); African American GFR (CKD) 53 (>60 ml/min/1.73 sqM); Albumin 3.2 g/dL (3.5-5.0); Alkaline Phosphatase 98 U/L (38-126); Anion Gap 2 mmol/L; Blood Urea Nitrogen 27 mg/dL (9-20); Calcium 8.6 mg/dL (8.4-10.2); Carbon Dioxide 28 mmol/L (22-30); Chloride 107 mmol/L (98-107); Glucose 90 mg/dL (74-99); Magnesium 1.8 mg/dL (1.6-2.3); Non-African American GFR(CKD) 46 (>60 ml/min/1.73 sqM); Potassium 3.5 mmol/L (3.5-5.1); Sodium 137 mmol/L (137-145); Total Bilirubin 0.6 mg/dL (0.2-1.3); Total Protein 5.9 g/dL (6.3-8.2)
[2023-03-13 20:52] LABS: NT-Pro-B-Type Natriuretic Pept 2190 pg/mL
[2023-03-13] MEDS ORDERED: ASPIRIN 325 MG TAB PO STA (21:02)
[2023-03-13 21:11] LABS: INR 2.2 (<1.2); Partial Thromboplastin Time 30.1 sec (22.0-30.0); Prothrombin Time 21.7 sec (10.0-12.5)
[2023-03-13] MEDS ORDERED: NALOXONE 0.4 MG/ML 1 ML VIAL IV PRN (21:49)
[2023-03-14 03:46] LABS: Basophils % (A) 0 %; Eosinophils # (A) 0.2 k/uL (0-0.7); Eosinophils % (A) 2 %; HCT 37.8 % (39.0-53.0); HGB 12.9 gm/dL (13.0-17.5); Lymphocytes # (A) 1.6 k/uL (1.0-4.8); Lymphocytes % (A) 22 %; MCH 31.3 pg (25.0-35.0); MCHC 34.1 g/dL (31.0-37.0); MCV 91.9 fL (80.0-100.0); Mean Platelet Volume 8.1; Monocytes # (A) 0.4 k/uL (0-1.0); Monocytes % (A) 6 %; Neutrophils # (A) 4.7 k/uL (1.3-7.7); Neutrophils % (A) 68 %; Platelet Count 150 k/uL (150-450); RBC 4.12 m/uL (4.30-5.90); RDW 13.6 % (11.5-15.5)
[2023-03-14 04:01] LABS: ALT 26 U/L (4-49); AST 34 U/L (17-59); African American GFR (CKD) 52 (>60 ml/min/1.73 sqM); Alkaline Phosphatase 96 U/L (38-126); Anion Gap 5 mmol/L; Blood Urea Nitrogen 24 mg/dL (9-20); Calcium 8.7 mg/dL (8.4-10.2); Carbon Dioxide 27 mmol/L (22-30); Chloride 107 mmol/L (98-107); Glucose 89 mg/dL (74-99); Non-African American GFR(CKD) 45 (>60 ml/min/1.73 sqM); Potassium 3.5 mmol/L (3.5-5.1); Sodium 139 mmol/L (137-145); Total Protein 5.6 g/dL (6.3-8.2)
[2023-03-14 08:13] VITALS: BP 135/69; PULSE 68; RESP 16; TEMP 97.5
[2023-03-14] MEDS ORDERED: TAMSULOSIN 0.4 MG CAP.ER.24H PO SCH (09:00)
[2023-03-14] MEDS ORDERED: DOXYCYCLINE 100 MG CAP PO SCH (09:00)
[2023-03-14] MEDS ORDERED: FUROSEMIDE 40 MG TAB PO SCH (09:00)
[2023-03-14] MEDS ORDERED: METOPROLOL SUCCINATE (ER) 100 MG TAB.ER.24H PO SCH (09:00)
[2023-03-14] MEDS ORDERED: CHOLECALCIFEROL 25 MCG (1000 IU) TABLET PO SCH (09:00)
[2023-03-14] MEDS ORDERED: amLODIPine 5 MG TAB PO SCH (09:00)
--- NOTE | 2023-03-14 10:54 | P.CRDCN ---
History of Present Illness Consult date: 03/14/23 Consult reason: chest pain (And palpitations) History of present illness: History of present illness: This is an 87-year-old male patient of Dr. Carrizales with past medical history of persistent atrial fibrillation, ischemic cardiomyopathy status post AICD, chronic systolic heart failure, chronic kidney disease. We have been asked to evaluate the patient for chest pain and palpitations. Patient states that yesterday he did not feel well all day as he was urinating and defecating every 1/2 hour. He states he had abdominal pressure and thought he needed to have a bowel movement. He states he did have watery stools yesterday but by the ev ening the symptoms resolved. Patient states he had some flickering sensation in his chest yesterday during this time and wants the frequent urination and defecating ended, also the fluttering in his chest went away. He denies have any symptoms at this time, no chest pain. He denies have any lightheadedness or dizziness. Patient was seen in the office on 03/10/2023 and at that time was taken off amlodipine due to swelling and metoprolol was increased to 100 mg in the morning and 50 mg in the evening. Interrogation of AICD was performed in the emergency center with no ventricular tachycardia. EKG ventricularly paced rhythm Chest x-ray: No acute process WBC 7.0, hemoglobin 12.9, platelet count 150. INR 2.2. Electrolytes normal. BUN 24 creatinine 1.41. Troponin negative x 3. Liver function test are normal. Magnesium 1.8. Home cardiac medications: Amlodipine 5 mg daily, aspirin 81 mg daily, atorvastatin 20 mg daily, Lasix 40 mg daily, Toprol-XL 100 mg in the morning and 50 mg in the afternoon, Coumadin. Most recent echocardiogram obtained in March 2022 revealed ejection fraction 40-45%, trace aortic regurgitation, [id number] aortic stenosis, mild mitral regurgitation, moderate tricuspid regurgitation Patient underwent Lexiscan stress test in 08/25/2022 with EF 53%, abnormal with prior KS and inferior lateral wall KS without ischemia. Patient underwent 3 vessel CABG in 1999 with SERRANO to LAD, VGOM1, VGPDA Cardiac catheterization history: February 2002 revealing 100% mid circumflex, 100% mid RCA, patent SERRANO to LAD, patent VGOM1, patent VGPDA Generator replacement for biventricular ICD 05/01/2021, [employer]. Review Of Systems: At the time of my evaluation: Constitutional: No fever, no chills. No weakness, fatigue or lethargy. EENT: No headache. No dizziness. Lungs: No shortness of breath, cough, no sputum production. No wheezing. Cardiovascular: No chest pain, no lower extremity edema. No palpitations. No paroxysmal nocturnal dyspnea. No orthopnea. No lightheadedness or dizziness. No syncopal episodes. Abdominal: No abdominal pain. No nausea, vomiting. No diarrhea, resolved. Genitourinary: No dysuria. No urinary retention. Urinary frequency has resolved. Musculoskeletal: No myalgias. No muscle weakness, no frequent falls. Integumentary: No wounds. No rash. No unusual bruising. Neurologic: No aphasia. No facial droop. No change in mentation. Physical examination: Gen: This is an 87-year-old male resting in bed and in no acute distress. VS: reviewed HEENT: Head is atraumatic, normocephalic. Pupils equal, round. Sclerae is anicteric. NECK: Supple. No JVD. LUNGS: Clear to auscultation. No wheezes or rhonchi. No intercostal retractions. HEART: Regular rate and rhythm. No murmur. ABDOMEN: Soft No tenderness. EXTREMITIES: Minimal pedal edema. No calf tenderness. NEUROLOGICAL: Patient is awake, alert and oriented x3. Assessment: Palpitations Myocardial infarction ruled out History of persistent atrial fibrillation Ischemic cardiomyopathy status post AICD Chronic systolic heart failure Chronic any disease patient is not on CLAUDIA inhibitor or ARB because of this Plan: Continue patient's home cardiac medications including the changes that were made by Dr. Carrizales on 03/10 which included discontinuing amlodipine and increasing metoprolol to 100 mg in the morning and 50 mg in the evening. Patient is cleared from discharge from cardiology May follow-up with Dr. Carrizales in 2 weeks. Thank you kindly for this consultation. Nurse practitioner note has been reviewed, I agree with documented findings and plan of care. Patient was seen and examined. Past Medical History Past Medical History: Atrial Fibrillation, Coronary Artery Disease (CAD), Cancer, Chest Pain / Angina, Heart Failure, CVA/TIA, GERD/Reflux, GI Bleed, Hearing Disorder / Deafness, Hyperlipidemia, Hypertension, Myocardial Infarction ([place]), Osteoarthritis (OA), Prostate Disorder Additional Past Medical History / Comment(s): AFib, SSS, MIs x3, ischemic cardiomyopathy/vtach/AICD/pacer, CVA with R eye vision change/[place] R ear and balance issues, bladder cancer with surgery/chemo, skin cancer with removals, epistaxis, bleeding gastric ulcer, lower GI bleed, colon polyps, chronic low back pain, bilateral arm/hand tremors ., States difficulty emptying bladder-sees Dr Douglas., See [facility] Last Myocardial Infarction Date:: 1998 History of Any Multi-Drug Resistant Organisms: None Reported Past Surgical History: AICD, Bladder Surgery, Bowel Resection, Cholecystectomy, Coronary Bypass/CABG, Heart Catheterization, Heart Catheterization With Stent, Hernia Repair, Joint Replacement, Pacemaker, Prostate Surgery Additional Past Surgical History / Comment(s): PCI with stents, 1999 CABG 3 vessel, AICD/pacer last one placed 04/2019 with wound debridement, total L hip ar throplasty, skin cancer removal with graft, TURBT with fulguration, TURP, colectomy d/t polyps, inguinal hernia Past Anesthesia/Blood Transfusion Reactions: No Reported Reaction Date of Last Stent Placement:: 1998 Type of Cardiac Device: Permanent Pacemaker, AICD Device Placement Date:: april 2019 Past Psychological History: No Psychological Hx Reported Smoking Status: Former smoker Past Alcohol Use History: None Reported Past Drug Use History: None Reported - Past Family History Mother Family Medical History: No Reported History Additional Family Medical History / Comment(s): Tremors. Father Family Medical History: Osteoarthritis ([place]) Medications and Allergies Home Medications Medication Instructions Recorded Confirmed Type Tamsulosin [Flomax] 0.4 mg PO DAILY 12/25/17 03/13/23 History Cholecalciferol [Vitamin D3 (25 25 mcg PO DAILY 04/17/20 03/13/23 History Mcg = 1000 Iu)] Metoprolol Succinate (ER) [Toprol 100 mg PO DAILY 04/17/20 03/13/23 History XL] Omeprazole 20 mg PO MOWEFR 05/30/20 03/13/23 History Multivit-Min/Folic/Vit K/Lycop 1 tab PO DAILY 03/27/21 03/13/23 History [Men's Multivitamin Tablet] Aspirin 81 mg PO DAILY@1700 05/13/2224 History Atorvastatin [Lipitor] 20 mg PO DAILY@169905/13/22 03/13/23 History amLODIPine [Norvasc] 5 mg PO DAILY 05/13/22 03/13/23 History calcitrioL 0.25 mcg PO REILLY@199905/13/22 03/13/23 History Doxycycline Hyclate 100 mg PO BID 1 Days #20 tab 03/05/23 03/13/23 Rx Furosemide [Lasix] 40 mg PO DAILY 03/05/23 03/13/23 History Warfarin [Coumadin] 2 mg PO FR@169903/05/23 03/13/23 History Metoprolol Succinate (ER) [Toprol 50 mg PO HS@169903/13/23 03/13/23 History Xl] Warfarin [Coumadin] 3 mg PO SUMOTUWETHSA@169903/13/23 03/13/23 History Allergies Allergy/AdvReac Type Severity Reaction Status Date / Time morphine Allergy Unknown Verified 03/13/23 22:02 Penicillins Allergy Unknown Verified 03/13/23 22:02 Sulfa (Sulfonamide Allergy Unknown Verified 03/13/23 22:02 Antibiotics) codeine AdvReac Nausea & Verified 03/13/23 22:02 Vomiting Physical Exam Vitals: Vital Signs Temp Pulse Pulse Resp BP BP Pulse Ox 03/14/23 08:09 97.5 F L 68 16 135/69 92 L 03/14/23 07:00 63 15 157/66 91 L 03/14/23 04:00 62 16 154/76 93 L 03/14/23 00:00 66 16 139/62 95 03/13/23 23:02 60 14 140/68 95 03/13/23 21:25 65 16 154/77 95 03/13/23 19:24 98.1 F 65 18 157/77 95 Intake and Output 03/13/23 03/14/23 03/14/23 22:59 06:59 14:59 Other: Weight 80.286 kg Results 03/14/23 03:16 03/14/23 03:16 Cardiac Enzymes 03/13/23 03/13/23 03/13/23 Range/Units 20:09 20:09 23:54 AST 35 (17-59) U/L Troponin I <0.012 <0.012 (0.000-0.034) ng/mL 03/14/23 03/14/23 Range/Units 03:16 03:16 AST 34 (17-59) U/L Troponin I 0.013 (0.000-0.034) ng/mL Coagulation 03/13/23 Range/Units 20:09 PT 21.7 H (10.0-12.5) sec APTT 30.1 H (22.0-30.0) sec CBC 03/13/23 03/14/23 Range/Units 20:09 03:16 WBC 8.0 7.0 (3.8-10.6) k/uL RBC 4.09 L 4.12 L (4.30-5.90) m/uL Hgb 12.8 L 12.9 L (13.0-17.5) gm/dL Hct 37.4 L 37.8 L (39.0-53.0) % Plt Count 178 150 (150-450) k/uL Comprehensive Metabolic Panel 03/13/23 03/14/23 Range/Units 20:09 03:16 Sodium 137 139 (137-145) mmol/L Potassium 3.5 3.5 (3.5-5.1) mmol/L Chloride 107 107 (98-107) mmol/L Carbon Dioxide 28 27 (22-30) mmol/L BUN 27 H 24 H (9-20) mg/dL Creatinine 1.39 H 1.41 H (0.66-1.25) mg/dL Glucose 90 89 (74-99) mg/dL Calcium 8.6 8.7 (8.4-10.2) mg/dL AST 35 34 (17-59) U/L ALT 26 26 (4-49) U/L Alkaline Phosphatase 98 96 (38-126) U/L Total Protein 5.9 L 5.6 L (6.3-8.2) g/dL Albumin 3.2 L 3.0 L (3.5-5.0) g/dL Current Medications Generic Name Dose Route Start Last Admin Trade Name Freq PRN Reason Stop Dose Admin Amlodipine Besylate 5 mg 03/14/23 09:00 Amlodipine 5 Mg Tab PO DAILY [facility] Aspirin 81 mg 03/14/23 17:00 Aspirin 81 Mg PO DAILY@1700 [facility] Atorvastatin Calcium 20 mg 03/14/23 17:00 Atorvastatin 20 Mg Tab PO DAILY@1700 [facility] Calcitriol 0.25 mcg 03/14/23 20:00 Calcitriol 0.25 Mcg Cap PO REILLY@2000 [facility] Cholecalciferol 25 mcg 03/14/23 09:00 Cholecalciferol 25 Mcg (1000 Iu) Tablet PO DAILY [facility] Doxycycline Monohydrate 100 mg 03/14/23 09:00 Doxycycline 100 Mg Cap PO 03/16/23 23:00 BID [facility] Furosemide 40 mg 03/14/23 09:00 Furosemide 40 Mg Tab PO DAILY [facility] Metoprolol Succinate 50 mg 03/14/23 17:00 Metoprolol Succinate (Er) 50 Mg Tab.Er.24h PO HS@1700 [facility] Metoprolol Succinate 100 mg 03/14/23 09:00 Metoprolol Succinate (Er) 100 Mg Tab.Er.24h PO DAILY [facility] Miscellaneous Information 1 each 03/14/23 07:39 Warfarin Per Pharmacy MISCELLANE DIRECTED PRN Per Protocol Naloxone HCl 0.2 mg 03/13/23 21:49 Naloxone 0.4 Mg/Ml 1 Ml Vial IV Q2M PRN Opioid Reversal Tamsulosin HCl 0.4 mg 03/14/23 09:00 Tamsulosin 0.4 Mg Cap.Er.24h PO DAILY [facility] Warfarin Sodium 2 mg 03/19/23 17:00 Warfarin 2 Mg Tab PO FR@1700 [facility] Protocol Warfarin Sodium 3 mg 03/15/23 17:00 Warfarin 3 Mg Tab PO SUMOTUWETHSA@1700 [facility] Protocol Warfarin Sodium 4 mg 03/14/23 17:00 Warfarin 2 Mg Tab PO 03/14/23 17:01 ONCE@1700 [facility] Intake and Output 03/13/23 03/14/23 03/14/23 22:59 06:59 14:59 Other: Weight 80.286 kg 03/14/23 03:16 03/14/23 03:16
--- NOTE | 2023-03-14 11:09 | P.HPIM ---
History of Present Illness Please consider this note as combined H&P and discharge summary Diagnoses: Chest pain and fluttering of the heart could be musculoskeletal resolved Acute coronary syndrome has been ruled out A. fib with rate controlled on anticoagulation with therapeutic INR Chronic systolic CHF status post AICD Right lower facial nodules suspicious for skin cancer and he will follow-up with yarn worker this week Hospital course: This is a pleasant 87 years old male with past medical history of multiple medical problems including atrial fibrillation and cardiomyopathy status post AICD for his chronic systolic heart failure Presents because of palpitation and fluttering of the heart rate and some chest pressure and he feels much better today back to baseline with no chest pain dyspnea, no palpitation, no other change in urine or bowel habits. No neurological symptoms. No fever. Patient is nonsmoker nonalcoholic Patient already evaluated by events solutions consultant and cleared him for discharge Patient denies any other new symptoms and he wants to go home today. Patient states that he has appointment on Wednesday for nodule on his left lower face about half inch in diameter suspected to be skin cancer to be excised and his been told to hold Coumadin until this Wednesday for the procedure. INR on admission 2.2 which is therapeutic Creatinine 1.4 which is at baseline for patient with chronic kidney disease Hemoglobin 12.9 Troponin 3 is negative, proBNP 210, chest x-ray showing no acute process EKG sinus rhythm at [address] T changes The rest of labs including CBC, BMP and liver enzymes were unremarkable Problems and management plan were discussed with the patient and he verbalized understanding and acceptance Patient was found stable and can be discharged home in guarded prognosis however he needs follow-up Dr. Sotomayor as an outpatient. Patient was instructed to follow up with PCP within one week and patient agrees Patient was instructed to follow up with his events solutions consultant Dr. Griffith in 1-2 weeks and he agrees Patient is going to follow-up with yarn worker Dr. Hightower right lower facial skin cancer Physical exam Gen: patient is a AAOx3, no distress CVS: S1-S2, RRR, no murmur Lungs: B/L CTA, no wheezing Abdomen: soft, no distention, no tenderness, positive bowel sounds Extremity: no leg edema or induration Review of systems CONSTITUTIONAL: No fever, no malaise, no fatigue. HEENT: No recent visual problems or hearing problems. Denied any sore throat. CARDIOVASCULAR: No orthopnea, PND, no palpitations, no syncope. PULMONARY: No shortness of breath, no cough, no hemoptysis. GASTROINTESTINAL: No diarrhea, no nausea, no vomiting, no abdominal pain. Normo active bowel sounds. NEUROLOGICAL: No headaches, no weakness, no numbness. HEMATOLOGICAL: Denies any bleeding or petechiae. GENITOURINARY: Denies any burning micturition, frequency, or urgency. MUSCULOSKELETAL/RHEUMATOLOGICAL: Denies any joint pain, swelling, or any muscle pain. ENDOCRINE: Denies any polyuria or polydipsia. Time spent more than 35 minutes Past Medical History Past Medical History: Atrial Fibrillation, Coronary Artery Disease (CAD), Cancer, Chest Pain / Angina, Heart Failure, CVA/TIA, GERD/Reflux, GI Bleed, Hearing Disorder / Deafness, Hyperlipidemia, Hypertension, Myocardial Infarction ([place]), Osteoarthritis (OA), Prostate Disorder Additional Past Medical History / Comment(s): AFib, SSS, MIs x3, ischemic cardiomyopathy/vtach/AICD/pacer, CVA with R eye vision change/[place] R ear and balance issues, bladder cancer with surgery/chemo, skin cancer with removals, epistaxis, bleeding gastric ulcer, lower GI bleed, colon polyps, chronic low back pain, bilateral arm/hand tremors ., States difficulty emptying bladder-sees Dr Douglas., See Cardiology [facility] Last Myocardial Infarction Date:: 1998 History of Any Multi-Drug Resistant Organisms: None Reported Past Surgical History: AICD, Bladder Surgery, Bowel Resection, Cholecystectomy, Coronary Bypass/CABG, Heart Catheterization, Heart Catheterization With Stent, Hernia Repair, Joint Replacement, Pacemaker, Prostate Surgery Additional Past Surgical History / Comment(s): PCI with stents, 1999 CABG 3 vessel, AICD/pacer last one placed 04/2019 with wound debridement, total L hip arthroplasty, skin cancer removal with graft, TURBT with fulguration, TURP, colectomy d/t polyps, inguinal hernia Past Anesthesia/Blood Transfusion Reactions: No Reported Reaction Date of Last Stent Placement:: 1998 Type of Cardiac Device: Permanent Pacemaker, AICD Device Placement Date:: april 2019 Past Psychological History: No Psychological Hx Reported Smoking Status: Former smoker Past Alcohol Use History: None Reported Past Drug Use History: None Reported - Past Family History Mother Family Medical History: No Reported History Additional Family Medical History / Comment(s): Tremors. Father Family Medical History: Osteoarthritis (OA) Medications and Allergies Home Medications Medication Instructions Recorded Confirmed Type Tamsulosin [Flomax] 0.4 mg PO DAILY 12/25/17 03/13/23 History Cholecalciferol [Vitamin D3 (25 25 mcg PO DAILY 04/17/20 03/13/23 History Mcg = 1000 Iu)] Metoprolol Succinate (ER) [Toprol 100 mg PO DAILY 04/17/20 03/13/23 History XL] Omeprazole 20 mg PO MOWEFR 05/30/20 03/13/23 History Multivit-Min/Folic/Vit K/Lycop 1 tab PO DAILY 03/27/21 03/13/23 History [Men's Multivitamin Tablet] Aspirin 81 mg PO DAILY@169905/13/22 03/13/23 History Atorvastatin [Lipitor] 20 mg PO DAILY@169905/13/22 03/13/23 History calcitrioL 0.25 mcg PO REILLY@199905/13/22 03/13/23 History Doxycycline Hyclate 100 mg PO BID 1 Days #20 tab 03/05/23 03/13/23 Rx Furosemide [Lasix] 40 mg PO DAILY 03/05/23 03/13/23 History Warfarin [Coumadin] 2 mg PO FR@169903/05/23 03/13/23 History Metoprolol Succinate (ER) [Toprol 50 mg PO HS@169903/13/23 03/13/23 History Xl] Warfarin [Coumadin] 3 mg PO SUMOTUWETHSA@169903/13/23 03/13/23 History Allergies Allergy/AdvReac Type Severity Reaction Status Date / Time morphine Allergy Unknown Verified 03/13/23 22:02 Penicillins Allergy Unknown Verified 03/13/23 22:02 Sulfa (Sulfonamide Allergy Unknown Verified 03/13/23 22:02 Antibiotics) codeine AdvReac Nausea & Verified 03/13/23 22:02 Vomiting Physical Exam Vitals: Vital Signs Temp Pulse Pulse Resp BP BP Pulse Ox 03/14/23 08:09 97.5 F L 68 16 135/69 92 L 03/14/23 07:00 63 15 157/66 91 L 03/14/23 04:00 62 16 154/76 93 L 03/14/23 00:00 66 16 139/62 95 03/13/23 23:02 60 14 140/68 95 03/13/23 21:25 65 16 154/77 95 03/13/23 19:24 98.1 F 65 18 157/77 95 Intake and Output 03/13/23 03/14/23 03/14/23 22:59 06:59 14:59 Other: Weight 80.286 kg Results CBC & Chem 7: 03/14/23 03:16 03/14/23 03:16 Labs: Abnormal Lab Results - Last 24 Hours (Table) 03/13/23 03/13/23 03/13/23 Range/Units 20:09 20:09 20:09 RBC 4.09 L (4.30-5.90) m/uL Hgb 12.8 L (13.0-17.5) gm/dL Hct 37.4 L (39.0-53.0) % PT 21.7 H (10.0-12.5) sec INR 2.2 H (<1.2) APTT 30.1 H (22.0-30.0) sec BUN 27 H (9-20) mg/dL Creatinine 1.39 H (0.66-1.25) mg/dL Total Protein 5.9 L (6.3-8.2) g/dL Albumin 3.2 L (3.5-5.0) g/dL 03/14/23 03/14/23 Range/Units 03:16 03:16 RBC 4.12 L (4.30-5.90) m/uL Hgb 12.9 L (13.0-17.5) gm/dL Hct 37.8 L (39.0-53.0) % PT (10.0-12.5) sec INR (<1.2) APTT (22.0-30.0) sec BUN 24 H (9-20) mg/dL Creatinine 1.41 H (0.66-1.25) mg/dL Total Protein 5.6 L (6.3-8.2) g/dL Albumin 3.0 L (3.5-5.0) g/dL
[2023-03-14] MEDS ORDERED: ASPIRIN 81 MG PO SCH (17:00)
[2023-03-14] MEDS ORDERED: ATORVASTATIN 20 MG TAB PO SCH (17:00)
[2023-03-14] MEDS ORDERED: METOPROLOL SUCCINATE (ER) 50 MG TAB.ER.24H PO SCH (17:00)
[2023-03-14] MEDS ORDERED: WARFARIN 2 MG TAB PO ONE (17:00)
[2023-03-15] MEDS ORDERED: WARFARIN 3 MG TAB PO SCH (17:00)
[2023-03-19] MEDS ORDERED: WARFARIN 2 MG TAB PO SCH (17:00)
== END 2023-03-14 12:00 | disposition home or self-care (01) ==
LOC: EC 19:21 → 6NMEDSUR 21:50
PROVIDERS: ADMIT Internal Medicine; ATTEND Internal Medicine
DX: R07.89 Other chest pain (principal); I48.19 Other persistent atrial fibrillation; R22.0 Localized swelling, mass and lump, head; I25.10 Atherosclerotic heart disease of native coronary artery without angina pectoris; I13.0 Hypertensive heart and chronic kidney disease with heart failure and stage 1 through stage 4 chronic kidney disease, or unspecified chronic kidney disease; I50.22 Chronic systolic (congestive) heart failure; N18.9 Chronic kidney disease, unspecified; K21.9 Gastro-esophageal reflux disease without esophagitis; E78.5 Hyperlipidemia, unspecified; I25.5 Ischemic cardiomyopathy; I25.2 Old myocardial infarction; Z85.51 Personal history of malignant neoplasm of bladder; Z85.828 Personal history of other malignant neoplasm of skin; Z86.73 Personal history of transient ischemic attack (TIA), and cerebral infarction without residual deficits; Z87.891 Personal history of nicotine dependence; Z95.5 Presence of coronary angioplasty implant and graft; Z95.810 Presence of automatic (implantable) cardiac defibrillator; Z79.01 Long term (current) use of anticoagulants; Z79.82 Long term (current) use of aspirin; Z79.899 Other long term (current) drug therapy; Z88.0 Allergy status to penicillin; Z88.2 Allergy status to sulfonamides; Z88.5 Allergy status to narcotic agent
CPT/HCPCS: 99285; 36415; 93005; 83880; 80053 ×2; 83735; 84484 ×2; 85025 ×2; 85610; 85730; 71045; G0378 ×2

== ENCOUNTER 2023-09-14 11:07 | Emergency (ER) | payer MEDICARE ==
--- NOTE | 2023-09-14 11:30 | ED ---
ENT HPI - General Chief complaint: ENT Stated complaint: L ear injury Time Seen by Provider: 09/14/23 11:17 Source: patient, RN notes reviewed Mode of arrival: ambulatory Limitations: no limitations - History of Present Illness Initial comments: 88-year-old male presenting to the ER for left ear injury 3 days ago. States he was at home taking a door off of the frame when he was accidentally hit in the ear with a 9 foot panel. Denies losing consciousness. States he has been unable to control the bleeding for the past 3 days. He does take Coumadin, however he saw his PCP Dr. Anderson yesterday who instructed him to discontinue the Coumadin and placed him on Keflex. Patient denies headaches or lightheadedness. Denies hearing loss. - Related Data Home Medications Medication Instructions Recorded Confirmed Tamsulosin [Flomax] 0.4 mg PO DAILY 12/25/17 03/13/23 Cholecalciferol [Vitamin D3 (25 25 mcg PO DAILY 04/17/20 03/13/23 Mcg = 1000 Iu)] Metoprolol Succinate (ER) [Toprol 100 mg PO DAILY 04/17/20 03/13/23 XL] Omeprazole 20 mg PO MOWEFR 05/30/20 03/13/23 Multivit-Min/Folic/Vit K/Lycop 1 tab PO DAILY 03/27/21 03/13/23 [Men's Multivitamin Tablet] Aspirin 81 mg PO DAILY@169905/13/22 03/13/23 Atorvastatin [Lipitor] 20 mg PO DAILY@169905/13/22 03/13/23 calcitrioL 0.25 mcg PO REILLY@199905/13/22 03/13/23 Furosemide [Lasix] 40 mg PO DAILY 03/05/23 03/13/23 Warfarin [Coumadin] 2 mg PO FR@169903/05/23 03/13/23 Metoprolol Succinate (ER) [Toprol 50 mg PO HS@169903/13/23 03/13/23 XL] Warfarin [Coumadin] 3 mg PO SUMOTUWETHSA@169903/13/23 03/13/23 Previous Rx's Medication Instructions Recorded Doxycycline Hyclate 100 mg PO BID 1 Days #20 tab 03/05/23 Allergies Allergy/AdvReac Type Severity Reaction Status Date / Time morphine Allergy Unknown Verified 03/13/23 22:02 Penicillins Allergy Unknown Verified 03/13/23 22:02 Sulfa (Sulfonamide Allergy Unknown Verified 03/13/23 22:02 Antibiotics) codeine AdvReac Nausea & Verified 03/13/23 22:02 Vomiting Review of Systems ROS Statement: Those systems with pertinent positive or pertinent negative responses have been documented in the HPI. ROS Other: All systems not noted in ROS Statement are negative. Past Medical History Past Medical History: Atrial Fibrillation, Coronary Artery Disease (CAD), Cancer, Chest Pain / Angina, Heart Failure, CVA/TIA, GERD/Reflux, GI Bleed, Hearing Disorder / Deafness, Hyperlipidemia, Hypertension, Myocardial Infarction (AL), Osteoarthritis (OA), Prostate Disorder Additional Past Medical History / Comment(s): AFib, SSS, MIs x3, ischemic cardiomyopathy/vtach/AICD/pacer, CVA with R eye vision change/[place] R ear and balance issues, bladder cancer with surgery/chemo, skin cancer with removals, epistaxis, bleeding gastric ulcer, lower GI bleed, colon polyps, chronic low back pain, bilateral arm/hand tremors ., States difficulty emptying bladder-sees Dr Douglas., See [facility] Last Myocardial Infarction Date:: 1998 History of Any Multi-Drug Resistant Organisms: None Reported Past Surgical History: AICD, Bladder Surgery, Bowel Resection, Cholecystectomy, Coronary Bypass/CABG, Heart Catheterization, Heart Catheterization With Stent, Hernia Repair, Joint Replacement, Pacemaker, Prostate Surgery Additional Past Surgical History / Comment(s): PCI with stents, 1999 CABG 3 vessel, AICD/pacer last one placed 04/2019 with wound debridement, total L hip arthroplasty, skin cancer removal with graft, TURBT with fulguration, TURP, colectomy d/t polyps, inguinal hernia Past Anesthesia/Blood Transfusion Reactions: No Reported Reaction Date of Last Stent Placement:: 1998 Type of Cardiac Device: Permanent Pacemaker, AICD Device Placement Date:: april 2019 Past Psychological History: No Psychological Hx Reported Smoking Status: Former smoker Past Alcohol Use History: None Reported Past Drug Use History: None Reported - Past Family History Mother Family Medical History: No Reported History Additional Family Medical History / Comment(s): Tremors. Father Family Medical History: Osteoarthritis (OA) General Exam Limitations: no limitations General appearance: alert, in no apparent distress Eye exam: Present: normal appearance, PERRL, EOMI. Absent: scleral icterus, conjunctival injection, periorbital swelling ENT exam: Present: normal exam, mucous membranes moist, TM's normal bilaterally, other (Left ear diffusely admissions, deep red/purple throughout cartilage and into lobe. There is a large collection of clotted blood at top of cartilage. Contusions diffusely spread into left mastoid and inferior portion of ear.) Extremities exam: Present: normal inspection, full ROM Neurological exam: Present: alert, oriented X3, CN II-XII intact Psychiatric exam: Present: normal affect, normal mood Skin exam: Present: warm, dry, intact, normal color. Absent: rash Course Vital Signs 09/14/23 09/14/23 11:10 13:28 Temperature 98.5 F 97.9 F Pulse Rate 68 62 Respiratory 16 18 Rate Blood Pressure 155/78 154/72 O2 Sat by Pulse 95 96 Oximetry Medical Decision Making - Medical Decision Making Was pt. sent in by a medical professional or institution (, PA, COPY CAMERA OPERATOR, urgent care, hospital, or detention...) When possible be specific @ -No Did you speak to anyone other than the patient for history (EMS, parent, family, police, friend...)? What history was obtained from this source @ -No Did you review nursing and triage notes (agree or disagree)? Why? @ -I reviewed and agree with nursing and triage notes Were old charts reviewed (outside hosp., previous admission, EMS record, old EKG, old radiological studies, urgent care reports/EKG's, detention records)? Report findings @ -No old charts were reviewed Differential Diagnosis (chest pain, altered mental status, abdominal pain women, abdominal pain men, vaginal bleeding, weakness, fever, dyspnea, syncope, headache, dizziness, GI bleed, back pain, seizure, CVA, palpatations, mental health, musculoskeletal)? @ -Differential Musculoskeletal Muscular strain, contusion, ligament sprain, fracture, arthritis, septic arthritis, bursitis, cellulitis, muscle spasm, nerve compression, DVT, arterial occlusion, herpes zoster, electrolyte abnormality, tumor.... This is not meant to be in all inclusive list EKG interpreted by me (3pts min.). @ -None X-rays interpreted by me (1pt min.). @ -None done CT interpreted by me (1pt min.). @ -CT of head and neck revealed no acute intracranial process, no evidence of C- spine fracture or disease thank you, mild multilevel degenerative disc disease and endplate spondylosis. CT mastoid was normal internal auditory canal study U/S interpreted by me (1pt. min.). @ -None done What testing was considered but not performed or refused? (CT, X-rays, U/S, labs)? Why? @ -None What meds were considered but not given or refused? Why? @ -None Did you discuss the management of the patient with other professionals (professionals i.e. , PA, COPY CAMERA OPERATOR, lab, RT, psych nurse, health social work professor, vasc tech, teacher, project officer, case filler)? Give summary @ -No Was smoking cessation discussed for >3mins.? @ -No Was critical care preformed (if so, how long)? @ -No Were there social determinants of health that impacted care today? How? (Homelessness, low income, unemployed, alcoholism, drug addiction, transportation, low edu. Level, literacy, decrease access to med. care, alf, rehab)? @ -No Was there de-escalation of care discussed even if they declined (Discuss DNR or withdrawal of care, Hospice)? DNR status @ -No What co-morbidities impacted this encounter? (DM, HTN, Smoking, COPD, CAD, Cancer, CVA, ARF, Chemo, Hep., AIDS, mental health diagnosis, sleep apnea, morbid obesity)? @ -None Was patient admitted / discharged? Hospital course, mention meds given and route, prescriptions, significant lab abnormalities, going to OR and other pertinent info. @ -Patient was discharged. Patient was seen and evaluated for left ear injury 3 days ago. Patient was instructed to hold Coumadin yesterday by PCP and started on Keflex. Neurological examination is unremarkable. Physical examination reveals diffuse edema and erythema of left ear involving both cartilage and earlobe. No active bleeding due to clotting at puncture site. CT of head and neck as well as CT mastoid revealed no acute intracranial process and normal internal auditory canal study. Wound care discussed with patient. Advised to keep clotting intact to avoid further bleeding. Advised close ENT follow-up for possible drainage. Return parameters discussed and patient shows understanding and agrees with plan. Case was discussed with my ED attending Dr. Tracey. Patient discharged in stable condition. Undiagnosed new problem with uncertain prognosis? @ -No Drug Therapy requiring intensive monitoring for toxicity (Heparin, Nitro, Insulin, Cardizem)? @ -No Were any procedures done? @ -No Diagnosis/symptom? @ -Left ear hematoma Acute, or Chronic, or Acute on Chronic? @ -Acute Uncomplicated (without systemic symptoms) or Complicated (systemic symptoms)? @ -Uncomplicated Side effects of treatment? @ -No Exacerbation, Progression, or Severe Exacerbation? @ -No Poses a threat to life or bodily function? How? (Chest pain, USA, AL, pneumonia, PE, COPD, DKA, ARF, appy, cholecystitis, CVA, Diverticulitis, Homicidal, Suicidal, threat to staff... and all critical care pts) @ -Unlikely at this time Disposition Clinical Impression: Hematoma of left ear Disposition: HOME SELF-CARE Condition: Stable Additional Instructions: Please follow-up with ENT as discussed. Please return to the Emergency Department if symptoms worsen or any other concerns. Is patient prescribed a controlled substance at d/c from ED?: No Referrals: Misha Sotomayor MD [Primary Care Provider] - 1-2 days Andrew Hylton MD [STAFF PHYSICIAN] - 1-2 days Time of Disposition: 13:49
--- NOTE | 2023-09-14 12:45 | CT ---
EXAMINATION TYPE: CT brain cspine wo con CT DLP: 1314 mGycm, Automated exposure control for dose reduction was used. DATE OF EXAM: 09/14/2023 12:25 PM COMPARISON: None. CLINICAL INDICATION:Male, 88 years old with history of pain; Trauma to head/ear from board falling do wn and hitting head. Initial encounter TECHNIQUE: Brain: Multiple axial CT images of the brain were obtained without IV contrast. Cspine: Axial CT images from the skull base to the inferior aspect of T2 we obtained without intraven ous contrast. Coronal and sagittal reformatted images were also reviewed. FINDINGS: Brain: Extra-axial spaces: No abnormal extra-axial fluid collections. Ventricular system: Within normal limits Cerebral parenchyma: No acute intraparenchymal hemorrhage or mass effect. The pena-white junction is well differentiated. Cerebellum: Unremarkable. Mass effect: No evidence of midline shift. Intracranial vasculature: unremarkable Soft tissues: Normal. Calvarium/osseous structures: No depressed skull fracture. Paranasal sinuses and mastoid air cells: Clear. Visualized orbits: Orbital contents are intact. Cervical spine: Fracture: None. Osseous structures: Unremarkable Vertebral alignment: Within normal limits. Spinal canal/Neural Foramina: No evidence of significant spinal canal narrowing. No evidence for sign ificant neural foraminal stenosis. Neck soft tissues: Prevertebral soft tissues are within normal limits. Other: The airway is patent. The lung apices are clear. IMPRESSION: No acute intracranial process. No evidence of cervical spine fracture. Mild multilevel degenerative disc disease and endplate spondylosis.
--- NOTE | 2023-09-14 12:59 | CT ---
EXAMINATION TYPE: CT mastoid wo con CT DLP: 246.8 mGycm, Automated exposure control for dose reduction was used. DATE OF EXAM: 09/14/2023 12:25 PM INDICATION: Patient age:Male; 88 years old; Reason for study: left ear injury; [facility]. COMPARISON: . TECHNIQUE: Multiple thin axial images were obtained through the temporal bones and internal auditory canals. Additional coronal reformatted images were obtained. No IV contrast was utilized. STENVER a nd POSCHL views were created on a separate work station. CT Contrast: Contrast used: mL of , none. FINDINGS: Right Temporal Bone: External Ear: The external auditory canal is unremarkable, The tympanic membrane is present and unrem arkable. Middle Ear: The ossicles demonstrate a normal appearance. Prussak's space is clear and the scutum i s intact. There is no evidence of osseous erosion and the tegmen tympani is intact. Inner Ear: Cochlea, vestibule and semi circular canals are unremarkable. No evidence of carotid anahi l dehiscence. Two and a half turns of the cochlea are identified. The vestibular aqueduct is not enl arged. Mastoid Air Cells: The mastoid air cells are clear. The tegmen mastoideum is intact. The aditus ad an trum is clear. Internal Auditory Canal: The internal auditory canal is unremarkable. Left Temporal Bone: External Ear: The external auditory canal is unremarkable, The tympanic membrane is present and unrem arkable. Middle Ear: The ossicles demonstrate a normal appearance. Prussak's space is clear and the scutum i s intact. There is no evidence of osseous erosion and the tegmen tympani is intact. Inner Ear: Cochlea, vestibule and semi circular canals are unremarkable. No evidence of carotid anahi l dehiscence. Two and a half turns of the cochlea are identified. The vestibular aqueduct is not enl arged. Mastoid Air Cells: The mastoid air cells are clear. The tegmen mastoideum is intact. The aditus ad an trum is clear. Internal Auditory Canal: The internal auditory canal is unremarkable. IMPRESSION: Normal internal auditory canal study.
[2023-09-14 13:29] VITALS: BP 154/72; PULSE 62; RESP 18; TEMP 97.9
== END 2023-09-14 14:08 | disposition home or self-care (01) ==
LOC: EC 11:07
DX: S00.432A Contusion of left ear, initial encounter (principal); Z87.891 Personal history of nicotine dependence; Z88.0 Allergy status to penicillin; Z88.2 Allergy status to sulfonamides; Z88.5 Allergy status to narcotic agent; Z88.1 Allergy status to other antibiotic agents; Z90.49 Acquired absence of other specified parts of digestive tract; Z86.73 Personal history of transient ischemic attack (TIA), and cerebral infarction without residual deficits; Z95.1 Presence of aortocoronary bypass graft; Z95.5 Presence of coronary angioplasty implant and graft; W22.8XXA Striking against or struck by other objects, initial encounter
CPT/HCPCS: 70450; 70486; 72125; 99283

== ENCOUNTER 2024-04-18 12:03 | Emergency (ER) | payer MEDICARE ==
[2024-04-18 12:55] VITALS: RESP 16
--- NOTE | 2024-04-18 13:43 | ED ---
General Adult HPI - General Chief complaint: ENT Stated complaint: bloody nose Time Seen by Provider: 04/18/24 12:56 Source: patient, RN notes reviewed Mode of arrival: ambulatory Limitations: no limitations - History of Present Illness Initial comments: 88-year old male presents to the emergency department for evaluation of nosebleed. Patient states that this started last night. He has gotten this to slow down with tissues. He reports that he is coming out of his left nare. He believes that he scratched his nose after cutting his nails. He is on Coumadin. He denies any weakness, lightheadedness. - Related Data Home Medications Medication Instructions Recorded Confirmed Tamsulosin [Flomax] 0.4 mg PO DAILY 12/25/17 03/13/23 Cholecalciferol [Vitamin D3 (25 25 mcg PO DAILY 04/17/20 03/13/23 Mcg = 1000 Iu)] Metoprolol Succinate (ER) [Toprol 100 mg PO DAILY 04/17/20 03/13/23 XL] Omeprazole 20 mg PO MOWEFR 05/30/20 03/13/23 Multivit-Min/Folic/Vit K/Lycop 1 tab PO DAILY 03/27/21 03/13/23 [Men's Multivitamin Tablet] Aspirin 81 mg PO DAILY@169905/13/22 03/13/23 Atorvastatin [Lipitor] 20 mg PO DAILY@169905/13/22 03/13/23 calcitrioL 0.25 mcg PO REILLY@199905/13/22 03/13/23 Furosemide [Lasix] 40 mg PO DAILY 03/05/23 03/13/23 Warfarin [Coumadin] 2 mg PO FR@169903/05/23 03/13/23 Metoprolol Succinate (ER) [Toprol 50 mg PO HS@169903/13/23 03/13/23 XL] Warfarin [Coumadin] 3 mg PO SUMOTUWETHSA@169903/13/23 03/13/23 Previous Rx's Medication Instructions Recorded Doxycycline Hyclate 100 mg PO BID 1 Days #20 tab 03/05/23 Albuterol Inhaler [Ventolin Hfa 1 - 2 puff INHALATION RT-Q6H PRN 03/23/24 Inhaler] #1 each Azithromycin [Zithromax Z Pack] 1 tab PO DIRECTED #6 tab 03/23/24 methylPREDNISolone Dose Pack 4 mg PO DIRECTED #1 packet 03/23/24 [Medrol Dose Pack] Allergies Allergy/AdvReac Type Severity Reaction Status Date / Time morphine Allergy Unknown Verified 03/23/24 07:13 Penicillins Allergy Unknown Verified 03/23/24 07:13 Sulfa (Sulfonamide Allergy Unknown Verified 03/23/24 07:13 Antibiotics) codeine AdvReac Nausea & Verified 03/23/24 07:13 Vomiting Review of Systems ROS Statement: Those systems with pertinent positive or pertinent negative responses have been documented in the HPI. ROS Other: All systems not noted in ROS Statement are negative. Past Medical History Past Medical History: Atrial Fibrillation, Coronary Artery Disease (CAD), Cancer, Chest Pain / Angina, Heart Failure, CVA/TIA, GERD/Reflux, GI Bleed, Hearing Disorder / Deafness, Hyperlipidemia, Hypertension, Myocardial Infarction (MS), Osteoarthritis (OA), Prostate Disorder Additional Past Medical History / Comment(s): AFib, SSS, MIs x3, ischemic cardiomyopathy/vtach/AICD/pacer, CVA with R eye vision change/[place] R ear and balance issues, bladder cancer with surgery/chemo, skin cancer with removals, epistaxis, bleeding gastric ulcer, lower GI bleed, colon polyps, chronic low back pain, bilateral arm/hand tremors ., States difficulty emptying bladder-sees Dr Douglas., See Cardiology [facility]. Last Myocardial Infarction Date:: 1998 History of Any Multi-Drug Resistant Organisms: None Reported Past Surgical History: AICD, Bladder Surgery, Bowel Resection, Cholecystectomy, Coronary Bypass/CABG, Heart Catheterization, Heart Catheterization With Stent, Hernia Repair, Joint Replacement, Pacemaker, Prostate Surgery Additional Past Surgical History / Comment(s): PCI with stents, 1999 CABG 3 vessel, AICD/pacer last one placed 04/2019 with wound debridement, total L hip arthroplasty, skin cancer removal with graft, TURBT with fulguration, TURP, colectomy d/t polyps, inguinal hernia Past Anesthesia/Blood Transfusion Reactions: No Reported Reaction Date of Last Stent Placement:: 1998 Type of Cardiac Device: Permanent Pacemaker, AICD Device Placement Date:: april 2019 Past Psychological History: No Psychological Hx Reported Smoking Status: Former smoker Past Alcohol Use History: None Reported Past Drug Use History: None Reported - Past Family History Mother Family Medical History: No Reported History Additional Family Medical History / Comment(s): Tremors. Father Family Medical History: Osteoarthritis (OA) General Exam Limitations: no limitations General appearance: alert, in no apparent distress Head exam: Present: atraumatic, normocephalic, normal inspection Eye exam: Present: normal appearance, PERRL, EOMI. Absent: scleral icterus, conjunctival injection, periorbital swelling ENT exam: Present: other (Abrasion in the area of Kiesselbach's plexus) Respiratory exam: Present: normal lung sounds bilaterally. Absent: respiratory distress, wheezes, rales, rhonchi, stridor Cardiovascular Exam: Present: regular rate, normal rhythm, normal heart sounds. Absent: systolic murmur, diastolic murmur, rubs, gallop, clicks Extremities exam: Present: normal inspection, full ROM, normal capillary refill. Absent: tenderness, pedal edema, joint swelling, calf tenderness Neurological exam: Present: alert, oriented X3 Psychiatric exam: Present: normal affect, normal mood Skin exam: Present: warm, dry, intact, normal color. Absent: rash Course Vital Signs 04/18/24 04/18/24 12:53 14:43 Temperature 97.4 F L 97.6 F Pulse Rate 72 66 Respiratory 16 16 Rate Blood Pressure 114/82 120/78 O2 Sat by Pulse 98 100 Oximetry Medical Decision Making - Medical Decision Making Was pt. sent in by a medical professional or institution ([facility], [employer], urgent care, hospital, or custodial...) When possible be specific @ -[No] Did you speak to anyone other than the patient for history (EMS, parent, family, police, friend...)? What history was obtained from this source @ -[No] Did you review nursing and triage notes (agree or disagree)? Why? @ -[I reviewed and agree with nursing and triage notes] Were old charts reviewed (outside hosp., previous admission, EMS record, old EKG, old radiological studies, urgent care reports/EKG's, custodial records)? Report findings @ -[No old charts were reviewed] Differential Diagnosis (chest pain, altered mental status, abdominal pain women, abdominal pain men, vaginal bleeding, weakness, fever, dyspnea, syncope, headache, dizziness, GI bleed, back pain, seizure, CVA, palpatations, mental health, musculoskeletal)? @ -[Anterior nosebleed, posterior nosebleed, hypertension, this list is not inclusive] EKG interpreted by me (3pts min.). @ -[None] X-rays interpreted by me (1pt min.). @ -[None done] CT interpreted by me (1pt min.). @ -[None done] U/S interpreted by me (1pt. min.). @ -[None done] What testing was considered but not performed or refused? (CT, X-rays, U/S, labs)? Why? @ -[None] What meds were considered but not given or refused? Why? @ -[None] Did you discuss the management of the patient with other professionals (professionals i.e. , PA, [employer], lab, RT, psych nurse, social work program coordinator, hoop riveter, teacher, state patrol officer, spring encaser)? Give summary @ -[No] Was smoking cessation discussed for >3mins.? @ -[No] Was critical care preformed (if so, how long)? @ -[No] Were there social determinants of health that impacted care today? How? (Homelessness, low income, unemployed, alcoholism, drug addiction, transportation, low edu. Level, literacy, decrease access to med. care, intermediate, rehab)? @ -[No] Was there de-escalation of care discussed even if they declined (Discuss DNR or withdrawal of care, Hospice)? DNR status @ -[No] What co-morbidities impacted this encounter? (DM, HTN, Smoking, COPD, CAD, Cancer, CVA, ARF, Chemo, Hep., AIDS, mental health diagnosis, sleep apnea, morbid obesity)? @ -[None] Was patient admitted / discharged? Hospital course, mention meds given and route, prescriptions, significant lab abnormalities, going to OR and other pertinent info. @ -Discharge the patient presented emergency department for evaluation of nosebleed. Undiagnosed new problem with uncertain prognosis? @ -[No] Drug Therapy requiring intensive monitoring for toxicity (Heparin, Nitro, Insulin, Cardizem)? @ -[No] Were any procedures done? @ -[No] Diagnosis/symptom? @ -[Anterior nosebleed] Acute, or Chronic, or Acute on Chronic? @ -Acute Uncomplicated (without systemic symptoms) or Complicated (systemic symptoms)? @ -Uncomplicated Side effects of treatment? @ -[No] Exacerbation, Progression, or Severe Exacerbation? @ -[No] Poses a threat to life or bodily function? How? (Chest pain, USA, MS, pneumonia, PE, COPD, DKA, ARF, appy, cholecystitis, CVA, Diverticulitis, Homicidal, Suicidal, threat to staff... and all critical care pts) @ -[No] Disposition Clinical Impression: Epistaxis Disposition: HOME SELF-CARE Condition: Stable Instructions (If sedation given, give patient instructions): Nosebleed (ED) Additional Instructions: Please return to the emergency department for new or worsening symptoms. Is patient prescribed a controlled substance at d/c from ED?: No Referrals: Misha Sotomayor MD [Primary Care Provider] - 1-2 days
[2024-04-18] MEDS: OXYMETAZOLINE 0.05% NASL SPRAY 1 SPRAY BOTTLE NASAL STA (13:48)
[2024-04-18 14:45] VITALS: BP 120/78; PULSE 66; TEMP 97.6
== END 2024-04-18 14:45 | disposition home or self-care (01) ==
LOC: EC 12:03
DX: R04.0 Epistaxis (principal); Z87.891 Personal history of nicotine dependence
CPT/HCPCS: 99283

== ENCOUNTER → 2024-07-26 | Outpatient (CLI) | payer MEDICARE ==
[~2024-07-26] MED LIST changes: -CLINDAMYCIN 600 MG in SODIUM CHLORIDE 0.9% 250 ML IRRIGATION PRN; -CLINDAMYCIN 900 MG in DEXTROSE 5% IN WATER 50 ML IVPB PRN; -LIDOCAINE 1% INJ 10MG/ML (20 ML MDV) ONE; -SODIUM CHLORIDE 0.9% 1,000 ML IV SCH; +SODIUM CHLORIDE 0.9% 250 ML in EMPTY BAG 1 BAG IV PRN; +SODIUM CHLORIDE 0.9% 500 ML 500 ML in EMPTY BAG 1 BAG IV PRN
[2024-07-26] MEDS: SODIUM CHLORIDE 0.9% 1,000 ML IV NR (12:01)
[2024-07-26 12:07] VITALS: BP 154/73; PULSE 82; RESP 16; TEMP 97.5
[2024-07-26 13:58] LABS: African American GFR (CKD) 34 (>60 ml/min/1.73 sqM); Blood Urea Nitrogen 38 mg/dL (9-20); Non-African American GFR(CKD) 29 (>60 ml/min/1.73 sqM)
== END ==
LOC: PROCWHC3 11:22
PROVIDERS: ATTEND Surgery
DX: I71.43 Infrarenal abdominal aortic aneurysm, without rupture (principal)
CPT/HCPCS: 36415; 82565; 84520; 96360

== ENCOUNTER → 2024-07-26 | Outpatient (CLI) | payer MEDICARE ==
[2024-07-04 14:37] LABS: African American GFR (CKD) 27 (>60 ml/min/1.73 sqM); Blood Urea Nitrogen 51 mg/dL (9-20); Non-African American GFR(CKD) 24 (>60 ml/min/1.73 sqM)
== END | disposition home or self-care (01) ==
LOC: RADCTMAIN 07-04 14:04
PROVIDERS: ATTEND Surgery
DX: Z53.9 Procedure and treatment not carried out, unspecified reason (principal)
CPT/HCPCS: 82565; 84520